=== PATIENT | male | born 1940 | race Caucasian/White ===

== ENCOUNTER 2016-07-02 12:29 | Inpatient (IN) | payer MEDICARE ==
[2016-07-02] MEDS ORDERED: ASPIRIN 81 MG CHEW PO STA (12:49)
[2016-07-02] MEDS ORDERED: SODIUM CHLORIDE 0.9% 1,000 ML IV STA ×2 (12:49)
[2016-07-02] MEDS ORDERED: ACETAMINOPHEN TAB 500 MG TAB PO STA (12:50)
[2016-07-02] MEDS ORDERED: ADENOSINE 3 MG/ML 2 ML VIAL IVP STA (12:54)
[2016-07-02 13:09] LABS: Basophils # (A) 0.1 k/uL (0-0.2); Basophils % (A) 0 %; CH 32.5; CHCM 35.6; Eosinophils # (A) 0.1 k/uL (0-0.7); Eosinophils % (A) 1 %; HCT 42.7 % (39.0-53.0); HDW 2.94; HGB 14.7 gm/dL (13.0-17.5); Luc % (Auto) 1; Lymphocytes # (A) 2.1 k/uL (1.0-4.8); Lymphocytes % (A) 18 %; MCH 31.7 pg (25.0-35.0); MCHC 34.5 g/dL (31.0-37.0); MCV 91.8 fL (80.0-100.0); Mean Platelet Volume 7.6; Monocytes # (A) 0.5 k/uL (0-1.0); Monocytes % (A) 4 %; Neutrophils # (A) 8.8 k/uL (1.3-7.7); Neutrophils % (A) 76 %; RBC 4.66 m/uL (4.30-5.90); RDW 12.9 % (11.5-15.5); WBC 11.6 k/uL (3.8-10.6); WBC (Perox) 12.37
[2016-07-02 13:20] LABS: Partial Thromboplastin Time 24.7 sec (22.0-30.0); Prothrombin Time 10.2 sec (9.0-12.0)
--- NOTE | 2016-07-02 13:20 | XR ---
EXAMINATION TYPE: XR chest 2V DATE OF EXAM: 07/02/2016 1:11 PM COMPARISON: Prior chest x-ray September 16, 2015. HISTORY: Chest pain per order. Cough and fever with sinus drainage per patient TECHNIQUE: Frontal and lateral views of the chest are obtained. FINDINGS: There is no focal air space opacity, pleural effusion, or pneumothorax seen. The cardiac silhouette size is within normal limits with atherosclerotic and ectatic thoracic aorta redemonstrate d. Degenerative change in both shoulders at the glenohumeral and acromioclavicular joints is redemons trated. Multilevel spurring in the spine is again seen. IMPRESSION: No suspicious acute pulmonary process. No significant change from prior.
[2016-07-02 13:26] LABS: ALT 25 U/L (21-72); AST 24 U/L (17-59); Alkaline Phosphatase 63 U/L (38-126); Anion Gap 15 mmol/L; Blood Urea Nitrogen 14 mg/dL (9-20); Calcium 9.8 mg/dL (8.4-10.2); Carbon Dioxide 27 mmol/L (22-30); Chloride 97 mmol/L (98-107); Glucose 165 mg/dL (74-99); Magnesium 1.6 mg/dL (1.6-2.3); Non-African American GFR(MDRD) >60 (>60 ml/min/1.73 sqM); Sodium 139 mmol/L (137-145); Total Bilirubin 1.2 mg/dL (0.2-1.3); Total Protein 9.1 g/dL (6.3-8.2)
[2016-07-02] MEDS ORDERED: BENZOCAINE/MENTHOL LOZENG 1 EACH LOZENGE MUCOUS MEM STA (15:02)
[2016-07-02] MEDS ORDERED: MORPHINE SULFATE 4 MG/ML SYRINGE IV PRN (15:37)
[2016-07-02] MEDS ORDERED: ONDANSETRON 4 MG/2 ML VIAL IVP PRN (15:37)
[2016-07-02] MEDS ORDERED: NALOXONE 0.4 MG/ML 1 ML VIAL IV PRN (15:37)
--- NOTE | 2016-07-02 15:37 | ED ---
General Adult HPI - General Chief complaint: Recheck/Abnormal Lab/Rx Stated complaint: Abnormal EKG Time Seen by Provider: 07/02/16 12:45 Source: patient Mode of arrival: ambulatory Limitations: no limitations - History of Present Illness Initial comments: Patient complains of not feeling very well. He has had a cough, fevers and chills for 2 days. He went to an urgent care today. They found him to have a very elevated heart rate is sent him to the [facility] department. Patient denies any belly or back pain. He has no nausea or vomiting. He has no lightheadedness or dizziness. He has tightness in his chest with no specific exacerbating or relieving factors. He has no pain or swelling the legs. He has had palpitations all day today. He took no medication for any the symptoms. He has no neck pain or stiffness. - Related Data Home Medications Medication Instructions Recorded Confirmed Lisinopril-Hctz 20-12.5 mg 1 tab PO DAILY 07/02/16 07/02/16 [Zestoretic 20-12.5] Allergies Allergy/AdvReac Type Severity Reaction Status Date / Time No Known Allergies Allergy Verified 07/02/16 13:57 Review of Systems ROS Statement: Those systems with pertinent positive or pertinent negative responses have been documented in the HPI. ROS Other: All systems not noted in ROS Statement are negative. Past Medical History Past Medical History: Hypertension, Thyroid Disorder History of Any Multi-Drug Resistant Organisms: None Reported Past Surgical History: Prostate Surgery Past Psychological History: No Psychological Hx Reported Smoking Status: Never smoker Past Alcohol Use History: None Reported Past Drug Use History: None Reported General Exam Limitations: no limitations General appearance: alert, in no apparent distress Head exam: Present: atraumatic, normocephalic, normal inspection Eye exam: Present: normal appearance, PERRL, EOMI. Absent: scleral icterus, conjunctival injection, periorbital swelling ENT exam: Present: normal exam, mucous membranes moist Neck exam: Present: normal inspection. Absent: tenderness, meningismus, lymphadenopathy Respiratory exam: Present: normal lung sounds bilaterally. Absent: respiratory distress, wheezes, rales, rhonchi, stridor Cardiovascular Exam: Present: normal rhythm, tachycardia, normal heart sounds. Absent: systolic murmur, diastolic murmur, rubs, gallop, clicks GI/Abdominal exam: Present: soft, normal bowel sounds. Absent: distended, tenderness, guarding, rebound, rigid Extremities exam: Present: normal inspection, full ROM, normal capillary refill. Absent: tenderness, pedal edema, joint swelling, calf tenderness Back exam: Present: normal inspection Neurological exam: Present: alert, oriented X3, CN II-XII intact Psychiatric exam: Present: normal affect, normal mood Skin exam: Present: warm, dry, intact, normal color. Absent: rash Course Vital Signs 07/02/16 07/02/16 07/02/16 12:36 12:47 13:47 Temperature 99.0 F 101.5 F H Pulse Rate 200 H 124 H 103 H Respiratory 22 18 18 Rate Blood Pressure 148/83 158/105 133/82 O2 Sat by Pulse 98 96 94 L Oximetry 07/02/16 07/02/16 14:59 15:07 Temperature 100.3 F H Pulse Rate 105 H Respiratory 18 Rate Blood Pressure 122/62 O2 Sat by Pulse 95 Oximetry EKG Findings - EKG Comments: EKG Findings:: Initial twelve-lead EKG is obtained, interpreted by me as showing ventricular rate 195 bpm, no P waves are present, normal narrow QRS complexes, interpreted by me as supraventricular tachycardia. Postprocedural twelve-lead EKG is obtained, interpreted by me showing ventricular rate 137 bpm , normal TX interval and Michael complexes, no ST elevation or depression, interpreted by me as sinus tachycardia. Medical Decision Making - Medical Decision Making Patient presents with SVT. He is given 12 mg IV adenosine, which converted him to sinus tachycardia. He is given a gram of Tylenol and 325 mg aspirin by mouth. He is given intravenous fluids. He was febrile initially, however repeat evaluation his heart rate is normal and he is afebrile now. Chest x- rays clear. Laboratory studies are otherwise within normal limits. He will be admitted to the hospital for further evaluation. - Lab Data Result diagrams: 07/02/16 12:56 07/02/16 12:56 Lab Results 07/02/16 07/02/16 07/02/16 Range/Units 12:56 12:56 12:56 WBC 11.6 H (3.8-10.6) k/uL RBC 4.66 (4.30-5.90) m/uL Hgb 14.7 (13.0-17.5) gm/dL Hct 42.7 (39.0-53.0) % MCV 91.8 (80.0-100.0) fL MCH 31.7 (25.0-35.0) pg MCHC 34.5 (31.0-37.0) g/dL RDW 12.9 (11.5-15.5) % Plt Count 208 (150-450) k/uL Neutrophils % 76 % Lymphocytes % 18 % Monocytes % 4 % Eosinophils % 1 % Basophils % 0 % Neutrophils # 8.8 H (1.3-7.7) k/uL Lymphocytes # 2.1 (1.0-4.8) k/uL Monocytes # 0.5 (0-1.0) k/uL Eosinophils # 0.1 (0-0.7) k/uL Basophils # 0.1 (0-0.2) k/uL PT (9.0-12.0) sec INR (<1.1) APTT (22.0-30.0) sec Sodium 139 (137-145) mmol/L Potassium 4.0 (3.5-5.1) mmol/L Chloride 97 L (98-107) mmol/L Carbon Dioxide 27 (22-30) mmol/L Anion Gap 15 mmol/L BUN 14 (9-20) mg/dL Creatinine 0.96 (0.66-1.25) mg/dL Est GFR (MDRD) Af Amer >60 (>60 ml/min/1.73 sqM) Est GFR (MDRD) Non-Af >60 (>60 ml/min/1.73 sqM) Glucose 165 H (74-99) mg/dL Calcium 9.8 (8.4-10.2) mg/dL Magnesium 1.6 (1.6-2.3) mg/dL Total Bilirubin 1.2 (0.2-1.3) mg/dL AST 24 (17-59) U/L ALT 25 (21-72) U/L Alkaline Phosphatase 63 (38-126) U/L Troponin I (0.000-0.034) ng/mL NT-Pro-B Natriuret Pep 177 pg/mL Total Protein 9.1 H (6.3-8.2) g/dL Albumin 4.7 (3.5-5.0) g/dL Lipase 70 (23-300) U/L 07/02/16 07/02/16 Range/Units 12:56 12:56 WBC (3.8-10.6) k/uL RBC (4.30-5.90) m/uL Hgb (13.0-17.5) gm/dL Hct (39.0-53.0) % MCV (80.0-100.0) fL MCH (25.0-35.0) pg MCHC (31.0-37.0) g/dL RDW (11.5-15.5) % Plt Count (150-450) k/uL Neutrophils % % Lymphocytes % % Monocytes % % Eosinophils % % Basophils % % Neutrophils # (1.3-7.7) k/uL Lymphocytes # (1.0-4.8) k/uL Monocytes # (0-1.0) k/uL Eosinophils # (0-0.7) k/uL Basophils # (0-0.2) k/uL PT 10.2 (9.0-12.0) sec INR 1.0 (<1.1) APTT 24.7 (22.0-30.0) sec Sodium (137-145) mmol/L Potassium (3.5-5.1) mmol/L Chloride (98-107) mmol/L Carbon Dioxide (22-30) mmol/L Anion Gap mmol/L BUN (9-20) mg/dL Creatinine (0.66-1.25) mg/dL Est GFR (MDRD) Af Amer (>60 ml/min/1.73 sqM) Est GFR (MDRD) Non-Af (>60 ml/min/1.73 sqM) Glucose (74-99) mg/dL Calcium (8.4-10.2) mg/dL Magnesium (1.6-2.3) mg/dL Total Bilirubin (0.2-1.3) mg/dL AST (17-59) U/L ALT (21-72) U/L Alkaline Phosphatase (38-126) U/L Troponin I <0.012 (0.000-0.034) ng/mL NT-Pro-B Natriuret Pep pg/mL Total Protein (6.3-8.2) g/dL Albumin (3.5-5.0) g/dL Lipase (23-300) U/L Disposition Clinical Impression: SVT (supraventricular tachycardia) Disposition: ADMITTED IP TO THIS HOSP Condition: Fair Time of Disposition: 15:37
[2016-07-02 20:12] LABS: Appearance,Urine Clear (Clear); Bilirubin,Urine Negative (Negative); Glucose,Urine (UA) Negative (Negative); Ketones,Urine Negative (Negative); Leukocyte Esterase,Urine Negative (Negative); Nitrite,Urine Negative (Negative); PH, Urine 7.5 (5.0-8.0); Protein,Urine Negative (Negative); UA Billing (MACRO vs. MICRO) CHEM; Urobilinogen,Urine <2.0 mg/dL (<2.0)
[2016-07-02] MEDS: FAMOTIDINE 20 MG TAB PO SCH (20:25)
[2016-07-02] MEDS: BENZOCAINE/MENTHOL LOZENG 1 EACH LOZENGE MUCOUS MEM PRN (20:25)
[2016-07-03] MEDS: BENZOCAINE/MENTHOL LOZENG 1 EACH LOZENGE MUCOUS MEM PRN ×5 (02:45→18:51)
--- NOTE | 2016-07-03 10:40 | P.CRDCN ---
History of Present Illness Consult date: 07/03/16 Reason for Consult (text): SVT Chief complaint: cough, fever, chills, rapid heart beat History of present illness: This is a pleasant 76-year-old male patient with a history of hypertension and hypothyroidism. Was sent from urgent care to the emergency department after presenting with complaints of cough, fever, chills and rapid heartbeat for 2 days. Upon presentation EKG showed patient to be in SVT was given 12 mg of adenosine and converted to sinus tachycardia. Patient was febrile upon presentation, has been afebrile since admission to the floor. Chest x-ray showed no acute pulmonary process, laboratory values showed a white count 11.6, BUN 14 and creatinine 0.96. Troponins were elevated first set less than 0.012, second and third were elevated at 0.149, 0.171. Per the patient he has no cardiac history, did undergo cardiac catheterization about 30 years ago but has not followed with a dance master since. Upon examination this morning he is resting comfortably in bed, does not appear to be in any acute distress. He continues to complain of a cough. Denies further complaints of fever, chills. Denies any complaints of chest discomfort or shortness of breath, has had no dizziness or lightheadedness. He denies any complaints of syncope or near syncope and has had no edema. Past Medical History Past Medical History: Cancer, Hypertension, Osteoarthritis (OA) Additional Past Medical History / Comment(s): skin cancer,prostate cancer, cataracts History of Any Multi-Drug Resistant Organisms: None Reported Past Surgical History: Heart Catheterization, Hernia Repair, Prostate Surgery Additional Past Surgical History / Comment(s): rt wrist ganglion cysts removed Past Anesthesia/Blood Transfusion Reactions: No Reported Reaction Past Psychological History: No Psychological Hx Reported Smoking Status: Never smoker Past Alcohol Use History: Occasional Past Drug Use History: None Reported - Past Family History Father History Unknown: Yes Mother History Unknown: Yes Medications and Allergies Home Medications Medication Instructions Recorded Confirmed Type Lisinopril-Hctz 20-12.5 mg 1 tab PO DAILY 07/02/16 07/02/16 History [Zestoretic 20-12.5] Allergies Allergy/AdvReac Type Severity Reaction Status Date / Time No Known Allergies Allergy Verified 07/02/16 13:57 Physical Exam Vitals: Vital Signs Temp Pulse Pulse Resp BP BP Pulse Ox 12/30/16 08:00 97.5 F L 84 16 131/72 94 L 07/03/16 04:00 98.8 F 79 16 132/72 93 L 07/03/16 00:00 99.1 F 89 16 137/75 93 L 07/02/16 20:00 97.8 F 94 16 134/75 93 L 07/02/16 17:56 99 F 78 16 121/77 93 L 07/02/16 16:48 99.5 F 98 18 183/75 95 Intake and Output 07/02/16 07/03/16 07/03/16 22:59 06:59 14:59 Output Total 3 Balance -3 Output: Urine 3 Other: Voiding Method Toilet # Voids 0 Weight 97.5 kg PHYSICAL EXAMINATION: HEENT: Head is atraumatic, normocephalic. Pupils equal, round. Neck is supple. There is no elevated jugular venous pressure. HEART EXAMINATION: Heart sounds regular, S1 and S2 normal. No murmur or gallop heard. CHEST EXAMINATION: Lungs are clear to auscultation and precussion. No chest wall tenderness is noted on palpation or with deep breathing. ABDOMEN: Soft, nontender. Bowel sounds are heard. No organomegaly noted. EXTREMITIES: 2+ peripheral pulses with no evidence of peripheral edema and no calf tenderness noted. NEUROLOGIC patient is awake, alert and oriented x3. . Results 07/02/16 12:56 07/02/16 12:56 Cardiac Enzymes 07/02/16 07/03/16 Range/Units 18:29 01:23 Troponin I 0.149 H* 0.171 H* (0.000-0.034) ng/mL Current Medications Generic Name Dose Route Start Last Admin Trade Name Freq PRN Reason Stop Dose Admin Benzocaine/Menthol 1 each 07/02/16 19:46 07/03/16 10:16 Cepacol Lozenge MUCOUS MEM 1 each Q4HR PRN Administration Sore Throat Famotidine 20 mg 07/02/16 21:00 07/02/16 20:25 Pepcid PO 20 mg BID JIMENA Administration Lisinopril/HCTZ 1 each 07/03/16 09:00 Zestoretic 20-12.5 PO DAILY JIMENA Morphine Sulfate 4 mg 07/02/16 15:37 Morphine Sulfate (Inj) IV Q4HR PRN Severe Pain Naloxone HCl 0.2 mg 07/02/16 15:37 Narcan IV Q2M PRN Opioid Reversal Ondansetron HCl 4 mg 07/02/16 15:37 Zofran IVP Q8HR PRN Nausea And Vomiting Intake and Output 07/02/16 07/03/16 07/03/16 22:59 06:59 14:59 Output Total 3 Balance -3 Output: Urine 3 Other: Voiding Method Toilet # Voids 0 Weight 97.5 kg EKG Interpretations (text) SVT, converted to sinus rhythm Assessment and Plan Plan: Assessment and plan #1 SVT #2 fever and chills with cough #3 hypertension #4 questionable thyroid disease From cardiac standpoint, we will obtain a 2-D echo to assess for any wall motion abnormalities. We'll obtain another troponin level to assess trend. We will check the patient's TSH. Further recommendations to follow. LICENSED DISPENSING OPTICIAN note has been reviewed, I agree with a documented findings and plan of care. Patient was seen and examined.
[2016-07-03] MEDS: FAMOTIDINE 20 MG TAB PO SCH ×2 (10:45→20:32)
[2016-07-03] MEDS: LISINOPRIL-HCTZ 20-12.5 MG 1 EACH TAB PO SCH (10:45)
[2016-07-04] MEDS: BENZOCAINE/MENTHOL LOZENG 1 EACH LOZENGE MUCOUS MEM PRN ×3 (00:35→16:11)
[2016-07-04] MEDS: FAMOTIDINE 20 MG TAB PO SCH ×2 (07:54→20:24)
[2016-07-04] MEDS: LISINOPRIL-HCTZ 20-12.5 MG 1 EACH TAB PO SCH (07:54)
[2016-07-04 08:14] VITALS: RESP 18
--- NOTE | 2016-07-04 12:31 | P.PN ---
Subjective Principal diagnosis: SVT Pleasant 76-year-old male patient with a history of hypertension and hypothyroidism. Was sent from urgent care to the emergency department after presenting with complaints of cough, fever, chills and rapid heartbeat for 2 days. Upon presentation EKG showed patient to be in SVT, was given 12 mg of adenosine and converted to sinus tachycardia. Patient was febrile upon presentation, has been afebrile since admission to the floor. Patient underwent echocardiogram yesterday, results pending. Upon examination today, the patient says he's feeling quite a bit better. Denies any fever or chills. Denies any complaints of racing heartbeat, chest discomfort, dizziness, lightheadedness or syncope. He did have one episode around 6:00 last night where he went into SVT that lasted less than a minute and also had one run of nonsustained VT, run of 6. He denies signs or symptoms with arrhythmias. Objective - Vital Signs Vital signs: Vital Signs Temp 97.9 F 07/04/16 08:13 Pulse 87 07/04/16 11:08 Resp 18 07/04/16 11:08 BP 122/80 07/04/16 11:08 Pulse Ox 96 07/04/16 11:08 Intake & Output 07/03/16 07/04/16 07/04/16 18:59 06:59 18:59 Intake Total 180 Balance 180 Intake: Oral 180 Other: # Voids 0 # Bowel Movements 0 - Exam PHYSICAL EXAMINATION: HEENT: Head is atraumatic, normocephalic. Pupils equal, round. Neck is supple. There is no elevated jugular venous pressure. HEART EXAMINATION: Heart sounds regular, S1 and S2 normal. No murmur or gallop heard. CHEST EXAMINATION: Lungs are clear to auscultation and precussion. No chest wall tenderness is noted on palpation or with deep breathing. ABDOMEN: Soft, nontender. Bowel sounds are heard. No organomegaly noted. EXTREMITIES: 2+ peripheral pulses with no evidence of peripheral edema and no calf tenderness noted. NEUROLOGIC patient is awake, alert and oriented x3. . - Labs CBC & Chem 7: 07/02/16 12:56 07/02/16 12:56 Assessment and Plan Plan: Assessment and plan #1 SVT #2 fever and chills with cough #3 hypertension #4 questionable thyroid disease From cardiac standpoint, 2-D echo with Doppler has been done to assess for any wall motion abnormalities. We'll start the patient on a beta chanda. Patient will increase activity. We will monitor the patient for another 24 hours and likely discharge home tomorrow. STRATEGIES ANALYST note has been reviewed, I agree with a documented findings and plan of care. Patient was seen and examined.
--- NOTE | 2016-07-04 12:35 | HP ---
DATE OF ADMISSION: 07/03/2016 CHIEF COMPLAINT: Not feeling well. HISTORY OF PRESENT ILLNESS: This 76-year-old gentleman with a past history of multiple medical problems, including history of hypertension, history of degenerative joint disease, history of cardiac catheterization, not being followed by any primary care physician in the outpatient setting was not feeling well over the past several days. The patient presented to [facility]. The patient also complains of occasional cough also. The patient found to have SVT with heart rate in the 180s. The patient was given and then was converted to sinus tachycardia. The patient admitted to the hospital for further evaluation and treatment. Cardiology evaluation 2-D echo was noted. There is no history of headache, loss of consciousness or seizures. PAST MEDICAL HISTORY: History of hypertension. History of degenerative joint disease. History of prostate cancer. History of cataracts. Cardiac catheterization. Medications prior to admission include home medications are: Zestoretic 20/12.5 mg p.o. daily. ALLERGIES: None. FAMILY HISTORY: No history of heart disease or strokes in the family. SOCIAL HISTORY: Occasional alcohol intake. No history of smoking. REVIEW OF SYSTEMS: ENT: No diminished hearing or vision. CARDIOVASCULAR: As mentioned earlier. RESPIRATORY: As mentioned earlier. GI: Nausea or vomiting. GENITOURINARY: No dysuria. CENTRAL NERVOUS SYSTEM: No numbness, weakness. Allergy/immunology: No asthma. No hayfever. MUSCULOSKELETAL: As mentioned earlier. HEMATOLOGY/ONCOLOGY: No history of anemia. ENDOCRINE: No history of diabetes, hypothyroidism. CONSTITUTIONAL: As mentioned earlier. DERMATOLOGY: Negative. RHEUMATOLOGY: Negative. PSYCHIATRY: As mentioned earlier. PHYSICAL EXAMINATION: Patient is alert and oriented times three. Pulse is 96, blood pressure 154/91. Respiration 16, temperature 98 degrees, pulse ox 94% on room air. HEENT: Conjunctivae normal. NECK: No jugular venous distention. CARDIOVASCULAR: S1, S2 muffled. RESPIRATORY: Breath sounds diminished in the bases. A few scattered rhonchi, no crackles. ABDOMEN: Soft, nontender. LEGS: No edema. No swelling. CENTRAL NERVOUS SYSTEM: Higher functions as mentioned earlier. Moves all four limbs.. No focal deficits. LYMPHATICS: No lymph nodes palpable in the neck, axillae or groin. SKIN: No ulcer, rash or bleeding. LABS: Troponin was 0.171, WBC 11.6. ASSESSMENT: 1. Supraventricular tachycardia for evaluation. 2. Troponin 0.149, rule out acute non-ST segment elevation myocardial infarction. 3. Increased random blood sugar. 4. Increased WBC. 5. Hypertension. 6. History degenerative joint disease. 7. History of skin cancer. 8. History of prostate cancer. 9. History of cataracts. 10. History of hernia repair. 11. History of cardiac catheterization. RECOMMENDATIONS AND DISCUSSION: In this 76-year-old gentleman presented with multiple complex medical issues, we will monitor the patient closely, continue current medications. Continue symptomatic treatment. Otherwise, closely follow with cardiology. Guarded prognosis. Otherwise, will check thyroid function as well. 2-D echo has been ordered. Prognosis guarded. Further recommendations to follow. Also recommend the patient up closely with the primary physician in the outpatient setting. LESLIE
[2016-07-04] MEDS: METOPROLOL TARTRATE 25 MG TAB PO SCH ×2 (12:46→20:24)
[2016-07-04] MEDS: diphenhydrAMINE 25 MG CAP PO PRN ×2 (14:29→22:39)
--- NOTE | 2016-07-04 22:42 | PN ---
DATE OF SERVICE: 07/04/2016 This 76-year-old gentleman who was admitted with supraventricular tachycardia possibly also had upper respiratory infection also. The patient had elevated troponin of indeterminate range. Cardiology is following the patient closely. No chest pain. No palpitation. Beta blockers are recommended by cardiology today. No chest pain. No palpitations. No fever. On exam, alert and oriented times three. Pulse 84 and regular. Blood pressure 190/73, respiratory rate 18, temperature 97.90, pulse ox 92% on room air. HEENT: Conjunctivae normal. NECK: No jugular venous distention. RESPIRATORY: Breath sounds diminished at the base. A few scattered rhonchi, no crackles. ABDOMEN: Soft, nontender. Legs: No edema. No focal deficits. LABS: At this time shows the troponin was 0.171, 0.079. WBC 11.6. Other labs are noted. ASSESSMENT: 1. Supraventricular tachycardia, present on admission. 2. Upper respiratory infection, possibly viral in nature. 3. Troponin 0.149, indeterminate, rule out acute non-ST myocardial infarction. 4. Increased random blood sugar. 5. Increased WBC. 6. Hypertension. 7. History of degenerative joint disease. 8. History of skin cancer. 9. History of prostate cancer. 10. History of cataracts. 11. History of hernia repair. 12. History of cardiac catheterization. 13. FULL CODE. Recommendations and discussion: As recommended continued to continue medications, continue with the beta blockers. Closely follow with cardiology. Symptomatic treatment. Guarded prognosis. Further recommendations to follow.
[2016-07-05] MEDS: LISINOPRIL-HCTZ 20-12.5 MG 1 EACH TAB PO SCH (07:44)
[2016-07-05] MEDS: METOPROLOL TARTRATE 25 MG TAB PO SCH (07:44)
[2016-07-05] MEDS: FAMOTIDINE 20 MG TAB PO SCH (07:44)
[2016-07-05] MEDS: diphenhydrAMINE 25 MG CAP PO PRN (07:45)
[2016-07-05 08:23] LABS: Basophils # (A) 0.1 k/uL (0-0.2); Basophils % (A) 1 %; CH 32.8; CHCM 34.3; Eosinophils # (A) 0.2 k/uL (0-0.7); Eosinophils % (A) 3 %; HCT 42.9 % (39.0-53.0); HDW 2.88; Luc # (Auto) 0.16; Luc % (Auto) 2; Lymphocytes # (A) 2.7 k/uL (1.0-4.8); Lymphocytes % (A) 32 %; MCH 31.4 pg (25.0-35.0); MCHC 32.6 g/dL (31.0-37.0); MCV 96.4 fL (80.0-100.0); Mean Platelet Volume 7.7; Monocytes # (A) 0.4 k/uL (0-1.0); Monocytes % (A) 5 %; Neutrophils # (A) 4.9 k/uL (1.3-7.7); Neutrophils % (A) 58 %; RBC 4.45 m/uL (4.30-5.90); RDW 13.1 % (11.5-15.5); WBC 8.4 k/uL (3.8-10.6); WBC (Perox) 7.85
[2016-07-05 08:44] LABS: Anion Gap 16 mmol/L; Blood Urea Nitrogen 17 mg/dL (9-20); Calcium 9.4 mg/dL (8.4-10.2); Carbon Dioxide 25 mmol/L (22-30); Chloride 100 mmol/L (98-107); Glucose 228 mg/dL (74-99); Non-African American GFR(MDRD) >60 (>60 ml/min/1.73 sqM); Potassium 3.9 mmol/L (3.5-5.1); Sodium 141 mmol/L (137-145)
[2016-07-05 12:02] VITALS: BP 141/72; PULSE 80; TEMP 97.3
[2016-07-05] MEDS: BENZOCAINE/MENTHOL LOZENG 1 EACH LOZENGE MUCOUS MEM PRN (13:16)
[2016-07-05] MEDS ORDERED: METOPROLOL TARTRATE 25 MG TAB PO SCH (16:00)
--- NOTE | 2016-07-05 16:16 | PN ---
Mr. Rick is a 76-year-old male who presented with symptoms of fever, cough and episode of supraventricular tachycardia. He is in sinus mechanism with short burst of SVT. Otherwise, he is doing well. He is denying any chest pain. His breathing has been stable. He denies any dizziness or palpitation. He is ambulating and is quite anxious to go home. He continues to be at this time on metoprolol tartrate 25 mg twice a day in addition to lisinopril HCT 20/12.5 mg daily. PHYSICAL EXAMINATION: Blood pressure 130/70 with a heart rate in the 60s, afebrile. LUNGS: Clear. HEART: Rhythm. S1, S2, no S3, no rub. ABDOMEN: Soft, nontender. EXTREMITIES: No edema. Lab data revealed a BUN and creatinine 17 and 1.06. Glucose 228. Potassium 3.9. Hemoglobin of 14. IMPRESSION: 1. Episode of paroxysmal supraventricular tachycardia, stable. 2. Episode of fever, improving. 3. Hypertension. RECOMMENDATION: I will increase the dose of his beta chanda. His activity level can be increased. He should be able to be discharged home today and follow as an outpatient with Dr. Rodriguez.
--- NOTE | 2016-07-07 16:20 | ECHOF ---
Referral Reason:SVT, elevated troponins MEASUREMENTS -------- HEIGHT: 180.3 cm WEIGHT: 97.1 kg BP: 131/72 RVIDd: 3.4 cm (< 3.3) IVSd: 1.4 cm (0.6 - 1.1) LVIDd: 3.9 cm (3.9 - 5.3) LVPWd: 1.3 cm (0.6 - 1.1) IVSs: 1.5 cm LVIDs: 2.8 cm LVPWs: 1.4 cm LA Diam: 2.9 cm (2.7 - 3.8) LAESV Index (A-L): 33.71 ml/m Ao Diam: 4.0 cm (2.0 - 3.7) AV Cusp: 2.1 cm (1.5 - 2.6) MV EXCURSION: 13.883 mm (> 18.000) MV EF SLOPE: 71 mm/s (70 - 150) EPSS: 1.0 cm MV E Smith: 0.68 m/s MV DecT: 273 ms MV A Smith: 1.00 m/s MV E/A Ratio: 0.68 FINDINGS -------- Sinus rhythm. This was a technically adequate study. The left ventricular size is normal. There is moderate concentric left ventricular hypertrophy. Overall left ventricular systolic function is normal with, an EF between 60 - 65 %. The right ventricle is mildly enlarged. LA is midly dilated 29-33ml/m2. The right atrium is normal in size. Aortic valve is trileaflet and is mildly thickened. The mitral valve leaflets are mildly thickened. Mild mitral annular calcification present. The tricuspid valve appears structurally normal. No regurgitation noted Trace/mild (physiologic) pulmonic regurgitation. The aortic root is dilated measuring 4.0cm. There is no pericardial effusion. CONCLUSIONS -------- 1. Sinus rhythm. 2. The mitral valve leaflets are mildly thickened. 3. Mild mitral annular calcification present. 4. Trace/mild (physiologic) pulmonic regurgitation. 5. The aortic root is dilated measuring 4.0cm. 6. There is no pericardial effusion. 7. This was a technically adequate study. 8. The left ventricular size is normal. 9. There is moderate concentric left ventricular hypertrophy. 10. Overall left ventricular systolic function is normal with, an EF between 60 - 65 %. 11. The right ventricle is mildly enlarged. 12. LA is midly dilated 29-33ml/m2. 13. The right atrium is normal in size. 14. Aortic valve is trileaflet and is mildly thickened. CHEESE COOKER: Gail Bhatt RDCS
--- NOTE | 2016-07-08 16:42 | DS ---
DATE OF ADMISSION: 07/04/2016 DATE OF DISCHARGE: 07/05/2016 FINAL DIAGNOSES: 1. Supraventricular tachycardia present on admission, improved. 2. Upper respiratory infection possibly viral in nature. 3. Troponin 0.149, indeterminate per Cardiology. 4. Increased random blood sugar. 5. Increased WBC. 6. Hypertension. 7. History of degenerative joint disease. 8. History of skin cancer. 9. History of prostate cancer. 10. History of cataracts. 11. History of hernia repair. 12. History of cardiac catheterization. 13. FULL CODE. DISCHARGE DISPOSITION: The patient will be discharged in stable condition with guarded prognosis. Cardiology cleared the patient for discharge. Stable but overall prognosis is guarded. HISTORY OF PRESENT ILLNESS: This 76-year-old gentleman with a past medical history of multiple medical problems was admitted with supraventricular and as well as upper respiratory infection. Troponin was indeterminate. Cardiology saw the patient, treated symptomatically and improved. Beta blockers used. On exam, vitals are stable. CARDIOVASCULAR SYSTEM: S1, S2 muffled. ABDOMEN: Soft. NERVOUS SYSTEM: No focal deficits. The patient will be discharged in stable condition with guarded prognosis. DISCHARGE ADVICE: 1. Diet is cardiac. 2. Activity limited until follow-up. 3. Follow up with Dr. Vicente in 2 to 3 days. 4. Follow with Cardiology in one week. MEDICATIONS: 1. Lisinopril hydrochlorothiazide 20/12.5 mg p.o. daily. 2. Lopressor 25 mg p.o. t.i.d. Follow-up labs with the primary. Once again the patient will be discharged in stable condition with guarded prognosis.
== END 2016-07-05 14:17 | disposition home or self-care (01) | DRG 310 ==
LOC: EC 12:29 → 6SEL 15:37 → OBSVTOIN 07-04 08:40
PROVIDERS: ADMIT Internal Medicine; ATTEND Internal Medicine
DX: I47.1 Supraventricular tachycardia (principal); I47.2 Ventricular tachycardia; I10 Essential (primary) hypertension; E03.9 Hypothyroidism, unspecified; J06.9 Acute upper respiratory infection, unspecified; M19.90 Unspecified osteoarthritis, unspecified site; H26.9 Unspecified cataract; R74.8 Abnormal levels of other serum enzymes; R73.9 Hyperglycemia, unspecified; D72.829 Elevated white blood cell count, unspecified; Z85.46 Personal history of malignant neoplasm of prostate; Z85.828 Personal history of other malignant neoplasm of skin; Z79.899 Other long term (current) drug therapy
CPT/HCPCS: 36415; 71020; 80048; 80053; 81003; 83690; 83735; 83880; 84443; 84484; 85025; 85379; 85610; 85730; 87502; 93005; 93306; 96361; 96374; 99285

== ENCOUNTER 2016-12-21 14:37 | Inpatient (IN) | payer OTHER, MEDICARE ==
[2016-12-21] MEDS ORDERED: SODIUM CHLORIDE 0.9% 1,000 ML IV STA ×2 (15:04)
[2016-12-21] MEDS ORDERED: DILTIAZEM 5 MG/ML 5 ML VIAL IVP STA (15:04)
--- NOTE | 2016-12-21 15:05 | ED ---
General Adult HPI - General Chief complaint: Recheck/Abnormal Lab/Rx Stated complaint: Dr Sent/Abd Lab/Heart Time Seen by Provider: 12/21/16 15:04 Source: patient, RN notes reviewed, old records reviewed Mode of arrival: ambulatory Limitations: no limitations - History of Present Illness Initial comments: This is a 76-year-old male the ER for evaluation. Patient has a for evaluation of arrhythmia. Patient found to be severely tachycardic. Has history of high blood pressure, history of thyroid disorder. Patient has no fever, no chest pain no cough or congestion. No change in medications denies drugs or alcohol. No prior history of A. fib. No recent hospital admissions no travel history no sick contacts. No recent episodes of nausea vomiting or diarrhea - Related Data Home Medications Medication Instructions Recorded Confirmed Lisinopril-Hctz 20-12.5 mg 1 tab PO DAILY 07/02/16 12/21/16 [Zestoretic 20-12.5] Aspirin EC [Ecotrin Low Dose] 81 mg PO DAILY 12/21/16 12/21/16 Levothyroxine Sodium [Synthroid] 125 mcg PO DAILY 12/21/16 12/21/16 Allergies Allergy/AdvReac Type Severity Reaction Status Date / Time No Known Allergies Allergy Verified 12/21/16 15:37 Review of Systems ROS Statement: Those systems with pertinent positive or pertinent negative responses have been documented in the HPI. ROS Other: All systems not noted in ROS Statement are negative. Past Medical History Past Medical History: Cancer, Hypertension, Osteoarthritis (OA) Additional Past Medical History / Comment(s): skin cancer,prostate cancer, cataracts History of Any Multi-Drug Resistant Organisms: None Reported Past Surgical History: Heart Catheterization, Hernia Repair, Prostate Surgery Additional Past Surgical History / Comment(s): rt wrist ganglion cysts removed Past Anesthesia/Blood Transfusion Reactions: No Reported Reaction Past Psychological History: No Psychological Hx Reported Smoking Status: Never smoker Past Alcohol Use History: Occasional Past Drug Use History: None Reported - Past Family History Father History Unknown: Yes Mother History Unknown: Yes General Exam Limitations: no limitations General appearance: alert, in no apparent distress, anxious Head exam: Present: atraumatic, normocephalic, normal inspection Eye exam: Present: normal appearance, PERRL, EOMI. Absent: scleral icterus, conjunctival injection, periorbital swelling ENT exam: Present: normal exam, mucous membranes moist Neck exam: Present: normal inspection. Absent: tenderness, meningismus, lymphadenopathy Respiratory exam: Present: normal lung sounds bilaterally. Absent: respiratory distress, wheezes, rales, rhonchi, stridor Cardiovascular Exam: Present: tachycardia, irregular rhythm, normal heart sounds. Absent: systolic murmur, diastolic murmur, rubs, gallop, clicks GI/Abdominal exam: Present: soft, normal bowel sounds. Absent: distended, tenderness, guarding, rebound, rigid Extremities exam: Present: normal inspection, full ROM, normal capillary refill. Absent: tenderness, pedal edema, joint swelling, calf tenderness Back exam: Present: normal inspection Neurological exam: Present: alert, oriented X3, CN II-XII intact Psychiatric exam: Present: normal affect, normal mood Skin exam: Present: warm, dry, intact, normal color. 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 fib with RVR to A. fib, blood pressure stable, and Cardizem Reevaluation #2: 12/21/16 16:24 On recheck patient has no chest pain, no shortness of breath. Patient states was relatively symptomatically exam and was found to be an abnormal rhythm per physician at [place] EKG Findings - EKG Comments: EKG Findings:: EKG shows SVT rate of 137, QRS 160, QTC 446,. repeat. EKG shows A. fib rate of 92, QRS 124, QTC 470 Medical Decision Making - Medical Decision Making [facility] for evaluation regarding weakness, elevated heart rate. Severely elevated heart rate sent from [place] for evaluation. Patient found him to be a new onset A. fib with RVR. Patient does have history of high blood pressure, will be started on anticoagulation admitted for cardiac observation. We'll check serial troponins. Again at this time patient is without chest pain , without source of breath. Patient's heart is uncontrollable still in A. fib on Cardizem drip - Lab Data Result diagrams: 12/21/16 15:15 12/21/16 15:15 Lab Results 12/21/16 12/21/16 12/21/16 Range/Units 15:15 15:15 15:15 WBC 9.7 (3.8-10.6) k/uL RBC 4.39 (4.30-5.90) m/uL Hgb 13.7 (13.0-17.5) gm/dL Hct 41.4 (39.0-53.0) % MCV 94.3 (80.0-100.0) fL MCH 31.2 (25.0-35.0) pg MCHC 33.1 (31.0-37.0) g/dL RDW 13.9 (11.5-15.5) % Plt Count 279 (150-450) k/uL Neutrophils % 51 % Lymphocytes % 42 % Monocytes % 3 % Eosinophils % 1 % Basophils % 1 % Neutrophils # 4.9 (1.3-7.7) k/uL Lymphocytes # 4.1 (1.0-4.8) k/uL Monocytes # 0.3 (0-1.0) k/uL Eosinophils # 0.1 (0-0.7) k/uL Basophils # 0.0 (0-0.2) k/uL PT (9.0-12.0) sec INR (<1.1) APTT (22.0-30.0) sec Sodium 139 (137-145) mmol/L Potassium 4.2 (3.5-5.1) mmol/L Chloride 104 (98-107) mmol/L Carbon Dioxide 21 L (22-30) mmol/L Anion Gap 14 mmol/L BUN 13 (9-20) mg/dL Creatinine 0.88 (0.66-1.25) mg/dL Est GFR (MDRD) Af Amer >60 (>60 ml/min/1.73 sqM) Est GFR (MDRD) Non-Af >60 (>60 ml/min/1.73 sqM) Glucose 171 H (74-99) mg/dL Calcium 9.6 (8.4-10.2) mg/dL Magnesium 1.7 (1.6-2.3) mg/dL Total Bilirubin 0.9 (0.2-1.3) mg/dL AST 25 (17-59) U/L ALT 22 (21-72) U/L Alkaline Phosphatase 69 (38-126) U/L Total Creatine Kinase 128 (55-170) U/L CK-MB (CK-2) 1.3 (0.0-2.4) ng/mL CK-MB (CK-2) Rel Index 1.0 Troponin I 0.033 (0.000-0.034) ng/mL Total Protein 9.9 H (6.3-8.2) g/dL Albumin 4.3 (3.5-5.0) g/dL 12/21/16 Range/Units 15:15 WBC (3.8-10.6) k/uL RBC (4.30-5.90) m/uL Hgb (13.0-17.5) gm/dL Hct (39.0-53.0) % MCV (80.0-100.0) fL MCH (25.0-35.0) pg MCHC (31.0-37.0) g/dL RDW (11.5-15.5) % Plt Count (150-450) k/uL Neutrophils % % Lymphocytes % % Monocytes % % Eosinophils % % Basophils % % Neutrophils # (1.3-7.7) k/uL Lymphocytes # (1.0-4.8) k/uL Monocytes # (0-1.0) k/uL Eosinophils # (0-0.7) k/uL Basophils # (0-0.2) k/uL PT 10.3 (9.0-12.0) sec INR 1.0 (<1.1) APTT 22.3 (22.0-30.0) sec Sodium (137-145) mmol/L Potassium (3.5-5.1) mmol/L Chloride (98-107) mmol/L Carbon Dioxide (22-30) mmol/L Anion Gap mmol/L BUN (9-20) mg/dL Creatinine (0.66-1.25) mg/dL Est GFR (MDRD) Af Amer (>60 ml/min/1.73 sqM) Est GFR (MDRD) Non-Af (>60 ml/min/1.73 sqM) Glucose (74-99) mg/dL Calcium (8.4-10.2) mg/dL Magnesium (1.6-2.3) mg/dL Total Bilirubin (0.2-1.3) mg/dL AST (17-59) U/L ALT (21-72) U/L Alkaline Phosphatase (38-126) U/L Total Creatine Kinase (55-170) U/L CK-MB (CK-2) (0.0-2.4) ng/mL CK-MB (CK-2) Rel Index Troponin I (0.000-0.034) ng/mL Total Protein (6.3-8.2) g/dL Albumin (3.5-5.0) g/dL - Radiology Data Radiology results: report reviewed (Chest x-ray is negative for acute disease), image reviewed Critical Care Time Critical Care Time: Yes Total Critical Care Time: 31 Disposition Clinical Impression: SVT (supraventricular tachycardia), Atrial fibrillation, Atrial fibrillation with RVR Disposition: ADMITTED IP TO THIS HOSP Condition: Good Referrals: Homar Nolasco DO [Primary Care Provider] - 1-2 days
[2016-12-21] MEDS ORDERED: DILTIAZEM 125 MG in SODIUM CHLORIDE 0.9% 100 ML IV SCH (15:15)
[2016-12-21 15:33] LABS: Basophils % (A) 1 %; CH 31.7; CHCM 33.9; Eosinophils # (A) 0.1 k/uL (0-0.7); Eosinophils % (A) 1 %; HCT 41.4 % (39.0-53.0); HGB 13.7 gm/dL (13.0-17.5); Luc # (Auto) 0.17; Luc % (Auto) 2; Lymphocytes # (A) 4.1 k/uL (1.0-4.8); Lymphocytes % (A) 42 %; MCH 31.2 pg (25.0-35.0); MCHC 33.1 g/dL (31.0-37.0); MCV 94.3 fL (80.0-100.0); Mean Platelet Volume 6.9; Monocytes # (A) 0.3 k/uL (0-1.0); Monocytes % (A) 3 %; Neutrophils # (A) 4.9 k/uL (1.3-7.7); Neutrophils % (A) 51 %; RBC 4.39 m/uL (4.30-5.90); RDW 13.9 % (11.5-15.5); WBC 9.7 k/uL (3.8-10.6); WBC (Perox) 9.28
[2016-12-21 15:43] LABS: Partial Thromboplastin Time 22.3 sec (22.0-30.0); Prothrombin Time 10.3 sec (9.0-12.0)
[2016-12-21 15:44] LABS: ALT 22 U/L (21-72); AST 25 U/L (17-59); Alkaline Phosphatase 69 U/L (38-126); Anion Gap 14 mmol/L; Blood Urea Nitrogen 13 mg/dL (9-20); Calcium 9.6 mg/dL (8.4-10.2); Carbon Dioxide 21 mmol/L (22-30); Chloride 104 mmol/L (98-107); Glucose 171 mg/dL (74-99); Magnesium 1.7 mg/dL (1.6-2.3); Non-African American GFR(MDRD) >60 (>60 ml/min/1.73 sqM); Potassium 4.2 mmol/L (3.5-5.1); Sodium 139 mmol/L (137-145); Total Bilirubin 0.9 mg/dL (0.2-1.3); Total Protein 9.9 g/dL (6.3-8.2)
[2016-12-21 16:01] LABS: Creatine Kinase MB 1.3 ng/mL (0.0-2.4); Troponin I 0.033 ng/mL (0.000-0.034)
[2016-12-21] MEDS ORDERED: HEPARIN SODIUM,PORCINE 5,000 UNIT/ML 1 ML VIAL IV ONE (16:20)
[2016-12-21] MEDS ORDERED: HEPARIN SODIUM,PORCINE 5,000 UNIT/ML 1 ML VIAL IV PRN (16:20)
[2016-12-21] MEDS ORDERED: ASPIRIN 81 MG CHEW PO STA (16:20)
[2016-12-21] MEDS ORDERED: NITROGLYCERIN SL TABS 0.4 MG TAB SUBLINGUAL PRN (16:20)
[2016-12-21] MEDS ORDERED: HEPARIN SODIUM,PORCINE/D5W PMX 25,000 UNIT in DEXTROSE/WATER 1 500ML.BAG IV SCH (16:30)
[2016-12-21] MEDS: LISINOPRIL-HCTZ 10-12.5 MG 1 EACH TAB PO SCH (20:34)
[2016-12-21 22:12] LABS: Creatine Kinase MB 1.2 ng/mL (0.0-2.4)
[2016-12-21 22:15] LABS: Troponin I 0.04 ng/mL (0.000-0.034)
[2016-12-22 04:27] LABS: Creatine Kinase MB 1.3 ng/mL (0.0-2.4)
[2016-12-22 04:31] LABS: Troponin I 0.042 ng/mL (0.000-0.034)
[2016-12-22] MEDS ORDERED: LEVOTHYROXINE 125 MCG TAB PO SCH (06:30)
[2016-12-22 06:42] LABS: Cholesterol 196 mg/dL (<200); HDL Cholesterol 22 mg/dL (40-60); Triglycerides 173 mg/dL (<150)
[2016-12-22] MEDS: ATORVASTATIN 80 MG TAB PO SCH (07:51)
[2016-12-22] MEDS: LISINOPRIL-HCTZ 10-12.5 MG 1 EACH TAB PO SCH (07:51)
[2016-12-22] MEDS ORDERED: ASPIRIN 325 MG TAB PO SCH (09:00)
--- NOTE | 2016-12-22 12:31 | P.PN ---
Subjective Principal diagnosis: SVT This is a pleasant 76-year-old gentleman with history of hypothyroidism, hypertension, prior episode of SVT, who states that he had ran out of his medications. He went to see his physician at the [place] to get his prescriptions refilled, while he was there was noted that his heart rate was very fast and for this reason he was advised to come to the emergency room here for admission. On admission here patient was found to be in SVT, he was given adenosine, converted to a sinus tachycardia. Patient states that he did not feel his heart racing fast, he had denied any dizziness or lightheadedness. Patient was seen by Dr. Rodriguez in the hospital in June 2016 at which time he also had an episode of supraventricular tachycardia. 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 Blood pressure on arrival here 182/116, heart rate 180, 97% on room air. Temperature was 99. Let pressure this morning 120/70, heart rate in the 70s, temperature 97.0. CBC normal. Potassium 4.2, BUN 13, creatinine 0.8. Troponin 0.03, 0.04, 0.04. Cholesterol 196, triglycerides 173, LDL 139, HDL 22. At the time my examination this morning, patient is currently in a normal sinus rhythm. Objective - Vital Signs Vital signs: Vital Signs Temp 97.0 F L 12/22/16 11:37 Pulse 74 12/22/16 11:37 Resp 18 12/22/16 11:37 BP 121/71 12/22/16 11:37 Pulse Ox 98 12/22/16 11:37 Intake & Output 12/21/16 12/22/16 12/22/16 18:59 06:59 18:59 Intake Total 180 380.333 582.393 Output Total 350 Balance 180 380.333 232.393 Weight 113.398 kg 98.6 kg Intake: IV 205 300 .9 @20 240 Diltiazem 125 mg In 45 60 Sodium Chloride 0.9% 100 ml @ 5 MG/HR 5 mls/hr IV .Q24H [facility] Rx#:[id number] Heparin Sodium,Porcine/ 160 D5w Pmx 25,000 unit In Dextrose/Water 1 500ml. bag @ 8.82 UNITS/KG/HR 20 mls/hr IV .Q24H [facility] Rx#: [id number] Intake, IV Titration 175.333 282.393 Amount Heparin Sodium,Porcine/ 175.333 282.393 D5w Pmx 25,000 unit In Dextrose/Water 1 500ml. bag @ 8.82 UNITS/KG/HR 20 mls/hr IV .Q24H [facility] Rx#: [id number] Oral 180 0 Output: Urine 350 Other: Voiding Method Toilet Toilet Toilet # Voids 1 1 - Labs CBC & Chem 7: 12/22/16 05:52 12/21/16 15:15 Labs: Abnormal Lab Results - Last 24 Hours (Table) 12/21/16 12/21/16 12/22/16 Range/Units 15:15 20:56 03:05 APTT (22.0-30.0) sec Carbon Dioxide 21 L (22-30) mmol/L Glucose 171 H (74-99) mg/dL Troponin I 0.040 H* 0.042 H* (0.000-0.034) ng/mL Total Protein 9.9 H (6.3-8.2) g/dL Triglycerides (<150) mg/dL LDL Cholesterol, Calc (0-99) mg/dL HDL Cholesterol (40-60) mg/dL 12/22/16 12/22/16 Range/Units 05:52 10:53 APTT 33.6 H (22.0-30.0) sec Carbon Dioxide (22-30) mmol/L Glucose (74-99) mg/dL Troponin I (0.000-0.034) ng/mL Total Protein (6.3-8.2) g/dL Triglycerides 173 H (<150) mg/dL LDL Cholesterol, Calc 139 H (0-99) mg/dL HDL Cholesterol 22 L (40-60) mg/dL
--- NOTE | 2016-12-22 12:46 | P.CRDCN ---
History of Present Illness Consult date: 12/22/16 Requesting physician: Jose M Urena Reason for Consult (text): SVT Chief complaint: SVT History of present illness: SVT This is a pleasant 76-year-old gentleman with history of hypothyroidism, hypertension, prior episode of SVT, who states that he had ran out of his medications. He went to see his physician at the [place] to get his prescriptions refilled, while he was there was noted that his heart rate was very fast and for this reason he was advised to come to the emergency room here for admission. On admission here patient was found to be in SVT, he was given adenosine, converted to a sinus tachycardia. Patient states that he did not feel his heart racing fast, he had denied any dizziness or lightheadedness. Patient was seen by Dr. Rodriguez in the hospital in June 2016 at which time he also had an episode of supraventricular tachycardia. 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 Blood pressure on arrival here 182/116, heart rate 180, 97% on room air. Temperature was 99. Let pressure this morning 120/70, heart rate in the 70s, temperature 97.0. CBC normal. Potassium 4.2, BUN 13, creatinine 0.8. Troponin 0.03, 0.04, 0.04. Cholesterol 196, triglycerides 173, LDL 139, HDL 22. At the time my examination this morning, patient is currently in a normal sinus rhythm. Past Medical History Past Medical History: Cancer, Hypertension, Osteoarthritis (OA) Additional Past Medical History / Comment(s): skin cancer,prostate cancer, cataracts History of Any Multi-Drug Resistant Organisms: None Reported Past Surgical History: Heart Catheterization, Hernia Repair, Prostate Surgery Additional Past Surgical History / Comment(s): rt wrist ganglion cysts removed Past Anesthesia/Blood Transfusion Reactions: No Reported Reaction Past Psychological History: No Psychological Hx Reported Smoking Status: Never smoker Past Alcohol Use History: Occasional Past Drug Use History: None Reported - Past Family History Father History Unknown: Yes Mother History Unknown: Yes Medications and Allergies Home Medications Medication Instructions Recorded Confirmed Type Lisinopril-Hctz 20-12.5 mg 1 tab PO DAILY 07/02/16 12/21/16 History [Zestoretic 20-12.5] Aspirin EC [Ecotrin Low Dose] 81 mg PO DAILY 12/21/16 12/21/16 History Levothyroxine Sodium [Synthroid] 125 mcg PO DAILY 12/21/16 12/21/16 History Allergies Allergy/AdvReac Type Severity Reaction Status Date / Time No Known Allergies Allergy Verified 12/21/16 15:37 Physical Exam Vitals: Vital Signs Temp Pulse Pulse Resp BP BP Pulse Ox 12/22/16 11:37 97.0 F L 74 18 121/71 98 12/22/16 07:53 97.0 F L 77 18 152/71 97 12/22/16 07:34 72 20 12/22/16 04:00 97.8 F 72 18 129/67 94 L 12/22/16 00:00 97.7 F 86 20 130/80 94 L 12/21/16 20:00 98.4 F 84 20 159/90 94 L 12/21/16 18:10 97.6 F 93 20 171/104 96 12/21/16 18:08 128 H 17 12/21/16 17:58 97.7 F 87 17 157/89 99 12/21/16 16:59 97.6 F 85 16 163/93 98 12/21/16 16:43 97.6 F 128 H 22 171/104 96 12/21/16 15:18 99 18 153/86 99 12/21/16 15:10 180 H 12/21/16 14:59 99.0 F 180 H 18 182/116 97 Intake and Output 12/21/16 12/22/16 12/22/16 22:59 06:59 14:59 Intake Total 180 380.333 582.393 Output Total 350 Balance 180 380.333 232.393 Intake: IV 205 300 .9 @20 240 Diltiazem 125 mg In 45 60 Sodium Chloride 0.9% 100 ml @ 5 MG/HR 5 mls/hr IV .Q24H [facility] Rx#:[id number] Heparin Sodium,Porcine/ 160 D5w Pmx 25,000 unit In Dextrose/Water 1 500ml. bag @ 8.82 UNITS/KG/HR 20 mls/hr IV .Q24H [facility] Rx#: [id number] Intake, IV Titration 175.333 282.393 Amount Heparin Sodium,Porcine/ 175.333 282.393 D5w Pmx 25,000 unit In Dextrose/Water 1 500ml. bag @ 8.82 UNITS/KG/HR 20 mls/hr IV .Q24H [facility] Rx#: [id number] Oral 180 0 Output: Urine 350 Other: Voiding Method Toilet Toilet Toilet # Voids 1 1 1 Weight 113.398 kg 98.6 kg PHYSICAL EXAMINATION: HEENT: Head is atraumatic, normocephalic. Pupils equal, round. Neck is supple. There is no elevated jugular venous pressure. HEART EXAMINATION: Heart S1, S2 normal. No murmur or gallop heard. CHEST EXAMINATION: Lungs are clear to auscultation and precussion. No chest wall tenderness is noted on palpation or with deep breathing. ABDOMEN: Soft, nontender. Bowel sounds are heard. No organomegaly noted. EXTREMITIES: 2+ peripheral pulses with no evidence of peripheral edema and no calf tenderness noted. NEUROLOGIC patient is awake, alert and oriented -3. . Results 12/22/16 05:52 12/21/16 15:15 Cardiac Enzymes 12/21/16 12/21/16 12/21/16 Range/Units 15:15 15:15 20:56 AST 25 (17-59) U/L CK-MB (CK-2) 1.3 1.2 (0.0-2.4) ng/mL Troponin I 0.033 0.040 H* (0.000-0.034) ng/mL 12/22/16 Range/Units 03:05 AST (17-59) U/L CK-MB (CK-2) 1.3 (0.0-2.4) ng/mL Troponin I 0.042 H* (0.000-0.034) ng/mL Coagulation 12/21/16 12/21/16 12/22/16 Range/Units 15:15 23:32 05:52 PT 10.3 (9.0-12.0) sec APTT 22.3 25.6 27.1 (22.0-30.0) sec 12/22/16 Range/Units 10:53 PT (9.0-12.0) sec APTT 33.6 H (22.0-30.0) sec Lipids 12/22/16 Range/Units 05:52 Triglycerides 173 H (<150) mg/dL Cholesterol 196 (<200) mg/dL HDL Cholesterol 22 L (40-60) mg/dL CBC 12/21/16 12/22/16 Range/Units 15:15 05:52 WBC 9.7 (3.8-10.6) k/uL RBC 4.39 (4.30-5.90) m/uL Hgb 13.7 (13.0-17.5) gm/dL Hct 41.4 (39.0-53.0) % Plt Count 279 243 (150-450) k/uL Comprehensive Metabolic Panel 12/21/16 Range/Units 15:15 Sodium 139 (137-145) mmol/L Potassium 4.2 (3.5-5.1) mmol/L Chloride 104 (98-107) mmol/L Carbon Dioxide 21 L (22-30) mmol/L BUN 13 (9-20) mg/dL Creatinine 0.88 (0.66-1.25) mg/dL Glucose 171 H (74-99) mg/dL Calcium 9.6 (8.4-10.2) mg/dL AST 25 (17-59) U/L ALT 22 (21-72) U/L Alkaline Phosphatase 69 (38-126) U/L Total Protein 9.9 H (6.3-8.2) g/dL Albumin 4.3 (3.5-5.0) g/dL Current Medications Generic Name Dose Route Start Last Admin Trade Name Freq PRN Reason Stop Dose Admin Aspirin 325 mg 12/22/16 09:00 12/22/16 07:51 Aspirin PO 325 mg DAILY [facility] Administration Atorvastatin Calcium 80 mg 12/22/16 09:00 12/22/16 07:51 Lipitor PO 80 mg DAILY [facility] Administration Lisinopril/HCTZ 1 each 12/21/16 19:00 12/22/16 07:51 Zestoretic 10-12.5 PO 1 each DAILY [facility] Administration Heparin Sodium (Porcine) 0 unit 12/21/16 16:20 Heparin IV Q6HR PRN Low PTT Protocol Diltiazem HCl 125 mg/ Sodium 125 mls @ 5 mls/hr 12/21/16 15:15 12/21/16 15:23 Chloride IV 5 mg/hr .Q24H [facility] 5 mls/hr 5 MG/HR Administration Heparin Sodium/Dextrose 25,000 500 mls @ 20 mls/hr 12/21/16 16:30 12/22/16 11 :36 unit/ IV Solution IV 17.82 units/kg/hr .Q24H [facility] 40.41 mls/hr Protocol Titration 8.82 UNITS/KG/HR Levothyroxine Sodium 125 mcg 12/22/16 06:30 12/22/16 06:20 Synthroid PO 125 mcg DAILY@0630 [facility] Administration Nitroglycerin 0.4 mg 12/21/16 16:20 Nitrostat SUBLINGUAL Q5M PRN Chest Pain Intake and Output 12/21/16 12/22/16 12/22/16 22:59 06:59 14:59 Intake Total 180 380.333 582.393 Output Total 350 Balance 180 380.333 232.393 Intake: IV 205 300 .9 @20 240 Diltiazem 125 mg In 45 60 Sodium Chloride 0.9% 100 ml @ 5 MG/HR 5 mls/hr IV .Q24H [facility] Rx#:[id number] Heparin Sodium,Porcine/ 160 D5w Pmx 25,000 unit In Dextrose/Water 1 500ml. bag @ 8.82 UNITS/KG/HR 20 mls/hr IV .Q24H [facility] Rx#: [id number] Intake, IV Titration 175.333 282.393 Amount Heparin Sodium,Porcine/ 175.333 282.393 D5w Pmx 25,000 unit In Dextrose/Water 1 500ml. bag @ 8.82 UNITS/KG/HR 20 mls/hr IV .Q24H [facility] Rx#: [id number] Oral 180 0 Output: Urine 350 Other: Voiding Method Toilet Toilet Toilet # Voids 1 1 1 Weight 113.398 kg 98.6 kg 12/22/16 05:52 12/21/16 15:15 EKG Interpretations (text) EKG on admission showed a supraventricular tachycardia with a heart rate in the 180s. Assessment and Plan Plan: Assessment and plan #1 SVT, patient was given adenosine, currently in normal sinus rhythm. #2 hypertension #3 hypothyroid #4 abnormal troponin, likely secondary to oxygen supply and demand mismatch. Plan We we will repeat an echocardiogram with Doppler study, most recent was performed in June 2016 which at that time revealed a normal left ventricular systolic function. We will also check a free T4 and TSH. Obtain third troponin. We will discontinue the IV Cardizem drip as the patient is currently in normal sinus rhythm. We'll also discontinue the IV heparin. Discontinue aspirin. Further recommendations to follow. DNP note has been reviewed, I agree with a documented findings and plan of care. Patient was seen and examined.
[2016-12-22 12:57] VITALS: BMI 32.1
--- NOTE | 2016-12-22 14:16 | P.PN ---
Progress Note - Text This is an addendum to the dictated cardiology consultation. The patient was in the hospital in June with an episode of supra ventricle tachycardia. Yesterday he was being seen at the [place] to receive refills on his medication when he was noted to have a rapid heartbeat. He was unaware of the arrhythmia. On presentation he was in SVT that converted to sinus mechanism with adenosine. The patient is getting more active physically and according to him has done well in that regard without any symptoms of chest pain, or dyspnea. His baseline rhythm shows sinus mechanism with right bundle branch block He has minimal elevation of the troponin that could be related to the arrhythmia but because of his presentation I would proceed with a stress echocardiogram and if there is no evidence of inducible ischemia then we'll continue his present regimen and he will need to be evaluated for possible ablation. Thank you for this consult we will follow with you.
--- NOTE | 2016-12-22 19:11 | HP ---
DATE OF ADMISSION: 12/21/2016 Patient is a 76-year-old gentleman without any symptoms, was seen in PCPs office ( ) EKG was obtained, found to be in SVT. The patient was sent in here. The patient was Adenosine, converted to sinus rhythm. The patient was initially thought to have atrial fibrillation. The patient baseline rhythm is right bundle branch block. Patient denied any symptoms at this point of time . The patient denied any fever, chills. The patient denied any nausea and vomiting, chest pain. Patient has minimal ( ) component ( ) SVT, although cardiology is recommending a stress test for which patient is awaiting a stress test tomorrow after which he may be discharged. Patient is asymptomatic at this point of time. REVIEW OF SYSTEMS: CONSTITUTIONAL: No fever, no malaise, no fatigue. HEENT: No recent visual problems or hearing problems. Denied any sore throat. CARDIOVASCULAR: No chest pain, orthopnea, PND, no palpitations, no syncope. PULMONARY: No shortness of breath, no cough, no hemoptysis. GASTROINTESTINAL: No diarrhea, no nausea, no vomiting, no abdominal pain. Normoactive bowel sounds. NEUROLOGICAL: No headaches, no weakness, no numbness. HEMATOLOGICAL: Denies any bleeding or petechiae. GENITOURINARY: Denies any burning micturition, frequency, or urgency. MUSCULOSKELETAL/RHEUMATOLOGICAL: Denies any joint pain, swelling, or any muscle pain. ENDOCRINE: Denies any polyuria or polydipsia. The rest of the 14 point review of systems is negative. PAST MEDICAL HISTORY: Significant for hypertension, osteoarthritis, prostate cancer in remission. Cardiac catheterization in the past ( ). Prostate surgery. SOCIAL HISTORY: Denied any smoking, alcohol abuse or drug abuse. FAMILY HISTORY: No significant family history in mother and father. Home medications include: 1. Lisinopril. 2. Hydrochlorothiazide. 3. Aspirin. 4. Levothyroxine. PHYSICAL EXAMINATION: Temperature 97.0, pulse 74, respiratory rate of 18, blood pressure is 120/71, saturating at 98% on room air. GENERAL: The patient is alert and oriented x3, not in any acute distress. Well developed, well nourished. HEENT: Pupils are round and equally reacting to light. EOMI. No scleral icterus. No conjunctival pallor. Normocephalic, atraumatic. No pharyngeal erythema. No thyromegaly. CARDIOVASCULAR: S1 and S2 present. No murmurs, rubs, or gallops. PULMONARY: Chest is clear to auscultation, no wheezing or crackles. ABDOMEN: Soft, nontender, nondistended, normoactive bowel sounds. No palpable organomegaly. MUSCULOSKELETAL: No joint swelling or deformity. EXTREMITIES: No cyanosis, clubbing, or pedal edema. NEUROLOGICAL: Gross neurological examination did not reveal any focal deficits. SKIN: No rashes. LABORATORY DATA: CBC, CMP, essentially within normal limits. Troponin is minimally elevated 0.040. EKG as mentioned above. ASSESSMENT AND PLAN: 1. Episode of supraventricular tachycardia, resolved with adenosine, the patient was started on beta chanda. 2. Mildly elevated troponin appeared to be related to tachycardia and the patient going for stress test tomorrow. 3. Hypertension. The patient is being started on metoprolol. I will hold off his hydrochlorothiazide and Lisinopril combination and we will watch him overnight here. 4. Hypothyroidism, continue with levothyroxine. TSH will be obtained. Patient apparently has not been taking his thyroid medications, although TSH was obtained which is essentially on the high-normal side because of which I will go ahead and hold off on levothyroxine. We will also obtain T4 level.
[2016-12-22] MEDS: METOPROLOL TARTRATE 25 MG TAB PO SCH (20:55)
[2016-12-23 06:43] LABS: Mean Platelet Volume 7.2
[2016-12-23] MEDS: METOPROLOL TARTRATE 25 MG TAB PO SCH (10:58)
[2016-12-23] MEDS: ATORVASTATIN 80 MG TAB PO SCH (10:59)
--- NOTE | 2016-12-23 11:17 | ECHOF ---
Referral Reason: MEASUREMENTS -------- HEIGHT: 175.3 cm WEIGHT: 98.4 kg BP: 121/71 LAESV Index (A-L): 14.67 ml/m Ao Diam: 4.4 cm (2.0 - 3.7) AV Cusp: 1.5 cm (1.5 - 2.6) LA Diam: 3.1 cm (2.7 - 3.8) MV EXCURSION: 13.275 mm (> 18.000) MV EF SLOPE: 82 mm/s (70 - 150) EPSS: 1.2 cm MV E Smith: 0.68 m/s MV A Smith: 1.18 m/s MV E/A Ratio: 0.58 RAP: 5.00 mmHg RVSP: 15.84 mmHg FINDINGS -------- Sinus rhythm with extra systolic beats. This was a technically adequate study. There is mild concentric left ventricular hypertrophy. Overall left ventricular systolic function is normal with, an EF between 55 - 60 %. The right ventricle is normal in size and function. Normal LA size by volume 22+/-6 ml/m2. The right atrium is normal in size. Aortic valve is trileaflet and is mildly thickened. There is no evidence of aortic regurgitation. There is no evidence of aortic stenosis. The mitral valve leaflets are mildly thickened. There is trace to mild mitral regurgitation. Trace tricuspid regurgitation present. There is no evidence of pulmonary hypertension. The right ventricular systolic pressure, as measured by Doppler, is 15.84mmHg. The pulmonic valve was not well visualized. The aortic root size is normal. Normal inferior vena cava with normal inspiratory collapse consistent with estimated right atrial pressure of 5 mmHg. CONCLUSIONS -------- 1. Sinus rhythm with extra systolic beats. 2. The right ventricular systolic pressure, as measured by Doppler, is 15.84mmHg. 3. The pulmonic valve was not well visualized. 4. The aortic root size is normal. 5. There is mild concentric left ventricular hypertrophy. 6. Overall left ventricular systolic function is normal with, an EF between 55 - 60 %. 7. Normal LA size by volume 22+/-6 ml/m2. 8. Aortic valve is trileaflet and is mildly thickened. 9. The mitral valve leaflets are mildly thickened. 10. There is trace to mild mitral regurgitation. 11. Trace tricuspid regurgitation present. 12. There is no evidence of pulmonary hypertension. [employer] WORKER GENERAL: Bill Cobos RDCS
[2016-12-23 12:18] VITALS: BP 127/80; PULSE 96; RESP 16; TEMP 97.2
--- NOTE | 2016-12-23 12:38 | ECHOS ---
DATE OF SERVICE: 12/23/2016 AGE: 76Y SEX: M HT: 69 WT: 217 lbs. Protocol Chris: X Others: Stress Echo Stage: I Dur. of Exercise: 4 minutes *Heart Rate Blood Pressure *Rest: 99 Rest: 145/74 * *Max. Achieved: 132 Maximum BP: 208/82 85% PMHR: 123 100% PMHR: 145 *METS: 5.8 INDICATIONS: MEDICATIONS: Patient was exercised for a total period of 4 minutes. A peak heart rate of 132 was achieved. Maximum blood pressure of 208/82 mmHg was noted. Resting EKG shows normal sinus rhythm with a QRS morphology suggestive of a right bundle branch block pattern was noted. No ST segment depression suggestive of ischemia is noted. The baseline echocardiographic images reveals a normal left ventricular chamber size with normal left ventricular systolic function. In the immediate postexercise period, normal increase in the wall thickness and contractility is noted. FINAL IMPRESSION: This stress echocardiographic study is negative for stress-induced ischemia. EKG portion of the stress test is not suggestive of ischemia. Patient's exercise tolerance is average.
--- NOTE | 2016-12-23 12:43 | P.PN ---
Subjective Principal diagnosis: SVT This is a pleasant 76-year-old gentleman with history of hypothyroidism, hypertension, prior episode of SVT, who states that he had ran out of his medications. He went to see his physician at the [place] to get his prescriptions refilled, while he was there was noted that his heart rate was very fast and for this reason he was advised to come to the emergency room here for admission. On admission here patient was found to be in SVT, he was given adenosine, converted to a sinus tachycardia. Patient states that he did not feel his heart racing fast, he had denied any dizziness or lightheadedness. Patient was seen by Dr. Rodriguez in the hospital in June 2016 at which time he also had an episode of supraventricular tachycardia. He did not establish himself with a medical charge entry specialist in this area after that. Patient was seen in consultation yesterday by Dr. Mehta, recommended undergo stress echocardiographic study today, and was also initiated on beta chanda. Stress echocardiographic study performed today was negative for any reversible ischemia. Upon arriving back to the floor patient did have a brief episode of SVT, converted to normal sinus rhythm spontaneously. At the time of my examination, patient feels well, denies any palpitations, no shortness of breath , no dizziness or lightheadedness. Blood pressure 127/80. Objective - Vital Signs Vital signs: Vital Signs Temp 97.2 F L 12/23/16 12:00 Pulse 96 12/23/16 12:00 Resp 16 12/23/16 12:00 BP 127/80 12/23/16 12:00 Pulse Ox 94 L 12/23/16 12:00 Intake & Output 12/22/16 12/23/16 12/23/16 18:59 06:59 18:59 Intake Total 1242.393 720 Output Total 350 Balance 892.393 720 Weight 98.6 kg 98.4 kg Intake: IV 300 .9 @20 240 Diltiazem 125 mg In 60 Sodium Chloride 0.9% 100 ml @ 5 MG/HR 5 mls/hr IV .Q24H JIMENA Rx#:[id number] Intake, IV Titration 282.393 Amount Heparin Sodium,Porcine/ 282.393 D5w Pmx 25,000 unit In Dextrose/Water 1 500ml. bag @ 8.82 UNITS/KG/HR 20 mls/hr IV .Q24H JIMENA Rx#: [id number] Oral 660 720 Output: Urine 350 Other: Voiding Method Toilet Toilet # Voids 1 - Exam PHYSICAL EXAMINATION: HEENT: Head is atraumatic, normocephalic. Pupils equal, round. Neck is supple. There is no elevated jugular venous pressure. HEART EXAMINATION: Heart S1, S2 normal. No murmur or gallop heard. CHEST EXAMINATION: Lungs are clear to auscultation and precussion. No chest wall tenderness is noted on palpation or with deep breathing. ABDOMEN: Soft, nontender. Bowel sounds are heard. No organomegaly noted. EXTREMITIES: 2+ peripheral pulses with no evidence of peripheral edema and no calf tenderness noted. NEUROLOGIC patient is awake, alert and oriented -3. - Labs CBC & Chem 7: 12/23/16 06:10 12/21/16 15:15 Assessment and Plan Plan: Assessment and plan #1 SVT, currently in normal sinus rhythm. #2 hypertension #3 hypothyroid #4 abnormal troponin, likely secondary to oxygen supply and demand mismatch. Stress echocardiographic study performed today was negative for any reversible ischemia. Echocardiogram with Doppler study revealed normal left ventricular systolic function. Plan Cardiology's perspective, patient may be able to be discharged home today. We will make him a follow-up appointment in the office to see Dr. Mehta post discharge. Patient will also have a consultation with Dr. Leon regarding SVT ablation. We will continue metoprolol tartrate 25 mg one tablet by mouth twice a day. DNP note has been reviewed, I agree with a documented findings and plan of care. Patient was seen and examined.
--- NOTE | 2016-12-24 16:53 | DS ---
DATE OF ADMISSION: 12/21/2016 DATE OF DISCHARGE: 12/23/2016 Patient is admitted with supraventricular tachycardia and patient was started on beta chanda and patient is being discharged today. Patient underwent stress test because of mild elevated troponin, which was negative. We obtained a TSH level on him. Patient has not been taking his thyroid medications. His TSH is high normal. His TSH ( ) patient will need a lower dose of levothyroxine. At this point of time because of SVT ( ) as needed, TSH is within normal limits. I am not starting him back on levothyroxine. Although TSH will need to be repeated in a month as mentioned above. Antihypertensive medications will be discontinued as patient was ( ), hydrochlorothiazide and lisinopril will be discontinued. Patient is restarted on metoprolol. Patient was seen and examined on the day of discharge. Vitals are stable. PHYSICAL EXAMINATION: GENERAL: The patient is alert and oriented x3, not in any acute distress. Well developed, well nourished. HEENT: Pupils are round and equally reacting to light. EOMI. No scleral icterus. No conjunctival pallor. Normocephalic, atraumatic. No pharyngeal erythema. No thyromegaly. CARDIOVASCULAR: S1 and S2 present. No murmurs, rubs, or gallops. PULMONARY: Chest is clear to auscultation, no wheezing or crackles. ABDOMEN: Soft, nontender, nondistended, normoactive bowel sounds. No palpable organomegaly. MUSCULOSKELETAL: No joint swelling or deformity. EXTREMITIES: No cyanosis, clubbing, or pedal edema. NEUROLOGICAL: Gross neurological examination did not reveal any focal deficits. SKIN: No rashes. ASSESSMENT AND PLAN: 1. Supraventricular tachycardia, resolved with adenosine. Patient does not have any ( ). 2. Mildly elevated troponin ( ). Negative stress test. 3. Hypertension. 4. Hypothyroidism. PLAN: The patient will be discharged today. Discharge diet is cardiac. Activity as tolerated. Follow up with his residence leasing agent, Dr. William Leon in one week and Dr. Homar Nolasco in 2 to 7 days. I spent greater than 35 minutes in total discharge process. Patient has hyperlipidemia for which patient was started on Lipitor as well.
== END 2016-12-23 15:06 | disposition home or self-care (01) | DRG 310 ==
LOC: EC 14:37 → 6SEL 16:20
PROVIDERS: ADMIT Hospitalist; ATTEND Hospitalist
DX: I47.1 Supraventricular tachycardia (principal); I48.91 Unspecified atrial fibrillation; I45.10 Unspecified right bundle-branch block; I10 Essential (primary) hypertension; E03.9 Hypothyroidism, unspecified; H26.9 Unspecified cataract; M19.91 Primary osteoarthritis, unspecified site; Z85.46 Personal history of malignant neoplasm of prostate; Z85.828 Personal history of other malignant neoplasm of skin; Z79.82 Long term (current) use of aspirin; Z79.899 Other long term (current) drug therapy
CPT/HCPCS: 36415; 80053; 80061; 82550; 82553; 83735; 84443; 84484; 85025; 85049; 85610; 85730; 93005; 93017; 93306; 93350; 96365; 96366; 96367; 96376; 99291

== ENCOUNTER → 2017-01-25 | Outpatient (CLI) | payer MEDICARE ==
--- NOTE | 2017-01-25 11:44 | XR ---
EXAMINATION TYPE: XR shoulder complete LT , 4 VIEWS DATE OF EXAM ORDERED: 01/25/2017 HISTORY: M25.512 shoulder pain. COMPARISON: None. FINDINGS: There are marked hypertrophic changes in the left AC joint. There are loose bodies in the axillary recess of the shoulder. No fracture or dislocation is seen. IMPRESSION: 1. NO ACUTE OSSEOUS LESION. 2. DEGENERATIVE CHANGE. 3. OSSEOUS LOOSE BODIES WITHIN THE AXILLARY RECESS OF THE SHOULDER.
== END ==
LOC: RADXRMAIN 11:14
PROVIDERS: ATTEND Physician Assistant
DX: M19.012 Primary osteoarthritis, left shoulder (principal)

== ENCOUNTER → 2017-04-23 | Outpatient (CLI) | payer MEDICARE ==
--- NOTE | 2017-04-23 15:32 | NM ---
EXAMINATION TYPE: NM bone scan whole body DATE OF EXAM: 04/23/2017 COMPARISON: NONE HISTORY: Pain Delayed whole-body scanning was performed following the injection of 27.1 mCi Tc 99m MDP. Images acq uired 3.5 hours post injection. FINDINGS: Abnormal uptake in the left shoulder is likely degenerative and corresponds severe arthropathy by x-r ay. Abnormal signal of the right shoulder also likely arthritic. Abnormal uptake involving the anterior rib cage is nonspecific but likely the basis of previous traum a. Abnormal uptake involving the knees likely post arthritic. Faint abnormal uptake throughout the thoracic and mid and lower spine likely degenerative. Nonspecific uptake involving the upper and mid lumbar spine which is been correlated with a x-ray fro 2011 and also appears likely hypertrophic or degenerative. IMPRESSION: 1. Findings involving the vertebral column likely degenerative. Findings involving the right anterior rib cage are nonspecific but likely the basis of previous trauma. Correlate with x-ray as clinically warranted.
== END ==
LOC: RADNMMAIN 10:58
PROVIDERS: ATTEND Surgery
DX: C79.51 Secondary malignant neoplasm of bone (principal)
CPT/HCPCS: 78306; A9503

== ENCOUNTER → 2017-07-03 | Outpatient (CLI) | payer MEDICARE, OTHER ==
--- NOTE | 2017-07-07 06:52 | PE ---
EXAMINATION TYPE: PET CT fusion skull to thigh DATE OF EXAM: 07/03/2017 COMPARISON: Nuclear medicine whole body bone scan April 23, 2017. CT abdomen and pelvis September 15 016. Left shoulder x-ray January 25, 2017 HISTORY: Multiple myeloma left shoulder. History of remote prostate cancer . TECHNIQUE: Following the intravenous administration of 14.576 mCi of F-18 FDG, whole body images are performed from the top of skull to the bottom of feet. Images are reviewed on the computer in the c oronal, axial, and sagittal planes. Reconstructed rotating images are created on independent worksta tion and reviewed on the computer. A localization noncontrast CT is performed in conjunction with t he PET scan. SCAN: Initial Scan FINDINGS: HEAD AND NECK: No suspicious hypermetabolic uptake is seen. CHEST, MEDIASTINUM, AND HILAR REGION: No definitive areas of abnormal hypermetabolic uptake are seen. ABDOMEN AND PELVIS: There is suspicious area of hypermetabolic uptake corresponding to focal severe c oncentric colonic wall thickening at level of cecum on axial image 209, primary colonic carcinoma is suspected. Lesion measures roughly 3.5 x 2.9 cm. Max SUV is 13.61. No bowel obstruction or suspicious dilatation is seen. No additional areas of suspicious hypermetabolic uptake are seen. OSSEOUS STRUCTURES: There is new large destructive left shoulder mass centered involving the posterio r superior lateral scapular measuring 11.2 x 7.4 cm on axial image 82, max SUV is 6.33. There is additional destructive lytic lesion left spinous process L1 level image 181 with increased h ypermetabolic uptake seen image 185, max SUV is 12.51. There is destructive lytic lesion left L1 vert ebra axial posteriorly axial image 181 without abnormal hypermetabolic uptake. There are additional s ubcentimeter lytic lesions left iliac bone on axial image 241, more anterior lesion shows hypermetabo lic uptake. There are few scattered subcentimeter foci of hypermetabolic uptake in the ribs bilateral ly, for reference right anterolateral lesion on axial image 142 appears to correspond to subtle fract ure. LOWER EXTREMITIES: There is suspicious hypermetabolic lesions left distal femoral level axial image 8 1 appears to correlate with lytic lesion axial image 79. No additional areas of abnormal hypermetabolic uptake are clearly seen. OTHER CT: Respiratory motion artifact degradation is present. There is large bleb medial right lung b ase on axial image 132. There is cardiomegaly with small to borderline moderate-sized pericardial effusion. There is moderate to severe 3 vessel coronary artery calcification which is noted marker for coronary artery disease. Liver is somewhat small in size. There is 10 mm calculus left kidney axial image 181. This is adjacent to 2.3 cm simple appearing cyst anterior to this. There are diverticula scattered throughout the colon most prominent in sigmoid colon. There is no CT evidence for acute diverticulitis. Prostate is not visualized and presumed surgically absent. Surgical clips in the bilateral pelvis are noted. There is prominent multilevel spurring in the spine. There is prominent facet arthropathy throughout the lumbar spine. Degenerative spurring sacroiliac joints is seen. There is severe joint space loss a nd spurring both hip joints. Slight underlying scoliosis is present. IMPRESSION: Seen better on PET/CT versus bone scan there are multiple osseous metastatic lesions felt present, some are lytic without abnormal hypermetabolic uptake, some show hypermetabolic uptake with poor visualization of lytic lesion, some have CT and PET positivity. Largest lesion is left shoulder level at area of biopsy-proven carcinoma. Suspicious lesion at level of cecum is noted. Correlate cl inically and with colonoscopy advised. Second primary tumor suspected.
== END | disposition home or self-care (01) ==
LOC: RADPETMAIN 13:56
PROVIDERS: ATTEND Internal Medicine Hematology & Oncology
DX: C79.51 Secondary malignant neoplasm of bone (principal); C90.00 Multiple myeloma not having achieved remission
CPT/HCPCS: 78815; A9552

== ENCOUNTER 2017-07-07 12:51 | Inpatient (IN) | payer MEDICARE ==
--- NOTE | 2017-07-07 13:00 | ED ---
General Adult HPI - General Stated complaint: SOB Time Seen by Provider: 07/07/17 12:51 Source: RN notes reviewed - History of Present Illness Initial comments: This is a 77-year-old male who presents emergency Department complaining that while getting his first treatment of radiation for multiple myeloma he started getting very short of breath and feeling faint. EMS in route he was very fidgety because he felt terrible he then became nauseated and started having dry heaves. Patient states he felt extremely weak when all of a sudden is occurring but had no chest pain. Patient denies any abdominal pain. Patient denies headache patient denies numbness weakness. Patient states he has not experienced this before. Patient denies any recent fever chills or cough. - Related Data Home Medications Medication Instructions Recorded Confirmed Aspirin EC [Ecotrin Low Dose] 81 mg PO DAILY 12/21/16 07/07/17 Metoprolol Tartrate [Lopressor] 25 mg PO QAM 07/06/17 07/07/17 Allergies Allergy/AdvReac Type Severity Reaction Status Date / Time No Known Allergies Allergy Verified 07/07/17 14:18 Review of Systems ROS Statement: Those systems with pertinent positive or pertinent negative responses have been documented in the HPI. ROS Other: All systems not noted in ROS Statement are negative. Past Medical History Past Medical History: Cancer, Hypertension, Osteoarthritis (OA) Additional Past Medical History / Comment(s): skin cancer,prostate cancer, cataracts History of Any Multi-Drug Resistant Organisms: None Reported Past Surgical History: Heart Catheterization, Hernia Repair, Prostate Surgery Additional Past Surgical History / Comment(s): rt wrist ganglion cysts removed Past Anesthesia/Blood Transfusion Reactions: No Reported Reaction Past Psychological History: No Psychological Hx Reported Smoking Status: Never smoker Past Alcohol Use History: Occasional Past Drug Use History: None Reported - Past Family History Father History Unknown: Yes Mother History Unknown: Yes General Exam - General Exam Comments Initial Comments: GENERAL: Patient is well-developed and well-nourished. Patient is nontoxic and well- hydrated and is in moderate distress. ENT: Neck is soft and supple. No significant lymphadenopathy is noted. Oropharynx is clear. Moist mucous membranes. Neck has full range of motion without eliciting any pain. EYES: The sclera were anicteric and conjunctiva were pink and moist. Extraocular movements were intact and pupils were equal round and reactive to light. Eyelids were unremarkable. PULMONARY: Unlabored respirations. Good breath sounds bilaterally. No audible rales rhonchi or wheezing was noted. CARDIOVASCULAR: Patient is tachycardic at about 160 beats a minute ABDOMEN: Soft and nontender with normal bowel sounds. SKIN: Skin is clear with no lesions or rashes and otherwise unremarkable. NEUROLOGIC: Patient is alert and oriented x3. Cranial nerves II through XII are grossly intact. Motor and sensory are also intact. Normal speech, volume and content. Symmetrical smile. MUSCULOSKELETAL: Normal extremities with adequate strength and full range of motion. No lower extremity swelling or edema. No calf tenderness. LYMPHATICS: No significant lymphadenopathy is noted PSYCHIATRIC: Normal psychiatric evaluation. Normal interpersonal interactions appears functionally intact in deals appropriately with others. No signs of depression. No signs of anxiety. Course Vital Signs 07/07/17 07/07/17 07/07/17 13:00 13:15 13:16 Temperature 99.0 F Pulse Rate 170 H 124 H 172 H Respiratory 30 H 30 H Rate Blood Pressure 159/88 123/70 O2 Sat by Pulse 95 93 L Oximetry 07/07/17 07/07/17 07/07/17 13:22 13:24 13:30 Temperature Pulse Rate 172 H 139 H 126 H Respiratory 26 H 26 H Rate Blood Pressure 137/67 115/58 O2 Sat by Pulse 93 L 94 L Oximetry 07/07/17 07/07/17 07/07/17 13:35 13:41 14:00 Temperature Pulse Rate 128 H 117 H 121 H Respiratory 24 24 20 Rate Blood Pressure 111/57 135/67 O2 Sat by Pulse 90 L 90 L 93 L Oximetry 07/07/17 14:42 Temperature Pulse Rate 161 H Respiratory 20 Rate Blood Pressure 127/68 O2 Sat by Pulse 92 L Oximetry Medical Decision Making - Medical Decision Making EKG shows supraventricular tachycardia 169 bpm QRS is under 12 QT interval is 272 QTC is 456. Patient's EKG shows no ST segment elevation. Patient was given adenosine and the patient's heart rate slowed down to a sinus tachycardia 132 beats a minute an EKG showed a AR interval 144 QRS is 124 Q-T intervals 314 QTC of 465 year patient's EKG shows a right bundle branch block. Patient soon after the adenosine was given went into an SVT again showed a heart rate of 171 bpm an EKG QRS is 116 QT interval is 272 QTC is 458. At this point time we gave the patient a Cardizem bolus and put patient on a Cardizem drip. It looks as though patient is having atrial fibrillation Heparin was not started on the patient secondary to the fact the patient had a hemoglobin 8.1 and we are waiting to see how it is trending - Lab Data Result diagrams: 07/07/17 13:05 07/07/17 13:05 Lab Results 07/07/17 07/07/17 07/07/17 Range/Units 13:05 13:05 13:05 WBC 11.1 H (3.8-10.6) k/uL RBC 3.05 L (4.30-5.90) m/uL Hgb 8.1 L (13.0-17.5) gm/dL Hct 26.2 L (39.0-53.0) % MCV 86.1 (80.0-100.0) fL MCH 26.6 (25.0-35.0) pg MCHC 30.9 L (31.0-37.0) g/dL RDW 17.4 H (11.5-15.5) % Plt Count 417 (150-450) k/uL Neutrophils % 68 % Lymphocytes % 27 % Monocytes % 3 % Eosinophils % 0 % Basophils % 0 % Neutrophils # 7.6 (1.3-7.7) k/uL Lymphocytes # 3.0 (1.0-4.8) k/uL Monocytes # 0.4 (0-1.0) k/uL Eosinophils # 0.0 (0-0.7) k/uL Basophils # 0.1 (0-0.2) k/uL Hypochromasia Marked Anisocytosis Slight PT (9.0-12.0) sec INR (<1.2) APTT (22.0-30.0) sec Sodium 134 L (137-145) mmol/L Potassium 5.0 (3.5-5.1) mmol/L Chloride 102 (98-107) mmol/L Carbon Dioxide 14 L (22-30) mmol/L Anion Gap 18 mmol/L BUN 14 (9-20) mg/dL Creatinine 1.10 (0.66-1.25) mg/dL Est GFR (MDRD) Af Amer >60 (>60 ml/min/1.73 sqM) Est GFR (MDRD) Non-Af >60 (>60 ml/min/1.73 sqM) Glucose 173 H (74-99) mg/dL Calcium 9.5 (8.4-10.2) mg/dL Magnesium 1.6 (1.6-2.3) mg/dL Total Bilirubin 0.6 (0.2-1.3) mg/dL AST 27 (17-59) U/L ALT 26 (21-72) U/L Alkaline Phosphatase 71 (38-126) U/L Total Creatine Kinase 86 (55-170) U/L CK-MB (CK-2) 0.9 (0.0-2.4) ng/mL CK-MB (CK-2) Rel Index 1.0 Troponin I 0.047 H* (0.000-0.034) ng/mL Total Protein 11.4 H (6.3-8.2) g/dL Albumin 3.6 (3.5-5.0) g/dL 07/07/17 Range/Units 13:05 WBC (3.8-10.6) k/uL RBC (4.30-5.90) m/uL Hgb (13.0-17.5) gm/dL Hct (39.0-53.0) % MCV (80.0-100.0) fL MCH (25.0-35.0) pg MCHC (31.0-37.0) g/dL RDW (11.5-15.5) % Plt Count (150-450) k/uL Neutrophils % % Lymphocytes % % Monocytes % % Eosinophils % % Basophils % % Neutrophils # (1.3-7.7) k/uL Lymphocytes # (1.0-4.8) k/uL Monocytes # (0-1.0) k/uL Eosinophils # (0-0.7) k/uL Basophils # (0-0.2) k/uL Hypochromasia Anisocytosis PT 11.3 (9.0-12.0) sec INR 1.2 H (<1.2) APTT 19.2 L (22.0-30.0) sec Sodium (137-145) mmol/L Potassium (3.5-5.1) mmol/L Chloride (98-107) mmol/L Carbon Dioxide (22-30) mmol/L Anion Gap mmol/L BUN (9-20) mg/dL Creatinine (0.66-1.25) mg/dL Est GFR (MDRD) Af Amer (>60 ml/min/1.73 sqM) Est GFR (MDRD) Non-Af (>60 ml/min/1.73 sqM) Glucose (74-99) mg/dL Calcium (8.4-10.2) mg/dL Magnesium (1.6-2.3) mg/dL Total Bilirubin (0.2-1.3) mg/dL AST (17-59) U/L ALT (21-72) U/L Alkaline Phosphatase (38-126) U/L Total Creatine Kinase (55-170) U/L CK-MB (CK-2) (0.0-2.4) ng/mL CK-MB (CK-2) Rel Index Troponin I (0.000-0.034) ng/mL Total Protein (6.3-8.2) g/dL Albumin (3.5-5.0) g/dL Critical Care Time Critical Care Time: Yes Total Critical Care Time: 35 Disposition Clinical Impression: Anemia, Atrial fibrillation with rapid ventricular response Disposition: ADMITTED IP TO THIS HOSP Referrals: Solo Loaiza MD [Primary Care Provider] - 1-2 days Time of Disposition: 15:00
[2017-07-07] MEDS ORDERED: ADENOSINE 3 MG/ML 2 ML VIAL IVP STA ×2 (13:12→13:22)
[2017-07-07] MEDS: SODIUM CHLORIDE 0.9% 500 ML IV STA ×2 (13:14→14:50)
[2017-07-07] MEDS ORDERED: ONDANSETRON 4 MG/2 ML VIAL IVP STA (13:31)
[2017-07-07 13:33] LABS: Anisocytosis Slight; Basophils # (A) 0.1 k/uL (0-0.2); Basophils % (A) 0 %; Eosinophils % (A) 0 %; HCT 26.2 % (39.0-53.0); HGB 8.1 gm/dL (13.0-17.5); Hypochromasia Marked; Lymphocytes % (A) 27 %; MCH 26.6 pg (25.0-35.0); MCHC 30.9 g/dL (31.0-37.0); MCV 86.1 fL (80.0-100.0); Mean Platelet Volume 7.9; Monocytes # (A) 0.4 k/uL (0-1.0); Monocytes % (A) 3 %; Neutrophils # (A) 7.6 k/uL (1.3-7.7); Neutrophils % (A) 68 %; Platelet Count 417 k/uL (150-450); RBC 3.05 m/uL (4.30-5.90); RDW 17.4 % (11.5-15.5); WBC 11.1 k/uL (3.8-10.6)
[2017-07-07] MEDS ORDERED: DILTIAZEM 5 MG/ML 5 ML VIAL IVP STA (13:35)
[2017-07-07 13:45] LABS: ALT 26 U/L (21-72); AST 27 U/L (17-59); Albumin 3.6 g/dL (3.5-5.0); Alkaline Phosphatase 71 U/L (38-126); Anion Gap 18 mmol/L; Blood Urea Nitrogen 14 mg/dL (9-20); Calcium 9.5 mg/dL (8.4-10.2); Carbon Dioxide 14 mmol/L (22-30); Chloride 102 mmol/L (98-107); Glucose 173 mg/dL (74-99); Magnesium 1.6 mg/dL (1.6-2.3); Sodium 134 mmol/L (137-145); Total Bilirubin 0.6 mg/dL (0.2-1.3)
[2017-07-07 13:48] LABS: INR 1.2 (<1.2); Prothrombin Time 11.3 sec (9.0-12.0)
[2017-07-07 13:50] LABS: Partial Thromboplastin Time 19.2 sec (22.0-30.0)
[2017-07-07 13:53] LABS: Total Protein 11.4 g/dL (6.3-8.2)
[2017-07-07 13:56] LABS: Creatine Kinase MB 0.9 ng/mL (0.0-2.4)
[2017-07-07] MEDS: DILTIAZEM 125 MG in SODIUM CHLORIDE 0.9% 100 ML IV ONE (13:59)
--- NOTE | 2017-07-07 14:04 | XR ---
EXAMINATION TYPE: XR chest 2V DATE OF EXAM: 07/07/2017 COMPARISON: Chest pain per order. Cough and fever. Newly diagnosed multiple myeloma. HISTORY: Chest x-ray July 02, 2016. PET/CT July 03, 2017. TECHNIQUE: Frontal and lateral views of the chest are obtained. FINDINGS: Diminished inspiration is seen on current study with new patchy bibasilar atelectasis and/ or infiltrate. No large pleural effusion or pneumothorax is present. The cardiac silhouette size is enlarged with ectatic and atherosclerotic aorta. Degenerative change bilateral glenohumeral joints is present. IMPRESSION: Diminished inspiration with new left greater than right bibasilar atelectasis and/or inf iltrate.
[2017-07-07 14:06] LABS: Troponin I 0.047 ng/mL (0.000-0.034)
[2017-07-07] MEDS ORDERED: SODIUM CHLORIDE 0.9% 1,000 ML IV ONE (15:02)
[2017-07-07] MEDS ORDERED: METOPROLOL TARTRATE 25 MG TAB PO ONE (18:15)
[2017-07-07] MEDS ORDERED: DIGOXIN 250 MCG/ML 2 ML AMP IVP ONE (18:31)
[2017-07-08 01:50] LABS: Anisocytosis Slight; Basophils % (A) 1 %; Eosinophils % (A) 0 %; Hypochromasia Marked; Lymphocytes # (A) 2.1 k/uL (1.0-4.8); Lymphocytes % (A) 34 %; MCH 25.7 pg (25.0-35.0); MCHC 30.3 g/dL (31.0-37.0); MCV 84.8 fL (80.0-100.0); Mean Platelet Volume 7.5; Monocytes # (A) 0.4 k/uL (0-1.0); Monocytes % (A) 6 %; Neutrophils # (A) 3.6 k/uL (1.3-7.7); Neutrophils % (A) 57 %; Platelet Count 301 k/uL (150-450); RBC 2.59 m/uL (4.30-5.90); RDW 17.3 % (11.5-15.5); WBC 6.2 k/uL (3.8-10.6)
[2017-07-08 01:56] LABS: HGB 6.8 gm/dL (13.0-17.5)
[2017-07-08 03:47] LABS: Glucose,Whole Blood 119 mg/dL (75-99)
[2017-07-08] MEDS: DILTIAZEM 125 MG in SODIUM CHLORIDE 0.9% 100 ML IV ONE (04:15)
[2017-07-08 06:02] LABS: Anisocytosis Slight; Basophils % (A) 1 %; Eosinophils % (A) 0 %; HCT 21.9 % (39.0-53.0); Hypochromasia Marked; Lymphocytes # (A) 2.2 k/uL (1.0-4.8); Lymphocytes % (A) 41 %; MCH 26.1 pg (25.0-35.0); MCHC 30.7 g/dL (31.0-37.0); MCV 84.8 fL (80.0-100.0); Mean Platelet Volume 8.3; Monocytes # (A) 0.3 k/uL (0-1.0); Monocytes % (A) 6 %; Neutrophils # (A) 2.7 k/uL (1.3-7.7); Neutrophils % (A) 51 %; Platelet Count 295 k/uL (150-450); RBC 2.59 m/uL (4.30-5.90); RDW 17.1 % (11.5-15.5); WBC 5.4 k/uL (3.8-10.6)
[2017-07-08 06:12] LABS: HGB 6.7 gm/dL (13.0-17.5)
[2017-07-08 06:24] LABS: Anion Gap 8 mmol/L; Blood Urea Nitrogen 17 mg/dL (9-20); Calcium 9.2 mg/dL (8.4-10.2); Carbon Dioxide 22 mmol/L (22-30); Chloride 106 mmol/L (98-107); Glucose 112 mg/dL (74-99); Magnesium 1.9 mg/dL (1.6-2.3); Phosphorus 4.4 mg/dL (2.5-4.5); Potassium 4.1 mmol/L (3.5-5.1); Sodium 136 mmol/L (137-145)
--- NOTE | 2017-07-08 07:25 | XR ---
EXAMINATION TYPE: XR chest 1V DATE OF EXAM: 07/08/2017 COMPARISON: 07/07/2017 INDICATION: Short of breath TECHNIQUE: Single frontal view of the chest is obtained in the semiupright view. FINDINGS: The heart size is normal. The pulmonary vasculature is normal. The lungs are clear. IMPRESSION: 1. No acute pulmonary process.
[2017-07-08] MEDS: MAGNESIUM SULFATE-D5W PMX 1 GM in DEXTROSE/WATER 1 100ML.BAG IVPB SCH ×2 (07:53→10:03)
[2017-07-08] MEDS: ASPIRIN 81 MG PO SCH (07:54)
[2017-07-08] MEDS ORDERED: METOPROLOL TARTRATE 25 MG TAB PO SCH (09:00)
--- NOTE | 2017-07-08 10:29 | P.CRDCN ---
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 The right after the chemo on the dictation the patient did not feed well. Suddenly he felt short of breath and weak. No chest pain or chest discomfort. He felt dizzy but he did not lose his consciousness. He was brought to the emergency room where in the ER he was found to be in SVT and he was given adenosine and he was converted to normal sinus mechanism and he has been maintaining normal sinus mechanism since then. The patient is not aware of any prior history of SVT. No coronary artery disease or congestive heart failure or any kind of cardiac arrhythmia in the past. Please note that the patient hemoglobin was around 6 when he presented to the hospital and that what could trigger the SVT. The patient was restarted back on metoprolol 25 mg by mouth daily and I just did increase that to 25 mg by mouth twice a day. Beside that I will obtain an echocardiogram was Doppler and also I will check the TSH to rule out any hypo-or hyperthyroidism. Past Medical History Past Medical History: Cancer, Hypertension, Osteoarthritis (OA), Supraventricular Tachycardia (SVT) Additional Past Medical History / Comment(s): skin cancer,prostate cancer, cataracts. Radiation treatment to (L) shoulder History of Any Multi-Drug Resistant Organisms: None Reported Past Surgical History: Heart Catheterization, Hernia Repair, Prostate Surgery Additional Past Surgical History / Comment(s): rt wrist ganglion cysts removed Past Anesthesia/Blood Transfusion Reactions: No Reported Reaction Past Psychological History: No Psychological Hx Reported Smoking Status: Never smoker Past Drug Use History: None Reported - Past Family History Father History Unknown: Yes Mother History Unknown: Yes Medications and Allergies Home Medications Medication Instructions Recorded Confirmed Type Aspirin EC [Ecotrin Low Dose] 81 mg PO DAILY 12/21/16 07/07/17 History Metoprolol Tartrate [Lopressor] 25 mg PO QAM 07/06/17 07/07/17 History Allergies Allergy/AdvReac Type Severity Reaction Status Date / Time No Known Allergies Allergy Verified 07/07/17 14:18 Physical Exam Vitals: Vital Signs Temp Pulse Pulse Pulse Resp BP BP 07/08/17 09:00 78 20 104/61 07/08/17 08:54 98.2 F 84 18 108/56 07/08/17 08:44 97.8 F 74 18 104/61 07/08/17 08:36 98.4 F 81 18 107/60 07/08/17 08:30 82 32 H 121/71 07/08/17 08:00 98.4 F 85 19 129/68 07/08/17 07:32 07/08/17 07:30 81 19 114/68 07/08/17 07:00 88 17 106/61 07/08/17 06:45 98.3 F 80 16 106/61 07/08/17 06:30 83 18 121/71 07/08/17 06:15 98.3 F 88 20 121/71 07/08/17 06:05 99.3 F 90 16 119/67 07/08/17 06:00 80 17 111/62 07/08/17 05:30 91 31 H 116/66 07/08/17 05:00 97 23 113/68 07/08/17 04:30 81 16 107/63 07/08/17 04:00 98.1 F 84 16 114/64 07/08/17 03:49 84 22 114/64 07/08/17 00:00 97.9 F 85 18 117/61 07/07/17 20:00 98 F 90 18 102/56 07/07/17 16:49 152 H 18 106/64 07/07/17 16:00 100.5 F H 158 H 20 115/68 07/07/17 15:28 100.5 F H 158 H 20 115/68 18 15:25 158 H 20 127/78 07/07/17 15:22 100.3 F H 161 H 24 123/67 18 14:42 161 H 20 127/68 07/07/17 14:00 121 H 20 135/67 07/07/17 13:41 117 H 24 07/07/17 13:35 128 H 24 111/57 07/07/17 13:30 126 H 26 H 115/58 07/07/17 13:24 139 H 26 H 137/67 07/07/17 13:22 172 H 07/07/17 13:16 172 H 30 H 123/70 0118 13:15 124 H 07/07/17 13:00 99.0 F 170 H 30 H 159/88 Pulse Ox 07/08/17 09:00 93 L 07/08/17 08:54 07/08/17 08:44 07/08/17 08:36 07/08/17 08:30 07/08/17 08:00 94 L 07/08/17 07:32 93 L 07/08/17 07:30 95 07/08/17 07:00 93 L 07/08/17 06:45 94 L 07/08/17 06:30 94 L 07/08/17 06:15 07/08/17 06:05 93 L 07/08/17 06:00 93 L 07/08/17 05:30 93 L 07/08/17 05:00 94 L 07/08/17 04:30 94 L 07/08/17 04:00 91 L 07/08/17 03:49 90 L 07/08/17 00:00 95 07/07/17 20:00 98 07/07/17 16:49 94 L 07/07/17 16:00 95 07/07/17 15:28 96 07/07/17 15:25 100 07/07/17 15:22 96 07/07/17 14:42 92 L 07/07/17 14:00 93 L 07/07/17 13:41 90 L 07/07/17 13:35 90 L 07/07/17 13:30 94 L 07/07/17 13:24 93 L 07/07/17 13:22 07/07/17 13:16 93 L 07/07/17 13:15 07/07/17 13:00 95 Intake and Output 07/07/17 07/08/17 07/08/17 22:59 06:59 14:59 Intake Total 46.829 998.75 500 Output Total 325 Balance 46.829 673.75 500 Intake: IV 300 150 Sodium Chloride 0.9% 1, 300 150 000 ml @ 75 mls/hr IV . [id number] ONE Rx#:[id number] Intake, IV Titration 46.829 348.75 100 Amount Diltiazem 125 mg In 46.829 48.75 Sodium Chloride 0.9% 100 ml @ 5 MG/HR 5 mls/hr IV .Q24H ONE Rx#:[id number] Magnesium Sulfate-D5w Pmx 100 1 gm In Dextrose/Water 1 100ml.bag @ 100 mls/hr IVPB Q1H [facility] Rx#: [id number] Sodium Chloride 0.9% 1, 300 000 ml @ 75 mls/hr IV . [id number] ONE Rx#:[id number] Oral 350 Blood Product 0 250 Rc Cpda-1 Unit 0 250 [id number] Rc Pheresis 2 As3 Unit 0 [id number] Output: Urine 325 Other: Voiding Method Toilet Urinal # Voids 1 0 # Bowel Movements 0 0 Weight 94.801 kg 91.2 kg - Constitutional General appearance: no acute distress - Respiratory Respiratory: bilateral: rales - Cardiovascular Rhythm: regular Heart sounds: normal: S1, S2 Results 07/08/17 05:40 07/08/17 05:40 Cardiac Enzymes 07/07/17 07/07/17 Range/Units 13:05 13:05 AST 27 (17-59) U/L CK-MB (CK-2) 0.9 (0.0-2.4) ng/mL Troponin I 0.047 H* (0.000-0.034) ng/mL Coagulation 07/07/17 Range/Units 13:05 PT 11.3 (9.0-12.0) sec APTT 19.2 L (22.0-30.0) sec CBC 07/07/17 07/08/17 07/08/17 Range/Units 13:05 01:32 05:40 WBC 11.1 H 6.2 5.4 (3.8-10.6) k/uL RBC 3.05 L 2.59 L 2.59 L (4.30-5.90) m/uL Hgb 8.1 L 6.8 L* 6.7 L* (13.0-17.5) gm/dL Hct 26.2 L 22.0 L 21.9 L (39.0-53.0) % Plt Count 417 301 295 (150-450) k/uL Comprehensive Metabolic Panel 07/07/17 07/08/17 Range/Units 13:05 05:40 Sodium 134 L 136 L (137-145) mmol/L Potassium 5.0 4.1 (3.5-5.1) mmol/L Chloride 102 106 (98-107) mmol/L Carbon Dioxide 14 L 22 (22-30) mmol/L BUN 14 17 (9-20) mg/dL Creatinine 1.10 1.14 (0.66-1.25) mg/dL Glucose 173 H 112 H (74-99) mg/dL Calcium 9.5 9.2 (8.4-10.2) mg/dL AST 27 (17-59) U/L ALT 26 (21-72) U/L Alkaline Phosphatase 71 (38-126) U/L Total Protein 11.4 H (6.3-8.2) g/dL Albumin 3.6 (3.5-5.0) g/dL Current Medications Generic Name Dose Route Start Last Admin Trade Name Freq PRN Reason Stop Dose Admin Aspirin 81 mg 07/08/17 09:00 07/08/17 07:54 Aspirin PO 81 mg DAILY JIMENA Administration Diltiazem HCl 125 mg/ Sodium 125 mls @ 5 mls/hr 07/07/17 13:40 07/08/17 04:15 Chloride IV 07/08/17 13:39 10 mg/hr .Q24H ONE 10 mls/hr 5 MG/HR Administration Metoprolol Tartrate 25 mg 07/08/17 21:00 Lopressor PO BID [facility] Intake and Output 07/07/17 07/08/17 07/08/17 22:59 06:59 14:59 Intake Total 46.829 998.75 500 Output Total 325 Balance 46.829 673.75 500 Intake: IV 300 150 Sodium Chloride 0.9% 1, 300 150 000 ml @ 75 mls/hr IV . [id number] ONE Rx#:[id number] Intake, IV Titration 46.829 348.75 100 Amount Diltiazem 125 mg In 46.829 48.75 Sodium Chloride 0.9% 100 ml @ 5 MG/HR 5 mls/hr IV .Q24H [facility] Rx#:[id number] Magnesium Sulfate-D5w Pmx 100 1 gm In Dextrose/Water 1 100ml.bag @ 100 mls/hr IVPB Q1H [facility] Rx#: [id number] Sodium Chloride 0.9% 1, 300 000 ml @ 75 mls/hr IV . [id number] ONE Rx#:[id number] Oral 350 Blood Product 0 250 Rc Cpda-1 Unit 0 250 [id number] Rc Pheresis 2 As3 Unit 0 [id number] Output: Urine 325 Other: Voiding Method Toilet Urinal # Voids 1 0 # Bowel Movements 0 0 Weight 94.801 kg 91.2 kg 07/08/17 05:40 07/08/17 05:40 Assessment and Plan Assessment: Assessment #1 multiple myeloma and status post chemo and radiation therapy #2 SVT and the patient was converted to normal sinus mechanism Plan #1 increase the dose of metoprolol to 25 mg by mouth twice a day #2 check the TSH to rule out any hypo-or hyperthyroidism #3 obtain an echocardiogram was Doppler #4 monitor the hemoglobin Follow-up with the patient. Thank you for allowing us participate in his care
--- NOTE | 2017-07-08 11:31 | P.HPIM ---
History of Present Illness 77-year-old male on presented to the emergency room with complaints of of not feeling well with shortness of breath and feeling anxious patient stated he was nauseous and was vomiting. Patient was recently diagnosed with left shoulder tumor had recently started on chemoradiation therapy. has a history of multiple myeloma with prostate cancer. Patient was found to be anemic secondary to chemotherapy hemoglobin was sepsis 6.9 patient has been transfused with 2 units. The patient also developed an atrial fibrillation with a rapid RVR with stream of the adenosine patient is not in a controlled rate Review of Systems Constitutional: Reports fatigue, Reports weakness Gastrointestinal: Reports nausea Musculoskeletal: left: shoulder pain Past Medical History Past Medical History: Cancer, Hypertension, Osteoarthritis (OA), Supraventricular Tachycardia (SVT) Additional Past Medical History / Comment(s): skin cancer,prostate cancer, cataracts. Radiation treatment to (L) shoulder History of Any Multi-Drug Resistant Organisms: None Reported Past Surgical History: Heart Catheterization, Hernia Repair, Prostate Surgery Additional Past Surgical History / Comment(s): rt wrist ganglion cysts removed Past Anesthesia/Blood Transfusion Reactions: No Reported Reaction Past Psychological History: No Psychological Hx Reported Smoking Status: Never smoker Past Drug Use History: None Reported - Past Family History Father History Unknown: Yes Mother History Unknown: Yes Medications and Allergies Home Medications Medication Instructions Recorded Confirmed Type Aspirin EC [Ecotrin Low Dose] 81 mg PO DAILY 12/21/16 07/07/17 History Metoprolol Tartrate [Lopressor] 25 mg PO QAM 07/06/17 07/07/17 History Allergies Allergy/AdvReac Type Severity Reaction Status Date / Time No Known Allergies Allergy Verified 07/07/17 14:18 Physical Exam Vitals: Vital Signs Temp Pulse Pulse Pulse Resp BP BP 07/08/17 11:00 85 17 113/61 07/08/17 10:56 98.0 F 80 16 113/61 07/08/17 10:30 78 18 116/63 07/08/17 10:00 78 23 104/65 07/08/17 09:30 79 23 107/59 07/08/17 09:24 98.2 F 85 18 115/82 07/08/17 09:00 78 20 104/61 07/08/17 08:54 98.2 F 84 18 108/56 07/08/17 08:44 97.8 F 74 18 104/61 07/08/17 08:36 98.4 F 81 18 107/60 07/08/17 08:30 82 32 H 121/71 07/08/17 08:00 98.4 F 85 19 129/68 07/08/17 07:32 07/08/17 07:30 81 19 114/68 07/08/17 07:00 88 17 106/61 07/08/17 06:45 98.3 F 80 16 106/61 07/08/17 06:30 83 18 121/71 07/08/17 06:15 98.3 F 88 20 121/71 07/08/17 06:05 99.3 F 90 16 119/67 07/08/17 06:00 80 17 111/62 07/08/17 05:30 91 31 H 116/66 07/08/17 05:00 97 23 113/68 07/08/17 04:30 81 16 107/63 07/08/17 04:00 98.1 F 84 16 114/64 07/08/17 03:49 84 22 114/64 07/08/17 00:00 97.9 F 85 18 117/61 07/07/17 20:00 98 F 90 18 102/56 07/07/17 16:49 152 H 18 106/64 07/07/17 16:00 100.5 F H 158 H 20 115/68 07/07/17 15:28 100.5 F H 158 H 20 115/68 07/07/17 15:25 158 H 20 127/78 07/07/17 15:22 100.3 F H 161 H 24 123/67 07/07/17 14:42 161 H 20 127/68 07/07/17 14:00 121 H 20 135/67 07/07/17 13:41 117 H 24 07/07/17 13:35 128 H 24 111/57 07/07/17 13:30 126 H 26 H 115/58 07/07/17 13:24 139 H 26 H 137/67 07/07/17 13:22 172 H 07/07/17 13:16 172 H 30 H 123/70 07/07/17 13:15 124 H 07/07/17 13:00 99.0 F 170 H 30 H 159/88 Pulse Ox 07/08/17 11:00 93 L 07/08/17 10:56 07/08/17 10:30 94 L 07/08/17 10:00 94 L 07/08/17 09:30 92 L 07/08/17 09:24 07/08/17 09:00 93 L 07/08/17 08:54 07/08/17 08:44 07/08/17 08:36 07/08/17 08:30 07/08/17 08:00 94 L 07/08/17 07:32 93 L 07/08/17 07:30 95 07/08/17 07:00 93 L 07/08/17 06:45 94 L 07/08/17 06:30 94 L 07/08/17 06:15 07/08/17 06:05 93 L 07/08/17 06:00 93 L 07/08/17 05:30 93 L 07/08/17 05:00 94 L 07/08/17 04:30 94 L 07/08/17 04:00 91 L 07/08/17 03:49 90 L 07/08/17 00:00 95 07/07/17 20:00 98 07/07/17 16:49 94 L 07/07/17 16:00 95 07/07/17 15:28 96 07/07/17 15:25 100 07/07/17 15:22 96 07/07/17 14:42 92 L 07/07/17 14:00 93 L 07/07/17 13:41 90 L 07/07/17 13:35 90 L 07/07/17 13:30 94 L 07/07/17 13:24 93 L 07/07/17 13:22 07/07/17 13:16 93 L 07/07/17 13:15 07/07/17 13:00 95 Intake and Output 07/07/17 07/08/17 07/08/17 22:59 06:59 14:59 Intake Total 46.829 998.75 1060 Output Total 325 Balance 46.829 673.75 1060 Intake: IV 300 300 Sodium Chloride 0.9% 1, 300 300 000 ml @ 75 mls/hr IV . [id number] ONE Rx#:[id number] Intake, IV Titration 46.829 348.75 200 Amount Diltiazem 125 mg In 46.829 48.75 Sodium Chloride 0.9% 100 ml @ 5 MG/HR 5 mls/hr IV .Q24H ONE Rx#:[id number] Magnesium Sulfate-D5w Pmx 200 1 gm In Dextrose/Water 1 100ml.bag @ 100 mls/hr IVPB Q1H JIMENA Rx#: [id number] Sodium Chloride 0.9% 1, 300 000 ml @ 75 mls/hr IV . [id number] ONE Rx#:[id number] Oral 350 Blood Product 0 560 Rc Cpda-1 Unit 0 250 [id number] Rc Pheresis 2 As3 Unit 310 [id number] Output: Urine 325 Other: Voiding Method Toilet Urinal # Voids 1 0 0 # Bowel Movements 0 0 Weight 94.801 kg 91.2 kg - Constitutional General appearance: mild distress - EENT Ears: bilateral: normal - Respiratory Respiratory: bilateral: CTA - Cardiovascular Rhythm: regularly irregular - Gastrointestinal General gastrointestinal: soft - Integumentary Integumentary: normal - Neurologic Neurologic: CNII-XII intact - Musculoskeletal Left shoulder pain range of motion Musculoskeletal: generalized weakness - Psychiatric Psychiatric: A&O x's 3, appropriate affect, intact judgment & insight Results CBC & Chem 7: 07/08/17 05:40 07/08/17 05:40 Labs: Abnormal Lab Results - Last 24 Hours (Table) 07/07/17 07/07/17 07/07/17 Range/Units 13:05 13:05 13:05 WBC 11.1 H (3.8-10.6) k/uL RBC 3.05 L (4.30-5.90) m/uL Hgb 8.1 L (13.0-17.5) gm/dL Hct 26.2 L (39.0-53.0) % MCHC 30.9 L (31.0-37.0) g/dL RDW 17.4 H (11.5-15.5) % INR (<1.2) APTT (22.0-30.0) sec Sodium 134 L (137-145) mmol/L Carbon Dioxide 14 L (22-30) mmol/L Glucose 173 H (74-99) mg/dL POC Glucose (mg/dL) (75-99) mg/dL Troponin I 0.047 H* (0.000-0.034) ng/mL Total Protein 11.4 H (6.3-8.2) g/dL Crossmatch 07/07/17 07/08/17 07/08/17 Range/Units 13:05 01:32 03:01 WBC (3.8-10.6) k/uL RBC 2.59 L (4.30-5.90) m/uL Hgb 6.8 L* (13.0-17.5) gm/dL Hct 22.0 L (39.0-53.0) % MCHC 30.3 L (31.0-37.0) g/dL RDW 17.3 H (11.5-15.5) % INR 1.2 H (<1.2) APTT 19.2 L (22.0-30.0) sec Sodium (137-145) mmol/L Carbon Dioxide (22-30) mmol/L Glucose (74-99) mg/dL POC Glucose (mg/dL) (75-99) mg/dL Troponin I (0.000-0.034) ng/mL Total Protein (6.3-8.2) g/dL Crossmatch See Detail 07/08/17 07/08/17 07/08/17 Range/Units 03:45 05:40 05:40 WBC (3.8-10.6) k/uL RBC 2.59 L (4.30-5.90) m/uL Hgb 6.7 L* (13.0-17.5) gm/dL Hct 21.9 L (39.0-53.0) % MCHC 30.7 L (31.0-37.0) g/dL RDW 17.1 H (11.5-15.5) % INR (<1.2) APTT (22.0-30.0) sec Sodium 136 L (137-145) mmol/L Carbon Dioxide (22-30) mmol/L Glucose 112 H (74-99) mg/dL POC Glucose (mg/dL) 119 H (75-99) mg/dL Troponin I (0.000-0.034) ng/mL Total Protein (6.3-8.2) g/dL Crossmatch Chest x-ray: report reviewed Thrombosis Risk Factor Assmnt - Choose All That Apply Any of the Below Risk Factors Present?: Yes Each Factor Represents 1 point: Obesity (BMI >25) Other Risk Factors: Yes Each Risk Factor Represents 3 Points: Age 75 years or older Thrombosis Risk Factor Assessment Total Risk Factor Score: 4 Thrombosis Risk Factor Assessment Level: Moderate Risk Assessment and Plan Plan: Assessment Anemia secondary to chemoradiation therapy for tumor to left shoulder history of multiple myeloma posttransfusion Atrial fibrillation with rapid ventricular response History of hypertension Osteoarthritis Plan Consultation with cardiology regarding the atrial fibrillation Surgery regarding anemia Oncology B will consult regarding the multiple myeloma
[2017-07-08 13:21] LABS: Basophils % (A) 0 %; Eosinophils % (A) 0 %; HCT 25.9 % (39.0-53.0); Hypochromasia Marked; Lymphocytes # (A) 2.2 k/uL (1.0-4.8); Lymphocytes % (A) 36 %; MCH 26.8 pg (25.0-35.0); MCHC 30.8 g/dL (31.0-37.0); Monocytes # (A) 0.3 k/uL (0-1.0); Monocytes % (A) 5 %; Neutrophils # (A) 3.4 k/uL (1.3-7.7); Neutrophils % (A) 56 %; Platelet Count 311 k/uL (150-450); Poikilocytosis Slight; RBC 2.97 m/uL (4.30-5.90); RDW 15.7 % (11.5-15.5); WBC 6.1 k/uL (3.8-10.6)
[2017-07-08] MEDS ORDERED: DEXTROSE 5% IN WATER 100 ML with AMIODARONE 150 MG IV ONE (19:33)
[2017-07-08] MEDS: METOPROLOL TARTRATE 25 MG TAB PO SCH (19:39)
[2017-07-08] MEDS: AMIODARONE 450 MG in DEXTROSE 5% IN WATER 250 ML IV SCH ×2 (21:04)
[2017-07-09 05:26] LABS: Anisocytosis Slight; Basophils % (A) 1 %; Eosinophils % (A) 1 %; HGB 8.5 gm/dL (13.0-17.5); Hypochromasia Marked; Lymphocytes # (A) 2.3 k/uL (1.0-4.8); Lymphocytes % (A) 36 %; MCH 26.9 pg (25.0-35.0); MCHC 31.6 g/dL (31.0-37.0); MCV 85.3 fL (80.0-100.0); Mean Platelet Volume 8.3; Monocytes # (A) 0.3 k/uL (0-1.0); Monocytes % (A) 5 %; Neutrophils # (A) 3.5 k/uL (1.3-7.7); Neutrophils % (A) 56 %; Platelet Count 298 k/uL (150-450); Poikilocytosis Slight; RBC 3.16 m/uL (4.30-5.90); RDW 17.2 % (11.5-15.5); WBC 6.2 k/uL (3.8-10.6)
[2017-07-09] MEDS: AMIODARONE 450 MG in DEXTROSE 5% IN WATER 250 ML IV SCH ×4 (05:35→17:06)
[2017-07-09 05:36] LABS: Anion Gap 6 mmol/L; Blood Urea Nitrogen 16 mg/dL (9-20); Calcium 8.6 mg/dL (8.4-10.2); Carbon Dioxide 23 mmol/L (22-30); Chloride 105 mmol/L (98-107); Glucose 121 mg/dL (74-99); Phosphorus 3.7 mg/dL (2.5-4.5); Potassium 4.1 mmol/L (3.5-5.1); Sodium 134 mmol/L (137-145)
--- NOTE | 2017-07-09 07:13 | XR ---
EXAMINATION TYPE: XR chest 1V DATE OF EXAM: 07/09/2017 HISTORY: Shortness of breath. COMPARISON: 07/08/2017 TECHNIQUE: Single view of the chest is submitted. FINDINGS: Demonstrated are scattered senescent parenchymal change. There is no evidence for focal infiltrate. The heart is stable. Pulmonary venous congestion without overt failure. Hilar and mediastinal structures are within normal limits. Degenerative changes are seen of the dorsal spine. IMPRESSION: 1. Pulmonary venous congestion without overt failure.
[2017-07-09] MEDS: ASPIRIN 81 MG PO SCH (08:10)
[2017-07-09] MEDS: METOPROLOL TARTRATE 25 MG TAB PO SCH ×2 (08:10→20:35)
--- NOTE | 2017-07-09 12:17 | P.GSCN ---
<Emily Hill - Last Filed: 07/09/17 12:19> History of Present Illness Consult date: 07/09/17 Reason for Consult: Anemia History of present illness: 77-year-old male being seen for a surgical eval at the request of the attending for anemia workup. Initially presented to the emergency room with a chief complaint of feeling short of breath dizziness lightheadedness. Patient stated that he had just returned from having his first treatment of radiation for multiple myeloma. Stated he got home and the visiting nurse came to the house found the patient to be nauseated dry heaves extremely weak. Patient stated I felt like most had a panic attack. In the emergency room patient's heart rate was noted to be elevated up to 170 in the emergency room patient was given a dose of adenosine IV for SVT slow the heart rate down did convert to normal sinus rhythm also started on a Cardizem bolus cardiology consultation has been requested. Is also noted that the initial hemoglobin on admission was 6. Patient has received 2 units of packed red blood cells hemoglobin this morning is up to 8.5. Patient states he has not had prior episodes denied chest pain denied abdominal pain Denies any unintentional weight loss denies any blood in stool denies any constipation or change in bowel habits Patient has a past medical history of prostate cancer diagnosed in the late s , multiple myeloma with left shoulder tumor which he has been initiated on chemoradiation therapy. Patient states his last colonoscopy was in [place] years ago at the cancer treatment Center of [facility]. He was told at that time he had a polyp that there were no acute findings and has not had a recent colonoscopy. Also denied any EGD. Past surgical history prostatectomy, hernia repair, and heart catheterization. Review of Systems Essentially unremarkable except as mentioned in the present illness Past Medical History Past Medical History: Cancer, Hypertension, Osteoarthritis (OA), Supraventricular Tachycardia (SVT) Additional Past Medical History / Comment(s): skin cancer,prostate cancer, cataracts. Radiation treatment to (L) shoulder History of Any Multi-Drug Resistant Organisms: None Reported Past Surgical History: Heart Catheterization, Hernia Repair, Prostate Surgery Additional Past Surgical History / Comment(s): rt wrist ganglion cysts removed Past Anesthesia/Blood Transfusion Reactions: No Reported Reaction Past Psychological History: No Psychological Hx Reported Smoking Status: Never smoker Past Drug Use History: None Reported - Past Family History Father History Unknown: Yes Mother History Unknown: Yes Medications and Allergies Home Medications Medication Instructions Recorded Confirmed Type Aspirin EC [Ecotrin Low Dose] 81 mg PO DAILY 12/21/16 07/07/17 History Metoprolol Tartrate [Lopressor] 25 mg PO QAM 07/06/17 07/07/17 History Allergies Allergy/AdvReac Type Severity Reaction Status Date / Time No Known Allergies Allergy Verified 07/07/17 14:18 Surgical - Exam Vital Signs Temp Pulse Resp BP Pulse Ox 99.0 F 170 H 30 H 159/88 95 07/07/17 13:00 07/07/17 13:00 07/07/17 13:00 07/07/17 13:00 07/07/17 13:00 GENERAL APPEARANCE: The patient is alert, orientedx 3 in no acute distress. States experiencing less left shoulder pain VITAL SIGNS: Reviewed HEENT: Head is normocephalic and atraumatic. Pupils are equal and reactive. The nares are patent. Oropharynx is clear without lesions. NECK: Supple without lymphadenopathy. Traches midline. HEART: S1, S2. Regular rate and rhythm. Current telemetry showing sinus rhythm continues to have episodes of paroxysmal A. fib no murmur noted denying chest pain LUNGS: No crackles or wheezes are heard. No cough noted on room air no shortness of breath ABDOMEN: Soft, nontender, nondistended with good bowel sounds. No peritoneal signs. No palpable organomegaly or masses. Reports no nausea no vomiting EXTREMITIES: Normal skin color and turgor. No cyanosis, rash, ulceration, clubbing or edema. Radial pedal pulses are 2/4 bilaterally. Left shoulder firm palpable nodule noted states less pain in the left shoulder Results - Labs 07/09/17 05:14 07/09/17 05:14 Abnormal Lab Results - Last 24 Hours (Table) 07/08/17 07/09/17 07/09/17 Range/Units 13:06 05:14 05:14 RBC 2.97 L 3.16 L (4.30-5.90) m/uL Hgb 8.0 L 8.5 L (13.0-17.5) gm/dL Hct 25.9 L 27.0 L (39.0-53.0) % MCHC 30.8 L (31.0-37.0) g/dL RDW 15.7 H 17.2 H (11.5-15.5) % Sodium 134 L (137-145) mmol/L Glucose 121 H (74-99) mg/dL Diabetes panel 07/09/17 Range/Units 05:14 Sodium 134 L (137-145) mmol/L Potassium 4.1 (3.5-5.1) mmol/L Chloride 105 (98-107) mmol/L Carbon Dioxide 23 (22-30) mmol/L BUN 16 (9-20) mg/dL Creatinine 1.10 (0.66-1.25) mg/dL Glucose 121 H (74-99) mg/dL Calcium 8.6 (8.4-10.2) mg/dL Calcium panel 07/09/17 Range/Units 05:14 Calcium 8.6 (8.4-10.2) mg/dL Phosphorus 3.7 (2.5-4.5) mg/dL Pituitary panel 07/09/17 Range/Units 05:14 Sodium 134 L (137-145) mmol/L Potassium 4.1 (3.5-5.1) mmol/L Chloride 105 (98-107) mmol/L Carbon Dioxide 23 (22-30) mmol/L BUN 16 (9-20) mg/dL Creatinine 1.10 (0.66-1.25) mg/dL Glucose 121 H (74-99) mg/dL Calcium 8.6 (8.4-10.2) mg/dL Adrenal panel 07/09/17 Range/Units 05:14 Sodium 134 L (137-145) mmol/L Potassium 4.1 (3.5-5.1) mmol/L Chloride 105 (98-107) mmol/L Carbon Dioxide 23 (22-30) mmol/L BUN 16 (9-20) mg/dL Creatinine 1.10 (0.66-1.25) mg/dL Glucose 121 H (74-99) mg/dL Calcium 8.6 (8.4-10.2) mg/dL Assessment and Plan Assessment: Impression Present on admission symptomatic acute blood loss anemia unclear etiology necessitating transfusion 2 units of packed red blood cells Newly diagnosed multiple myeloma receiving first dose radiation and chemotherapy prior to omission History of Prostate cancer Present on admission dizziness lightheadedness suspect due to episodes of SVT with atrial fibrillation rapid ventricular response Plan check iron studies follow up on results Check stool for occult blood Eventually will need a colonoscopy No evidence of an acute surgical abdomen Monitor hemoglobin attempt keep greater than 8 Further surgical recommendations pending Will follow with you The above impression and plan of care have been discussed and directed by signing physician. Emily Hill nurse practitioner acting as scribe for signing physician. Emily Hill dictating out the consultation note for Dr. Gordon <HeidiJeannie N - Last Filed: 07/09/17 18:08> Review of Systems REVIEW OF ORGAN SYSTEMS: CONSTITUTIONAL: Denies any fever or chills. HEENT: Denies any trouble with vision, hearing or nosebleeds. No difficulty swallowing. LYMPHATIC: The patient denies any lumps and bumps around the neck. ENDOCRINE: Denies any thyroid disorders. Denies any blood sugar glucose intolerance. RESPIRATORY: Denies pneumonia. Denies any troubles with breathing or dyspnea on exertion. CARDIOVASCULAR: His atrial fibrillation with rapid ventricular response. GASTROINTESTINAL: Denies heart burn. No constipation or bright red blood per rectum. GENITOURINARY: Denies any blood in urine or increased urinary frequency. MUSCULOSKELETAL: Has back pain, stiffness, joint arthritis. NEUROLOGIC: Denies any numbness or tingling along the distal extremities. No seizure disorders or headaches. PSYCHIATRIC: Denies depression or suidical ideation. HEMATOLOGIC: Denies any abnormal bleeding or bruising. Has multiple myeloma. Has anemia. BREASTS: Denies any breast lumps, pain or nipple discharge. Surgical - Exam Vital Signs Temp Pulse Resp BP Pulse Ox 99.0 F 170 H 30 H 159/88 95 07/07/17 13:00 07/07/17 13:00 07/07/17 13:00 07/07/17 13:00 07/07/17 13:00 GENERAL: Well developed and in no acute distress. Pleasant. HEENT: No sclera icterus. Extraocular movements grossly intact. Moist buccal mucosa. Head is atraumatic, normocephalic. Hears conversational speech. No nasal drainage. NECK: Supple without lymphadenopathy. CHEST: Non-labored respirations and equal bilateral excursions. CARDIOVASCULAR: Regular rate and rhythm. Palpable 2+ radial pulses. ABDOMEN: Soft, nontender. Nondistended. MUSCULOSKELETAL: No clubbing, cyanosis or edema. NEUROLOGIC: No focal or lateralizing signs. PSYCH: Appropriate affect. Alert and oriented to person, place and time. SKIN: Good skin turgor. Well perfused. Results - Labs 07/09/17 05:14 07/09/17 05:14 Abnormal Lab Results - Last 24 Hours (Table) 07/09/17 07/09/17 07/09/17 Range/Units 05:14 05:14 05:14 RBC 3.16 L (4.30-5.90) m/uL Hgb 8.5 L (13.0-17.5) gm/dL Hct 27.0 L (39.0-53.0) % RDW 17.2 H (11.5-15.5) % Sodium 134 L (137-145) mmol/L Glucose 121 H (74-99) mg/dL Iron 17 L (65-175) ug/dL Iron Saturation 5.17 L (15.00-50.00) Diabetes panel 07/09/17 Range/Units 05:14 Sodium 134 L (137-145) mmol/L Potassium 4.1 (3.5-5.1) mmol/L Chloride 105 (98-107) mmol/L Carbon Dioxide 23 (22-30) mmol/L BUN 16 (9-20) mg/dL Creatinine 1.10 (0.66-1.25) mg/dL Glucose 121 H (74-99) mg/dL Calcium 8.6 (8.4-10.2) mg/dL Calcium panel 07/09/17 Range/Units 05:14 Calcium 8.6 (8.4-10.2) mg/dL Phosphorus 3.7 (2.5-4.5) mg/dL Pituitary panel 07/09/17 Range/Units 05:14 Sodium 134 L (137-145) mmol/L Potassium 4.1 (3.5-5.1) mmol/L Chloride 105 (98-107) mmol/L Carbon Dioxide 23 (22-30) mmol/L BUN 16 (9-20) mg/dL Creatinine 1.10 (0.66-1.25) mg/dL Glucose 121 H (74-99) mg/dL Calcium 8.6 (8.4-10.2) mg/dL Adrenal panel 07/09/17 Range/Units 05:14 Sodium 134 L (137-145) mmol/L Potassium 4.1 (3.5-5.1) mmol/L Chloride 105 (98-107) mmol/L Carbon Dioxide 23 (22-30) mmol/L BUN 16 (9-20) mg/dL Creatinine 1.10 (0.66-1.25) mg/dL Glucose 121 H (74-99) mg/dL Calcium 8.6 (8.4-10.2) mg/dL Assessment and Plan (1) Multiple myeloma Current Visit: Yes Status: Acute Code(s): C90.00 - MULTIPLE MYELOMA NOT HAVING ACHIEVED REMISSION SNOMED Code(s): 354939221 (2) Anemia Current Visit: Yes Status: Acute Code(s): D64.9 - ANEMIA, UNSPECIFIED SNOMED Code(s): 181051013 (3) Atrial fibrillation with RVR Current Visit: Yes Status: Acute Code(s): I48.91 - UNSPECIFIED ATRIAL FIBRILLATION SNOMED Code(s): 389506368390242 (4) IgG lambda monoclonal gammopathy Current Visit: Yes Status: Acute Priority: High Code(s): D47.2 - MONOCLONAL GAMMOPATHY SNOMED Code(s): 34608062 Plan: 1. Patient seen and evaluated. He denies any blood in his stools. No reports of abdominal pain. He has not had a colonoscopy in the schedule timeframe. 2. Separately, patient has multiple myeloma which may also account for anemia. 3. Per request of attending service, endoscopic evaluation for anemia is being sought. May potentially do inpatient colonoscopy once patient is cleared from a cardiology standpoint. 4. Patient will need a large volume bowel prep between 2-4 L. Again once he is clear from a cardiac standpoint, then he may have inpatient colonoscopy otherwise additional workup may be done as an outpatient. 5. Patient is also being followed by hematology. We'll follow.
--- NOTE | 2017-07-09 15:55 | P.CONS ---
History of Present Illness - Reason for Consult Consult date: 07/09/17 multiple myeloma, anemia Requesting physician: Kim Godoy - Chief Complaint panic attack - History of Present Illness Patient is a very pleasant 77 year-old male who was seen in initial consultation by Dr. Ansari last . Patient presented to PCP Dr. Loaiza late 2016 with c/o progressive left shoulder pain following a fall 6 months prior. Shoulder X-Ray revealed 7.6 X 8.3 X 3.5 cm destructive lesion in left acromion and scapula, bone scan on 04/23/17 was unremarkable. Pt sent to Ortho- Onc at [facility], lab work up revealed monoclonal gammapathy, Ig levels revealed IgG of 6.6g, bone survey revealed known left shoulder process, as well as, numerous intermediate lytic lesions throughout the skeleton, surgery not recommended. Pt met with Dr. Ansari last , they discussed diagnosis of IgG lambda multiple myeloma, diagnosis, prognosis, plan for bone marrow biopsy and palliative radiation to the shoulder. Pt has been seen by Dr. Loo and had 1 treatment of radiation, chemo with revlimid, velcade and dexamathasone was discussed and there are plans to start that, and bisphosphonate therapy, after radiation. Pt states he came home Wed after radiation and sat down to eat some food when he had a panic attack, his home care nurse call EMS. On arrival he was found to be severely anemia and has had 2 PRBC transfusions, baseline Hgb for pt over the last 2 months, when office medical records reviewed, is 8-9. Pt denied any fevers, vomiting, he is SOB when he gets anxious, he will feel palpitations, denies chest pain, diaphoresis, indigestion, diarrhea, constipation, bleeding or pain other then in his left shoulder, denies numbness or tingling in the shoulder, he maintains some strength in the LUE. Review of Systems 10 point ROS as stated in HPI Past Medical History Past Medical History: Cancer, Hypertension, Osteoarthritis (OA), Supraventricular Tachycardia (SVT) Additional Past Medical History / Comment(s): skin cancer,prostate cancer, cataracts. Radiation treatment to (L) shoulder History of Any Multi-Drug Resistant Organisms: None Reported Past Surgical History: Heart Catheterization, Hernia Repair, Prostate Surgery Additional Past Surgical History / Comment(s): rt wrist ganglion cysts removed Past Anesthesia/Blood Transfusion Reactions: No Reported Reaction Past Psychological History: No Psychological Hx Reported Smoking Status: Never smoker Past Drug Use History: None Reported - Past Family History Father History Unknown: Yes Mother History Unknown: Yes Medications and Allergies Home Medications Medication Instructions Recorded Confirmed Type Aspirin EC [Ecotrin Low Dose] 81 mg PO DAILY 12/21/16 07/07/17 History Metoprolol Tartrate [Lopressor] 25 mg PO QAM 07/06/17 07/07/17 History Allergies Allergy/AdvReac Type Severity Reaction Status Date / Time No Known Allergies Allergy Verified 07/07/17 14:18 Physical Exam Vitals: Vital Signs Temp Pulse Pulse Resp BP BP Pulse Ox 07/09/17 11:50 97.4 F L 131 H 18 136/92 93 L 07/09/17 07:50 87 19 07/09/17 05:00 88 19 154/79 92 L 07/09/17 04:00 97.9 F 86 20 162/88 96 07/09/17 03:00 91 18 146/84 93 L 07/09/17 02:00 85 21 91 L 07/09/17 01:00 83 22 93 L 07/09/17 00:00 99.6 F 86 24 146/84 93 L 07/08/17 23:00 85 25 H 93 L 07/08/17 22:00 82 28 H 93 L 07/08/17 21:00 85 23 143/73 93 L 07/08/17 20:10 95 21 154/86 07/08/17 20:00 97.7 F 92 18 143/73 97 07/08/17 19:57 91 21 07/08/17 19:30 97 23 07/08/17 19:00 139 H 24 154/86 07/08/17 18:30 141 H 21 07/08/17 18:15 142 H 24 156/81 07/08/17 18:00 143 H 32 H 156/81 94 L 07/08/17 17:45 147 H 26 H 158/99 91 L 07/08/17 17:30 161/97 07/08/17 17:15 142 H 20 161/99 93 L 07/08/17 17:00 20 150/79 93 L 07/08/17 16:45 149/89 94 L 07/08/17 16:30 20 140/75 95 07/08/17 16:00 92 22 137/72 93 L 07/08/17 15:44 27 H Intake and Output 07/09/17 07/09/17 07/09/17 06:59 14:59 22:59 Intake Total 397.758 180 Output Total 225 140 Balance 172.758 40 Intake: IV 200 Sodium Chloride 0.9% 1, 200 000 ml @ 75 mls/hr IV . [id number] Rx#:[id number] Intake, IV Titration 197.758 Amount Amiodarone 450 mg In 197.758 Dextrose 5% in Water 250 ml @ 1 MG/MIN 33.33 mls/ hr IV .[id number] JIMENA Rx#: [id number] Oral 180 Output: Urine 225 140 Other: Voiding Method Urinal Urinal Weight 92.6 kg - Constitutional General appearance: average body habitus, cooperative, no acute distress - EENT pale, moist mucus membranes Eyes: anicteric sclerae, normal appearance ENT: normal oropharynx - Neck Neck: no lymphadenopathy - Respiratory Respiratory: bilateral: CTA - Cardiovascular Heart sounds: normal: S1, S2 leg Peripheral Edema: bilateral: None - Gastrointestinal General gastrointestinal: no absent bowel sounds, no decreased bowel sounds, no distended, no hepatomegaly, no hyperactive bowel sounds, normal bowel sounds, no organomegaly, no rigid, no scaphoid, soft, no splenomegaly, no tenderness, no umbilical hernia, no ventral hernia - Integumentary Integumentary: pale - Neurologic Neurologic: CNII-XII intact - Musculoskeletal LUE weakness secondary to myeloma lesion on AC joint, deformity of the left shoulder is visible - Psychiatric Psychiatric: A&O x's 3, appropriate affect, intact judgment & insight Results CBC & Chem 7: 07/09/17 05:14 07/09/17 05:14 Labs: Abnormal Lab Results - Last 24 Hours (Table) 07/09/17 07/09/17 Range/Units 05:14 05:14 RBC 3.16 L (4.30-5.90) m/uL Hgb 8.5 L (13.0-17.5) gm/dL Hct 27.0 L (39.0-53.0) % RDW 17.2 H (11.5-15.5) % Sodium 134 L (137-145) mmol/L Glucose 121 H (74-99) mg/dL Chest x-ray: report reviewed Assessment and Plan (1) IgG lambda monoclonal gammopathy Narrative/Plan: Pt diagnosed with multiple myeloma in the last few weeks. He is doing palliative radiation to a left shoulder lesion, bone marrow will be done and then he will start on treatment if he is inclined to do so. Pt will likely require supportive transfusions until he has had some treatment for myeloma. Recommend CBC weekly in outpatient setting with conservative transfusions PRN. Current Visit: Yes Status: Acute Priority: High Code(s): D47.2 - MONOCLONAL GAMMOPATHY SNOMED Code(s): 07537827 (2) Normocytic anemia Narrative/Plan: In part due to myeloma, iron studies have been ordered already, will add B12 and folate. Pt will be supplemented as needed. Current Visit: Yes Status: Acute Priority: High Code(s): D64.9 - ANEMIA, UNSPECIFIED SNOMED Code(s): 468911969
[2017-07-09 15:59] LABS: Iron Saturation 5.17 (15.00-50.00)
[2017-07-09 16:29] LABS: Reticulocyte % 1.7 % (0.5-2.0)
[2017-07-09] MEDS ORDERED: DILTIAZEM 125 MG in SODIUM CHLORIDE 0.9% 100 ML IV SCH (17:00)
[2017-07-09] MEDS: PANTOPRAZOLE 40 MG/10 ML VIAL IVP SCH (17:14)
[2017-07-09] MEDS ORDERED: HYDROmorphone 2 MG/ML 1 ML SYRINGE IVP PRN (18:16)
[2017-07-09] MEDS ORDERED: ACETAMINOPHEN TAB 500 MG TAB PO PRN (18:16)
--- NOTE | 2017-07-09 20:10 | PN ---
PROGRESS NOTE DATE OF SERVICE: 07/09/2017 I am covering for Dr. Solo Loaiza. This 77-year-old gentleman with a past medical history of multiple medical problems, include recently diagnosed multiple myeloma with shoulder radiation and was admitted with SVT, anxiety, and anemia, multiple consultants are following the patient including Hematology Oncology and as well as Dr. Gordon and Cardiology. Patient had two units transfusion increased hemoglobin from 6.7 to 8.5. PAST MEDICAL HISTORY: Reviewed. REVIEW OF SYSTEMS: Cardiovascular: As mentioned earlier. Respiration: As mentioned earlier. GI As mentioned earlier. : No dysuria. MEDICATIONS: Current medications are: 1. Aspirin 81 mg mg daily. 2. Diltiazem 110 mg drip. 3. Lopressor 25 mg b.i.d. 4. Protonix 40 mg IV daily. ALLERGIES: Are noted. PHYSICAL EXAM: Patient is alert, oriented x2. Pulse is 131, irregular, blood pressure is 130/92, respiration 18, temperature 97.4, pulse ox 98% on room air. HEENT: Conjunctivae pale. Oral mucosa moist. Neck is no jugular venous distention. No carotid bruit. No lymph node enlargement. Cardiovascular system: S1, S2, tachycardia. Respiratory: Breath sounds diminished in the bases. No rhonchi and no crackles. ABDOMEN: Soft, nontender. No mass palpable. Legs no edema and no swelling. NERVOUS SYSTEM: Higher functions as mentioned earlier. Moves all four limbs. No focal deficits. Lymphatics: No lymph nodes palpable in the neck, axillae or groin. Skin: No ulcers, rashes or bleeding. LABS: WBC 6.8, hemoglobin 8.5, sodium 135. ASSESSMENT: 1. Supraventricular tachycardia, present on admission. 2. Anemia, multifactorial, status post transfusion. 3. Symptomatic. 4. Multiple myeloma. 5. Atrial fibrillation with rapid ventricular rate. 6. IgG lambda monoclonal gammopathy. 7. History of hypertension. 8. History of degenerative joint disease. 9. History of left shoulder radiation for destructive lesions secondary from myeloma. 10.History of prostate surgery and cancer. 11.History of hernia surgery. RECOMMENDATIONS AND DISCUSSION: In this 77-year-old gentleman who presented with multiple complex medical issues, we will monitor the patient closely continue the current medications, management and symptomatic treatment. Otherwise, continue with beta blockers and as well as Cardizem drip and I would recommend repeat hemoglobin on an recurrent basis. Otherwise I would also recommend monitor fluid and electrolytes closely. Prognosis guarded because of multiple complex medical issues. Further recommendations to follow. Most recent chest x-ray was reviewed by me showed pulmonary venous congestion without any overt failure. See orders for details. DVT prophylaxis. Further recommendations to follow. MMODL / IJN: [id number] /
[2017-07-09] MEDS: HEPARIN SODIUM,PORCINE 5,000 UNIT/ML 1 ML VIAL SQ SCH (20:35)
[2017-07-09] MEDS: TEMAZEPAM 15 MG CAP PO PRN (22:50)
[2017-07-10] MEDS: ALPRAZolam 0.25 MG TAB PO PRN (04:03)
[2017-07-10 06:32] LABS: Basophils % (A) 0 %; Eosinophils % (A) 0 %; HCT 28.7 % (39.0-53.0); HGB 8.8 gm/dL (13.0-17.5); Hypochromasia Marked; Lymphocytes # (A) 1.9 k/uL (1.0-4.8); Lymphocytes % (A) 31 %; MCH 26.5 pg (25.0-35.0); MCHC 30.5 g/dL (31.0-37.0); MCV 86.9 fL (80.0-100.0); Mean Platelet Volume 7.3; Monocytes # (A) 0.2 k/uL (0-1.0); Monocytes % (A) 3 %; Neutrophils % (A) 64 %; Platelet Count 295 k/uL (150-450); Poikilocytosis Slight; RBC 3.31 m/uL (4.30-5.90); RDW 15.8 % (11.5-15.5); WBC 6.2 k/uL (3.8-10.6)
[2017-07-10 06:46] LABS: Anion Gap 9 mmol/L; Blood Urea Nitrogen 14 mg/dL (9-20); Calcium 8.8 mg/dL (8.4-10.2); Carbon Dioxide 22 mmol/L (22-30); Chloride 103 mmol/L (98-107); Glucose 133 mg/dL (74-99); Magnesium 1.7 mg/dL (1.6-2.3); Phosphorus 3.7 mg/dL (2.5-4.5); Sodium 134 mmol/L (137-145)
--- NOTE | 2017-07-10 08:07 | PN ---
PROGRESS NOTE DATE OF SERVICE: July 09, 2017 BRIEF HISTORY: This is a pleasant 77-year-old gentleman with a past medical history significant for newly diagnosed with multiple myeloma, where the patient just was receiving chemotherapy and radiation therapy few days ago and after the chemotherapy, he did not feel well where he feels short of breath as well as weak. No chest pain or discomfort. No dizziness or lightheadedness. No loss of consciousness. He presented to the emergency room where in the ER, he was found to be in the SVT and he was given adenosine. After that, the patient converted to normal sinus mechanism. When he was seen yesterday, he was maintaining normal sinus mechanism and I did increase the dose of metoprolol to 25 mg p.o. b.i.d. It seems that the patient came back to SVT earlier today. His heart rate has been around 120-130 beats per minute. PHYSICAL EXAM: GENERAL APPEARANCE: The patient does not look in any pain or distress. Vitals showed the following: Temperature is 98.5, heart rate is 132 beats per minute, respiratory rate is 18 per minute, pressure is 131/91 mmHg. CARDIOVASCULAR: Examination reveals regular rate and rhythm with normal S1 and S2. RESPIRATORY: Examination showed diminished breathing sounds bilaterally. DIAGNOSTIC WORKUP: WBC 6.2, hemoglobin 8.5, platelet count is 298. Sodium is 134, potassium 4. and GFR is more than 60. ASSESSMENT: 1. Newly diagnosed with multiple myeloma and the patient is status post chemo and radiation therapy. 2. Supraventricular tachycardia. The patient continues to have a heart rate between 120-130. PLAN: 1. I am going to start the patient on Cardizem drip. 2. Continue the metoprolol 25 mg p.o. b.i.d. and probably increase the dose down the line if the patient tolerates that. 3. Follow up on the echocardiogram. 4. If the patient continues to be a refractory on medical treatment, he might benefit from SVT ablation. MMODL / IJN: [id number] /
[2017-07-10] MEDS: ASPIRIN 81 MG PO SCH (08:46)
[2017-07-10] MEDS: PANTOPRAZOLE 40 MG/10 ML VIAL IVP SCH (08:47)
[2017-07-10] MEDS: HEPARIN SODIUM,PORCINE 5,000 UNIT/ML 1 ML VIAL SQ SCH ×2 (08:47→20:33)
[2017-07-10] MEDS: METOPROLOL TARTRATE 25 MG TAB PO SCH (08:47)
[2017-07-10] MEDS: HYDROcodone/APAP 5-325MG 1 EACH TAB PO PRN ×2 (09:15→15:47)
--- NOTE | 2017-07-10 10:40 | P.PN ---
Subjective Progress Note Date: 07/10/17 Principal diagnosis: Anemia The patient is awaiting cardiology clearance for upcoming EGD colonoscopy. Patient states that he does not wish to have endoscopy performed. He is complaining of a upper respiratory tract symptoms. Objective - Vital Signs Vital signs: Vital Signs Temp 98.5 F 07/10/17 08:10 Pulse 90 07/10/17 08:10 Resp 16 07/10/17 08:10 BP 151/70 07/10/17 08:10 Pulse Ox 94 L 07/10/17 08:10 Intake & Output 07/09/17 07/10/17 07/10/17 18:59 06:59 18:59 Intake Total 560 200 Output Total 140 Balance 420 200 Weight 95.4 kg Intake: Oral 560 200 Output: Urine 140 Other: Voiding Method Urinal Urinal # Voids 1 1 1 # Bowel Movements 1 - Constitutional General appearance: Present: cooperative - Gastrointestinal Gastrointestinal Comment(s): Abdomen soft and nontender. - Labs CBC & Chem 7: 07/10/17 06:07 07/10/17 06:07 Labs: Abnormal Lab Results - Last 24 Hours (Table) 07/09/17 07/10/17 07/10/17 Range/Units 05:14 06:07 06:07 RBC 3.31 L (4.30-5.90) m/uL Hgb 8.8 L (13.0-17.5) gm/dL Hct 28.7 L (39.0-53.0) % MCHC 30.5 L (31.0-37.0) g/dL RDW 15.8 H (11.5-15.5) % Sodium 134 L (137-145) mmol/L Glucose 133 H (74-99) mg/dL Iron 17 L (65-175) ug/dL Iron Saturation 5.17 L (15.00-50.00) Assessment and Plan Assessment: Anemia, he will is 8.8. Patient will undergo upper and lower endoscopy by Dr. López once he obtains cardiology clearance.
[2017-07-10] MEDS ORDERED: FUROSEMIDE 10 MG/ML 2 ML VIAL IV STA (11:45)
[2017-07-10] MEDS ORDERED: METOPROLOL TARTRATE 25 MG TAB PO ONE (12:00)
[2017-07-10] MEDS ORDERED: Magnesium Replacement Protocol 1 EACH MISC MISCELLANE PRN (12:03)
--- NOTE | 2017-07-10 12:04 | PN ---
PROGRESS NOTE Mr. Rick is a 77-year-old male who has a history of multiple myeloma who presented with symptoms of progressive fatigue and was found to have supraventricular tachycardia. He has continued to feel fatigued at the time. He has continued to be in sinus mechanism with no further SVTs. He remains on the low-dose beta chanda. He denies any dizziness or palpitation. He has no nausea. He is having cough. He continued to be on aspirin 81 mg daily in addition to the IV Cardizem and metoprolol tartrate 25 mg twice a day. PHYSICAL EXAMINATION: Blood pressure 132/70 with a heart in 70. Lungs with mild decrease in breath sounds. No wheezes. Heart are regular rate and rhythm. S1, S2. No S3. No rub. ABDOMEN: Soft, nontender. EXTREMITIES: No edema. LAB DATA: Lab data revealed a hemoglobin of 8.8, BUN and creatinine of 14 and 1.0. IMPRESSION: 1. Multiple myeloma. 2. Anemia. 3. Paroxysmal supraventricular tachycardia, remains in sinus mechanism. RECOMMENDATION: I will stop the IV Cardizem. I will increase the beta chanda. I would give him 1 dose of diuretics and obtain echocardiogram with Doppler and depending on his progress, further recommendations will be made. MMODL / IJN: [id number] /
[2017-07-10] MEDS: MAGNESIUM SULFATE-D5W PMX 1 GM in DEXTROSE/WATER 1 100ML.BAG IVPB SCH ×2 (12:46→13:49)
[2017-07-10] MEDS: BENZOCAINE/MENTHOL LOZENG 1 EACH LOZENGE MUCOUS MEM PRN ×2 (12:47→15:47)
--- NOTE | 2017-07-10 15:40 | ECHOF ---
Referral Reason:svt MEASUREMENTS -------- HEIGHT: 175.3 cm WEIGHT: 95.3 kg BP: 132/73 IVSd: 1.3 cm (0.6 - 1.1) LVIDd: 3.3 cm (3.9 - 5.3) LVPWd: 1.2 cm (0.6 - 1.1) IVSs: 1.4 cm LVIDs: 2.0 cm LVPWs: 1.3 cm LAESV Index (A-L): 29.62 ml/m MV E Smith: 1.17 m/s MV DecT: 285 ms MV A Smith: 0.86 m/s MV E/A Ratio: 1.36 RAP: 15.00 mmHg RVSP: 27.13 mmHg FINDINGS -------- Atrial fibrillation. This was a technically adequate study. The left ventricular size is normal. There is mild concentric left ventricular hypertrophy. Overa ll left ventricular systolic function is normal with, an EF between 55 - 60 %. The right ventricle is normal in size and function. LA is midly dilated 29-33ml/m2. The right atrium is normal in size. Aortic valve is trileaflet and is mildly thickened. Trace amount of aortic regurgitation. Mild mitral annular calcification present. Mild mitral regurgitation is present. Mild tricuspid regurgitation present. Right ventricular systolic pressure is normal at < 35 mmHg. There is no evidence of pulmonary hypertension. The pulmonic valve was not well visualized. There is no pulmonic regurgitation present. The aortic root size is normal. The inferior vena cava is dilated with no significant inspiratory collapse which is consistent estima kirsty right atrial pressure of >20 mmHg. There is no pericardial effusion. CONCLUSIONS -------- 1. Atrial fibrillation. 2. This was a technically adequate study. 3. The left ventricular size is normal. 4. There is mild concentric left ventricular hypertrophy. 5. Overall left ventricular systolic function is normal with, an EF between 55 - 60 %. 6. LA is midly dilated 29-33ml/m2. 7. Aortic valve is trileaflet and is mildly thickened. 8. Trace amount of aortic regurgitation. 9. Mild mitral annular calcification present. 10. Mild mitral regurgitation is present. 11. Mild tricuspid regurgitation present. 12. Right ventricular systolic pressure is normal at < 35 mmHg. 13. The pulmonic valve was not well visualized. 14. There is no pulmonic regurgitation present. 15. The aortic root size is normal. 16. The inferior vena cava is dilated with no significant inspiratory collapse which is consistent es timated right atrial pressure of >20 mmHg. 17. There is no pericardial effusion. SOFTWARE INTERN: Bill Geronimo RDCS
[2017-07-10] MEDS: METOPROLOL TARTRATE 50 MG TAB PO SCH (18:41)
[2017-07-10] MEDS: IPRATROPIUM-ALBUTEROL 3 ML NEB INHALATION SCH (19:53)
[2017-07-10] MEDS: TEMAZEPAM 15 MG CAP PO PRN (21:15)
[2017-07-10] MEDS ORDERED: DILTIAZEM 125 MG in SODIUM CHLORIDE 0.9% 100 ML IV SCH (22:15)
[2017-07-11 07:11] LABS: Anisocytosis Slight; Basophils % (A) 1 %; Eosinophils % (A) 0 %; HCT 29.2 % (39.0-53.0); HGB 8.9 gm/dL (13.0-17.5); Hypochromasia Marked; Lymphocytes # (A) 2.3 k/uL (1.0-4.8); Lymphocytes % (A) 30 %; MCH 26.1 pg (25.0-35.0); MCHC 30.4 g/dL (31.0-37.0); MCV 85.9 fL (80.0-100.0); Mean Platelet Volume 7.6; Monocytes # (A) 0.2 k/uL (0-1.0); Monocytes % (A) 3 %; Neutrophils % (A) 65 %; Platelet Count 335 k/uL (150-450); RDW 17.3 % (11.5-15.5); WBC 7.7 k/uL (3.8-10.6)
[2017-07-11 07:40] LABS: Anion Gap 9 mmol/L; Blood Urea Nitrogen 15 mg/dL (9-20); Calcium 8.7 mg/dL (8.4-10.2); Carbon Dioxide 21 mmol/L (22-30); Chloride 100 mmol/L (98-107); Glucose 141 mg/dL (74-99); Magnesium 1.7 mg/dL (1.6-2.3); Phosphorus 3.9 mg/dL (2.5-4.5); Potassium 4.1 mmol/L (3.5-5.1); Sodium 130 mmol/L (137-145)
[2017-07-11] MEDS: HEPARIN SODIUM,PORCINE 5,000 UNIT/ML 1 ML VIAL SQ SCH ×2 (08:07→20:17)
[2017-07-11] MEDS: METOPROLOL TARTRATE 50 MG TAB PO SCH ×2 (08:07→20:17)
[2017-07-11] MEDS: PANTOPRAZOLE 40 MG/10 ML VIAL IVP SCH (08:07)
[2017-07-11] MEDS: ASPIRIN 81 MG PO SCH (08:07)
[2017-07-11] MEDS: IPRATROPIUM-ALBUTEROL 3 ML NEB INHALATION SCH ×3 (08:10→21:00)
--- NOTE | 2017-07-11 08:24 | PN ---
PROGRESS NOTE DATE OF SERVICE: 07/10/2017 I am covering for Dr. Solo Loaiza This 77-year-old gentleman admitted with supraventricular also had anemia. The patient had a 2D echo with Doppler which showed ejection fraction about 50-60% and multiple minimal valvular abnormalities. Surgery is following the patient closely and cardiology. Patient has underlying multiple myeloma. Dr. Saini is recommending EGD and colonoscopy per Dr. Gordon. No chest pain. No palpitations. No fever. PHYSICAL EXAM: Alert and oriented x2. Pulse 90, blood pressure 150/72, respiration 18, temp 97 degrees, pulse ox 93% on 2 L. HEENT is conjunctivae normal. Oral mucosa moist. Neck is no jugular venous distention. No carotid bruit. No lymph node enlargement. Cardiovascular system: S1, S2 muffled. Respiratory: Breath sounds diminished in the bases. A few scattered rhonchi and crackles. ABDOMEN: Soft, nontender. No mass palpable. Legs no edema and no swelling. NERVOUS SYSTEM: Higher functions as mentioned earlier, moves all 4 limbs, no focal motor or sensory deficits. Lymphatics: No lymph nodes palpable in the neck, axillae or groin. SKIN: No ulcer, rash or bleeding. LABS: WBC 6.2, hemoglobin is 8.8, sodium 134. ASSESSMENT: 1. Supraventricular tachycardia paroxysmal present on admission. 2. Anemia, multifactorial, status post transfusion rule out gastrointestinal bleed which is symptomatic. 3. Multiple myeloma. 4. Atrial fibrillation with rapid ventricular rate history. 5. IgG lambda monoclonal gammopathy. 6. History of hypertension. 7. History of degenerative joint disease. 8. History of left shoulder radiation for destructive lesions secondary from myeloma. 9. History of prostate surgery and cancer. 10.History of hernia surgery. RECOMMENDATIONS AND DISCUSSION: Continue current management and symptomatic treatment. Otherwise, at this time, I recommend closely monitor with surgery as well as Cardiology. The chest x-ray was reviewed. Some pulmonary venous congestion was noted. I would recommend a course of breathing treatments also. Further recommendations to follow. Continue the rest of the medications. One time Lasix has been given. Also check NT proBNP as well. Further recommendations to follow. . MMODL / IJN: [id number] /
[2017-07-11] MEDS: MAGNESIUM SULFATE-D5W PMX 1 GM in DEXTROSE/WATER 1 100ML.BAG IVPB SCH ×2 (09:49→11:11)
[2017-07-11] MEDS: HYDROcodone/APAP 5-325MG 1 EACH TAB PO PRN ×3 (09:50→21:48)
[2017-07-11] MEDS: BENZOCAINE/MENTHOL LOZENG 1 EACH LOZENGE MUCOUS MEM PRN (09:50)
--- NOTE | 2017-07-11 10:57 | P.PN ---
Progress Note - Text Progress Note Date: 07/11/17 The patient is resting comfortably in his bed. He shows no evidence of GI bleed. Patient states he is reluctant to undergo endoscopy. On exam his vital signs are stable. His abdomen is soft. He will was stable at 8.9. Awaiting clearance from Dr. Mehta. He had an echocardiogram performed yesterday. Once he has been cleared by cardiology he will be scheduled for upper and lower endoscopy. We will hold off on his bowel prep until he obtains cardiac clearance.
--- NOTE | 2017-07-11 11:00 | PN ---
PROGRESS NOTE DATE OF SERVICE: 07/11/2017. HISTORY: Mr. Rick is a 77-year-old male with a history multiple myeloma, who presented with progressive dyspnea and fatigue and had episodes of supraventricular tachycardia. He continues to have episodes of tachycardia on and off, but he has been complaining of cough and dyspnea. He denies any symptoms of chest pain. He is feeling fatigued with lack of energy. His echocardiogram reveals a preserved ventricular size and systolic function with mild mitral and tricuspid regurgitation. His chest x-ray on the revealed no acute infiltrate. He continues to be, at this time, on aspirin once a day, IV Cardizem, metoprolol tartrate 50 mg twice a day. PHYSICAL EXAMINATION: Blood pressure 125/60 with a heart rate in the 90s. LUNGS: With decreased air exchange bilaterally. No rhonchi. HEART: S1, S2. No rub. ABDOMEN: Soft, nontender. EXTREMITIES: No edema. LAB DATA: Revealed a hemoglobin of 8.9. BUN and creatinine of 15 and 1.12. His NT proBNP is 2180. IMPRESSION: 1. Symptoms of progressive dyspnea and cough. Etiology unclear. His initial chest x- ray showed no infiltrate. With his persistent cough, the issue of congestive heart failure is definitely an issue with preserved systolic function. I will repeat the chest x-ray, this time on IV Lasix. 2. Episode of AV en reentry tachycardia. 3. Multiple myeloma. 4. Anemia. RECOMMENDATIONS: I will repeat chest x-ray, put him on daily diuretics. I will stop his IV Cardizem, switch him to oral Cardizem. I will obtain a consultation from the Pulmonary Service because of his persistent cough. Depending on his progress, further recommendation will be made. MMODL / IJN: [id number] /
[2017-07-11] MEDS: DILTIAZEM ORAL 30 MG TAB PO SCH ×3 (11:11→22:17)
[2017-07-11] MEDS: FUROSEMIDE 10 MG/ML 2 ML VIAL IV SCH ×2 (11:12→20:17)
[2017-07-11] MEDS ORDERED: guaiFENesin SYRUP 100MG/5ML 200 MG/10 ML CUP PO PRN (11:30)
[2017-07-11] MEDS: PIPERACILLIN-TAZOBACTAM 3.375 GM in DEXTROSE/WATER 1 50ML.BAG IVPB SCH ×2 (12:48→20:17)
--- NOTE | 2017-07-11 12:53 | CT ---
EXAMINATION TYPE: CT chest wo con DATE OF EXAM: 07/11/2017 COMPARISON: NONE HISTORY: SOB, cough CT DLP: 783 mGycm. Automated Exposure Control for Dose Reduction was Utilized. TECHNIQUE: CT scan of the thorax is performed without IV contrast. FINDINGS: There is bibasilar consolidation. This is worse on the left than the right. There is also p atchy airspace disease in the left lingula. Major bronchi appear patent. The heart is enlarged. There is a 1.8 cm posterior pericardial effusion. No definite pleural fluid is seen. There is no significant axillary, mediastinal or hilar adenopathy. There is a 7.7 mm calculus in the anterior mid polar. Calyx on the left. Visualized portions of the u pper abdomen are otherwise unremarkable. There is hypertrophic spondylosis within the spine. IMPRESSION: 1. BIBASILAR PNEUMONIA, WORSE ON THE LEFT THAN THE RIGHT. 2. MODERATE PERICARDIAL EFFUSION AND CARDIOMEGALY. 3. LEFT-SIDED NEPHROLITHIASIS. 4. DEGENERATIVE CHANGES WITHIN THE SPINE.
--- NOTE | 2017-07-11 13:29 | P.CNPUL ---
History of Present Illness Consult date: 07/11/17 Reason for consult: dyspnea, cough History of present illness: 77 year-old male who is being seen today for increased cough, chest congestion, and a abnormal opacity in the left lung base with a possibility of an underlying pneumonia. Note that this patient got recently diagnosed having multiple myeloma. He initially presented to PCP Dr. Loaiza late 2016 with c/o progressive left shoulder pain following a fall 6 months prior. Shoulder X-Ray revealed 7.6 X 8.3 X 3.5 cm destructive lesion in left acromion and scapula, bone scan on 04/23/17 was unremarkable. Pt sent to Ortho-Onc at [place], lab work up revealed monoclonal gammapathy, Ig levels revealed IgG of 6.6g, bone survey revealed known left shoulder process, as well as, numerous intermediate lytic lesions throughout the skeleton, surgery not recommended. Pt met with Dr. Ansari last , they discussed diagnosis of IgG lambda multiple myeloma , diagnosis, prognosis, plan for bone marrow biopsy and palliative radiation to the shoulder. Pt has been seen by Dr. Loo and had 1 treatment of radiation, chemo with revlimid, velcade and dexamathasone was discussed and there are plans to start that, and bisphosphonate therapy, after radiation. The patient stated that after radiation therapy last Wednesday he started having increased shortness of breath and he became quite tachypneic and panicky. He had his home care nurse call EMS. On arrival he was found to be severely anemia and has had 2 PRBC transfusions, baseline Hgb for pt over the last 2 months, when office medical records reviewed, is 8-9. Pt denied any fevers, vomiting, he is SOB when he gets anxious, he will feel palpitations, denies chest pain, diaphoresis, indigestion, diarrhea, constipation, bleeding or pain other then in his left shoulder, denies numbness or tingling in the shoulder, he maintains some strength in the LUE. During this current hospital stay, the patient was seen by cardiology. He was found to be having runs of SVT. His echocardiogram showed preserved LV function. The patient was treated with Cardizem drip. His current rhythm is sinus. Nevertheless he is having ongoing respiratory difficulties with cough congestion and wheezing and shortness of breath and for that reason a pulmonary consultation was requested. No home oxygen. No smoking history. Most of COPD. No history of asthma. No history of any DVT or pulmonary embolism. No aspiration. Furthermore there is no fever at this point. Review of Systems Constitutional: Reports chronic pain, Reports fatigue, Reports lethargy, Reports poor appetite, Reports weight loss Eyes: denies blurred vision, denies bulging eye, denies decreased vision Ears: deny: decreased hearing, ear discharge, earache Ears, nose, mouth and throat: Denies headache, Denies sore throat Cardiovascular: Reports decreased exercise tolerance, Reports dyspnea on exertion, Reports palpitations, Reports rapid heart beat, Reports shortness of breath Respiratory: Reports cough, Reports cough with sputum, Reports dyspnea Gastrointestinal: Reports loss of appetite Genitourinary: Reports as per HPI Musculoskeletal: Reports hot joints, Reports limitation of motion, Reports low back pain, Reports muscle weakness, Reports myalgias Musculoskeletal: absent: ankle pain, ankle stiffness, ankle swelling Integumentary: Denies pruritus, Denies rash Neurological: Reports weakness Psychiatric: Denies anxiety, Denies depression Endocrine: Denies fatigue, Denies weight change Hematologic/Lymphatic: Reports as per HPI Allergic/Immunologic: Reports as per HPI Past Medical History Past Medical History: Cancer, Hypertension, Osteoarthritis (OA), Supraventricular Tachycardia (SVT) Additional Past Medical History / Comment(s): Multiple myeloma, prostate cancer , skin cancer, hypertension, degenerative arthritis, episodes of SVT a discussed above, nephrolithiasis History of Any Multi-Drug Resistant Organisms: None Reported Past Surgical History: Heart Catheterization, Hernia Repair, Prostate Surgery Additional Past Surgical History / Comment(s): rt wrist ganglion cysts removed Past Anesthesia/Blood Transfusion Reactions: No Reported Reaction Past Psychological History: No Psychological Hx Reported Smoking Status: Never smoker Past Drug Use History: None Reported - Past Family History Father History Unknown: Yes Mother History Unknown: Yes Medications and Allergies Home Medications Medication Instructions Recorded Confirmed Type Aspirin EC [Ecotrin Low Dose] 81 mg PO DAILY 12/21/16 07/07/17 History Metoprolol Tartrate [Lopressor] 25 mg PO QAM 07/06/17 07/07/17 History Allergies Allergy/AdvReac Type Severity Reaction Status Date / Time No Known Allergies Allergy Verified 07/07/17 14:18 Physical Exam Vitals: Vital Signs Temp Pulse Pulse Resp BP Pulse Ox 07/11/17 11:17 18 07/11/17 11:16 76 18 103/53 93 L 07/11/17 08:19 108 H 07/11/17 08:12 104 H 07/11/17 08:00 96 F L 85 16 125/64 92 L 07/11/17 04:00 98.8 F 154 H 20 147/81 93 L 07/11/17 00:00 98.4 F 144 H 18 149/80 91 L 07/10/17 20:11 109 H 07/10/17 20:00 98.6 F 100 18 151/99 96 07/10/17 19:57 115 H 07/10/17 16:00 97 F L 90 18 155/72 93 L Intake and Output 07/10/17 07/11/17 07/11/17 22:59 06:59 14:59 Intake Total 180 10 Balance 180 10 Intake: IV 10 0.9 10 Oral 180 Other: Voiding Method Urinal Toilet Toilet Urinal Urinal # Voids 1 1 2 Weight 94.9 kg - Constitutional General appearance: average body habitus, cooperative, no acute distress - EENT pale, moist mucus membranes Eyes: anicteric sclerae, normal appearance ENT: normal oropharynx - Neck Neck: no lymphadenopathy - Respiratory Respiratory: bilateral: Wheezes and crackles heard throughout the lung viramontes bilaterally along with some prolongation of expiratory phase of breathing and crackles in lung bases. - Cardiovascular Heart sounds: normal: S1, S2 leg Peripheral Edema: bilateral: None - Gastrointestinal General gastrointestinal: no absent bowel sounds, no decreased bowel sounds, no distended, no hepatomegaly, no hyperactive bowel sounds, normal bowel sounds, no organomegaly, no rigid, no scaphoid, soft, no splenomegaly, no tenderness, no umbilical hernia, no ventral hernia - Integumentary Integumentary: pale - Neurologic Neurologic: CNII-XII intact - Musculoskeletal LUE weakness secondary to myeloma lesion on AC joint, deformity of the left shoulder is visible - Psychiatric Psychiatric: A&O x's 3, appropriate affect, intact judgment & insight Results - Laboratory Findings CBC and BMP: 07/11/17 06:35 07/11/17 06:35 PT/INR, D-dimer PT 11.3 sec (9.0-12.0) 07/07/17 13:05 INR 1.2 (<1.2) H 07/07/17 13:05 Abnormal lab findings: Abnormal Labs 07/07/17 07/07/17 07/07/17 13:05 13:05 13:05 WBC 11.1 H RBC 3.05 L Hgb 8.1 L Hct 26.2 L MCHC 30.9 L RDW 17.4 H INR APTT Sodium 134 L Carbon Dioxide 14 L Glucose 173 H POC Glucose (mg/dL) Iron Iron Saturation Troponin I 0.047 H* Total Protein 11.4 H Crossmatch 07/07/17 07/08/17 07/08/17 13:05 01:32 03:01 WBC RBC 2.59 L Hgb 6.8 L* Hct 22.0 L MCHC 30.3 L RDW 17.3 H INR 1.2 H APTT 19.2 L Sodium Carbon Dioxide Glucose POC Glucose (mg/dL) Iron Iron Saturation Troponin I Total Protein Crossmatch See Detail 07/08/17 07/08/17 07/08/17 03:45 05:40 05:40 WBC RBC 2.59 L Hgb 6.7 L* Hct 21.9 L MCHC 30.7 L RDW 17.1 H INR APTT Sodium 136 L Carbon Dioxide Glucose 112 H POC Glucose (mg/dL) 119 H Iron Iron Saturation Troponin I Total Protein Crossmatch 07/08/17 07/09/17 07/09/17 13:06 05:14 05:14 WBC RBC 2.97 L 3.16 L Hgb 8.0 L 8.5 L Hct 25.9 L 27.0 L MCHC 30.8 L RDW 15.7 H 17.2 H INR APTT Sodium 134 L Carbon Dioxide Glucose 121 H POC Glucose (mg/dL) Iron Iron Saturation Troponin I Total Protein Crossmatch 07/09/17 07/10/17 07/10/17 05:14 06:07 06:07 WBC RBC 3.31 L Hgb 8.8 L Hct 28.7 L MCHC 30.5 L RDW 15.8 H INR APTT Sodium 134 L Carbon Dioxide Glucose 133 H POC Glucose (mg/dL) Iron 17 L Iron Saturation 5.17 L Troponin I Total Protein Crossmatch 07/11/17 07/11/17 06:35 06:35 WBC RBC 3.40 L Hgb 8.9 L Hct 29.2 L MCHC 30.4 L RDW 17.3 H INR APTT Sodium 130 L Carbon Dioxide 21 L Glucose 141 H POC Glucose (mg/dL) Iron Iron Saturation Troponin I Total Protein Crossmatch - Diagnostic Findings Chest x-ray: image reviewed CT scan - chest: image reviewed Assessment and Plan Plan: Assessment 1 bilateral lower lobe pneumonia left more than right. The patient is immunocompromised due to his underlying multiple myeloma. Since his current hospitalization is been having increased cough congestion and wheezing and shortness of breath. Subsequently the chest x-ray showed a left lower lobe patchy opacity suggestive of pneumonia. Furthermore, a CAT scan of the chest was done without contrast that showed bilateral lower lobe airspace disease left more than right in addition to moderate-sized pericardial effusion. The patient will be started on broad-spectrum antibiotics 2 multiple myeloma 3 episodic SVT. 4 moderate pericardial effusion 5 normocytic anemia 6 nephrolithiasis secondary to above 7 chronic body aches involving the skeletal system related to myeloma addition to lytic distractive lesion involving the left scapula Plan Obtain sputum Gram stain and culture. The patient on empiric antibiotic coverage with IV Zosyn. Put the patient on DuoNeb nebulized treatments around the clock. Ephraimsin-DM for cough and congestion. We'll continue to follow. Would also suggest obtaining a blood culture. Patient is obviously immunocompromised. She will need close attention and close follow-up of his underlying bilateral pneumonia. Consider bronchoscopy for upper chest infection if no improvement of this breath or lower lobe consolidation and infiltration.
[2017-07-12] MEDS: PIPERACILLIN-TAZOBACTAM 3.375 GM in DEXTROSE/WATER 1 50ML.BAG IVPB SCH ×3 (04:08→21:16)
[2017-07-12 06:46] LABS: Anisocytosis Slight; Basophils % (A) 1 %; Eosinophils # (A) 0.1 k/uL (0-0.7); Eosinophils % (A) 1 %; HGB 8.1 gm/dL (13.0-17.5); Hypochromasia Marked; Lymphocytes # (A) 1.9 k/uL (1.0-4.8); Lymphocytes % (A) 25 %; MCH 25.8 pg (25.0-35.0); MCHC 29.8 g/dL (31.0-37.0); MCV 86.6 fL (80.0-100.0); Mean Platelet Volume 7.6; Monocytes # (A) 0.2 k/uL (0-1.0); Monocytes % (A) 2 %; Neutrophils # (A) 5.3 k/uL (1.3-7.7); Neutrophils % (A) 70 %; Platelet Count 287 k/uL (150-450); RBC 3.12 m/uL (4.30-5.90); RDW 17.2 % (11.5-15.5); WBC 7.6 k/uL (3.8-10.6)
[2017-07-12 07:01] LABS: Anion Gap 9 mmol/L; Blood Urea Nitrogen 19 mg/dL (9-20); Calcium 8.5 mg/dL (8.4-10.2); Carbon Dioxide 22 mmol/L (22-30); Chloride 102 mmol/L (98-107); Glucose 140 mg/dL (74-99); Magnesium 1.9 mg/dL (1.6-2.3); Phosphorus 4.4 mg/dL (2.5-4.5); Potassium 3.7 mmol/L (3.5-5.1); Sodium 133 mmol/L (137-145)
[2017-07-12] MEDS: IPRATROPIUM-ALBUTEROL 3 ML NEB INHALATION SCH ×3 (07:40→19:38)
[2017-07-12] MEDS: DILTIAZEM ORAL 30 MG TAB PO SCH (08:22)
[2017-07-12] MEDS: ASPIRIN 81 MG PO SCH (08:22)
[2017-07-12] MEDS: HEPARIN SODIUM,PORCINE 5,000 UNIT/ML 1 ML VIAL SQ SCH ×2 (08:22→21:14)
[2017-07-12] MEDS: FUROSEMIDE 10 MG/ML 2 ML VIAL IV SCH ×2 (08:22→21:14)
[2017-07-12] MEDS: METOPROLOL TARTRATE 50 MG TAB PO SCH ×2 (08:22→22:00)
[2017-07-12] MEDS: PANTOPRAZOLE 40 MG/10 ML VIAL IVP SCH (08:23)
--- NOTE | 2017-07-12 10:10 | PN ---
PROGRESS NOTE DATE OF SERVICE: 07/11/2017 This 77-year-old gentleman who was admitted with supraventricular tachycardia which is proximal in nature, also had anemia. Patient also had shortness of breath also. The patient had a chest CT today. Dr. Elliott is following the patient closely. The chest CT showed bibasilar pneumonia, worse on the left than the right. Patient started on broad-spectrum IV antibiotics. Moderate pericardial effusion, cardiomegaly is also noted, DJD of the spine is also noted. PAST MEDICAL HISTORY: Reviewed. REVIEW OF SYSTEMS: CARDIOVASCULAR: No angina. RESPIRATORY: As mentioned earlier. GI: As mentioned earlier. : No dysuria. CENTRAL NERVOUS SYSTEM: No focal deficits. CURRENT MEDICATIONS: Include: 1. Tylenol 500 mg. 2. [place] 5 mg. 3. Albuterol t.i.d. 4. Xanax 0.25 t.i.d. 5. Aspirin. 6. Cepacol. 7. Cardizem. 8. Lasix 20 mg IV b.i.d. 9. Heparin 5000 subcu b.i.d. 10.Dilaudid. 11.Lopressor 50 mg p.o. daily. 12.Protonix. PHYSICAL EXAM: Patient is alert, oriented times three. Pulse is 104. Blood pressure is 109/56, respirations 16, temperature 97.2, pulse ox 98% on room air. HEENT: Conjunctivae normal. NECK: No jugular venous distention. Cardiovascular: S1, S2 muffled. Respiratory: Breath sounds diminished in the bases. Scattered rhonchi and crackles. Expiratory wheezing also present. ABDOMEN: Soft, nontender. No mass palpable. Legs are no edema. No swelling. Central nervous system: No focal deficits. LABS: WBC 7.2, hemoglobin is 8.9, sodium 130, NT proBNP is 2180. ASSESSMENT: 1. Supraventricular tachycardia paroxysmal present on admission. 2. Bibasilar pneumonia possibly gram-negative. 3. Possible chronic obstructive pulmonary disease acute exacerbation. 4. Anemia, multifactorial, status post transfusion rule out gastrointestinal bleed with asymptomatic. 5. Multiple myeloma. 6. Atrial fibrillation with rapid ventricular rate history. 7. IgG lambda. 8. History of hypertension. 9. History of degenerative joint disease. 10.History of left shoulder radiation for distinct lesions secondary from myeloma. 11.History of prostate surgery and cancer. 12.History of hernia surgery. RECOMMENDATIONS AND DISCUSSION: Recommend to continue current medications, management and symptomatic treatment. Otherwise at this time I recommend continue with current medications. CT scan reviewed. Closely monitor and closely follow with Surgery regarding further evaluation of anemia. Guarded prognosis. Further recommendations to follow. MMGHADAL / JAMIEN: [id number] /
[2017-07-12] MEDS: SODIUM FERRIC GLUCONAT-SUCROSE 125 MG in SODIUM CHLORIDE 0.9% 100 ML IVPB SCH (11:01)
[2017-07-12] MEDS: POTASSIUM CHLORIDE ER 20 MEQ TAB.ER PO SCH (11:01)
--- NOTE | 2017-07-12 13:10 | PN ---
PROGRESS NOTE HISTORY: Mr. Rick is a 77-year-old male with a history of multiple myeloma, who presented with symptoms of progressive dyspnea and episodes of supraventricular tachycardia. He is feeling slightly better today. His breathing is slightly better. His cough is better. He was evaluated by Dr. Elliott yesterday and was noted to have evidence of pneumonia and antibiotics were started. His CT scan showed a pericardial effusion. I reviewed the results of his echocardiogram, which found a small pericardial effusion with no evidence of tamponade. He denies any dizziness palpitation. He denies any syncope. He continues to be on Cardizem 30 mg 3 times a day, Lasix IV every 12 hours in addition to metoprolol tartrate 50 mg twice a day and aspirin once a day. PHYSICAL EXAMINATION: Blood pressure 140/50 with a heart rate in the 70s. Lungs decreased air exchange. No wheezes. Heart rate rhythm S1, S2. No S3. No rub. Abdomen is soft, nontender. Extremities no edema. LAB DATA: BUN and creatinine 19 1.2. Potassium 3.7. His NT proBNP is 2180. IMPRESSION: 1. Symptoms of progressive dyspnea with pneumonia and mild congestive heart failure with diastolic dysfunction related to his infectious process. 2. History of multiple myeloma. 3. Supraventricular tachycardia. RECOMMENDATIONS: From the cardiac standpoint, the patient will be continued on the IV antibiotics. I will increase the dose of his Cardizem 60 mg 3 times a day. Follow his renal function. I will continue IV diuresis for another 24 hours. If he has further episode of supraventricular tachycardia, then I will initiate treatment with amiodarone. In the meantime, we will continue present therapy and follow his renal function closely. MMODL / IJN: [id number] /
--- NOTE | 2017-07-12 13:18 | P.PN ---
Subjective Progress Note Date: 07/12/17 Principal diagnosis: acute bilateral lower lobe pneumonia in an immunocompromised patient with multiple myeloma. 77 year-old male who is being seen today for increased cough, chest congestion, and a abnormal opacity in the left lung base with a possibility of an underlying pneumonia. Note that this patient got recently diagnosed having multiple myeloma. He initially presented to PCP Dr. Loaiza late 2016 with c/o progressive left shoulder pain following a fall 6 months prior. Shoulder X-Ray revealed 7.6 X 8.3 X 3.5 cm destructive lesion in left acromion and scapula, bone scan on 04/23/17 was unremarkable. Pt sent to Ortho-Onc at [place], lab work up revealed monoclonal gammapathy, Ig levels revealed IgG of 6.6g, bone survey revealed known left shoulder process, as well as, numerous intermediate lytic lesions throughout the skeleton, surgery not recommended. Pt met with Dr. Ansari last , they discussed diagnosis of IgG lambda multiple myeloma , diagnosis, prognosis, plan for bone marrow biopsy and palliative radiation to the shoulder. Pt has been seen by Dr. Loo and had 1 treatment of radiation, chemo with revlimid, velcade and dexamathasone was discussed and there are plans to start that, and bisphosphonate therapy, after radiation. The patient stated that after radiation therapy last Wednesday he started having increased shortness of breath and he became quite tachypneic and panicky. He had his home care nurse call EMS. On arrival he was found to be severely anemia and has had 2 PRBC transfusions, baseline Hgb for pt over the last 2 months, when office medical records reviewed, is 8-9. Pt denied any fevers, vomiting, he is SOB when he gets anxious, he will feel palpitations, denies chest pain, diaphoresis, indigestion, diarrhea, constipation, bleeding or pain other then in his left shoulder, denies numbness or tingling in the shoulder, he maintains some strength in the LUE. During this current hospital stay, the patient was seen by cardiology. He was found to be having runs of SVT. His echocardiogram showed preserved LV function. The patient was treated with Cardizem drip. His current rhythm is sinus. Nevertheless he is having ongoing respiratory difficulties with cough congestion and wheezing and shortness of breath and for that reason a pulmonary consultation was requested. No home oxygen. No smoking history. Most of COPD. No history of asthma. No history of any DVT or pulmonary embolism. No aspiration. Furthermore there is no fever at this point. Reevaluated today on 07/12/2017, patient continues to have some shortness of breath and cough. Cough is productive with yellow phlegm.chest x-ray continues to show significant pneumonic process involving mostly the left lower lobe and to some extent the right lower lobe.CT of the chest was also reviewed from 2017.patient remains on broad-spectrum IV antibiotics empirically for pneumonia. Today I even discussed with the patient the option of bronchoscopy, and if he does not improve much in the next 24 hours, that may have to be considered. Objective - Vital Signs Vital signs: Vital Signs Temp 97.2 F L 07/12/17 10:56 Pulse 92 07/12/17 13:04 Resp 16 07/12/17 10:56 BP 121/59 07/12/17 10:56 Pulse Ox 94 L 07/12/17 10:56 Intake & Output 07/11/17 07/12/17 07/12/17 18:59 06:59 18:59 Intake Total 350 640 Output Total 1100 300 Balance -750 340 Weight 96 kg Intake: IV 40 0.9 40 Intake, IV Titration 50 Amount Piperacillin-Tazobactam 3 50 .375 gm In Dextrose/Water 1 50ml.bag @ 12.5 mls/hr IVPB Q8H [facility] Rx#: [id number] Oral 300 600 Output: Urine 1100 300 Other: Voiding Method Toilet Toilet Urinal Urinal # Voids 2 2 1 - Exam - Constitutional General appearance: average body habitus, cooperative, no acute distress - EENT pale, moist mucus membranes Eyes: anicteric sclerae, normal appearance ENT: normal oropharynx - Neck Neck: no lymphadenopathy - Respiratory Respiratory: bilateral: Wheezes and crackles heard throughout the lung viramontes bilaterally along with some prolongation of expiratory phase of breathing and crackles in lung bases. - Cardiovascular Heart sounds: normal: S1, S2 leg Peripheral Edema: bilateral: None - Gastrointestinal General gastrointestinal: no absent bowel sounds, no decreased bowel sounds, no distended, no hepatomegaly, no hyperactive bowel sounds, normal bowel sounds, no organomegaly, no rigid, no scaphoid, soft, no splenomegaly, no tenderness, no umbilical hernia, no ventral hernia - Integumentary Integumentary: pale - Neurologic Neurologic: CNII-XII intact - Musculoskeletal LUE weakness secondary to myeloma lesion on AC joint, deformity of the left shoulder is visible - Psychiatric Psychiatric: A&O x's 3, appropriate affect, intact judgment & insight - Labs CBC & Chem 7: 07/12/17 05:50 07/12/17 05:50 Labs: Abnormal Lab Results - Last 24 Hours (Table) 07/12/17 07/12/17 Range/Units 05:50 05:50 RBC 3.12 L (4.30-5.90) m/uL Hgb 8.1 L (13.0-17.5) gm/dL Hct 27.0 L (39.0-53.0) % MCHC 29.8 L (31.0-37.0) g/dL RDW 17.2 H (11.5-15.5) % Sodium 133 L (137-145) mmol/L Glucose 140 H (74-99) mg/dL Assessment and Plan Assessment: 1 bilateral lower lobe pneumonia left more than right. The patient is immunocompromised due to his underlying multiple myeloma. Since his current hospitalization is been having increased cough congestion and wheezing and shortness of breath. Subsequently the chest x-ray showed a left lower lobe patchy opacity suggestive of pneumonia. Furthermore, a CAT scan of the chest was done without contrast that showed bilateral lower lobe airspace disease left more than right in addition to moderate-sized pericardial effusion. The patient will be started on broad-spectrum antibiotics 2 multiple myeloma 3 episodic SVT. 4 moderate pericardial effusion 5 normocytic anemia 6 nephrolithiasis secondary to above 7 chronic body aches involving the skeletal system related to myeloma addition to lytic distractive lesion involving the left scapula Recommendation: Continue present course of antibiotics, continue bronchodilators , continue cough suppression, and bronchoscopy would be considered if the patient does not improve much over the next 24-48 hours. Time with Patient: Less than 30
--- NOTE | 2017-07-12 15:18 | P.CONS ---
History of Present Illness - Chief Complaint Medical debility - History of Present Illness I had the op to see patient for inpatient rehab consultation with regard to medical debility. He was admitted to [facility] July 07 with shortness of breath. Noted left shoulder pain with recently diagnosed tumor, multiple myeloma. Seen by Dr. Cline. Chest x-ray demonstrates congestion. Chest CT demonstrates bibasilar pneumonia, moderate pericardial effusion, cardiomegaly, left-sided nephrolithiasis, DDD. PT and OT prescribed. Previous functional history as elicited from patient: 77-year-old right-handed white male who is and lives in one floor home alone. Retired. Describes independent with own cooking, laundry, driving, standing shower and gait without device. Dr. Sade Loaiza is regular doctor. Review of Systems Review of systems: ENT: Denies sneezes or discharge. Eyes: Denies discharge or photophobia. Cardiac: Denies chest pain or palpitation. Pulmonary: Denies cough or shortness of breath. Gastrointestinal: Denies nausea, emesis, constipation, diarrhea. Genitourinary: Denies discharge or frequency. Musculoskeletal: Left shoulder pain. Neurologic: Denies motor or sensory change. Endocrine: Denies shakes or sweats. Oncology: Left shoulder tumor, multiple myeloma. Dermatologic: Denies rash, itching, pruritus. ALLERGY/immunology: Denies sneezes, rashes. Past Medical History Past Medical History: Cancer, Hypertension, Osteoarthritis (OA), Supraventricular Tachycardia (SVT) Additional Past Medical History / Comment(s): Multiple myeloma, prostate cancer , skin cancer, hypertension, degenerative arthritis, episodes of SVT a discussed above, nephrolithiasis History of Any Multi-Drug Resistant Organisms: None Reported Past Surgical History: Heart Catheterization, Hernia Repair, Prostate Surgery Additional Past Surgical History / Comment(s): rt wrist ganglion cysts removed Past Anesthesia/Blood Transfusion Reactions: No Reported Reaction Past Psychological History: No Psychological Hx Reported Smoking Status: Never smoker Past Drug Use History: None Reported - Past Family History Father History Unknown: Yes Mother History Unknown: Yes Medications and Allergies Home Medications Medication Instructions Recorded Confirmed Type Aspirin EC [Ecotrin Low Dose] 81 mg PO DAILY 12/21/16 07/07/17 History Metoprolol Tartrate [Lopressor] 25 mg PO QAM 07/06/17 07/07/17 History Allergies Allergy/AdvReac Type Severity Reaction Status Date / Time No Known Allergies Allergy Verified 07/07/17 14:18 Physical Exam Vitals: Vital Signs Temp Pulse Pulse Pulse Resp BP Pulse Ox 07/12/17 13:04 92 07/12/17 12:51 85 07/12/17 12:00 77 07/12/17 10:56 97.2 F L 77 16 121/59 94 L 07/12/17 08:00 97.9 F 141 H 16 140/58 93 L 07/12/17 07:55 145 H 07/12/17 07:40 140 H 92 L 07/12/17 04:00 97.8 F 85 19 110/59 93 L 07/11/17 23:59 88 19 07/11/17 23:54 99.9 F H 88 19 115/64 92 L 07/11/17 21:17 104 H 07/11/17 21:00 108 H 07/11/17 20:00 97.3 F L 80 67 20 129/59 93 L 07/11/17 15:40 109 H 07/11/17 15:32 16 07/11/17 15:30 97.6 F 104 H 80 16 109/57 92 L Intake and Output 07/12/17 07/12/17 07/12/17 06:59 14:59 22:59 Intake Total 350 640 Output Total 800 300 Balance -450 340 Intake: IV 40 0.9 40 Intake, IV Titration 50 Amount Piperacillin-Tazobactam 3 50 .375 gm In Dextrose/Water 1 50ml.bag @ 12.5 mls/hr IVPB Q8H [facility] Rx#: [id number] Oral 300 600 Output: Urine 800 300 Other: Voiding Method Toilet Urinal # Voids 2 1 Weight 96 kg Skin: Good color, texture, turgor. General: Medium build and comfortable appearance. Head: Normocephalic, atraumatic. Eyes: Symmetric. Pupils equal round. Ears: Symmetric. Hearing within normal limits. Mouth: Clear. Neck: Supple. Carotid without bruit. Cardiac: Regular rate and rhythm. Lungs: Clear anteriorly and posteriorly. Abdomen: Soft active nontender. Extremities: Normal tone. Left shoulder obviously prominent. Neurological: Mental status: Alert, cooperative, pleasant. Cranial nerves: Symmetric facial tone and trapezius. Motor: Normal strength and isolation all 4 limbs. But with giveaway weakness left shoulder. Sensation: Intact throughout. DTRs: Symmetric and equal throughout. Mobility: Stands from low Jamee chair without assistance or verbal cueing or loss of balance. Results CBC & Chem 7: 07/12/17 05:50 07/12/17 05:50 Labs: Abnormal Lab Results - Last 24 Hours (Table) 07/12/17 07/12/17 Range/Units 05:50 05:50 RBC 3.12 L (4.30-5.90) m/uL Hgb 8.1 L (13.0-17.5) gm/dL Hct 27.0 L (39.0-53.0) % MCHC 29.8 L (31.0-37.0) g/dL RDW 17.2 H (11.5-15.5) % Sodium 133 L (137-145) mmol/L Glucose 140 H (74-99) mg/dL Microbiology - Last 24 Hours (Table) 07/11/17 21:52 Gram Stain - Preliminary Sputum Chest x-ray: report reviewed (Followed for congestion.) CT scan - chest: report reviewed (Demonstrates bibasilar pneumonia, moderate pericardial effusion, cardiomegaly, left-sided nephrolithiasis, DDD.) Assessment and Plan (1) IgG lambda monoclonal gammopathy Current Visit: Yes Status: Acute Priority: High Code(s): D47.2 - MONOCLONAL GAMMOPATHY SNOMED Code(s): 35257886 Plan: Impression: 1. Medical debility. 2. Multiple myeloma. 3. Anemia. 4. Left shoulder pain. 5. Osteoarthritis. 6. SVT. 7. Hypertension. Comments and plan: This time PT and OT are ordered. We'll follow therapies with yourself. Patient demonstrates at least fair functional mobility around the bed and Jamee chair.
[2017-07-12] MEDS: DILTIAZEM ORAL 60 MG TAB PO SCH ×2 (15:34→21:13)
[2017-07-12] MEDS: HYDROcodone/APAP 5-325MG 1 EACH TAB PO PRN (21:12)
--- NOTE | 2017-07-12 21:12 | P.PN ---
Subjective Progress Note Date: 07/12/17 The patient is a 77-year-old gentleman who presented initially with anemia. He has a personal history of multiple myeloma. He's being treated for severe iron deficiency anemia. He has not had previous colonoscopy. As a result, Gen. surgery was consult for possible endoscopic evaluation. He's had multiple cardiac issues while inpatient. Patient still not clear to undergo a large volume bowel prep. Otherwise he states he feels well. Objective - Vital Signs Vital signs: Vital Signs Temp 97.2 F L 07/12/17 15:29 Pulse 78 07/12/17 19:51 Resp 16 07/12/17 15:29 BP 134/79 07/12/17 15:29 Pulse Ox 99 07/12/17 15:29 Intake & Output 07/12/17 07/12/17 07/13/17 06:59 18:59 06:59 Intake Total 350 880 Output Total 1100 1000 Balance -750 -120 Weight 96 kg Intake: IV 40 0.9 40 Intake, IV Titration 50 Amount Piperacillin-Tazobactam 3 50 .375 gm In Dextrose/Water 1 50ml.bag @ 12.5 mls/hr IVPB Q8H [facility] Rx#: [id number] Oral 300 840 Output: Urine 1100 1000 Other: Voiding Method Toilet Urinal # Voids 2 1 - Exam GENERAL: Well developed and in no acute distress. Pleasant. HEENT: No sclera icterus. Extraocular movements grossly intact. Moist buccal mucosa. Head is atraumatic, normocephalic. Hears conversational speech. No nasal drainage. NECK: Supple without lymphadenopathy. CHEST: Non-labored respirations and equal bilateral excursions. CARDIOVASCULAR: Irregular rate and irregular rhythm. Palpable 2+ radial pulses. ABDOMEN: Soft, nontender. Nondistended. MUSCULOSKELETAL: No clubbing, cyanosis or edema. NEUROLOGIC: No focal or lateralizing signs. PSYCH: Appropriate affect. Alert and oriented to person, place and time. BSKIN: Good skin turgor. Well perfused. - Labs CBC & Chem 7: 07/12/17 05:50 07/12/17 05:50 Labs: Abnormal Lab Results - Last 24 Hours (Table) 07/12/17 07/12/17 Range/Units 05:50 05:50 RBC 3.12 L (4.30-5.90) m/uL Hgb 8.1 L (13.0-17.5) gm/dL Hct 27.0 L (39.0-53.0) % MCHC 29.8 L (31.0-37.0) g/dL RDW 17.2 H (11.5-15.5) % Sodium 133 L (137-145) mmol/L Glucose 140 H (74-99) mg/dL Microbiology - Last 24 Hours (Table) 07/11/17 21:52 Gram Stain - Preliminary Sputum Assessment and Plan (1) Multiple myeloma Current Visit: Yes Status: Acute Code(s): C90.00 - MULTIPLE MYELOMA NOT HAVING ACHIEVED REMISSION SNOMED Code(s): 783603988 (2) Anemia Current Visit: Yes Status: Acute Code(s): D64.9 - ANEMIA, UNSPECIFIED SNOMED Code(s): 714184986 (3) Atrial fibrillation with RVR Current Visit: Yes Status: Acute Code(s): I48.91 - UNSPECIFIED ATRIAL FIBRILLATION SNOMED Code(s): 103746142812299 (4) IgG lambda monoclonal gammopathy Current Visit: Yes Status: Acute Priority: High Code(s): D47.2 - MONOCLONAL GAMMOPATHY SNOMED Code(s): 44696451 Plan: 1. Patient has multiple medical issues including cause of anemia such as multiple myeloma and iron deficiency anemia. 2. Once he is hemodynamics stable, he may have a colonoscopy and upper endoscopy as outpatient. 3. We'll follow as needed.
[2017-07-13] MEDS: HYDROcodone/APAP 5-325MG 1 EACH TAB PO PRN ×2 (03:02→15:46)
[2017-07-13] MEDS: PIPERACILLIN-TAZOBACTAM 3.375 GM in DEXTROSE/WATER 1 50ML.BAG IVPB SCH ×3 (05:50→21:10)
[2017-07-13 06:13] LABS: Anisocytosis Slight; Basophils % (A) 1 %; Eosinophils # (A) 0.1 k/uL (0-0.7); Eosinophils % (A) 2 %; HCT 27.1 % (39.0-53.0); HGB 8.6 gm/dL (13.0-17.5); Hypochromasia Marked; Lymphocytes # (A) 1.8 k/uL (1.0-4.8); Lymphocytes % (A) 26 %; MCHC 31.7 g/dL (31.0-37.0); MCV 85.1 fL (80.0-100.0); Mean Platelet Volume 7.6; Monocytes # (A) 0.2 k/uL (0-1.0); Monocytes % (A) 2 %; Neutrophils # (A) 4.6 k/uL (1.3-7.7); Neutrophils % (A) 68 %; Platelet Count 304 k/uL (150-450); RBC 3.18 m/uL (4.30-5.90); WBC 6.8 k/uL (3.8-10.6)
[2017-07-13 06:34] LABS: Anion Gap 5 mmol/L; Blood Urea Nitrogen 15 mg/dL (9-20); Carbon Dioxide 26 mmol/L (22-30); Chloride 105 mmol/L (98-107); Glucose 141 mg/dL (74-99); Magnesium 1.9 mg/dL (1.6-2.3); Phosphorus 3.9 mg/dL (2.5-4.5); Potassium 4.1 mmol/L (3.5-5.1); Sodium 136 mmol/L (137-145)
[2017-07-13] MEDS: HEPARIN SODIUM,PORCINE 5,000 UNIT/ML 1 ML VIAL SQ SCH ×2 (07:52→21:11)
[2017-07-13] MEDS: POTASSIUM CHLORIDE ER 20 MEQ TAB.ER PO SCH (07:52)
[2017-07-13] MEDS: PANTOPRAZOLE 40 MG/10 ML VIAL IVP SCH (07:52)
[2017-07-13] MEDS: DILTIAZEM ORAL 60 MG TAB PO SCH ×3 (07:52→23:18)
[2017-07-13] MEDS: ASPIRIN 81 MG PO SCH (07:52)
[2017-07-13] MEDS: METOPROLOL TARTRATE 50 MG TAB PO SCH ×2 (07:52→21:11)
[2017-07-13] MEDS: FUROSEMIDE 10 MG/ML 2 ML VIAL IV SCH ×2 (07:52→21:11)
[2017-07-13] MEDS: SODIUM FERRIC GLUCONAT-SUCROSE 125 MG in SODIUM CHLORIDE 0.9% 100 ML IVPB SCH (10:05)
[2017-07-13] MEDS: BENZOCAINE/MENTHOL LOZENG 1 EACH LOZENGE MUCOUS MEM PRN (10:06)
--- NOTE | 2017-07-13 10:20 | PN ---
PROGRESS NOTE DATE OF SERVICE: 07/13/2017 This is a 77-year-old gentleman with a past medical history of multiple medical problems, was admitted with anemia as well as supraventricular tachycardia. The patient is being evaluated for inpatient rehab by Dr. Casanova also. A chest x-ray showed bibasilar pneumonia, patient on antibiotics, also. Moderate pericardial effusion was also noted. No chest pain. No palpitations. No fever. PHYSICAL EXAM: Alert and oriented x3. Pulse 70, blood pressure 135/70, respirations 16, temperature 97.2, pulse ox 98% on room air. HEENT: Normal. NECK: No jugular venous distension. CARDIOVASCULAR SYSTEM: S1, S2, muffled. RESPIRATORY: Breath sounds diminished at the bases, a few scattered rhonchi. Abdomen is soft, nontender. LEGS: No edema, no swelling NERVOUS SYSTEM: No focal deficits. LABS: WBC 7.2, hemoglobin is 8.1. ASSESSMENT: 1. Supraventricular tachycardia, paroxysmal, present on admission. 2. Bibasilar pneumonia, possibly gram-negative. 3. Possible chronic obstructive pulmonary disease acute exacerbation. 4. Moderate pericardial effusion. 5. Anemia, multifactorial, status post transfusion, rule out gastrointestinal bleed, which is symptomatic. 6. Multiple myeloma. 7. Atrial fibrillation with a rapid ventricular rate history. 8. IgG lambda. 9. History of hypertension. 10.History of degenerative joint disease. 11.History of left shoulder radiation for distinct lesion secondary to multiple myeloma. 12.History of prostate surgery and cancer. 13.History of hernia surgery. RECOMMENDATION: Recommend to continue current management and symptomatic treatment. Continue PT/OT evaluation, iron supplementation. Otherwise, Dr. Gordon is planning outpatient evaluation. Dr. Loaiza will follow. MMODL / IJN: [id number] /
[2017-07-13] MEDS: IPRATROPIUM-ALBUTEROL 3 ML NEB INHALATION SCH ×3 (10:41→20:50)
--- NOTE | 2017-07-13 12:26 | P.PN ---
Subjective Patient resting in bed. Continues to complain of left shoulder pain. Patient is being on treated for bilateral pneumonia. Patient was evaluated by Dr. Casanova for possible rehab Objective - Vital Signs Vital signs: Vital Signs Temp 97.1 F L 07/13/17 07:44 Pulse 75 07/13/17 11:32 Resp 16 07/13/17 11:05 BP 120/61 07/13/17 11:05 Pulse Ox 93 L 07/13/17 11:05 Intake & Output 07/12/17 07/13/17 07/13/17 18:59 06:59 18:59 Intake Total 880 90 Output Total 1000 1000 1820 Balance -120 -1000 -1730 Weight 96.1 kg Intake: IV 40 40 0.9 40 40 Intake, IV Titration 50 Amount Piperacillin-Tazobactam 3 50 .375 gm In Dextrose/Water 1 50ml.bag @ 12.5 mls/hr IVPB Q8H [facility] Rx#: [id number] Oral 840 Output: Urine 1000 1000 1820 Other: Voiding Method Toilet Urinal # Voids 1 1 1 # Bowel Movements 1 0 - Constitutional General appearance: Present: mild distress - EENT Eyes: Present: PERRLA Ears: bilateral: normal - Neck Neck: Present: normal ROM - Respiratory Respiratory: bilateral: rhonchi, wheezing - Gastrointestinal General gastrointestinal: Present: soft - Integumentary Integumentary: Present: normal - Neurologic Neurologic: Present: CNII-XII intact - Musculoskeletal Musculoskeletal: Present: generalized weakness - Psychiatric Psychiatric: Present: A&O x's 3, appropriate affect, intact judgment & insight - Labs CBC & Chem 7: 07/13/17 05:54 07/13/17 05:54 Labs: Abnormal Lab Results - Last 24 Hours (Table) 07/13/17 07/13/17 Range/Units 05:54 05:54 RBC 3.18 L (4.30-5.90) m/uL Hgb 8.6 L (13.0-17.5) gm/dL Hct 27.1 L (39.0-53.0) % RDW 17.0 H (11.5-15.5) % Sodium 136 L (137-145) mmol/L Glucose 141 H (74-99) mg/dL Microbiology - Last 24 Hours (Table) 07/11/17 21:52 Gram Stain - Preliminary Sputum - Imaging and Cardiology Chest x-ray: report reviewed CT scan - chest: report reviewed Assessment and Plan Plan: Assessment Anemia normocytic secondary to chemotherapy IgG lambda monoclonal gammopathy Left shoulder lesion History of prostate cancer Multiple myeloma Pneumonia bilateral Osteoarthritis Medical debility Plan Evaluation being done for rehab and extended care Continue consultation with oncology cardiology and pulmonology Surgery is cleared patient will do scopes when stable outpatient
--- NOTE | 2017-07-13 12:39 | P.PN ---
Subjective Progress Note Date: 07/13/17 Principal diagnosis: Acute bilateral lower lobe pneumonia in immunocompromised patient with multiple myeloma. 77 year-old male who is being seen today for increased cough, chest congestion, and a abnormal opacity in the left lung base with a possibility of an underlying pneumonia. Note that this patient got recently diagnosed having multiple myeloma. He initially presented to PCP Dr. Loaiza late 2016 with c/o progressive left shoulder pain following a fall 6 months prior. Shoulder X-Ray revealed 7.6 X 8.3 X 3.5 cm destructive lesion in left acromion and scapula, bone scan on 04/23/17 was unremarkable. Pt sent to Ortho-Onc at [place], lab work up revealed monoclonal gammapathy, Ig levels revealed IgG of 6.6g, bone survey revealed known left shoulder process, as well as, numerous intermediate lytic lesions throughout the skeleton, surgery not recommended. Pt met with Dr. Ansari last , they discussed diagnosis of IgG lambda multiple myeloma , diagnosis, prognosis, plan for bone marrow biopsy and palliative radiation to the shoulder. Pt has been seen by Dr. Loo and had 1 treatment of radiation, chemo with revlimid, velcade and dexamathasone was discussed and there are plans to start that, and bisphosphonate therapy, after radiation. The patient stated that after radiation therapy last Wednesday he started having increased shortness of breath and he became quite tachypneic and panicky. He had his home care nurse call EMS. On arrival he was found to be severely anemia and has had 2 PRBC transfusions, baseline Hgb for pt over the last 2 months, when office medical records reviewed, is 8-9. Pt denied any fevers, vomiting, he is SOB when he gets anxious, he will feel palpitations, denies chest pain, diaphoresis, indigestion, diarrhea, constipation, bleeding or pain other then in his left shoulder, denies numbness or tingling in the shoulder, he maintains some strength in the LUE. During this current hospital stay, the patient was seen by cardiology. He was found to be having runs of SVT. His echocardiogram showed preserved LV function. The patient was treated with Cardizem drip. His current rhythm is sinus. Nevertheless he is having ongoing respiratory difficulties with cough congestion and wheezing and shortness of breath and for that reason a pulmonary consultation was requested. No home oxygen. No smoking history. Most of COPD. No history of asthma. No history of any DVT or pulmonary embolism. No aspiration. Furthermore there is no fever at this point. Reevaluated today on 07/12/2017, patient continues to have some shortness of breath and cough. Cough is productive with yellow phlegm.chest x-ray continues to show significant pneumonic process involving mostly the left lower lobe and to some extent the right lower lobe.CT of the chest was also reviewed from 2017.patient remains on broad-spectrum IV antibiotics empirically for pneumonia. Today I even discussed with the patient the option of bronchoscopy, and if he does not improve much in the next 24 hours, that may have to be considered. The patient was seen again today 07/13/2017 in follow-up on the selective care unit. He remains awake and alert in no acute distress. He does have ongoing issues with a loose productive cough. Yellow sputum. Culture pending. Not much improved today as compared to yesterday. White count 6.8. Hemoglobin 8.6. Platelet count 304,000. Creatinine 1.05. He is currently on Zosyn. Objective - Vital Signs Vital signs: Vital Signs Temp 97.1 F L 07/13/17 07:44 Pulse 75 07/13/17 11:32 Resp 16 07/13/17 11:05 BP 120/61 07/13/17 11:05 Pulse Ox 93 L 07/13/17 11:05 Intake & Output 07/12/17 07/13/17 07/13/17 18:59 06:59 18:59 Intake Total 880 90 Output Total 1000 1000 1820 Balance -120 -1000 -1730 Weight 96.1 kg Intake: IV 40 40 0.9 40 40 Intake, IV Titration 50 Amount Piperacillin-Tazobactam 3 50 .375 gm In Dextrose/Water 1 50ml.bag @ 12.5 mls/hr IVPB Q8H [facility] Rx#: [id number] Oral 840 Output: Urine 1000 1000 1820 Other: Voiding Method Toilet Urinal # Voids 1 1 1 # Bowel Movements 1 0 - Exam GENERAL EXAM: Alert, active, faily comfortable in no apparent distress. HEAD: Normocephalic. EYES: Normal reaction of pupils, equal size. NOSE: Clear with pink turbinates. THROAT: No erythema or exudates. NECK: No masses, no JVD. CHEST: No chest wall deformity. LUNGS: Equal air entry with lateral scattered rhonchi. Crackles in the posterior bases. CVS: S1 and S2 normal with no audible murmur, regular rhythm. ABDOMEN: No hepatosplenomegaly, normal bowel sounds, no guarding or rigidity. SPINE: No scoliosis or deformity SKIN: No rashes CENTRAL NERVOUS SYSTEM: No focal deficits, tone is normal in all 4 extremities. EXTREMITIES: There is no peripheral edema. No clubbing, no cyanosis. Peripheral pulses are intact. - Labs CBC & Chem 7: 07/13/17 05:54 07/13/17 05:54 Labs: Abnormal Lab Results - Last 24 Hours (Table) 07/13/17 07/13/17 Range/Units 05:54 05:54 RBC 3.18 L (4.30-5.90) m/uL Hgb 8.6 L (13.0-17.5) gm/dL Hct 27.1 L (39.0-53.0) % RDW 17.0 H (11.5-15.5) % Sodium 136 L (137-145) mmol/L Glucose 141 H (74-99) mg/dL Microbiology - Last 24 Hours (Table) 07/11/17 21:52 Gram Stain - Preliminary Sputum Assessment and Plan Assessment: Impression: #1 Bilateral lower lobe pneumonia left greater than right. The patient is immunocompromised due to his underlying multiple myeloma. He continues to have ongoing shortness of breath, cough and congestion. He is currently on Zosyn. #2 Moderate-sized pericardial effusion. #3 Multiple myeloma. #4 Episodic SVT. #5 Normocytic anemia, status post 2 units of packed red blood cells. #6 Nephrolithiasis secondary to above. #7 Chronic body aches and skeletal pain secondary to multiple myeloma with lytic lesions involving the left scapula Plan: The patient was seen and evaluated by Dr. Marinelli. We will go ahead and plan for bronchoscopy with BAL tomorrow. We'll continue with his current medications including bronchodilators, IV Zosyn. Continue with diuretics. He is on heparin subcutaneous for DVT prophylaxis. Protonix for GI prophylaxis. We'll continue to follow and make further recommendations based on his clinical status. I, the cosigning physician, have performed a history and physical examination on the patient. Lung sounds are few scattered rhonchi, crackles in the posterior bases.. Maintaining good O2 saturations in the 90s on room air. I have discussed the assessment and plan of care with my nurse practitioner, Caity Galeano. I attest to the above note as dictated by her.
--- NOTE | 2017-07-13 15:51 | P.PN ---
Subjective Progress Note Date: 07/13/17 Principal diagnosis: LUDWIG Is a 77-year-old male patient with history of multiple myeloma who presented to the hospital with symptoms of progressive dyspnea as well as episodes of supraventricular tachycardia. Patient was seen and examined today, overall he states he is feeling better. Continues to have productive cough, currently receiving treatment for pneumonia. His CAT scan did show a pericardial effusion , echo was reviewed which found a small pericardial effusion with no evidence of any tamponade . She is being prepped for colonoscopy. Patient is currently being evaluated for rehab. Objective - Vital Signs Vital signs: Vital Signs Temp 97.1 F L 07/13/17 07:44 Pulse 75 07/13/17 11:32 Resp 16 07/13/17 11:05 BP 120/61 07/13/17 11:05 Pulse Ox 93 L 07/13/17 11:05 Intake & Output 07/12/17 07/13/17 07/13/17 18:59 06:59 18:59 Intake Total 880 330 Output Total 1000 1000 2220 Balance -120 -1000 -1890 Weight 96.1 kg Intake: IV 40 40 0.9 40 40 Intake, IV Titration 50 Amount Piperacillin-Tazobactam 3 50 .375 gm In Dextrose/Water 1 50ml.bag @ 12.5 mls/hr IVPB Q8H [facility] BEDS AT [facility] Rx#: [id number] Oral 840 240 Output: Urine 1000 1000 2220 Other: Voiding Method Toilet Urinal # Voids 1 1 2 # Bowel Movements 1 1 - Exam PHYSICAL EXAMINATION: HEENT: Head is atraumatic, normocephalic. Pupils equal, round. Neck is supple. There is no elevated jugular venous pressure. HEART EXAMINATION: Heart S1, S2 normal. No murmur or gallop heard. CHEST EXAMINATION: Lungs reveal scattered coarse rhonchi and wheezing throughout with decreased air exchange noted ABDOMEN: Soft, nontender. Bowel sounds are heard. No organomegaly noted. EXTREMITIES: 2+ peripheral pulses with no evidence of peripheral edema and no calf tenderness noted. NEUROLOGIC patient is awake, alert and oriented -3.] . - Labs CBC & Chem 7: 07/13/17 05:54 07/13/17 05:54 Labs: Abnormal Lab Results - Last 24 Hours (Table) 07/13/17 07/13/17 Range/Units 05:54 05:54 RBC 3.18 L (4.30-5.90) m/uL Hgb 8.6 L (13.0-17.5) gm/dL Hct 27.1 L (39.0-53.0) % RDW 17.0 H (11.5-15.5) % Sodium 136 L (137-145) mmol/L Glucose 141 H (74-99) mg/dL Microbiology - Last 24 Hours (Table) 07/11/17 21:52 Gram Stain - Preliminary Sputum Assessment and Plan Plan: Assessment and plan #1 multiple myeloma #2 anemia, being prepped for a colonoscopy #3 supraventricular tachycardia #4 mild diastolic congestive heart failure acute on chronic Plan From Cardiology's perspective, we'll recommend to continue the patient on his current medications. DNP note has been reviewed, I agree with a documented findings and plan of care. Patient was seen and examined.
[2017-07-13] MEDS: TEMAZEPAM 15 MG CAP PO PRN (23:18)
[2017-07-14] MEDS: HYDROcodone/APAP 5-325MG 1 EACH TAB PO PRN ×2 (04:14→21:20)
[2017-07-14] MEDS: PANTOPRAZOLE 40 MG/10 ML VIAL IVP SCH (09:08)
[2017-07-14] MEDS: FUROSEMIDE 10 MG/ML 2 ML VIAL IV SCH ×2 (09:09→21:20)
[2017-07-14] MEDS: PIPERACILLIN-TAZOBACTAM 3.375 GM in DEXTROSE/WATER 1 50ML.BAG IVPB SCH ×3 (09:14→21:19)
[2017-07-14] MEDS: IPRATROPIUM-ALBUTEROL 3 ML NEB INHALATION SCH ×3 (09:57→20:31)
[2017-07-14] MEDS: METOPROLOL TARTRATE 50 MG TAB PO SCH ×2 (10:33→21:19)
[2017-07-14] MEDS: POTASSIUM CHLORIDE ER 20 MEQ TAB.ER PO SCH (10:33)
[2017-07-14] MEDS: DILTIAZEM ORAL 60 MG TAB PO SCH ×3 (10:33→21:20)
--- NOTE | 2017-07-14 10:47 | P.PN ---
Subjective Progress Note Date: 07/14/17 Principal diagnosis: Acute bilateral lower lobe pneumonia in immunocompromised patient with multiple myeloma. 77 year-old male who is being seen today for increased cough, chest congestion, and a abnormal opacity in the left lung base with a possibility of an underlying pneumonia. Note that this patient got recently diagnosed having multiple myeloma. He initially presented to PCP Dr. Loaiza late 2016 with c/o progressive left shoulder pain following a fall 6 months prior. Shoulder X-Ray revealed 7.6 X 8.3 X 3.5 cm destructive lesion in left acromion and scapula, bone scan on 04/23/17 was unremarkable. Pt sent to Ortho-Onc at [facility], lab work up revealed monoclonal gammapathy, Ig levels revealed IgG of 6.6g, bone survey revealed known left shoulder process, as well as, numerous intermediate lytic lesions throughout the skeleton, surgery not recommended. Pt met with Dr. Ansari last , they discussed diagnosis of IgG lambda multiple myeloma , diagnosis, prognosis, plan for bone marrow biopsy and palliative radiation to the shoulder. Pt has been seen by Dr. Loo and had 1 treatment of radiation, chemo with revlimid, velcade and dexamathasone was discussed and there are plans to start that, and bisphosphonate therapy, after radiation. The patient stated that after radiation therapy last Wednesday he started having increased shortness of breath and he became quite tachypneic and panicky. He had his home care nurse call EMS. On arrival he was found to be severely anemia and has had 2 PRBC transfusions, baseline Hgb for pt over the last 2 months, when office medical records reviewed, is 8-9. Pt denied any fevers, vomiting, he is SOB when he gets anxious, he will feel palpitations, denies chest pain, diaphoresis, indigestion, diarrhea, constipation, bleeding or pain other then in his left shoulder, denies numbness or tingling in the shoulder, he maintains some strength in the LUE. During this current hospital stay, the patient was seen by cardiology. He was found to be having runs of SVT. His echocardiogram showed preserved LV function. The patient was treated with Cardizem drip. His current rhythm is sinus. Nevertheless he is having ongoing respiratory difficulties with cough congestion and wheezing and shortness of breath and for that reason a pulmonary consultation was requested. No home oxygen. No smoking history. Most of COPD. No history of asthma. No history of any DVT or pulmonary embolism. No aspiration. Furthermore there is no fever at this point. Reevaluated today on 07/12/2017, patient continues to have some shortness of breath and cough. Cough is productive with yellow phlegm.chest x-ray continues to show significant pneumonic process involving mostly the left lower lobe and to some extent the right lower lobe.CT of the chest was also reviewed from 2017.patient remains on broad-spectrum IV antibiotics empirically for pneumonia. Today I even discussed with the patient the option of bronchoscopy, and if he does not improve much in the next 24 hours, that may have to be considered. The patient was seen again today 07/13/2017 in follow-up on the selective care unit. He remains awake and alert in no acute distress. He does have ongoing issues with a loose productive cough. Yellow sputum. Culture pending. Not much improved today as compared to yesterday. White count 6.8. Hemoglobin 8.6. Platelet count 304,000. Creatinine 1.05. He is currently on Zosyn. The patient is seen again today 07/14/2017 in follow-up on the selective care unit. He is awake and alert in no acute distress. He is currently sitting up in a chair at the bedside. He is breathing somewhat easier today as compared to yesterday. He continues with a loose nonproductive cough. The plan is for bronchoscopy with BAL at noontime. Sputum culture reveals no growth. He remains on Zosyn. No leukocytosis. Hemoglobin 8.6. Objective - Vital Signs Vital signs: Vital Signs Temp 98.1 F 07/14/17 09:33 Pulse 80 07/14/17 10:10 Resp 16 07/14/17 09:33 BP 147/73 07/14/17 09:33 Pulse Ox 92 L 07/14/17 09:33 Intake & Output 07/13/17 07/14/17 07/14/17 18:59 06:59 18:59 Intake Total 570 270 Output Total 2420 1350 900 Balance -1335 -0033 -900 Weight 99 kg Intake: IV 40 120 0.9 40 120 Intake, IV Titration 50 150 Amount Piperacillin-Tazobactam 3 50 150 .375 gm In Dextrose/Water 1 50ml.bag @ 12.5 mls/hr IVPB Q8H [facility] Rx#: [id number] Oral 480 Output: Urine 2420 1350 900 Other: Voiding Method Toilet Urinal # Voids 1 1 # Bowel Movements 0 0 - Exam GENERAL EXAM: Alert, active, fairly comfortable in no apparent distress. HEAD: Normocephalic. EYES: Normal reaction of pupils, equal size. NOSE: Clear with pink turbinates. THROAT: No erythema or exudates. NECK: No masses, no JVD. CHEST: No chest wall deformity. LUNGS: Equal air entry with bilateral scattered rhonchi. Crackles in the posterior bases. CVS: S1 and S2 normal with no audible murmur, regular rhythm. ABDOMEN: No hepatosplenomegaly, normal bowel sounds, no guarding or rigidity. SPINE: No scoliosis or deformity SKIN: No rashes CENTRAL NERVOUS SYSTEM: No focal deficits, tone is normal in all 4 extremities. EXTREMITIES: There is no peripheral edema. No clubbing, no cyanosis. Peripheral pulses are intact. - Labs CBC & Chem 7: 07/13/17 05:54 07/13/17 05:54 Labs: Microbiology - Last 24 Hours (Table) 07/11/17 21:52 Gram Stain - Final Sputum Sputum Culture - Final Assessment and Plan Assessment: Impression: #1 Bilateral lower lobe pneumonia left greater than right. The patient is immunocompromised due to his underlying multiple myeloma. He continues to have ongoing shortness of breath, cough and congestion. He is currently on Zosyn. The plan is for bronchoscopy with BAL today. #2 Moderate-sized pericardial effusion. #3 Multiple myeloma. #4 Episodic SVT. #5 Normocytic anemia, status post 2 units of packed red blood cells. Current hemoglobin 8.6. #6 Nephrolithiasis secondary to above. #7 Chronic body aches and skeletal pain secondary to multiple myeloma with lytic lesions involving the left scapula Plan: The patient was seen and evaluated by Dr. Marinelli. We will plan for bronchoscopy with BAL today. We'll continue with his current medications including bronchodilators, IV Zosyn. Continue with diuretics. He is on heparin subcutaneous for DVT prophylaxis. Protonix for GI prophylaxis. We'll continue to follow and make further recommendations based on his clinical status. I, the cosigning physician, have performed a history and physical examination on the patient. Lung sounds are few scattered rhonchi, crackles in the posterior bases.. Maintaining good O2 saturations in the 90s on room air. I have discussed the assessment and plan of care with my nurse practitioner, Caity Galeano. I attest to the above note as dictated by her.
[2017-07-14 11:11] VITALS: BMI 32.2
--- NOTE | 2017-07-14 12:18 | P.PN ---
Subjective Principal diagnosis: Patient resting comfortably without complaint at this time. Patient is awaiting scheduled bronchoscopy today Objective - Vital Signs Vital signs: Vital Signs Temp 98.1 F 07/14/17 09:33 Pulse 80 07/14/17 10:10 Resp 16 07/14/17 09:33 BP 147/73 07/14/17 09:33 Pulse Ox 92 L 07/14/17 09:33 Intake & Output 07/13/17 07/14/17 07/14/17 18:59 06:59 18:59 Intake Total 570 270 Output Total 2420 1350 900 Balance -1850 -1080 -900 Weight 99 kg 99 kg Intake: IV 40 120 0.9 40 120 Intake, IV Titration 50 150 Amount Piperacillin-Tazobactam 3 50 150 .375 gm In Dextrose/Water 1 50ml.bag @ 12.5 mls/hr IVPB Q8H [facility] Rx#: [id number] Oral 480 Output: Urine 2420 1350 900 Other: Voiding Method Toilet Toilet Urinal Urinal # Voids 1 1 # Bowel Movements 0 0 1 - Constitutional General appearance: Present: mild distress - EENT Eyes: Present: PERRLA Ears: bilateral: normal - Neck Neck: Present: normal ROM - Respiratory Respiratory: bilateral: diminished - Cardiovascular Rhythm: regular - Gastrointestinal General gastrointestinal: Present: soft - Integumentary Integumentary: Present: normal - Neurologic Neurologic: Present: CNII-XII intact - Musculoskeletal Musculoskeletal: Present: generalized weakness - Psychiatric Psychiatric: Present: A&O x's 3, appropriate affect, intact judgment & insight - Labs CBC & Chem 7: 07/13/17 05:54 07/13/17 05:54 Labs: Microbiology - Last 24 Hours (Table) 07/11/17 21:52 Gram Stain - Final Sputum Sputum Culture - Final Assessment and Plan Plan: Assessment Anemia secondary to leg chemotherapy normocytic Multiple myeloma 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 Casanova for possible rehab placement Follow-up outpatient for colonoscopy possible cecum tumor Continue consultation with cardiology Bronchoscopy today Continue consultation with pulmonology
[2017-07-14] MEDS ORDERED: IV FLUID CONTINUATION 1,000 ML IV ONE (12:24)
[2017-07-14] MEDS ORDERED: PROPOFOL 10 MG/ML 20 ML VIAL IV ONE (12:27)
[2017-07-14] MEDS ORDERED: LIDOCAINE 1% INJ 10MG/ML (20 ML MDV) ONE (12:27)
[2017-07-14] MEDS ORDERED: LIDOCAINE 2% INJ 20 MG/ML INTRATRACH ONE (12:44)
--- NOTE | 2017-07-14 12:45 | CDI ---
Last Revision, June 2017 Documentation Clarification Form Date: 07/14/2017 12:33:00 PM From: Carlota Herrmann [facility], CCDS Admit Date: 07/07/2017 3:02:00 PM Patient Name: Eugene Rick Visit Number: [id number] Discharge Date: ATTENTION: The Clinical Documentation Specialists (CDI) and [facility] Coding Staff appreciate your assistance in clarifying documentation. Please respond to the clarification below the line at the bottom and electronically sign. The CDI & [facility] Coding staff will review the response and follow-up if needed. Please note: Queries are made part of the Legal Health Record. If you have any questions, please contact the author of this message via ITS. Dr. Solo Loaiza: Sepsis is documented in the History & Physical 07/08/17. History/Risk Factors: Newly diagnosed with Multiple Myeloma, recently started chemoradiation, prostate cancer, SVT, skin cancer. Clinical Indicators: Became SOB, felt anxious, nauseous & vomited. Found to be anemic after chemo with hemoglobin 6.9. Also in A Fib w/RVR & episodes of SVT. WBC: 11.1, Na 134, Gluc 173, Trop 0.047. Vitals signs on admission: T 99.0-100.5, P 170, R 30, BP 159/88, PO 95 ra/2Lnc. Treatment: IV fluid bolus, IV Adenosine x2, IV Zofran, IV Cardizem, IV fl rate 75, IV Digoxin, IV MagSulf, O2. Consults: Cardiology, Hem/ONC, Surgery, Pulm In your professional opinion, please clarify if these findings signify one of the following conditions, whether the condition is POA, and cause, if known: Sepsis ruled out or ruled in SIRS, without underlying infectious process Sepsis Severe Sepsis Septic Shock Other, please specify Unable to determine Indentify the specific organism Link or clarify if there is associated (due to/with): Organ failure and/or Shock Please continue to document in your progress notes and discharge summary in order to capture severity of illness and risk of mortality. Include clinical findings that support your diagnosis. MTDD
--- NOTE | 2017-07-14 12:57 | CDI ---
Last Revision, June 2017 Documentation Clarification Form Date: 07/14/2017 12:48:00 PM From: [facility], CCDS Admit Date: 07/07/2017 3:02:00 PM Patient Name: Eugene Rick Visit Number: [id number] Discharge Date: ATTENTION: The Clinical Documentation Specialists (CDI) and [facility] Coding Staff appreciate your assistance in clarifying documentation. Please respond to the clarification below the line at the bottom and electronically sign. The CDI & [facility] Coding staff will review the response and follow-up if needed. Please note: Queries are made part of the Legal Health Record. If you have any questions, please contact the author of this message via ITS. Dr. Mikala Mehta: Atrial fibrillation is documented in the ED note, the History & Physical, the Surgical consult and subsequent progress notes. History/Risk Factors: Newly diagnosed with Multiple Myeloma, SVT, Hypertension. Home meds: Lopressor, Asa low dose. Clinical Indicators: Presented with sob, anemic status post 1st chemo/rad treatment. EKG/telemetry: SVT ECHO: Atrial fibrillation Treatment: IV Adenosine x2, IV Cardizem, IV fl rate 75, IV fluid bolus, IV Lanoxin In your professional opinion, do you agree Atrial Fibrillation was present on admission, if so, please document the type of Atrial Fibrillation if known. Chronic/Permanent Paroxysmal Persistent Other, please specify Unable to determine Present on Admission? Please continue to document in your progress notes and discharge summary in order to capture severity of illness and risk of mortality. Include clinical findings that support your diagnosis. ___the patient has SVT but no afib. MTDD
--- NOTE | 2017-07-14 13:18 | PCN ---
PROCEDURE NOTE OPERATIVE REPORT: Bronchoscopy and bronchoalveolar lavage of the right lower and left lower lobe. PREOPERATIVE DIAGNOSIS: Bibasilar pneumonia and history of multiple myeloma. POSTOPERATIVE DIAGNOSIS: Bibasilar pneumonia and history of multiple myeloma. ANESTHESIA USED: IV conscious sedation, please refer to GROUP COUNSELOR documentation. PROCEDURE: The patient was prepared according to the usual bronchoscopy protocol. The patient was placed in a supine position, O2 was applied via nasal cannula, and we were able to monitor his O2 saturation continuously, blood pressure was intermittently monitored, and cardiac rhythm was continuously monitored. After adequate IV conscious sedation, the bronchoscope was inserted through a bite block which was placed earlier and I was able to get into the area of the vocal cords easily. The epiglottis was noted to be large, the vocal cords were noted to be patent. No vocal cord lesions noted. Mobility of the vocal cords was adequate. Lidocaine was applied over the vocal cords, and the bronchoscope was advanced further down to the trachea, marino, right upper lobe, right middle lobe, right lower lobe, left upper lobe, lingula and left lower lobe. Thorough examination was done of these areas, there was evidence of some bronchitic mucosa throughout, and there was significant purulent secretions noted mostly in the right lower lobe and left lower lobe. A bronchoalveolar lavage was done of the right lower lobe, followed by bronchoalveolar lavage of the left lower lobe, and all the secretions were sent for the different diagnostic studies. Minimal secretions were suctioned from the rest of the airways. The procedure was well tolerated. No evidence of any immediate complications. The patient will be sent back to his room in the next 10 minutes. MMODL / IJN: [id number] /
[2017-07-14] MEDS: HEPARIN SODIUM,PORCINE 5,000 UNIT/ML 1 ML VIAL SQ SCH ×2 (13:33→21:19)
[2017-07-14] MEDS: ASPIRIN 81 MG PO SCH (13:33)
--- NOTE | 2017-07-14 15:22 | P.PN ---
Subjective Progress Note Date: 07/14/17 Principal diagnosis: LUDWIG Is a 77-year-old male patient with history of multiple myeloma who presented to the hospital with symptoms of progressive dyspnea as well as episodes of supraventricular tachycardia. Patient was seen and examined today, overall he states he is feeling better. Continues to have productive cough, currently receiving treatment for pneumonia. His CAT scan did show a pericardial effusion , echo was reviewed which found a small pericardial effusion with no evidence of any tamponade . She is being prepped for colonoscopy. Patient is currently being evaluated for rehab. 07/14/2017 Patient seen and examined, underwent bronchoscopy with bronchoalveolar lavage of the right lower and left lower lobe. Sitting up in the chair at bedside at the time of our examination. Blood pressure 146/70 with a heart rate in the 80s , temperature 98.1, 92% on room air. Continues to have a significant cough with scattered coarse rhonchi. Hemoglobin 8.6, potassium 4.1, BUN 15, creatinine 1.0. We will continue current dose of IV Lasix for 24 hours. Objective - Vital Signs Vital signs: Vital Signs Temp 98.1 F 07/14/17 09:33 Pulse 80 07/14/17 10:10 Resp 16 07/14/17 09:33 BP 147/73 07/14/17 09:33 Pulse Ox 92 L 07/14/17 09:33 Intake & Output 07/13/17 07/14/17 07/14/17 18:59 06:59 18:59 Intake Total 570 270 250 Output Total 2420 1350 900 Balance -1850 -1080 -650 Weight 99 kg 99 kg Intake: IV 40 120 250 0.9 40 120 Intake, IV Titration 50 150 Amount Piperacillin-Tazobactam 3 50 150 .375 gm In Dextrose/Water 1 50ml.bag @ 12.5 mls/hr IVPB Q8H [facility] Rx#: [id number] Oral 480 Output: Urine 2420 1350 900 Other: Voiding Method Toilet Toilet Urinal Urinal # Voids 1 1 # Bowel Movements 0 0 1 - Exam PHYSICAL EXAMINATION: HEENT: Head is atraumatic, normocephalic. Pupils equal, round. Neck is supple. There is no elevated jugular venous pressure. HEART EXAMINATION: Heart S1, S2 normal. No murmur or gallop heard. CHEST EXAMINATION: Lungs reveal scattered coarse rhonchi and wheezing throughout with decreased air exchange noted ABDOMEN: Soft, nontender. Bowel sounds are heard. No organomegaly noted. EXTREMITIES: 2+ peripheral pulses with no evidence of peripheral edema and no calf tenderness noted. NEUROLOGIC patient is awake, alert and oriented -3.] . - Labs CBC & Chem 7: 07/13/17 05:54 07/13/17 05:54 Labs: Microbiology - Last 24 Hours (Table) 07/11/17 21:52 Gram Stain - Final Sputum Sputum Culture - Final Assessment and Plan Plan: Assessment and plan #1 multiple myeloma #2 anemia, being prepped for a colonoscopy #3 supraventricular tachycardia #4 mild diastolic congestive heart failure acute on chronic Plan From Cardiology's perspective, we'll recommend to continue the patient on his current medications. Plan on discontinuing the IV Lasix in 24 hours if stable. DNP note has been reviewed, I agree with a documented findings and plan of care. Patient was seen and examined.
[2017-07-14 20:38] LABS: Appearance,BF Hazy; Color,BF Red; Mononuclear WBC,Body Fluid 5 %; Nucleated Cells, Body Fluid 3500 /uL; Polynuclear WBC,Body Fluid 95 %; RBC, Body Fluid 6050 /uL
[2017-07-14] MEDS: TEMAZEPAM 15 MG CAP PO PRN (21:21)
[2017-07-15] MEDS: PIPERACILLIN-TAZOBACTAM 3.375 GM in DEXTROSE/WATER 1 50ML.BAG IVPB SCH ×3 (06:50→19:50)
[2017-07-15] MEDS: FUROSEMIDE 10 MG/ML 2 ML VIAL IV SCH (07:44)
[2017-07-15] MEDS: METOPROLOL TARTRATE 50 MG TAB PO SCH ×2 (07:44→19:47)
[2017-07-15] MEDS: PANTOPRAZOLE 40 MG/10 ML VIAL IVP SCH (07:45)
[2017-07-15] MEDS: DILTIAZEM ORAL 60 MG TAB PO SCH ×3 (07:45→19:48)
[2017-07-15] MEDS: ASPIRIN 81 MG PO SCH (07:45)
[2017-07-15] MEDS: HEPARIN SODIUM,PORCINE 5,000 UNIT/ML 1 ML VIAL SQ SCH ×2 (07:45→19:47)
[2017-07-15] MEDS: POTASSIUM CHLORIDE ER 20 MEQ TAB.ER PO SCH (07:45)
[2017-07-15] MEDS: IPRATROPIUM-ALBUTEROL 3 ML NEB INHALATION SCH ×3 (08:21→19:30)
--- NOTE | 2017-07-15 11:28 | P.PN ---
Subjective Principal diagnosis: Patient sitting in chair on continues to complain of left shoulder pain. Patient states breathing improved post bronchoscopy from yesterday Objective - Vital Signs Vital signs: Vital Signs Temp 97.4 F L 07/15/17 08:00 Pulse 80 07/15/17 08:31 Resp 18 07/15/17 08:00 BP 132/50 07/15/17 08:00 Pulse Ox 95 07/15/17 08:21 Intake & Output 07/14/17 07/15/17 07/15/17 18:59 06:59 18:59 Intake Total 250 240 Output Total 1100 225 300 Balance -850 -225 -60 Weight 99 kg 96.5 kg Intake: IV 250 Oral 240 Output: Urine 1100 225 300 Other: Voiding Method Urinal Toilet Toilet Urinal Urinal # Voids 1 # Bowel Movements 0 - Constitutional General appearance: Present: mild distress - EENT Eyes: Present: PERRLA Ears: bilateral: normal - Neck Neck: Present: normal ROM - Respiratory Respiratory: bilateral: diminished - Cardiovascular Rhythm: regular - Gastrointestinal General gastrointestinal: Present: soft - Integumentary Integumentary: Present: normal - Neurologic Neurologic: Present: CNII-XII intact - Musculoskeletal Musculoskeletal: Present: generalized weakness - Psychiatric Psychiatric: Present: A&O x's 3, appropriate affect, intact judgment & insight - Labs CBC & Chem 7: 07/13/17 05:54 07/13/17 05:54 Labs: Microbiology - Last 24 Hours (Table) 07/14/17 12:39 Acid Fast Bacilli Smear - Final Bronchial Washings - Right Acid Fast Bacilli Culture - Preliminary 07/14/17 12:39 Gram Stain - Preliminary Bronchial Washings - Right Bronchial Washings Culture - Preliminary 07/14/17 12:39 Fungal Culture - Preliminary Bronchial Washings - Right 07/11/17 21:52 Gram Stain - Final Sputum Sputum Culture - Final Assessment and Plan Plan: Assessment Anemia secondary to chemotherapy normocytic Multiple myeloma 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 Martínez for possible rehab placement Follow-up with surgery for colonoscopy for possible cecum tumor Continue consultation with cardiology Continue consultation with pulmonology
--- NOTE | 2017-07-15 11:40 | P.PN ---
Subjective Progress Note Date: 07/15/17 Principal diagnosis: Acute bilateral lower lobe pneumonia in immunocompromised patient with multiple myeloma. 77 year-old male who is being seen today for increased cough, chest congestion, and a abnormal opacity in the left lung base with a possibility of an underlying pneumonia. Note that this patient got recently diagnosed having multiple myeloma. He initially presented to PCP Dr. Loaiza late 2016 with c/o progressive left shoulder pain following a fall 6 months prior. Shoulder X-Ray revealed 7.6 X 8.3 X 3.5 cm destructive lesion in left acromion and scapula, bone scan on 04/23/17 was unremarkable. Pt sent to Ortho-Onc at [place], lab work up revealed monoclonal gammapathy, Ig levels revealed IgG of 6.6g, bone survey revealed known left shoulder process, as well as, numerous intermediate lytic lesions throughout the skeleton, surgery not recommended. Pt met with Dr. Ansari last , they discussed diagnosis of IgG lambda multiple myeloma , diagnosis, prognosis, plan for bone marrow biopsy and palliative radiation to the shoulder. Pt has been seen by Dr. Loo and had 1 treatment of radiation, chemo with revlimid, velcade and dexamathasone was discussed and there are plans to start that, and bisphosphonate therapy, after radiation. The patient stated that after radiation therapy last Wednesday he started having increased shortness of breath and he became quite tachypneic and panicky. He had his home care nurse call EMS. On arrival he was found to be severely anemia and has had 2 PRBC transfusions, baseline Hgb for pt over the last 2 months, when office medical records reviewed, is 8-9. Pt denied any fevers, vomiting, he is SOB when he gets anxious, he will feel palpitations, denies chest pain, diaphoresis, indigestion, diarrhea, constipation, bleeding or pain other then in his left shoulder, denies numbness or tingling in the shoulder, he maintains some strength in the LUE. During this current hospital stay, the patient was seen by cardiology. He was found to be having runs of SVT. His echocardiogram showed preserved LV function. The patient was treated with Cardizem drip. His current rhythm is sinus. Nevertheless he is having ongoing respiratory difficulties with cough congestion and wheezing and shortness of breath and for that reason a pulmonary consultation was requested. No home oxygen. No smoking history. Most of COPD. No history of asthma. No history of any DVT or pulmonary embolism. No aspiration. Furthermore there is no fever at this point. Reevaluated today on 07/12/2017, patient continues to have some shortness of breath and cough. Cough is productive with yellow phlegm.chest x-ray continues to show significant pneumonic process involving mostly the left lower lobe and to some extent the right lower lobe.CT of the chest was also reviewed from 2017.patient remains on broad-spectrum IV antibiotics empirically for pneumonia. Today I even discussed with the patient the option of bronchoscopy, and if he does not improve much in the next 24 hours, that may have to be considered. The patient was seen again today 07/13/2017 in follow-up on the selective care unit. He remains awake and alert in no acute distress. He does have ongoing issues with a loose productive cough. Yellow sputum. Culture pending. Not much improved today as compared to yesterday. White count 6.8. Hemoglobin 8.6. Platelet count 304,000. Creatinine 1.05. He is currently on Zosyn. The patient is seen again today 07/14/2017 in follow-up on the selective care unit. He is awake and alert in no acute distress. He is currently sitting up in a chair at the bedside. He is breathing somewhat easier today as compared to yesterday. He continues with a loose nonproductive cough. The plan is for bronchoscopy with BAL at noontime. Sputum culture reveals no growth. He remains on Zosyn. No leukocytosis. Hemoglobin 8.6. The patient is seen again today 07/15/2017 in follow-up on the selective care unit. He is currently sitting up in chair at the bedside. He is awake and alert in no acute distress. He states he is breathing easier today as compared to yesterday. Continues good O2 saturations in the mid 90s on room air. He's been afebrile. Hemodynamically stable. Cultures from the bronchial wash are pending. Cytology pending. He does remain quite weak. Objective - Vital Signs Vital signs: Vital Signs Temp 97.4 F L 07/15/17 08:00 Pulse 80 07/15/17 08:31 Resp 18 07/15/17 08:00 BP 132/50 07/15/17 08:00 Pulse Ox 95 07/15/17 08:21 Intake & Output 07/14/17 07/15/17 07/15/17 18:59 06:59 18:59 Intake Total 250 240 Output Total 1100 225 300 Balance -850 -225 -60 Weight 99 kg 96.5 kg Intake: IV 250 Oral 240 Output: Urine 1100 225 300 Other: Voiding Method Urinal Toilet Toilet Urinal Urinal # Voids 1 # Bowel Movements 0 - Exam GENERAL EXAM: Alert, active, fairly comfortable in no apparent distress. HEAD: Normocephalic. EYES: Normal reaction of pupils, equal size. NOSE: Clear with pink turbinates. THROAT: No erythema or exudates. NECK: No masses, no JVD. CHEST: No chest wall deformity. LUNGS: Equal air entry with bilateral scattered rhonchi. Crackles in the posterior bases. CVS: S1 and S2 normal with no audible murmur, regular rhythm. ABDOMEN: No hepatosplenomegaly, normal bowel sounds, no guarding or rigidity. SPINE: No scoliosis or deformity SKIN: No rashes CENTRAL NERVOUS SYSTEM: No focal deficits, tone is normal in all 4 extremities. EXTREMITIES: There is no peripheral edema. No clubbing, no cyanosis. Peripheral pulses are intact. - Labs CBC & Chem 7: 07/13/17 05:54 07/13/17 05:54 Labs: Microbiology - Last 24 Hours (Table) 07/14/17 12:39 Acid Fast Bacilli Smear - Final Bronchial Washings - Right Acid Fast Bacilli Culture - Preliminary 07/14/17 12:39 Gram Stain - Preliminary Bronchial Washings - Right Bronchial Washings Culture - Preliminary 07/14/17 12:39 Fungal Culture - Preliminary Bronchial Washings - Right 07/11/17 21:52 Gram Stain - Final Sputum Sputum Culture - Final Assessment and Plan Assessment: Impression: #1 Bilateral lower lobe pneumonia left greater than right. The patient is immunocompromised due to his underlying multiple myeloma. He continues to have ongoing shortness of breath, cough and congestion. He is currently on Zosyn. Bronchoscopy with BAL performed just today. Cultures and cytology is pending. #2 Moderate-sized pericardial effusion. #3 Multiple myeloma. #4 Episodic SVT. #5 Normocytic anemia, status post 2 units of packed red blood cells. Current hemoglobin 8.6. #6 Nephrolithiasis secondary to above. #7 Chronic body aches and skeletal pain secondary to multiple myeloma with lytic lesions involving the left scapula Plan: The patient was seen and evaluated by Dr. Marinelli. Follow-up chest x-ray is pending. Bronchial wash results are pending. We'll continue with his current medications including bronchodilators, IV Zosyn. Continue with diuretics. He is on heparin subcutaneous for DVT prophylaxis. Protonix for GI prophylaxis. The plan may be for inpatient rehabilitation post discharge. We'll continue to follow and make further recommendations based on his clinical status. I, the cosigning physician, have performed a history and physical examination on the patient. Lung sounds are few scattered rhonchi, crackles in the posterior bases.. Maintaining good O2 saturations in the 90s on room air. I have discussed the assessment and plan of care with my nurse practitioner, Caity Galeano. I attest to the above note as dictated by her.
--- NOTE | 2017-07-15 11:50 | XR ---
EXAMINATION TYPE: XR chest 1V portable DATE OF EXAM: 07/15/2017 CLINICAL HISTORY: Difficulty breathing and pneumonia progress study. TECHNIQUE: Single AP portable upright view of the chest is obtained. COMPARISON: Chest x-ray from 6 days earlier. FINDINGS: Diminished inspiration on current study is present. There is persistent cardiomegaly. The re is patchy bibasilar scarring and/or atelectasis. There is no new suspicious focal airspace opacity , pleural effusion, or pneumothorax seen bilaterally. IMPRESSION: Diminished inspiration current study. There is cardiomegaly with patchy bibasilar scarrin g and/or atelectasis redemonstrated. There is no new suspicious focal infiltrate.
--- NOTE | 2017-07-15 14:18 | P.PN ---
Subjective Progress Note Date: 07/15/17 Principal diagnosis: LUDWIG Is a 77-year-old male patient with history of multiple myeloma who presented to the hospital with symptoms of progressive dyspnea as well as episodes of supraventricular tachycardia. Patient was seen and examined today, overall he states he is feeling better. Continues to have productive cough, currently receiving treatment for pneumonia. His CAT scan did show a pericardial effusion , echo was reviewed which found a small pericardial effusion with no evidence of any tamponade . She is being prepped for colonoscopy. Patient is currently being evaluated for rehab. 07/14/2017 Patient seen and examined, underwent bronchoscopy with bronchoalveolar lavage of the right lower and left lower lobe. Sitting up in the chair at bedside at the time of our examination. Blood pressure 146/70 with a heart rate in the 80s , temperature 98.1, 92% on room air. Continues to have a significant cough with scattered coarse rhonchi. Hemoglobin 8.6, potassium 4.1, BUN 15, creatinine 1.0. We will continue current dose of IV Lasix for 24 hours. 07/15/2017 Patient seen and examined this morning, sitting up in the chair at bedside, overall feeling significantly better today. Cough is improved, edema has improved. Objective - Vital Signs Vital signs: Vital Signs Temp 97 F L 07/15/17 11:51 Pulse 82 07/15/17 13:22 Resp 18 07/15/17 11:51 BP 121/68 07/15/17 11:51 Pulse Ox 96 07/15/17 11:51 Intake & Output 07/14/17 07/15/17 07/15/17 18:59 06:59 18:59 Intake Total 250 240 Output Total 1100 225 500 Balance -850 -225 -260 Weight 99 kg 96.5 kg Intake: IV 250 Oral 240 Output: Urine 1100 225 500 Other: Voiding Method Urinal Toilet Urinal Urinal # Voids 1 # Bowel Movements 0 - Exam PHYSICAL EXAMINATION: HEENT: Head is atraumatic, normocephalic. Pupils equal, round. Neck is supple. There is no elevated jugular venous pressure. HEART EXAMINATION: Heart S1, S2 normal. No murmur or gallop heard. CHEST EXAMINATION: Lungs reveal scattered coarse rhonchi and wheezing throughout with decreased air exchange noted ABDOMEN: Soft, nontender. Bowel sounds are heard. No organomegaly noted. EXTREMITIES: 2+ peripheral pulses with no evidence of peripheral edema and no calf tenderness noted. NEUROLOGIC patient is awake, alert and oriented -3.] . - Labs CBC & Chem 7: 07/13/17 05:54 07/13/17 05:54 Labs: Microbiology - Last 24 Hours (Table) 07/14/17 12:39 Gram Stain - Preliminary Bronchial Washings - Right Bronchial Washings Culture - Preliminary 07/14/17 12:39 Acid Fast Bacilli Smear - Final Bronchial Washings - Right Acid Fast Bacilli Culture - Preliminary 07/14/17 12:39 Fungal Culture - Preliminary Bronchial Washings - Right 07/11/17 21:52 Gram Stain - Final Sputum Sputum Culture - Final Assessment and Plan Plan: Assessment and plan #1 multiple myeloma #2 anemia, being prepped for a colonoscopy #3 supraventricular tachycardia #4 mild diastolic congestive heart failure acute on chronic Plan From Cardiology's perspective, we'll recommend to continue the patient on his current medications. IV Lasix has been discontinued and patient was started on oral Lasix today. We will check lytes BUN and creatinine today, and again tomorrow. When the patient is discharged home a follow-up appointment will be made with Dr. Aly in the office. DNP note has been reviewed, I agree with a documented findings and plan of care. Patient was seen and examined.
[2017-07-15 15:22] LABS: Anion Gap 9 mmol/L; Blood Urea Nitrogen 16 mg/dL (9-20); Calcium 9.2 mg/dL (8.4-10.2); Carbon Dioxide 25 mmol/L (22-30); Chloride 103 mmol/L (98-107); Glucose 178 mg/dL (74-99); Potassium 4.2 mmol/L (3.5-5.1); Sodium 137 mmol/L (137-145)
[2017-07-15] MEDS: HYDROcodone/APAP 5-325MG 1 EACH TAB PO PRN ×2 (15:39→23:30)
[2017-07-15] MEDS: FUROSEMIDE 20 MG TAB PO SCH (19:47)
[2017-07-16] MEDS: ALPRAZolam 0.25 MG TAB PO PRN (03:28)
[2017-07-16] MEDS: PIPERACILLIN-TAZOBACTAM 3.375 GM in DEXTROSE/WATER 1 50ML.BAG IVPB SCH ×2 (03:29→11:25)
[2017-07-16 06:47] LABS: Anisocytosis Slight; Basophils % (A) 1 %; Eosinophils # (A) 0.1 k/uL (0-0.7); Eosinophils % (A) 2 %; HCT 25.5 % (39.0-53.0); HGB 7.9 gm/dL (13.0-17.5); Hypochromasia Marked; Lymphocytes # (A) 2.3 k/uL (1.0-4.8); Lymphocytes % (A) 39 %; MCH 26.9 pg (25.0-35.0); MCHC 31.1 g/dL (31.0-37.0); MCV 86.5 fL (80.0-100.0); Mean Platelet Volume 7.4; Monocytes # (A) 0.3 k/uL (0-1.0); Monocytes % (A) 4 %; Neutrophils # (A) 3.1 k/uL (1.3-7.7); Neutrophils % (A) 52 %; Platelet Count 375 k/uL (150-450); RBC 2.95 m/uL (4.30-5.90); RDW 16.2 % (11.5-15.5); WBC 5.9 k/uL (3.8-10.6)
[2017-07-16 07:05] LABS: ALT 40 U/L (21-72); AST 35 U/L (17-59); Alkaline Phosphatase 56 U/L (38-126); Anion Gap 6 mmol/L; Blood Urea Nitrogen 14 mg/dL (9-20); Calcium 8.9 mg/dL (8.4-10.2); Carbon Dioxide 26 mmol/L (22-30); Chloride 106 mmol/L (98-107); Glucose 127 mg/dL (74-99); Potassium 4.1 mmol/L (3.5-5.1); Sodium 138 mmol/L (137-145); Total Bilirubin 0.3 mg/dL (0.2-1.3); Total Protein 9.1 g/dL (6.3-8.2)
[2017-07-16] MEDS: IPRATROPIUM-ALBUTEROL 3 ML NEB INHALATION SCH ×2 (07:43→13:20)
[2017-07-16 08:38] VITALS: TEMP 97
[2017-07-16] MEDS: ASPIRIN 81 MG PO SCH (08:38)
[2017-07-16] MEDS: FUROSEMIDE 20 MG TAB PO SCH (08:39)
[2017-07-16] MEDS: HEPARIN SODIUM,PORCINE 5,000 UNIT/ML 1 ML VIAL SQ SCH (08:39)
[2017-07-16] MEDS: METOPROLOL TARTRATE 50 MG TAB PO SCH (08:39)
[2017-07-16] MEDS: DILTIAZEM ORAL 60 MG TAB PO SCH (08:39)
[2017-07-16] MEDS: PANTOPRAZOLE 40 MG/10 ML VIAL IVP SCH (08:40)
[2017-07-16] MEDS: POTASSIUM CHLORIDE ER 20 MEQ TAB.ER PO SCH (09:12)
--- NOTE | 2017-07-16 11:31 | P.PN ---
Subjective Progress Note Date: 07/16/17 Principal diagnosis: acute bilateral lower lobe pneumonia in an immunocompromised patient with multiple myeloma. 77 year-old male who is being seen today for increased cough, chest congestion, and a abnormal opacity in the left lung base with a possibility of an underlying pneumonia. Note that this patient got recently diagnosed having multiple myeloma. He initially presented to PCP Dr. Loaiza late 2016 with c/o progressive left shoulder pain following a fall 6 months prior. Shoulder X-Ray revealed 7.6 X 8.3 X 3.5 cm destructive lesion in left acromion and scapula, bone scan on 04/23/17 was unremarkable. Pt sent to Ortho-Onc at [place], lab work up revealed monoclonal gammapathy, Ig levels revealed IgG of 6.6g, bone survey revealed known left shoulder process, as well as, numerous intermediate lytic lesions throughout the skeleton, surgery not recommended. Pt met with Dr. Ansari last , they discussed diagnosis of IgG lambda multiple myeloma , diagnosis, prognosis, plan for bone marrow biopsy and palliative radiation to the shoulder. Pt has been seen by Dr. Loo and had 1 treatment of radiation, chemo with revlimid, velcade and dexamathasone was discussed and there are plans to start that, and bisphosphonate therapy, after radiation. The patient stated that after radiation therapy last Wednesday he started having increased shortness of breath and he became quite tachypneic and panicky. He had his home care nurse call EMS. On arrival he was found to be severely anemia and has had 2 PRBC transfusions, baseline Hgb for pt over the last 2 months, when office medical records reviewed, is 8-9. Pt denied any fevers, vomiting, he is SOB when he gets anxious, he will feel palpitations, denies chest pain, diaphoresis, indigestion, diarrhea, constipation, bleeding or pain other then in his left shoulder, denies numbness or tingling in the shoulder, he maintains some strength in the LUE. During this current hospital stay, the patient was seen by cardiology. He was found to be having runs of SVT. His echocardiogram showed preserved LV function. The patient was treated with Cardizem drip. His current rhythm is sinus. Nevertheless he is having ongoing respiratory difficulties with cough congestion and wheezing and shortness of breath and for that reason a pulmonary consultation was requested. No home oxygen. No smoking history. Most of COPD. No history of asthma. No history of any DVT or pulmonary embolism. No aspiration. Furthermore there is no fever at this point. Reevaluated today on 07/12/2017, patient continues to have some shortness of breath and cough. Cough is productive with yellow phlegm.chest x-ray continues to show significant pneumonic process involving mostly the left lower lobe and to some extent the right lower lobe.CT of the chest was also reviewed from 2017.patient remains on broad-spectrum IV antibiotics empirically for pneumonia. Today I even discussed with the patient the option of bronchoscopy, and if he does not improve much in the next 24 hours, that may have to be considered. The patient was seen again today 07/13/2017 in follow-up on the selective care unit. He remains awake and alert in no acute distress. He does have ongoing issues with a loose productive cough. Yellow sputum. Culture pending. Not much improved today as compared to yesterday. White count 6.8. Hemoglobin 8.6. Platelet count 304,000. Creatinine 1.05. He is currently on Zosyn. The patient is seen again today 07/14/2017 in follow-up on the selective care unit. He is awake and alert in no acute distress. He is currently sitting up in a chair at the bedside. He is breathing somewhat easier today as compared to yesterday. He continues with a loose nonproductive cough. The plan is for bronchoscopy with BAL at noontime. Sputum culture reveals no growth. He remains on Zosyn. No leukocytosis. Hemoglobin 8.6. The patient is seen again today 07/15/2017 in follow-up on the selective care unit. He is currently sitting up in chair at the bedside. He is awake and alert in no acute distress. He states he is breathing easier today as compared to yesterday. Continues good O2 saturations in the mid 90s on room air. He's been afebrile. Hemodynamically stable. Cultures from the bronchial wash are pending. Cytology pending. He does remain quite weak. Patient was reevaluated today on 07/16/2017, feeling much better from the pulmonary perspective, less cough and less wheezing less shortness of breath. No fever no chills no hemoptysis.bronchial washing came back negative, it showed mostly normal respiratory javier. Objective - Vital Signs Vital signs: Vital Signs Temp 97 F L 07/16/17 08:00 Pulse 75 07/16/17 08:00 Resp 17 07/16/17 08:00 BP 136/70 07/16/17 08:00 Pulse Ox 98 07/16/17 08:00 Intake & Output 07/15/17 07/16/17 07/16/17 18:59 06:59 18:59 Intake Total 480 180 298 Output Total 700 1200 Balance -220 -1020 298 Weight 98 kg Intake: IV 180 0.9 80 Piperacillin-Tazobactam 3 100 .375 gm In Dextrose/Water 1 50ml.bag @ 12.5 mls/hr IVPB Q8H [facility] Rx#: [id number] Oral 480 298 Output: Urine 700 1200 Other: Voiding Method Urinal Urinal Urinal - Exam GENERAL EXAM: Alert, active, fairly comfortable in no apparent distress. HEAD: Normocephalic. EYES: Normal reaction of pupils, equal size. NOSE: Clear with pink turbinates. THROAT: No erythema or exudates. NECK: No masses, no JVD. CHEST: No chest wall deformity. LUNGS: Equal air entry with bilateral scattered rhonchi. Crackles in the posterior bases. CVS: S1 and S2 normal with no audible murmur, regular rhythm. ABDOMEN: No hepatosplenomegaly, normal bowel sounds, no guarding or rigidity. SPINE: No scoliosis or deformity SKIN: No rashes CENTRAL NERVOUS SYSTEM: No focal deficits, tone is normal in all 4 extremities. EXTREMITIES: There is no peripheral edema. No clubbing, no cyanosis. Peripheral pulses are intact. - Labs CBC & Chem 7: 07/16/17 06:00 07/16/17 06:00 Labs: Abnormal Lab Results - Last 24 Hours (Table) 07/15/17 07/16/17 07/16/17 Range/Units 14:43 06:00 06:00 RBC 2.95 L (4.30-5.90) m/uL Hgb 7.9 L (13.0-17.5) gm/dL Hct 25.5 L (39.0-53.0) % RDW 16.2 H (11.5-15.5) % Creatinine 1.34 H (0.66-1.25) mg/dL Glucose 178 H 127 H (74-99) mg/dL Total Protein 9.1 H (6.3-8.2) g/dL Albumin 3.0 L (3.5-5.0) g/dL Microbiology - Last 24 Hours (Table) 07/14/17 12:39 Gram Stain - Final Bronchial Washings - Right Bronchial Washings Culture - Final Assessment and Plan Assessment: #1 Bilateral lower lobe pneumonia left greater than right. The patient is immunocompromised due to his underlying multiple myeloma. He continues to have ongoing shortness of breath, cough and congestion. He is currently on Zosyn. Bronchoscopy with BAL performed just today. Cultures and cytology is pending. #2 Moderate-sized pericardial effusion. #3 Multiple myeloma. #4 Episodic SVT. #5 Normocytic anemia, status post 2 units of packed red blood cells. Current hemoglobin 7.9 #6 Nephrolithiasis secondary to above. #7 Chronic body aches and skeletal pain secondary to multiple myeloma with lytic lesions involving the left scapula Recommendation: Patient could be switched to oral Levaquin, agree with discharge planning today, follow up on outpatient basis with me in the next couple of weeks. Time with Patient: Less than 30
[2017-07-16 11:32] VITALS: BP 121/66; RESP 16
--- NOTE | 2017-07-16 11:46 | P.PN ---
Subjective Progress Note Date: 07/16/17 Principal diagnosis: SVT This is a pleasant 77-year-old gentleman with history of multiple myeloma who presented to the hospital with symptoms of progressive dyspnea as well as episodes of supraventricular tachycardia. He underwent a computed tomography scan that did show pericardial effusion and echo are revealed a small pericardial effusion with no evidence of tamponade. She did undergo bronchoscopy with bronchoalveolar lavage of the right lower and left lower lobe. Upon examination today, patient is sitting up on the side of the bed. He is feeling fairly well. He is breathing better. His cough and edema have improved. Return to his reviewed and show a BUN of 14 and creatinine 1.16, hemoglobin 7.9. Heart rate has been stable running mostly in the 70s. Objective - Vital Signs Vital signs: Vital Signs Temp 97 F L 07/16/17 08:00 Pulse 71 07/16/17 11:31 Resp 16 07/16/17 11:31 BP 121/66 07/16/17 11:31 Pulse Ox 99 07/16/17 11:31 Intake & Output 07/15/17 07/16/17 07/16/17 18:59 06:59 18:59 Intake Total 480 180 298 Output Total 700 1200 Balance -220 -1020 298 Weight 98 kg Intake: IV 180 0.9 80 Piperacillin-Tazobactam 3 100 .375 gm In Dextrose/Water 1 50ml.bag @ 12.5 mls/hr IVPB Q8H [facility] Rx#: [id number] Oral 480 298 Output: Urine 700 1200 Other: Voiding Method Urinal Urinal Urinal - Exam PHYSICAL EXAMINATION: HEENT: Head is atraumatic, normocephalic. Pupils equal, round. Neck is supple. There is no elevated jugular venous pressure. HEART EXAMINATION: Heart sounds regular, S1 and S2 normal. No murmur or gallop heard. CHEST EXAMINATION: Lungs reveal diminished air entry throughout. No chest wall tenderness is noted on palpation or with deep breathing. ABDOMEN: Soft, nontender. Bowel sounds are heard. No organomegaly noted. EXTREMITIES: 2+ peripheral pulses with no evidence of peripheral edema and no calf tenderness noted. NEUROLOGIC patient is awake, alert and oriented x3. . - Labs CBC & Chem 7: 07/16/17 06:00 07/16/17 06:00 Labs: Abnormal Lab Results - Last 24 Hours (Table) 07/15/17 07/16/17 07/16/17 Range/Units 14:43 06:00 06:00 RBC 2.95 L (4.30-5.90) m/uL Hgb 7.9 L (13.0-17.5) gm/dL Hct 25.5 L (39.0-53.0) % RDW 16.2 H (11.5-15.5) % Creatinine 1.34 H (0.66-1.25) mg/dL Glucose 178 H 127 H (74-99) mg/dL Total Protein 9.1 H (6.3-8.2) g/dL Albumin 3.0 L (3.5-5.0) g/dL Microbiology - Last 24 Hours (Table) 07/14/17 12:39 Gram Stain - Final Bronchial Washings - Right Bronchial Washings Culture - Final Assessment and Plan Assessment: #1 multiple myeloma #2 anemia, will be scheduled for colonoscopy and upper endoscopy as an outpatient #3 supraventricular tachycardia #4 mild diastolic congestive heart failure, acute on chronic Plan: From cardiology's perspective, medications were reviewed and we will continue the same. At this time will follow the patient on an as-needed basis. Please do not hesitate to contact us with questions. MESSENGER OFFICE note has been reviewed, I agree with a documented findings and plan of care. Patient was seen and examined.
[2017-07-16 13:30] VITALS: PULSE 88
--- NOTE | 2017-07-16 14:58 | P.DS ---
Providers Date of admission: 07/07/17 15:02 Expected date of discharge: 07/16/17 Attending physician: Solo Rice Consults: 07/07/17 15:02 Consult Physician Urgent Consulting Provider: [facility] Consult Reason/Comments: A. fib with rapid ventricular response Do you want consulting provider notified?: Yes 07/08/17 02:37 Consult Physician Routine Consulting Provider: Meli Roberts Consult Reason/Comments: evaluation of critical hgb Do you want consulting provider notified?: Yes, Notify in am 07/08/17 11:31 Consult Physician Urgent Consulting Provider: Gregg Eastman Consult Reason/Comments: multiple myeloma anemia Do you want consulting provider notified?: Yes 07/11/17 10:44 Consult Physician Routine Consulting Provider: Og Elliott Consult Reason/Comments: dyspnea Do you want consulting provider notified?: Yes, Notify in am 07/12/17 10:27 Consult Physician Routine Consulting Provider: Arthur Casanova Consult Reason/Comments: eval for inpatient rehab Do you want consulting provider notified?: Yes Primary care physician: Solo Loaiza Hospital Course: Final Diagnoses: #1 Bilateral lower lobe pneumonia left greater than right. Immunocompromised r/ t underlying multiple myeloma. He continues to have ongoing shortness of breath , cough and congestion. He is currently on Zosyn. S/P Bronchoscopy,Cultures and cytology is pending. #2 Moderate-sized pericardial effusion. #3 Multiple myeloma. #4 Episodic SVT. #5 Normocytic anemia, status post 2 units of packed red blood cells. #6 Nephrolithiasis secondary to above. #7 Chronic body aches and skeletal pain secondary to multiple myeloma with lytic lesions involving the left scapula, received OP Palliative radiation Hospital course: This is a 77-year-old gentleman admitted with increased shortness of breath cough congestion, bilateral lower lobe pneumonia, anemia and runs of SVT had what anemia,and multiple other medical issues in a patient with recently diagnosed multiple myeloma.He initially presented to PCP Dr. Loaiza late 2016 with c/o progressive left shoulder pain following a fall 6 months prior. Shoulder X-Ray revealed 7.6 X 8.3 X 3.5 cm destructive lesion in left acromion and scapula, bone scan on 04/23/17 was unremarkable. Pt sent to Ortho[facility]Onc at [place], lab work up revealed monoclonal gammapathy, Ig levels revealed IgG of 6.6g, bone survey revealed known left shoulder process, as well as, numerous intermediate lytic lesions throughout the skeleton, surgery not recommended. Pt met with Dr. Ansari last , they discussed diagnosis of IgG lambda multiple myeloma, diagnosis, prognosis, plan for bone marrow biopsy and palliative radiation to the shoulder. Pt has been seen by Dr. Loo and had 1 treatment of radiation, chemo with revlimid, velcade and dexamathasone was discussed and there are plans to start that, and bisphosphonate therapy, after radiation. Evaluated by oncology, pulmonary, surgery,cardiology. Status post Cardizem drip. Echo reported preserved LV function, EF 55-60%. Underwent bronchoscopy, final culture/ cytology pending. Sputum culture reported no growth. Maintained on IV antibiotics of Zosyn, received transfusions of packed RBCs(per chart review, baseline 8-9). Significant clinical improvement. Patient has been cleared for discharge by all consults. Patient is being discharged to [facility] in a stable condition with guarded prognosis. Physical exam:VSS, cardiovascular: Regular S1-S2, no murmurs, no rubs, no edema. Pulmonary better air entry with bilateral scattered rhonchi and bibasilar crackles, abdomen soft nontender positive bowel sounds, psychiatry alert and oriented 3. Affect normal. No focal deficits. Microbiology 07/14/17 12:39 Bronchial Washings - Right Gram Stain - Final 07/14/17 12:39 Bronchial Washings - Right Bronchial Washings Culture - Final 07/14/17 12:39 Bronchial Washings - Right Acid Fast Bacilli Smear - Final 07/14/17 12:39 Bronchial Washings - Right Acid Fast Bacilli Culture - Preliminary 07/14/17 12:39 Bronchial Washings - Right Fungal Culture - Preliminary 07/11/17 21:52 Sputum Gram Stain - Final 07/11/17 21:52 Sputum Sputum Culture - Final The impression and plan of care has been dictated as directed. : I performed a history and examination of this patient, discussed the same with the dictator. I agree with the dictator's note ,documented as a scribe. Any additional findings or plans will be noted. Time taken: 35 minutes. Patient Condition at Discharge: Stable Plan - Discharge Summary Discharge Rx Participant: Yes New Discharge Prescriptions: New Acetaminophen Tab [Tylenol] 500 mg PO Q6HR PRN tab PRN Reason: Fever And/ Or Pain ALPRAZolam [Xanax] 0.25 mg PO TID PRN #20 tab PRN Reason: Anxiety Benzocaine/Menthol Lozeng [Cepacol lozenge] 1 each MUCOUS MEM Q4HR PRN lozenge PRN Reason: Cough Diltiazem Oral [Cardizem*] 60 mg PO TID tab Furosemide [Lasix] 20 mg PO BID tab guaiFENesin SYRUP 100MG/5ML [Robitussin] 200 mg PO Q6H PRN cup PRN Reason: Cough Ipratropium-Albuterol Nebulize [Duoneb 0.5 mg-3 mg/3 ml Soln] 3 ml INHALATION RT-TID ampul.neb Metoprolol Tartrate [Lopressor] 50 mg PO BID tab Pantoprazole Sodium [Protonix] 40 mg PO DAILY #30 tablet.dr Potassium Chloride ER [K-Dur 20] 20 meq PO DAILY tab.er.prt traMADol HCL [Ultram] 50 mg PO Q6HR PRN #20 tab PRN Reason: Pain Melatonin 5 mg PO HS #1 tablet Levofloxacin [Levaquin] 500 mg PO DAILY #5 tab No Action Aspirin EC [Ecotrin Low Dose] 81 mg PO DAILY Metoprolol Tartrate [Lopressor] 25 mg PO QAM Discharge Medication List Aspirin EC [Ecotrin Low Dose] 81 mg PO DAILY 12/21/16 [History] Metoprolol Tartrate [Lopressor] 25 mg PO QAM 07/06/17 [History] ALPRAZolam [Xanax] 0.25 mg PO TID PRN #20 tab 07/16/17 [Rx] Acetaminophen Tab [Tylenol] 500 mg PO Q6HR PRN tab 07/16/17 [Rx] Benzocaine/Menthol Lozeng [Cepacol lozenge] 1 each MUCOUS MEM Q4HR PRN lozenge 07/16/17 [Rx] Diltiazem Oral [Cardizem*] 60 mg PO TID tab 07/16/17 [Rx] Furosemide [Lasix] 20 mg PO BID tab 07/16/17 [Rx] Ipratropium-Albuterol Nebulize [Duoneb 0.5 mg-3 mg/3 ml Soln] 3 ml INHALATION RT -TID ampul.neb 07/16/17 [Rx] Levofloxacin [Levaquin] 500 mg PO DAILY #5 tab 07/16/17 [Rx] Melatonin 5 mg PO HS #1 tablet 07/16/17 [Rx] Metoprolol Tartrate [Lopressor] 50 mg PO BID tab 07/16/17 [Rx] Pantoprazole Sodium [Protonix] 40 mg PO DAILY #30 tablet.dr 07/16/17 [Rx] Potassium Chloride ER [K-Dur 20] 20 meq PO DAILY tab.er.prt 07/16/17 [Rx] guaiFENesin SYRUP 100MG/5ML [Robitussin] 200 mg PO Q6H PRN cup 07/16/17 [Rx] traMADol HCL [Ultram] 50 mg PO Q6HR PRN #20 tab 07/16/17 [Rx] Follow up Appointment(s)/Referral(s): Solo Loaiza MD [Primary Care Provider] - 1 Week (after dc from ECF) Molly Marinelli MD [STAFF PHYSICIAN] - 1 Week Gregg Eastman MD [STAFF PHYSICIAN] - As Needed (patient sees [facility] ) Marcelino Gandhi MD [STAFF PHYSICIAN] - 1 Week Maxwell Mcneill MD [STAFF PHYSICIAN] - 3 Days Denis Ansari MD [STAFF PHYSICIAN] - 07/28/17 7:45 am Activity/Diet/Wound Care/Special Instructions: [facility] X [address] Marinelli DIet: cardiac Activity: tolerated cbc,bmp in 3 days with results to PCP & Dr. Eastman weekly cbc with results to dr. Eastman, conservative transfusions prn Palliative radiation to left shoulder lesion,after ecf Discharge Disposition: TRANSFER TO SNF/ECF
[2017-07-16] MEDS: HYDROcodone/APAP 5-325MG 1 EACH TAB PO PRN (15:14)
[2017-07-16] MEDS ORDERED: HYDROmorphone 0.5 MG/0.5 ML SYRINGE IVP PRN (16:22)
--- NOTE | 2017-07-22 11:00 | P.PN ---
Progress Note - Text Progress Note Date: 07/22/17 This is an addendum to the cardiology notes dictated, patient has no documented evidence of atrial fibrillation. DNP note has been reviewed, I agree with a documented findings and plan of care. Patient was seen and examined.
== END 2017-07-16 17:24 | DRG 853 ==
LOC: EC 12:51 → SUPCPDRO 12:51 → 6SEL 15:02 → 6ICU 07-08 03:48 → 6SEL 07-09 07:47
PROVIDERS: ADMIT Family Medicine; ATTEND Family Medicine
PROC: 0B9J8ZX Drainage of Left Lower Lung Lobe, Via Natural or Artificial Opening Endoscopic, Diagnostic (ICD-10-PCS; principal; 2017-07-14 11:50)
PROC: 0B9F8ZX Drainage of Right Lower Lung Lobe, Via Natural or Artificial Opening Endoscopic, Diagnostic (ICD-10-PCS; principal; 2017-07-14 11:50)
DX: A41.9 Sepsis, unspecified organism (principal); I50.43 Acute on chronic combined systolic (congestive) and diastolic (congestive) heart failure; J15.6 Pneumonia due to other Gram-negative bacteria; C90.00 Multiple myeloma not having achieved remission; D64.81 Anemia due to antineoplastic chemotherapy; D47.2 Monoclonal gammopathy; I47.1 Supraventricular tachycardia; I31.3 Pericardial effusion (noninflammatory); I11.0 Hypertensive heart disease with heart failure; J44.0 Chronic obstructive pulmonary disease with (acute) lower respiratory infection; I08.1 Rheumatic disorders of both mitral and tricuspid valves; D63.0 Anemia in neoplastic disease; D50.9 Iron deficiency anemia, unspecified; F41.0 Panic disorder [episodic paroxysmal anxiety]; G89.3 Neoplasm related pain (acute) (chronic); M19.90 Unspecified osteoarthritis, unspecified site; N20.0 Calculus of kidney; T45.1X5A Adverse effect of antineoplastic and immunosuppressive drugs, initial encounter; Z79.82 Long term (current) use of aspirin; Z79.899 Other long term (current) drug therapy; Z85.46 Personal history of malignant neoplasm of prostate; Z85.828 Personal history of other malignant neoplasm of skin; Z91.81 History of falling; Z92.3 Personal history of irradiation
CPT/HCPCS: 31624; 31645; 36415; 71045; 71046; 71250; 77280; 77412; 80048; 80053; 82550; 82553; 82607; 82728; 82747; 83540; 83550; 83735; 83880; 84100; 84484; 85025; 85045; 85610; 85730; 86850; 86900; 86901; 86920; 87070; 87102; 87116; 87205; 87206; 87252; 87496; 87498; 87502; 87529; 87634; 87798; 88108; 88305; 89050; 93005; 93306; 94640; 94760; 96365; 96366; 96375; 96376; 99291

== ENCOUNTER 2017-08-05 07:24 | Day surgery (SDC) | payer MEDICARE ==
[2017-08-03 14:55] VITALS: BMI 30.8
[~2017-08-05 07:24] MED LIST: LACTATED RINGERS 1,000 ML IV SCH; LIDOCAINE 1% 20 ML VIAL (10MG/ML) FOR IV START INTRADERMA PRN; Pre Op ABX Message 1 EACH MISC MISCELLANE ONE
[2017-08-05 07:40] VITALS: RESP 20; TEMP 97.6
[2017-08-05] MEDS ORDERED: PROPOFOL 10 MG/ML 20 ML VIAL IV ONE (08:07)
[2017-08-05 09:02] VITALS: PULSE 71
[2017-08-05 09:24] VITALS: BP 128/63
--- NOTE | 2017-08-05 09:31 | PCN ---
PROCEDURE NOTE DATE OF PROCEDURE: 08/05/2017 PREOPERATIVE DIAGNOSIS: Multiple myeloma. POSTOPERATIVE DIAGNOSIS: Multiple myeloma. ANESTHESIA: Local with IV systemic sedation. DETAILS: Utilizing sterile technique, the skin overlying the right iliac crest was prepared with Betadine and alcohol. After adequate sterile draping, systemic sedation and local anesthesia with 1% lidocaine, a size 11, 4-inch Apiaryshidi needle was utilized to access the periosteum with ease. A total of 15 mL of aspirate as well as crushed 1 cm bone core biopsies were obtained. The patient tolerated the procedure very well. There was no immediate procedure related complications. TOTAL BLOOD LOSS: Less than 1 mL. RESULTS: Pending. MMODL / IJN: [id number] /
[2017-08-05 11:06] LABS: Anisocytosis Slight; Basophils % (A) 1 %; Eosinophils # (A) 0.3 k/uL (0-0.7); Eosinophils % (A) 4 %; Hypochromasia Slight; Lymphocytes # (A) 2.1 k/uL (1.0-4.8); Lymphocytes % (A) 32 %; MCH 27.1 pg (25.0-35.0); MCHC 31.3 g/dL (31.0-37.0); MCV 86.6 fL (80.0-100.0); Mean Platelet Volume 7.9; Monocytes # (A) 0.4 k/uL (0-1.0); Monocytes % (A) 6 %; Neutrophils # (A) 3.7 k/uL (1.3-7.7); Neutrophils % (A) 57 %; Platelet Count 264 k/uL (150-450); RBC 3.58 m/uL (4.30-5.90); RDW 18.8 % (11.5-15.5); WBC 6.6 k/uL (3.8-10.6)
[2017-08-05 11:13] LABS: HGB 9.7 gm/dL (13.0-17.5)
== END 2017-08-05 09:51 | disposition home or self-care (01) ==
LOC: OR 07:24
PROVIDERS: ATTEND Internal Medicine Hematology & Oncology
DX: C90.00 Multiple myeloma not having achieved remission (principal); D50.8 Other iron deficiency anemias; E78.5 Hyperlipidemia, unspecified; I10 Essential (primary) hypertension; Z79.82 Long term (current) use of aspirin; Z79.899 Other long term (current) drug therapy
CPT/HCPCS: 38221; 85025; J2704

== ENCOUNTER → 2017-09-21 | Outpatient (CLI) | payer MEDICARE, OTHER ==
--- NOTE | 2017-09-21 13:45 | US ---
EXAMINATION TYPE: US venous doppler duplex LE DATE OF EXAM: 09/21/2017 1:27 PM COMPARISON: NONE CLINICAL HISTORY: R06.02 shortness of breath, R00.00 tachycardia. SIDE PERFORMED: Bilateral TECHNIQUE: The lower extremity deep venous system is examined utilizing real time linear array sonog nahid with graded compression, doppler sonography and color-flow sonography. VESSELS IMAGED: External Iliac Vein (EIV) Common Femoral Vein Deep Femoral Vein Greater Saphenous Vein * Femoral Vein Popliteal Vein Small Saphenous Vein * Proximal Calf Veins (* superficial vessels) Poor venous return, pitting edema. Diffuse subcutaneous emphysema is seen throughout the lower extrem ities. Right Leg: Negative for DVT Left Leg: Negative for DVT Grayscale, color doppler, spectral doppler imaging performed of the deep veins of the lower extremiti es. There is normal flow, compressibility, vascular waveforms. IMPRESSION: 1. No sonographic evidence of deep venous thrombosis within the bilateral lower extremities. 2. Diffuse lower extremity edema.
--- NOTE | 2017-09-21 13:57 | CT ---
EXAMINATION TYPE: CT chest wo con DATE OF EXAM: 09/21/2017 COMPARISON: PET/CT July 03, 2017. CT chest July 11, 2017. HISTORY: SOB, Multiple myeloma of Lt shoulder CT DLP: 470.1 mGycm. Automated Exposure Control for Dose Reduction was Utilized. TECHNIQUE: CT scan of the thorax is performed without IV contrast. FINDINGS: LUNGS: There is worsening small to borderline moderate size right pleural effusion. There is associat ed compressive atelectasis in the right lung base. Patchy left basilar atelectasis otherwise left andressa g is clear. There is interval resolution of left lower lobe consolidation with air bronchograms. Ther e is near complete interval resolution of right basilar consolidation with scattered linear atelectas is remaining present. No pneumothorax is seen bilaterally. Mild to moderate central peribronchial wal l thickening remains present bilaterally. MEDIASTINUM: Lack of IV contrast is noted to limit evaluation for mediastinal and especially hilar ad enopathy. There are no definitive greater than 1 cm hilar or mediastinal lymph nodes. There is persis tent cardiomegaly. There is increasing size small to moderate pericardial effusion measuring up to 1. 9 cm in thickness posteriorly axial image 38. There is moderate to severe 3 vessel coronary artery ca lcification. There is moderate left atrial dilatation redemonstrated. OTHER: There is partial visualization of destructive left shoulder or scapular mass near axial image 1 less prominent in appearance versus prior CT and PET/CT. Osseous structures are demineralized. Ther e is severe multilevel anterior and lateral spurring in the spine. There is simple appearing 3.3 cm c yst upper to mid pole level left kidney laterally axial image 63. There is 8 mm calculus just posteri or to this axial image 63 redemonstrated. IMPRESSION: Fairly moderate pericardial effusion increased in size from prior. Small to borderline mo derate-sized pleural effusion increased in size from prior. Persistent cardiomegaly with improving bi lateral lower lung consolidation. Slightly worsening central peribronchial wall thickening raises con cern for acute bronchiolitis correlate clinically.
== END | disposition home or self-care (01) ==
LOC: RADUSMAIN 12:49
PROVIDERS: ATTEND Internal Medicine Hematology & Oncology
DX: C90.00 Multiple myeloma not having achieved remission (principal); I31.3 Pericardial effusion (noninflammatory); J90 Pleural effusion, not elsewhere classified; I51.7 Cardiomegaly; J98.09 Other diseases of bronchus, not elsewhere classified; R60.0 Localized edema; R00.0 Tachycardia, unspecified
CPT/HCPCS: 71250; 93970

== ENCOUNTER 2017-09-24 11:14 | Inpatient (IN) | payer OTHER, MEDICARE ==
--- NOTE | 2017-09-24 12:24 | ED ---
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 Patient states he is getting chemotherapy for that patient states his last dose of chemotherapy was on Wednesday. Patient comes in today complaining that he has been more short of breath over the last 2-3 days he's had increased swelling to his legs. Patient states it is worsened with exertion. Patient denies any palpitations or chest pain. Patient denies any recent fever chills or cough. Patient denies any calf pain. Patient denies any abdominal pain patient denies nausea vomiting diarrhea. Patient denies headache patient denies numbness weakness. Patient denies lightheadedness dizziness or near syncopal episode. - Related Data Home Medications Medication Instructions Recorded Confirmed Aspirin EC [Ecotrin Low Dose] 81 mg PO DAILY 12/21/16 09/24/17 Metoprolol Tartrate [Lopressor] 50 mg PO DAILY 08/03/17 09/24/17 Omeprazole 20 mg PO DAILY 08/03/17 09/24/17 Acyclovir [Zovirax] 400 mg PO BID 09/24/17 09/24/17 Dexamethasone 40 mg PO TU 09/24/17 09/24/17 Furosemide [Lasix] 40 mg PO BID 09/24/17 09/24/17 HYDROcodone/APAP 7.5-325MG [[place] 1 tab PO Q6HR PRN 09/24/17 09/24/17 7.5-325] Lenalidomide [Revlimid] 25 mg PO DIRECTED 09/24/17 09/24/17 Potassium Chloride ER [K-Dur 20] 20 meq PO BID 09/24/17 09/24/17 Sulfamethox-Tmp 800-160Mg [Bactrim 1 tab PO MOWEFR@0800,2000 09/24/17 09/24/17 DS 800-160 mg] amLODIPine [Norvasc] 5 mg PO DAILY 09/24/17 09/24/17 Previous Rx's Medication Instructions Recorded ALPRAZolam [Xanax] 0.25 mg PO TID PRN #20 tab 07/16/17 Diltiazem Oral [Cardizem*] 60 mg PO TID tab 07/16/17 traMADol HCL [Ultram] 50 mg PO Q6HR PRN #20 tab 07/16/17 Allergies Allergy/AdvReac Type Severity Reaction Status Date / Time No Known Allergies Allergy Verified 09/24/17 14:13 Review of Systems ROS Statement: Those systems with pertinent positive or pertinent negative responses have been documented in the HPI. ROS Other: All systems not noted in ROS Statement are negative. Past Medical History Past Medical History: Cancer, Hypertension, Osteoarthritis (OA), Supraventricular Tachycardia (SVT) Additional Past Medical History / Comment(s): Multiple myeloma, prostate cancer , skin cancer, hypertension, degenerative arthritis, episodes of SVT a discussed above, nephrolithiasis History of Any Multi-Drug Resistant Organisms: None Reported Past Surgical History: Heart Catheterization, Hernia Repair, Prostate Surgery Additional Past Surgical History / Comment(s): rt wrist ganglion cysts removed Past Anesthesia/Blood Transfusion Reactions: No Reported Reaction Past Psychological History: No Psychological Hx Reported Smoking Status: Never smoker Past Alcohol Use History: None Reported Past Drug Use History: None Reported - Past Family History Father History Unknown: Yes Mother History Unknown: Yes General Exam - General Exam Comments Initial Comments: GENERAL: Patient is well-developed and well-nourished. Patient is nontoxic and well- hydrated and is in mild distress. ENT: Neck is soft and supple. No significant lymphadenopathy is noted. Oropharynx is clear. Moist mucous membranes. Neck has full range of motion without eliciting any pain. EYES: The sclera were anicteric and conjunctiva were pink and moist. Extraocular movements were intact and pupils were equal round and reactive to light. Eyelids were unremarkable. PULMONARY: Unlabored respirations. Good breath sounds bilaterally. Patient has diminished in the bases particularly the left. CARDIOVASCULAR: There is a regular rate and rhythm without any murmurs gallops or rubs. ABDOMEN: Soft and nontender with normal bowel sounds. No palpable organomegaly was noted. There is no palpable pulsatile mass. SKIN: Skin is clear with no lesions or rashes and otherwise unremarkable. NEUROLOGIC: Patient is alert and oriented x3. Cranial nerves II through XII are grossly intact. Motor and sensory are also intact. Normal speech, volume and content. Symmetrical smile. MUSCULOSKELETAL: Normal extremities with adequate strength and full range of motion. 2+ edema bilaterally without calf tenderness LYMPHATICS: No significant lymphadenopathy is noted PSYCHIATRIC: Normal psychiatric evaluation. Normal interpersonal interactions appears functionally intact in deals appropriately with others. No signs of depression. No signs of anxiety. Limitations: no limitations Course Vital Signs 09/24/17 09/24/17 09/24/17 11:41 12:26 14:00 Temperature 97.1 F L Pulse Rate 71 78 70 Respiratory 24 16 16 Rate Blood Pressure 106/51 103/55 113/67 O2 Sat by Pulse 96 96 95 Oximetry Medical Decision Making - Medical Decision Making Patient's EKG shows atrial flutter at a rate of 80 bpm [place] interval 232 QRS is 132 QT interval 442 QTC is 509. Patient's EKG shows no ST segment elevation or depression Chest x-ray shows venous congestion. I gave the patient some Lasix and Nitropaste. Patient will be admitted for pulmonary edema - Lab Data Result diagrams: 09/24/17 12:15 09/24/17 12:15 Lab Results 09/24/17 09/24/17 09/24/17 Range/Units 12:15 12:15 12:15 WBC 7.7 (3.8-10.6) k/uL RBC 3.28 L (4.30-5.90) m/uL Hgb 9.1 L (13.0-17.5) gm/dL Hct 27.6 L (39.0-53.0) % MCV 84.2 (80.0-100.0) fL MCH 27.7 (25.0-35.0) pg MCHC 32.8 (31.0-37.0) g/dL RDW 22.2 H (11.5-15.5) % Plt Count 126 L D (150-450) k/uL Neutrophils % 72 % Lymphocytes % 13 % Monocytes % 11 % Eosinophils % 2 % Basophils % 0 % Neutrophils # 5.5 (1.3-7.7) k/uL Lymphocytes # 1.0 (1.0-4.8) k/uL Monocytes # 0.9 (0-1.0) k/uL Eosinophils # 0.1 (0-0.7) k/uL Basophils # 0.0 (0-0.2) k/uL Hypochromasia Slight Anisocytosis Moderate Microcytosis Slight PT (9.0-12.0) sec INR (<1.2) APTT (22.0-30.0) sec Sodium 135 L (137-145) mmol/L Potassium 4.8 (3.5-5.1) mmol/L Chloride 102 (98-107) mmol/L Carbon Dioxide 22 (22-30) mmol/L Anion Gap 11 mmol/L BUN 44 H (9-20) mg/dL Creatinine 1.05 (0.66-1.25) mg/dL Est GFR (CKD-EPI)AfAm 80 (>60 ml/min/1.73 sqM) Est GFR (CKD-EPI)NonAf 69 (>60 ml/min/1.73 sqM) Glucose 157 H (74-99) mg/dL Calcium 8.8 (8.4-10.2) mg/dL Magnesium 2.4 H (1.6-2.3) mg/dL Total Bilirubin 0.5 (0.2-1.3) mg/dL AST 78 H (17-59) U/L ALT 98 H (21-72) U/L Alkaline Phosphatase 82 (38-126) U/L Total Creatine Kinase 44 L (55-170) U/L CK-MB (CK-2) 2.1 (0.0-2.4) ng/mL CK-MB (CK-2) Rel Index 4.8 Troponin I 0.062 H* (0.000-0.034) ng/mL NT-Pro-B Natriuret Pep pg/mL Total Protein 5.8 L (6.3-8.2) g/dL Albumin 3.4 L (3.5-5.0) g/dL 09/24/17 09/24/17 Range/Units 12:15 12:15 WBC (3.8-10.6) k/uL RBC (4.30-5.90) m/uL Hgb (13.0-17.5) gm/dL Hct (39.0-53.0) % MCV (80.0-100.0) fL MCH (25.0-35.0) pg MCHC (31.0-37.0) g/dL RDW (11.5-15.5) % Plt Count (150-450) k/uL Neutrophils % % Lymphocytes % % Monocytes % % Eosinophils % % Basophils % % Neutrophils # (1.3-7.7) k/uL Lymphocytes # (1.0-4.8) k/uL Monocytes # (0-1.0) k/uL Eosinophils # (0-0.7) k/uL Basophils # (0-0.2) k/uL Hypochromasia Anisocytosis Microcytosis PT 9.9 (9.0-12.0) sec INR 1.0 (<1.2) APTT 23.1 (22.0-30.0) sec Sodium (137-145) mmol/L Potassium (3.5-5.1) mmol/L Chloride (98-107) mmol/L Carbon Dioxide (22-30) mmol/L Anion Gap mmol/L BUN (9-20) mg/dL Creatinine (0.66-1.25) mg/dL Est GFR (CKD-EPI)AfAm (>60 ml/min/1.73 sqM) Est GFR (CKD-EPI)NonAf (>60 ml/min/1.73 sqM) Glucose (74-99) mg/dL Calcium (8.4-10.2) mg/dL Magnesium (1.6-2.3) mg/dL Total Bilirubin (0.2-1.3) mg/dL AST (17-59) U/L ALT (21-72) U/L Alkaline Phosphatase (38-126) U/L Total Creatine Kinase (55-170) U/L CK-MB (CK-2) (0.0-2.4) ng/mL CK-MB (CK-2) Rel Index Troponin I (0.000-0.034) ng/mL NT-Pro-B Natriuret Pep 3730 pg/mL Total Protein (6.3-8.2) g/dL Albumin (3.5-5.0) g/dL Disposition Clinical Impression: Acute pulmonary edema Disposition: ADMITTED IP TO THIS HOSP Referrals: Solo Loaiza MD [Primary Care Provider] - 1-2 days Time of Disposition: 15:04
[2017-09-24 12:33] LABS: Anisocytosis Moderate; Basophils % (A) 0 %; Eosinophils # (A) 0.1 k/uL (0-0.7); Eosinophils % (A) 2 %; HCT 27.6 % (39.0-53.0); HGB 9.1 gm/dL (13.0-17.5); Hypochromasia Slight; Lymphocytes % (A) 13 %; MCH 27.7 pg (25.0-35.0); MCHC 32.8 g/dL (31.0-37.0); MCV 84.2 fL (80.0-100.0); Mean Platelet Volume 10.7; Microcytosis Slight; Monocytes # (A) 0.9 k/uL (0-1.0); Monocytes % (A) 11 %; Neutrophils # (A) 5.5 k/uL (1.3-7.7); Neutrophils % (A) 72 %; RBC 3.28 m/uL (4.30-5.90); RDW 22.2 % (11.5-15.5); WBC 7.7 k/uL (3.8-10.6)
[2017-09-24 12:34] LABS: Platelet Count 126 k/uL (150-450)
[2017-09-24 12:39] LABS: Partial Thromboplastin Time 23.1 sec (22.0-30.0); Prothrombin Time 9.9 sec (9.0-12.0)
[2017-09-24 12:43] LABS: Albumin 3.4 g/dL (3.5-5.0); Calcium 8.8 mg/dL (8.4-10.2); Magnesium 2.4 mg/dL (1.6-2.3); Potassium 4.8 mmol/L (3.5-5.1); Total Bilirubin 0.5 mg/dL (0.2-1.3); Total Protein 5.8 g/dL (6.3-8.2)
[2017-09-24 13:07] LABS: Creatine Kinase MB 2.1 ng/mL (0.0-2.4); Troponin I 0.062 ng/mL (0.000-0.034)
--- NOTE | 2017-09-24 14:34 | XR ---
EXAMINATION TYPE: XR chest 2V DATE OF EXAM: 09/24/2017 COMPARISON: Prior chest x-ray 08/06/2017, chest CT 09/21/2017 HISTORY: Difficulty breathing TECHNIQUE: Frontal and lateral views of the chest are obtained. FINDINGS: Patient is rotated. Suspect the heart is enlarged. There are overlying cardiac leads. Zainab hilar increased attenuation is present. No pneumothorax or pleural effusion. Marked arthropathy noted within the shoulders. Partially calcified left scapular mass is noted. Patient's lytic bone lesion i s not well seen on plain film. IMPRESSION: Cardiomegaly. Basilar atelectasis versus pneumonia and associated effusion, follow-up [place] ggested. Difficult to exclude volume overload, pulmonary venous hypertension and interstitial edema a lthough the exam is expiratory and rotated.
[2017-09-24] MEDS ORDERED: FUROSEMIDE 10 MG/ML 4 ML VIAL IV STA (14:47)
[2017-09-24] MEDS ORDERED: NITROGLYCERIN OINT 1 INCH/GM PACKET TOPICAL STA (14:48)
--- NOTE | 2017-09-24 17:23 | HP ---
HISTORY AND PHYSICAL DATE OF SERVICE: 09/24/2017 CHIEF COMPLAINT: Shortness of breath. BRIEF HISTORY: This patient is a 77-year-old male with a past medical history of hypertension, history of multiple myeloma and episodes of SVT. He presents to the ED with with a complaint of shortness of breath. Patient has a history of anemia and left humeral fracture, and he has been getting chemotherapy for that. His last dose of chemotherapy was on Wednesday. Patient claims that he has been short of breath for the past 2-3 days and it has been getting progressively worse with increased swelling of his legs. Patient claims that shortness of breath gets worse with exertion and there have been no palpitations or chest pain. He has no history of fever, chills or productive cough. PAST MEDICAL HISTORY: 1. Hypertension. 2. History of osteoarthritis. 3. SVT. 4. History of multiple myeloma. 5. Prostatic cancer. 6. Skin cancer. 7. Nephrolithiasis. PAST SURGICAL HISTORY: 1. Cardiac catheterization. 2. Hernia repair. 3. Prostatic surgery. SOCIAL HISTORY: Patient has no history of smoking or alcohol abuse. FAMILY HISTORY: Unremarkable for history of cancer, heart disease or diabetes. ALLERGIES: NO KNOWN DRUG ALLERGIES. MEDICATIONS: 1. Tramadol 50 mg q.6 hours p.r.n. 2. Cardizem 60 mg p.o. t.i.d. 3. Xanax 0.25 mg p.o. t.i.d. 4. Norvasc 5 mg p.o. daily. 5. Bactrim DS 1 tablet Wednesday, Wednesday and Wednesday. 6. Potassium chloride 20 mEq b.i.d. 7. Revlimid 25 mg p.o. p.r.n. 8. Ecotrin 81 mg daily. 9. Metoprolol 50 mg daily. 10.Omeprazole 20 mg daily. 11.Acyclovir 400 mg b.i.d. 12.Dexamethasone 40 mg p.o. on Tuesdays. 13.Lasix 40 mg p.o. b.i.d. 14.[place] 7.5/325 one q.6 hours p.r.n. REVIEW OF SYSTEMS: HEENT: Patient denies any hearing or vision loss. RESPIRATORY: Denies any cough, chest congestion. Does give history of shortness of breath. CARDIOVASCULAR: Denies any chest pain. No palpitations. ABDOMEN/GI: No nausea, vomiting or diarrhea. GENITOURINARY: No hematuria. No dysuria. NERVOUS SYSTEM: Denies dizziness, lightheadedness or any speech or vision disturbances. MUSCULOSKELETAL: Patient denies joint pain or deformities. ENDOCRINE: Denies polyuria, polydipsia. HEMATOLOGY/ONCOLOGY: Patient does have history of multiple myeloma, prostatic cancer and skin cancer. Rest of 14-point review of systems is unremarkable. PHYSICAL EXAMINATION: GENERAL: Patient is awake, alert, oriented x3. He is in mild respiratory distress. VITAL SIGNS: Temperature of 97.1, pulse 71, respiration 24, blood pressure 106/51, oxygen saturation 95%. HEENT: Atraumatic, normocephalic. Pupils equal and reactive to light. Extraocular movements intact. Buccal mucosa fair. NECK: Supple. No goiter, lymphadenopathy. JVD is negative. No carotid bruit heard. PULMONARY: Patient has decreased breath sounds bilaterally with scattered rhonchi. Possible minimal basilar crackles. No wheezing. CVS: Heart is regular rate and rhythm without any murmurs, gallop rhythm. ABDOMEN/GI: Abdomen soft and non-tender, non-distended. Bowel sounds positive. EXTREMITIES: No edema, clubbing or cyanosis. Pulses are palpable 2+. MUSCULOSKELETAL: Patient has no joint or muscle deformities. No calf tenderness. Patient moves all 4 extremities. Skin is warm, dry, intact. No rashes or pigmentation. NEUROLOGICAL EXAMINATION: Patient is awake, alert, oriented x3. No gross motor or sensory deficit. Cranial nerves 2-12 grossly intact. LABS AND X-RAY DATA: CBC: White blood count of 7.7, hemoglobin 9.1, hematocrit 27.6, platelet count of 126. Chemical profile: Sodium 135, potassium 4.8, chloride 102, bicarb 22, BUN 44, creatinine 1.05, glucose 157. PT 9.9, INR 1.0. Troponin of 0.062. CK of 44. BNP of 3730. EKG shows atrial flutter at a rate of 80 beats per minute. Chest x-ray shows venous congestion. ASSESSMENT: 1. Acute pulmonary edema. 2. Mild acute renal injury. 3. Thrombocytopenia, possibly related to chemotherapy. 4. Anemia, possibly chronic versus chemotherapy-related. 5. Hyperglycemia without acidosis. PLAN: 1. Admit the patient to telemetry. Monitor cardiac enzymes q.8 x3. Monitor strict I&O and daily weights, renal function and electrolytes. Monitor platelet count and hemoglobin. Will monitor Accu-Cheks with insulin sliding scale if needed. Patient was started on IV Lasix in the ED. Will continue that. Will consult Cardiology and recommend 2D echocardiogram, which is ordered. 2. DVT prophylaxis with subcutaneous heparin. 3. CODE STATUS: PATIENT IS FULL CODE. MMODL / IJN: [id number] /
[2017-09-24] MEDS: NITROGLYCERIN OINT 1 INCH/GM PACKET TOPICAL SCH ×2 (18:09→23:37)
[2017-09-24] MEDS: FUROSEMIDE 10 MG/ML 2 ML VIAL IV SCH (23:30)
[2017-09-25 07:00] LABS: Anisocytosis Moderate; Basophils % (A) 0 %; Eosinophils # (A) 0.1 k/uL (0-0.7); Eosinophils % (A) 2 %; HCT 24.3 % (39.0-53.0); HGB 8.1 gm/dL (13.0-17.5); Hypochromasia Slight; Lymphocytes # (A) 0.9 k/uL (1.0-4.8); Lymphocytes % (A) 18 %; MCH 28.6 pg (25.0-35.0); MCHC 33.4 g/dL (31.0-37.0); MCV 85.6 fL (80.0-100.0); Mean Platelet Volume 9.8; Microcytosis Slight; Monocytes # (A) 0.4 k/uL (0-1.0); Monocytes % (A) 9 %; Neutrophils # (A) 3.4 k/uL (1.3-7.7); Neutrophils % (A) 69 %; Platelet Count 132 k/uL (150-450); RBC 2.83 m/uL (4.30-5.90); RDW 22.3 % (11.5-15.5)
[2017-09-25 07:06] LABS: Calcium 8.1 mg/dL (8.4-10.2); Potassium 4.1 mmol/L (3.5-5.1)
[2017-09-25] MEDS: NITROGLYCERIN OINT 1 INCH/GM PACKET TOPICAL SCH ×4 (08:06→22:37)
[2017-09-25] MEDS: FUROSEMIDE 10 MG/ML 2 ML VIAL IV SCH ×3 (08:20→22:40)
[2017-09-25 10:35] VITALS: BMI 33.3
[2017-09-25] MEDS: METOPROLOL SUCCINATE (ER) 25 MG TAB.ER.24H PO SCH (12:14)
[2017-09-25] MEDS: LISINOPRIL 5 MG TAB PO SCH (12:14)
[2017-09-25] MEDS ORDERED: traMADol 50 MG TAB PO PRN (12:21)
[2017-09-25] MEDS ORDERED: HYDROcodone/APAP 7.5-325MG 1 EACH TAB PO PRN (12:21)
[2017-09-25] MEDS ORDERED: ALPRAZolam 0.25 MG TAB PO PRN (12:21)
[2017-09-25] MEDS ORDERED: NON-FORMULARY DRUG (Lenalidomide [Revlimid] 25 MG) PO SCH (12:30)
--- NOTE | 2017-09-25 12:35 | CONS ---
CONSULTATION CHIEF COMPLAINT: Leg edema. This is a 77-year-old gentleman who had been diagnosed with history of malignant melanoma that was diagnosed around December, was at the oncologist's office yesterday, was found to be short of breath and had significant leg edema due to which he was sent into hospital and got admitted. He denies chest pain or palpitations. He has chronic atrial fibrillation and flutter and at the moment, he is in atrial flutter. It is unclear as to why he had not been anticoagulated along the way. Patient is somewhat of a poor historian and is not quite sure, does not even know about the diagnosis of atrial fibrillation in the past. He is anemic. Hemoglobin is 8.1, platelet count is low at 126. On this admission, troponins were drawn, they came back slightly elevated at 0.06, 0.06 without definite pattern to them. BNP is elevated at 3730. Patient had an echo done in July of this year that showed normal LV systolic function. Patient's leg edema and pulmonary congestion could be related to acute diastolic heart failure or this could be related to the recent chemotherapy that he received. I am not going to start him on an anticoagulant at this time as I am not quite sure what the issues were with him as to why he was not anticoagulated in the past. I have reviewed his records. The patient has had episodes of SVT. PAST MEDICAL HISTORY: Significant for multiple myeloma, hypertension. MEDICATIONS: At home include Revlimid, Zovirax, Ultram, Bactrim, Xanax, omeprazole, Lopressor, K- Dur, Lasix, Cardizem, dexamethasone, Norvasc, aspirin and [place]. ALLERGIES: There are no known drug allergies. FAMILY HISTORY: Negative for premature coronary artery disease. SOCIAL HISTORY: Negative for current smoking, EtOH abuse or drug abuse. REVIEW OF SYSTEMS: HEENT is unremarkable. CARDIAC: As described above. RESPIRATORY: As described above. GI: Negative. GENITOURINARY: Negative. ALLERGY/IMMUNOLOGY: Negative. SKIN: Negative. MUSCULOSKELETAL: Significant for arthritis. PSYCHOSOCIAL: Negative. ENDOCRINE: Negative. DERM: Negative. CONSTITUTIONAL: Significant for fatigue, tiredness and not feeling well. The rest of the system review is not relevant. PHYSICAL EXAM: Comfortable at rest. Vital signs are stable. Chest exam reveals diminished air entry at the bases. Heart exam reveals first and second heart sounds. No gallop. No murmur. Abdomen is soft. Exam of extremities reveals bilateral pitting edema. LABS: Show a hemoglobin of 8.1, platelet count is 130, potassium is 4.1, creatinine is 1. BNP is elevated as is the troponin. Chest x-ray shows pulmonary congestion. EKG showed atrial flutter with controlled ventricular rate. ASSESSMENT: 1. Acute onset diastolic heart failure. 2. Atrial flutter with controlled ventricular rate. 3. Malignant melanoma. 4. Anemia. 5. Elevated troponin. PLAN: From cardiac standpoint, will treat the patient with IV Lasix. Continue the metoprolol, add an PHILLY inhibitor. I will obtain a 2D echo. I am not going to start the patient on any anticoagulant at this time. Will need to review his old records to see as to why he was not. AFSHIN / SANTOS: [id number] /
--- NOTE | 2017-09-25 15:24 | PN ---
PROGRESS NOTE DATE OF SERVICE: 09/25/2017 Patient sitting up at the bedside. Claims his breathing is somewhat better than yesterday. Vital signs is temperature 97.1, pulse 97, respiration 20, blood pressure 112/59, O2 saturation 97% on 2 L. On physical examination patient is awake, alert. He is in no acute distress. HEENT: Atraumatic, normocephalic. Pupils equal and reactive to light. Extraocular movements intact. Buccal mucosa is fair. Neck is supple. No goiter or lymphadenopathy. JVD is negative. No carotid bruit heard. LUNGS: Positive minimal basilar crackles with occasional rhonchi. Heart is regular rate and rhythm without any murmurs, gallop, rhythm. Abdomen is soft, nontender, nondistended. Bowel sounds positive. EXTREMITIES: 1 to 2+ edema bilateral lower extremities. Pulses are palpable. MUSCULOSKELETAL: Patient has no joint or muscle deformities. Moves all 4 extremities, no calf tenderness. Skin is warm, dry and intact. NEUROLOGICAL EXAMINATION: Patient is awake, alert, oriented x3. He has no gross motor or sensory deficit. Cranial nerves 2 through 12 are grossly intact. LABS: CBC white blood count of 5.0, hemoglobin 8.1, hematocrit 24.3, and platelet count of 132. Chemical profile sodium 133, potassium 4.1, chloride 101, bicarb 26, BUN 41, creatinine 1.0. Troponin of 0.060. ASSESSMENT: 1. Acute exacerbation diastolic congestive heart failure/pulmonary edema. 2. Atrial flutter with controlled ventricular response. 3. Elevated troponin, possibly demand ischemia. 4. Mild renal injury. 5. Thrombocytopenia, possibly related to chemotherapy. 6. Malignant melanoma. 7. Anemia, possibly chronic versus chemotherapy related. 8. Hyperglycemia without acidosis. Patient remains on IV Lasix. Continue to monitor I and Os, daily weights and monitor renal function and electrolytes. A 2D echocardiogram has been ordered. Patient is continued on metoprolol. Cardiology saw the patient, recommended adding an PHILLY inhibitor. Patient is not on any anticoagulation therapy at this time. Cardiology is reluctant until all the records are available. Will continue with DVT prophylaxis with subcutaneous heparin. Resume home medications. Further recommendations after echo is done. MMODL / IJN: [id number] /
[2017-09-25] MEDS ORDERED: Lenalidomide [Revlimid] 25 MG PO SCH (15:48)
[2017-09-25] MEDS: ACYCLOVIR 200 MG CAP PO SCH (22:37)
[2017-09-25] MEDS: POTASSIUM CHLORIDE ER 20 MEQ TAB.ER PO SCH (22:37)
[2017-09-26 06:37] LABS: Anion Gap 9 mmol/L; Blood Urea Nitrogen 31 mg/dL (9-20); Calcium 8.2 mg/dL (8.4-10.2); Carbon Dioxide 25 mmol/L (22-30); Chloride 99 mmol/L (98-107); Glucose 137 mg/dL (74-99); Potassium 3.9 mmol/L (3.5-5.1); Sodium 133 mmol/L (137-145)
[2017-09-26] MEDS: PANTOPRAZOLE 40 MG TABLET PO SCH (07:07)
[2017-09-26] MEDS: FUROSEMIDE 10 MG/ML 2 ML VIAL IV SCH ×3 (07:54→23:01)
[2017-09-26] MEDS: ACYCLOVIR 200 MG CAP PO SCH ×2 (07:54→20:20)
[2017-09-26] MEDS: ASPIRIN 81 MG PO SCH (07:54)
[2017-09-26] MEDS: METOPROLOL SUCCINATE (ER) 25 MG TAB.ER.24H PO SCH (07:54)
[2017-09-26] MEDS: POTASSIUM CHLORIDE ER 20 MEQ TAB.ER PO SCH ×2 (07:55→20:21)
--- NOTE | 2017-09-26 08:00 | ECHOF ---
Referral Reason:pulmonary edema MEASUREMENTS -------- HEIGHT: 175.3 cm WEIGHT: 102.1 kg BP: 120/50 IVSd: 1.6 cm (0.6 - 1.1) LVIDd: 5.0 cm (3.9 - 5.3) LVPWd: 1.5 cm (0.6 - 1.1) EDV(Teich): 118 ml IVSs: 2.3 cm LVIDs: 4.8 cm LVPWs: 1.1 cm %IVS Thck: 40 % ESV(Teich): 109 ml EF(Teich): 8 % %FS: 3 % SV(Teich): 9 ml LA Diam: 4.2 cm (2.7 - 3.8) RVIDd: 3.4 cm (< 3.3) LALs A4C: 6.0 cm LAAs A4C: 27.0 cm LAESV A-L A4C: 104 ml LAESV MOD A4C: 94 ml LALs A2C: 6.8 cm LAAs A2C: 28.7 cm LAESV A-L A2C: 103 ml LAESV MOD A2C: 96 ml LAESV(A-L): 110 ml LAESV Index (A-L): 50.76 ml/m Ao Diam: 3.9 cm (2.0 - 3.7) LA Diam: 4.4 cm (2.7 - 3.8) AV Cusp: 2.4 cm (1.5 - 2.6) EPSS: 0.9 cm AV Vmax: 1.21 m/s AV maxP.83 mmHg TR Vmax: 2.64 m/s TR maxP.98 mmHg RAP: 5.00 mmHg RVSP: 32.98 mmHg MV EF SLOPE: 95.45 mm/s (70 - 150) MV EXCURSION: 24.32 mm (> 18.000) FINDINGS -------- Undetermined rhythm. This was a technically adequate study. The left ventricular size is normal. There is moderate concentric left ventricular hypertrophy. O verall left ventricular systolic function is normal with, an EF between 55 - 60 %. The right ventricle is mildly enlarged. The left atrial size is normal. LA is severely dilated >40 ml/m2 The right atrial size is normal. There is mild aortic valve sclerosis. There is no evidence of aortic regurgitation. Mild mitral annular calcification present. Mild mitral regurgitation is present. Mild tricuspid regurgitation present. There is no evidence of pulmonary hypertension. The right v entricular systolic pressure, as measured by Doppler, is 32.98mmHg. There is no pulmonic regurgitation present. The aortic root size is normal. There is a small, generalized pericardial effusion present. CONCLUSIONS -------- 1. The left ventricular size is normal. 2. There is moderate concentric left ventricular hypertrophy. 3. Overall left ventricular systolic function is normal with, an EF between 55 - 60 %. 4. The right ventricle is mildly enlarged. 5. LA is severely dilated >40 ml/m2 6. There is mild aortic valve sclerosis. 7. Mild mitral annular calcification present. 8. Mild mitral regurgitation is present. 9. Mild tricuspid regurgitation present. 10. There is no evidence of pulmonary hypertension. 11. The right ventricular systolic pressure, as measured by Doppler, is 32.98mmHg. 12. There is no pulmonic regurgitation present. 13. The aortic root size is normal. 14. There is a small, generalized pericardial effusion present. LIME SPREADER: Sandra Yeh RDCS
[2017-09-26] MEDS: NITROGLYCERIN OINT 1 INCH/GM PACKET TOPICAL SCH (08:18)
--- NOTE | 2017-09-26 10:07 | PN ---
PROGRESS NOTE Eugene is a 77-year-old gentleman who is admitted to the hospital with acute onset diastolic heart failure and atrial flutter. At the time of my evaluation this morning, he appears comfortable at rest. Vital signs is stable. Chest exam reveals good air entry bilaterally. Heart exam reveals first and second heart sounds. No gallop. Exam of extremities revealed trace edema. LAB: Showed a hemoglobin of 8.1, potassium is 3.9, creatinine is 0.9. Echo shows ejection fraction of 55-60%. Mild mitral and tricuspid regurgitation. ASSESSMENT: 1. Acute onset diastolic heart failure. 2. Elevated troponins secondary to supply-demand mismatch. 3. Atrial flutter with controlled ventricular rate. PLAN: I will continue the patient on aspirin, oral Cardizem, IV Lasix, lisinopril, Toprol, Nitro-Bid and K-Dur. We are going to hold off on the anticoagulants at this time given the anemia and thrombocytopenia. MMODL / JAMIEN: [id number] /
[2017-09-26] MEDS: LISINOPRIL 5 MG TAB PO SCH (10:52)
[2017-09-26] MEDS: DILTIAZEM ORAL 60 MG TAB PO SCH ×3 (12:08→21:05)
--- NOTE | 2017-09-26 17:07 | PN ---
PROGRESS NOTE DATE OF SERVICE: 09/26/17 The patient resting comfortably in bed, being seen in the room at bedside. His vital signs: Temperature of 97, pulse 78, respiration 18, blood pressure of 91/52, O2 saturation 97% on room air. The patient is awake, alert and oriented. He is in no acute distress. HEENT: Atraumatic, normocephalic. Pupils equal and reactive to light. Extraocular movements intact. Buccal mucosa is fair is supple. No goiter, lymphadenopathy. JVD is negative. No carotid bruit heard. Lungs are clear to auscultate. No rales, rhonchi, or wheezes. Heart is regular rate and rhythm without any murmurs gallop rhythm. Abdomen is soft, nontender, nondistended. Bowel sounds positive. Extremities had 2 to 3+ pitting edema both lower extremities. Neurological examination: Cranial nerves 2-12 grossly intact. No gross motor or sensory deficit. LABS: CBC white blood count of 5, hemoglobin 8.1, hematocrit 24.3, and platelet count of 132. Chemical profile sodium 133, potassium 3.9, chloride 99, bicarb 25, BUN 31, creatinine 0.9, glucose 137. ASSESSMENT: 1. Acute exacerbation and diastolic congestive heart failure. The patient remains on IV Lasix with fair amount of urine output is clinically improving. Cardiology is following. 2. Atrial flutter with controlled ventricular response. Patient remains on oral Cardizem and Toprol. No anticoagulation therapy is recommended by Cardiology secondary to anemia and thrombocytopenia. 3. Elevated troponin possibly demand ischemia. 4. Mild renal injury, which is slowly improving. 5. Thrombocytopenia/anemia, possibly chemotherapy related versus malignant melanoma. 6. Malignant melanoma. 7. Hyperglycemia without acidosis. Patient blood sugars are remaining stable. PLAN: Continue current management and discharge planning once cleared by Cardiology. MMODL / IJN: [id number] /
[2017-09-27 06:38] LABS: Anisocytosis Moderate; Basophils % (A) 1 %; Eosinophils # (A) 0.1 k/uL (0-0.7); Eosinophils % (A) 2 %; HCT 28.4 % (39.0-53.0); HGB 8.9 gm/dL (13.0-17.5); Hypochromasia Slight; Lymphocytes # (A) 1.2 k/uL (1.0-4.8); Lymphocytes % (A) 25 %; MCH 26.9 pg (25.0-35.0); MCHC 31.2 g/dL (31.0-37.0); MCV 86.3 fL (80.0-100.0); Mean Platelet Volume 8.8; Microcytosis Slight; Monocytes # (A) 0.3 k/uL (0-1.0); Monocytes % (A) 6 %; Neutrophils # (A) 2.9 k/uL (1.3-7.7); Neutrophils % (A) 63 %; Platelet Count 193 k/uL (150-450); RBC 3.29 m/uL (4.30-5.90); RDW 22.4 % (11.5-15.5); WBC 4.6 k/uL (3.8-10.6)
[2017-09-27] MEDS: PANTOPRAZOLE 40 MG TABLET PO SCH (06:49)
[2017-09-27 06:50] LABS: Anion Gap 7 mmol/L; Blood Urea Nitrogen 30 mg/dL (9-20); Calcium 8.2 mg/dL (8.4-10.2); Carbon Dioxide 25 mmol/L (22-30); Chloride 102 mmol/L (98-107); Glucose 155 mg/dL (74-99); Potassium 4.4 mmol/L (3.5-5.1); Sodium 134 mmol/L (137-145)
[2017-09-27 07:51] LABS: Poikilocytosis (M) Present; Polychromasia Present
[2017-09-27] MEDS: ASPIRIN 81 MG PO SCH (08:45)
[2017-09-27] MEDS: METOPROLOL SUCCINATE (ER) 25 MG TAB.ER.24H PO SCH (08:45)
[2017-09-27] MEDS: FUROSEMIDE 10 MG/ML 2 ML VIAL IV SCH ×2 (08:46→17:05)
[2017-09-27] MEDS: ACYCLOVIR 200 MG CAP PO SCH ×2 (08:46→20:24)
[2017-09-27] MEDS: DILTIAZEM ORAL 60 MG TAB PO SCH ×3 (08:46→20:24)
[2017-09-27] MEDS: POTASSIUM CHLORIDE ER 20 MEQ TAB.ER PO SCH ×2 (08:46→20:24)
--- NOTE | 2017-09-27 11:21 | P.PN ---
Subjective Patient sitting in chair at bedside. States breathing and edema improving. Patient states that he lives alone is unable to get his groceries because of the weakness he's experiencing. Patient was to been evaluated by physical therapy ordered high school social science teacher to evaluate for possible short-term rehab Objective - Vital Signs Vital signs: Vital Signs Temp 96.9 F L 09/27/17 08:00 Pulse 74 09/27/17 08:00 Resp 17 09/27/17 08:00 BP 95/54 09/27/17 08:00 Pulse Ox 95 09/27/17 08:00 Intake & Output 09/26/17 09/27/17 09/27/17 18:59 06:59 18:59 Intake Total 900 237 Output Total 850 1550 600 Balance 50 -1550 -363 Intake: Oral 900 237 Output: Urine 850 1550 600 Other: Voiding Method Toilet Toilet Urinal Urinal # Voids 1 # Bowel Movements 1 - Constitutional General appearance: Present: mild distress, obese - EENT Eyes: Present: PERRLA Ears: bilateral: normal - Neck Neck: Present: normal ROM - Respiratory Respiratory: bilateral: diminished - Cardiovascular Rhythm: regular Abnormal Heart Sounds: Present: systolic murmur - Peripheral edema ankle Peripheral Edema: bilateral: 2+ - Gastrointestinal General gastrointestinal: Present: soft - Integumentary Integumentary: Present: normal - Neurologic Neurologic: Present: CNII-XII intact - Musculoskeletal Musculoskeletal: Present: generalized weakness - Psychiatric Psychiatric: Present: A&O x's 3, appropriate affect, intact judgment & insight - Labs CBC & Chem 7: 09/27/17 06:17 09/27/17 06:17 Labs: Abnormal Lab Results - Last 24 Hours (Table) 09/27/17 09/27/17 Range/Units 06:17 06:17 RBC 3.29 L (4.30-5.90) m/uL Hgb 8.9 L (13.0-17.5) gm/dL Hct 28.4 L (39.0-53.0) % RDW 22.4 H (11.5-15.5) % Sodium 134 L (137-145) mmol/L BUN 30 H (9-20) mg/dL Glucose 155 H (74-99) mg/dL Calcium 8.2 L (8.4-10.2) mg/dL - Imaging and Cardiology Chest x-ray: report reviewed Assessment and Plan Plan: Assessment Acute exacerbation of diastolic congestive heart failure ejection fraction 55-60 % patient improving Atrial flutter with controlled ventricular response Elevated troponin secondary congestive failure Mild renal injury improving Anemia/thrombocytopenia secondary to chemotherapy Malignant melanoma Hyperglycemia without acidosis Generalized weakness Plan Continued care by cardiology Evaluation by high school social science teacher for possible short-term extended care facility for rehab for weakness
[2017-09-27] MEDS: LISINOPRIL 5 MG TAB PO SCH (11:54)
--- NOTE | 2017-09-27 13:07 | P.PN ---
Subjective Progress Note Date: 09/27/17 Principal diagnosis: CHF, atrial flutter This is a pleasant 77-year-old gentleman with history of malignant melanoma, hypertension, chronic atrial fibrillation, who was admitted to the hospital by his primary doctor because his aggressively worsening shortness of breath. Patient was found to be in mild congestive heart failure and was diuresed with Lasix. EKG showed atrial flutter, he continues to be in atrial flutter this morning his rate is under adequate control. Echocardiogram with Doppler study was performed at revealed an ejection fraction of 55-60%. LA is severely dilated greater than 40. Moderate concentric LVH. Blood pressure 108/ 60 with a heart rate in the 70s. Blood cell count 4.6, hemoglobin 8.9, sodium 134, potassium 4.4, BUN 30, creatinine 0.8. Patient was in the chair at the time of my examination, overall the [place] feeling better. Still has a trace to 1 + peripheral edema. Objective - Vital Signs Vital signs: Vital Signs Temp 96.9 F L 09/27/17 08:00 Pulse 73 09/27/17 12:00 Resp 17 09/27/17 12:00 BP 107/59 09/27/17 12:00 Pulse Ox 97 09/27/17 12:00 Intake & Output 09/26/17 09/27/17 09/27/17 18:59 06:59 18:59 Intake Total 900 237 Output Total 850 1550 600 Balance 50 -1550 -363 Intake: Oral 900 237 Output: Urine 850 1550 600 Other: Voiding Method Toilet Toilet Urinal Urinal # Voids 1 # Bowel Movements 1 - Exam PHYSICAL EXAMINATION: HEENT: [Head is atraumatic, normocephalic. Pupils equal, round. Neck is supple. There is no elevated jugular venous pressure.] HEART EXAMINATION: Heart S1 and S2 irregular irregular CHEST EXAMINATION:[ Lungs are clear to auscultation and precussion. No chest wall tenderness is noted on palpation or with deep breathing.] ABDOMEN: [ Soft, nontender. Bowel sounds are heard. No organomegaly noted]. EXTREMITIES:[ 2+ peripheral pulses with trace to 1+ no evidence of peripheral edema and no calf tenderness noted]. NEUROLOGIC [patient is awake, alert and oriented -3.] . - Labs CBC & Chem 7: 09/27/17 06:17 09/27/17 06:17 Labs: Abnormal Lab Results - Last 24 Hours (Table) 09/27/17 09/27/17 Range/Units 06:17 06:17 RBC 3.29 L (4.30-5.90) m/uL Hgb 8.9 L (13.0-17.5) gm/dL Hct 28.4 L (39.0-53.0) % RDW 22.4 H (11.5-15.5) % Sodium 134 L (137-145) mmol/L BUN 30 H (9-20) mg/dL Glucose 155 H (74-99) mg/dL Calcium 8.2 L (8.4-10.2) mg/dL Assessment and Plan Plan: Assessment and plan #1 diastolic congestive heart failure acute on chronic #2 abnormal troponins, secondary to supply demand mismatch #3 atrial flutter, typical, chronic, controlled ventricular response Plan From cardiology's perspective we will continue IV Lasix for 24 hours, check lytes BUN and creatinine in the morning. We are holding off on any anticoagulation at this time because of the anemia and thrombocytopenia. DNP note has been reviewed, I agree with a documented findings and plan of care. Patient was seen and examined.
[2017-09-28] MEDS: FUROSEMIDE 10 MG/ML 2 ML VIAL IV SCH ×2 (01:05→08:27)
[2017-09-28] MEDS: LISINOPRIL 5 MG TAB PO SCH (08:30)
[2017-09-28] MEDS: METOPROLOL SUCCINATE (ER) 25 MG TAB.ER.24H PO SCH (08:30)
[2017-09-28] MEDS: PANTOPRAZOLE 40 MG TABLET PO SCH (08:30)
[2017-09-28] MEDS: DILTIAZEM ORAL 60 MG TAB PO SCH ×3 (08:30→22:01)
[2017-09-28] MEDS: ASPIRIN 81 MG PO SCH (08:30)
[2017-09-28] MEDS: ACYCLOVIR 200 MG CAP PO SCH ×2 (08:30→22:01)
[2017-09-28] MEDS: POTASSIUM CHLORIDE ER 20 MEQ TAB.ER PO SCH ×2 (08:31→22:01)
[2017-09-28] MEDS ORDERED: DEXAMETHASONE 4 MG TAB PO SCH (09:00)
--- NOTE | 2017-09-28 11:06 | P.PN ---
Subjective Patient states some he feels some improvement. A processes chemical design engineer making arrangements for transfer to [facility] for rehabilitation regarding generalized weakness cardiology continues to monitor Objective - Vital Signs Vital signs: Vital Signs Temp 97.1 F L 09/28/17 08:00 Pulse 74 09/28/17 08:00 Resp 16 09/28/17 08:00 BP 110/63 09/28/17 08:00 Pulse Ox 97 09/28/17 08:00 Intake & Output 09/27/17 09/28/17 09/28/17 18:59 06:59 18:59 Intake Total 711 240 Output Total 2100 2200 Balance -1389 -2200 240 Weight 100.3 kg Intake: Oral 711 240 Output: Urine 2099 2200 Other: Voiding Method Toilet Urinal # Voids 1 # Bowel Movements 1 - Constitutional General appearance: Present: mild distress - EENT Eyes: Present: PERRLA Ears: bilateral: normal - Neck Neck: Present: normal ROM - Respiratory Respiratory: bilateral: CTA - Cardiovascular Rhythm: regular Abnormal Heart Sounds: Present: systolic murmur - Peripheral edema ankle Peripheral Edema: bilateral: 2+ - Gastrointestinal General gastrointestinal: Present: soft - Integumentary Integumentary: Present: normal - Neurologic Neurologic: Present: CNII-XII intact - Musculoskeletal Musculoskeletal: Present: generalized weakness - Psychiatric Psychiatric: Present: A&O x's 3, appropriate affect, intact judgment & insight - Labs CBC & Chem 7: 09/27/17 06:17 09/27/17 06:17 Assessment and Plan Plan: Assessment Acute exacerbation of diastolic congestive heart failure ejection fraction 55-60 % Atrial flutter with controlled ventricular response Elevated troponin possibly demand ischemia Mild renal injury improving Thrombocytopenia/anemia chemotherapy related Malignant melanoma Plan Continued consultation with cardiology Hopeful discharge to [facility] soon
--- NOTE | 2017-09-28 15:00 | P.PN ---
Subjective Progress Note Date: 09/28/17 Principal diagnosis: CHF, atrial flutter This is a pleasant 77-year-old gentleman with a history of malignant melanoma, retention, chronic atrial fibrillation. He was admitted to the hospital by his primary care physician because of progressively worsening shortness of breath. Patient was found to be in mild congestive heart failure and has been diuresed with IV Lasix. EKG showed atrial flutter for which he continues to be in atrial flutter with a controlled ventricular response. Echocardiogram with Doppler was performed and revealed an ejection fraction of 55-60% with a severely dilated LA and moderate concentric LVH. Upon examination , patient is sitting up in a chair. He feels he is doing quite a bit better. He has been on IV Lasix which is being switched to by mouth Lasix today by primary. Continues to complain of some lower extremity edema. Objective - Vital Signs Vital signs: Vital Signs Temp 97.0 F L 09/28/17 11:09 Pulse 70 09/28/17 11:28 Resp 18 09/28/17 11:28 BP 91/54 09/28/17 11:09 Pulse Ox 98 09/28/17 11:09 Intake & Output 09/27/17 09/28/17 09/28/17 18:59 06:59 18:59 Intake Total 711 480 Output Total 2100 2200 800 Balance -1389 -2200 -320 Weight 100.3 kg Intake: Oral 711 480 Output: Urine 2100 2200 800 Other: Voiding Method Toilet Urinal # Voids 1 # Bowel Movements 1 - Exam PHYSICAL EXAMINATION: HEENT: Head is atraumatic, normocephalic. Pupils equal, round. Neck is supple. There is no elevated jugular venous pressure. HEART EXAMINATION: Heart sounds irregularly irregular, S1 and S2 normal. No murmur or gallop heard. CHEST EXAMINATION: Lungs are clear to auscultation and precussion. No chest wall tenderness is noted on palpation or with deep breathing. ABDOMEN: Soft, nontender. Bowel sounds are heard. No organomegaly noted. EXTREMITIES: 2+ peripheral pulses with evidence of 1+ peripheral edema and no calf tenderness noted. NEUROLOGIC patient is awake, alert and oriented x3. . - Labs CBC & Chem 7: 09/27/17 06:17 09/27/17 06:17 Assessment and Plan Assessment: #1 acute on chronic diastolic congestive heart failure #2 abnormal troponins, secondary to supply demand mismatch #3 atrial flutter, chronic, controlled ventricular response Plan: From cardiology perspective, patient is stable for discharge home. Apparently he is awaiting placement at [facility] for rehab. We anticipate he'll be discharged within the next 24 hours. From our standpoint he may be transferred to [facility] without telemetry. We will follow as an as-needed basis. The above dictated assessment and findings were discussed with signing physician. The impression and plan of care have been directed as dictated. Fatemeh Garcia, Nurse Practitioner, acting as scribe for signing physician.
[2017-09-28 17:32] LABS: Glucose,Whole Blood 388 mg/dL (75-99)
[2017-09-28] MEDS: FUROSEMIDE 40 MG TAB PO SCH (17:50)
[2017-09-28 21:06] LABS: Glucose,Whole Blood 371 mg/dL (75-99)
[2017-09-28] MEDS: INSULIN ASPART 100 UNIT/ML 1 ML 10 ML VIAL SQ SCH (22:01)
[2017-09-29 07:27] LABS: Glucose,Whole Blood 276 mg/dL (75-99)
[2017-09-29] MEDS: DILTIAZEM ORAL 60 MG TAB PO SCH ×3 (08:16→21:51)
[2017-09-29] MEDS: METOPROLOL SUCCINATE (ER) 25 MG TAB.ER.24H PO SCH (08:16)
[2017-09-29] MEDS: LISINOPRIL 5 MG TAB PO SCH (08:16)
[2017-09-29] MEDS: ASPIRIN 81 MG PO SCH (08:16)
[2017-09-29] MEDS: POTASSIUM CHLORIDE ER 20 MEQ TAB.ER PO SCH ×2 (08:16→21:51)
[2017-09-29] MEDS: FUROSEMIDE 40 MG TAB PO SCH ×2 (08:16→17:19)
[2017-09-29] MEDS: ACYCLOVIR 200 MG CAP PO SCH ×2 (08:16→21:51)
[2017-09-29] MEDS: PANTOPRAZOLE 40 MG TABLET PO SCH (08:16)
[2017-09-29] MEDS: INSULIN ASPART 100 UNIT/ML 1 ML 10 ML VIAL SQ SCH ×4 (08:27→21:51)
--- NOTE | 2017-09-29 11:40 | P.PN ---
Subjective Patient awaiting transfer to [facility] for rehabilitation. Need recommendations from oncologist regarding chemotherapy. Patient has been on cleared for discharge by cardiology Objective - Vital Signs Vital signs: Vital Signs Temp 97.2 F L 09/29/17 06:36 Pulse 80 09/29/17 06:36 Resp 16 09/29/17 06:36 BP 113/66 09/29/17 06:36 Pulse Ox 96 09/29/17 06:36 Intake & Output 09/28/17 09/29/17 09/29/17 18:59 06:59 18:59 Intake Total 480 Output Total 800 Balance -320 Weight 102.5 kg Intake: Oral 480 Output: Urine 800 Other: Voiding Method Toilet Urinal # Voids 2 - Constitutional General appearance: Present: obese - EENT Eyes: Present: PERRLA Ears: bilateral: normal - Neck Neck: Present: normal ROM - Respiratory Respiratory: bilateral: CTA - Cardiovascular Rhythm: regular - Gastrointestinal General gastrointestinal: Present: soft - Integumentary Integumentary: Present: normal - Neurologic Neurologic: Present: CNII-XII intact - Musculoskeletal Musculoskeletal: Present: generalized weakness - Psychiatric Psychiatric: Present: A&O x's 3, appropriate affect, intact judgment & insight - Labs CBC & Chem 7: 09/27/17 06:17 09/27/17 06:17 Labs: Abnormal Lab Results - Last 24 Hours (Table) 09/28/17 09/28/17 09/29/17 Range/Units 17:24 21:03 07:22 POC Glucose (mg/dL) 388 H 371 H 276 H (75-99) mg/dL Assessment and Plan Plan: Assessment Acute exacerbation of diastolic congestive heart failure ejection fraction 55-60 % improving Atrial flutter with controlled ventricular response Elevated troponin demand ischemia Generalized weakness Mild renal injury improving Family cytopenia/anemia secondary to chemotherapy related to malignant melanoma Hyperglycemia Plan Transfer to [facility] for rehabilitation Knee consultation with oncology regarding and continue chemotherapy
[2017-09-29 12:39] LABS: Glucose,Whole Blood 318 mg/dL (75-99)
[2017-09-29 17:30] LABS: Hemoglobin A1C 8.4 % (4.0-6.0)
[2017-09-29 17:34] LABS: Glucose,Whole Blood 251 mg/dL (75-99)
[2017-09-29] MEDS ORDERED: INSULIN DETEMIR 100 UNIT/ML 10 ML VIAL SQ SCH (21:00)
[2017-09-29 21:37] LABS: Glucose,Whole Blood 258 mg/dL (75-99)
[2017-09-30 03:09] LABS: Glucose,Whole Blood 239 mg/dL (75-99)
[2017-09-30 07:44] LABS: Glucose,Whole Blood 161 mg/dL (75-99)
[2017-09-30] MEDS: POTASSIUM CHLORIDE ER 20 MEQ TAB.ER PO SCH (08:25)
[2017-09-30] MEDS: ACYCLOVIR 200 MG CAP PO SCH (08:25)
[2017-09-30] MEDS: LISINOPRIL 5 MG TAB PO SCH (08:25)
[2017-09-30] MEDS: DILTIAZEM ORAL 60 MG TAB PO SCH (08:25)
[2017-09-30] MEDS: FUROSEMIDE 40 MG TAB PO SCH (08:25)
[2017-09-30] MEDS: PANTOPRAZOLE 40 MG TABLET PO SCH (08:25)
[2017-09-30] MEDS: INSULIN ASPART 100 UNIT/ML 1 ML 10 ML VIAL SQ SCH ×2 (08:25→12:38)
[2017-09-30] MEDS: ASPIRIN 81 MG PO SCH (08:26)
[2017-09-30] MEDS: METOPROLOL SUCCINATE (ER) 25 MG TAB.ER.24H PO SCH (08:55)
[2017-09-30 10:49] LABS: Anisocytosis Moderate; Basophils % (A) 0 %; Eosinophils # (A) 0.1 k/uL (0-0.7); Eosinophils % (A) 1 %; HCT 30.1 % (39.0-53.0); HGB 9.7 gm/dL (13.0-17.5); Hypochromasia Slight; Lymphocytes # (A) 1.4 k/uL (1.0-4.8); Lymphocytes % (A) 16 %; MCH 27.8 pg (25.0-35.0); MCHC 32.1 g/dL (31.0-37.0); MCV 86.6 fL (80.0-100.0); Mean Platelet Volume 7.7; Monocytes # (A) 0.6 k/uL (0-1.0); Monocytes % (A) 7 %; Neutrophils # (A) 6.5 k/uL (1.3-7.7); Neutrophils % (A) 75 %; Platelet Count 324 k/uL (150-450); RBC 3.48 m/uL (4.30-5.90); RDW 21.8 % (11.5-15.5); WBC 8.7 k/uL (3.8-10.6)
[2017-09-30 11:17] LABS: Anion Gap 10 mmol/L; Blood Urea Nitrogen 34 mg/dL (9-20); Calcium 9.1 mg/dL (8.4-10.2); Carbon Dioxide 25 mmol/L (22-30); Chloride 100 mmol/L (98-107); Glucose 141 mg/dL (74-99); Potassium 5.1 mmol/L (3.5-5.1); Sodium 135 mmol/L (137-145)
[2017-09-30 12:35] LABS: Glucose,Whole Blood 129 mg/dL (75-99)
--- NOTE | 2017-09-30 12:36 | P.CONS ---
History of Present Illness - Reason for Consult Consult date: 09/30/17 treatment of myeloma while in rehab Requesting physician: Kim Godoy - Chief Complaint SOB, CHF, pulmonary edema - History of Present Illness Mr. Rick is a very pleasant male pt of Dr. Ansari who initially presented to his his PCP Dr. Lennox Loaiza, with c/o persistent and progressive left shoulder pain following a fall 6 months prior, shoulder x-ray revealed a 7.6 X 8.3 X 3.5cm destructive lesion in acromion and scapula, bone scan on 04/23/17 was unremarkable. SPEP revealed monoclonal gammapathy of 4.8, immunoglobulin levels revealed IgG of 6.6 grams with depression of IgA and IgM, bone survey showed known left shoulder process as well as, numerous intermediate lytic fossi within skull, right fibula, left distal femur and others. He was referred to Dr. Dempsey [facility] at [facility] and no surgical intervention recommended. Pt has some palliative radiation to the painful left shoulder, had a bone marrow biopsy and aspirate which showed extensive involvement with myeloma, pt also had a stent in rehab so, he finally was started on treatment in Aug and is currently 2 cycles into treatment. Today pt is up on chair anxious to go to rehab. He is having some dizziness when he moves his head or changes positions, denies syncopy, headache, fevers, appetite is good, no DERIAN, chest pain, will feel palpitations once in a while, no indigestion, heartburn, changes in bowel or bladder habits, his legs continue to be swollen but better then on admit, he is not in any pain. Review of Systems 10 point ROS as stated in HPI Past Medical History Past Medical History: Cancer, Hypertension, Osteoarthritis (OA), Supraventricular Tachycardia (SVT) Additional Past Medical History / Comment(s): Multiple myeloma, prostate cancer , skin cancer, hypertension, degenerative arthritis, episodes of SVT a discussed above, nephrolithiasis History of Any Multi-Drug Resistant Organisms: None Reported Past Surgical History: Heart Catheterization, Hernia Repair, Prostate Surgery Additional Past Surgical History / Comment(s): rt wrist ganglion cysts removed Past Anesthesia/Blood Transfusion Reactions: No Reported Reaction Past Psychological History: Anxiety Smoking Status: Never smoker Past Alcohol Use History: None Reported Past Drug Use History: None Reported - Past Family History Father History Unknown: Yes Mother History Unknown: Yes Medications and Allergies Home Medications Medication Instructions Recorded Confirmed Type Aspirin EC [Ecotrin Low Dose] 81 mg PO DAILY 12/21/16 09/24/17 History Diltiazem Oral [Cardizem*] 60 mg PO TID tab 07/16/17 09/24/17 Rx Omeprazole 20 mg PO DAILY 08/03/17 09/24/17 History Acyclovir [Zovirax] 400 mg PO BID 09/24/17 09/24/17 History Dexamethasone 40 mg PO TU 09/24/17 09/24/17 History Furosemide [Lasix] 40 mg PO BID 09/24/17 09/24/17 History Potassium Chloride ER [K-Dur 20] 20 meq PO BID 09/24/17 09/24/17 History ALPRAZolam [Xanax] 0.25 mg PO TID PRN #20 tab 09/30/17 Rx HYDROcodone/APAP 7.5-325MG [[place] 1 tab PO Q6HR PRN #20 tab 09/30/17 Rx 7.5-325] INSULIN LISPRO (HumaLOG) [humaLOG] 0 unit SQ ACHS #1 vial 09/30/17 Rx Insulin Detemir [Levemir] 20 unit SQ HS syr 09/30/17 Rx Lisinopril [Zestril] 5 mg PO DAILY tab 09/30/17 Rx Metoprolol Succinate (ER) [Toprol 25 mg PO DAILY tab.er.24h 09/30/17 Rx XL] Sulfamethox-Tmp 800-160Mg [Bactrim 1 tab PO DIRECTED #1 tab 09/30/17 Rx DS 800-160 mg] traMADol HCL [Ultram] 50 mg PO Q6HR PRN #20 tab 09/30/17 Rx Allergies Allergy/AdvReac Type Severity Reaction Status Date / Time No Known Allergies Allergy Verified 09/24/17 14:13 Physical Exam Vitals: Vital Signs Temp Pulse Pulse Pulse Pulse Resp BP 09/30/17 10:16 94 87 85 09/30/17 08:00 16 09/30/17 06:55 97.8 F 70 16 09/30/17 00:30 97.1 F L 71 20 09/29/17 15:08 18 09/29/17 13:44 97.6 F 62 18 114/55 BP Pulse Ox Pulse Ox Pulse Ox Pulse Ox 03/29/18 10:16 100 100 100 09/30/17 08:00 09/30/17 06:55 105/54 97 09/30/17 00:30 109/55 93 L 09/29/17 15:08 09/29/17 13:44 97 Intake and Output 09/29/17 09/30/17 09/30/17 22:59 06:59 14:59 Intake Total 400 100 Balance 400 100 Intake: Oral 400 100 Other: Voiding Method Toilet Urinal # Voids 2 1 # Bowel Movements 0 0 Weight 100 kg - Constitutional General appearance: cooperative, no acute distress, obese - EENT Eyes: anicteric sclerae, EOMI, normal appearance ENT: hearing grossly normal, normal oropharynx - Neck Neck: no lymphadenopathy - Respiratory Respiratory: bilateral: CTA - Cardiovascular Rhythm: regular Heart sounds: normal: S1, S2 Abnormal Heart Sounds: systolic murmur leg Peripheral Edema: bilateral: 2+, Pitting - Gastrointestinal General gastrointestinal: no absent bowel sounds, no decreased bowel sounds, no distended, no hepatomegaly, no hyperactive bowel sounds, normal bowel sounds, no organomegaly, no rigid, no scaphoid, soft, no splenomegaly, no tenderness, no umbilical hernia, no ventral hernia - Integumentary Integumentary: normal - Neurologic Neurologic: CNII-XII intact - Musculoskeletal Musculoskeletal: generalized weakness - Psychiatric Psychiatric: A&O x's 3, appropriate affect, intact judgment & insight Results CBC & Chem 7: 09/30/17 10:20 09/30/17 10:20 Labs: Abnormal Lab Results - Last 24 Hours (Table) 09/27/17 09/29/17 09/29/17 Range/Units 06:17 12:27 17:30 RBC (4.30-5.90) m/uL Hgb (13.0-17.5) gm/dL Hct (39.0-53.0) % RDW (11.5-15.5) % Sodium (137-145) mmol/L BUN (9-20) mg/dL Glucose (74-99) mg/dL POC Glucose (mg/dL) 318 H 251 H (75-99) mg/dL Hemoglobin A1c 8.4 H (4.0-6.0) % 09/29/17 09/30/17 09/30/17 Range/Units 21:30 02:53 06:54 RBC (4.30-5.90) m/uL Hgb (13.0-17.5) gm/dL Hct (39.0-53.0) % RDW (11.5-15.5) % Sodium (137-145) mmol/L BUN (9-20) mg/dL Glucose (74-99) mg/dL POC Glucose (mg/dL) 258 H 239 H 161 H (75-99) mg/dL Hemoglobin A1c (4.0-6.0) % 09/30/17 09/30/17 Range/Units 10:20 10:20 RBC 3.48 L (4.30-5.90) m/uL Hgb 9.7 L (13.0-17.5) gm/dL Hct 30.1 L (39.0-53.0) % RDW 21.8 H (11.5-15.5) % Sodium 135 L (137-145) mmol/L BUN 34 H (9-20) mg/dL Glucose 141 H (74-99) mg/dL POC Glucose (mg/dL) (75-99) mg/dL Hemoglobin A1c (4.0-6.0) % Assessment and Plan (1) Multiple myeloma Narrative/Plan: IgG lambda subtype, s/p 2 cycles of Revlimid, Dex and velcade. Pt is ok to delay some of his treatment while in rehab. Discussed case with IM GASATERIA ATTENDANT. Pt will continue dexamathasone 40mg once a week, Bactrim DS BID on M,W,F only, and acyclovir 400mg PO BID every day. Pt verbalized understanding the plan. She will call for f/u/treatment apprt as soon as pt is discharged from rehab. Current Visit: No Status: Chronic Priority: Medium Code(s): C90.00 - MULTIPLE MYELOMA NOT HAVING ACHIEVED REMISSION SNOMED Code(s): 920550758
--- NOTE | 2017-09-30 12:49 | P.DS ---
Providers Date of admission: 09/26/17 08:09 Expected date of discharge: 09/30/17 Attending physician: Solo Urena Consults: 09/24/17 15:04 Consult Physician Routine Consulting Provider: [facility] Consult Reason/Comments: Pulmonary Edema Do you want consulting provider notified?: Yes 09/29/17 11:35 Consult Physician Urgent Consulting Provider: Gregg Eastman Consult Reason/Comments: malignant melanoma need guidance with chemotherapy and placement in [place] Do you want consulting provider notified?: Yes Primary care physician: Solo Loaiza Hospital Course: Final Diagnoses: Acute on chronic exacerbation of diastolic congestive heart failure ejection fraction 55-60% Atrial flutter with controlled ventricular response Elevated troponin demand ischemia Generalized weakness Mild renal injury improving Thrombocytopenia/anemia secondary to chemotherapy related to malignant melanoma Hyperglycemia Hospital course: This is a 77-year-old gentleman admitted with acute COPD exacerbation, mild CHF and multiple other medical issues including history of malignant melanoma, atrial fibrillation. Evaluated by cardiology and oncology. Elevated troponins, secondary to supply/demand mismatch as per cardiology. EKG report atrial flutter, controlled ventricular response, echo reported EF 55- 60% with severely dilated LA, moderate concentric LVH. Maintained on nebulized bronchodilators, steroids, antibiotics and diuresed with Lasix.significant clinical improvement. Anticoagulation held at this time as per cardiology secondary to anemia and thrombocytopenia; reevaluate outpatient Follow-up visit with cardiology within 1 week., Revlimid on hold while at subacute rehab as per Oncology.cleared by both oncology and cardiology for discharge. Patient is being discharged to [facility] subacute rehab in a stable condition with guarded prognosis. Physical Exam: VSS, alert and oriented 3, no acute distress. CV irregular, controlled ventricular rate.LUNGS: Clear to auscultation, bilateral bases diminished.ABD: Soft, nontender, positive bowel sounds. NEURO: No focal deficits. The impression and plan of care has been dictated as directed. : I performed a history and examination of this patient, discussed the same with the dictator. I agree with the dictator's note ,documented as a scribe. Any additional findings or plans will be noted. Time taken: 35 minutes Patient Condition at Discharge: Stable Plan - Discharge Summary Discharge Rx Participant: Yes New Discharge Prescriptions: New Insulin Detemir [Levemir] 20 unit SQ HS syr INSULIN LISPRO (HumaLOG) [humaLOG] 0 unit SQ ACHS #1 vial Lisinopril [Zestril] 5 mg PO DAILY tab Metoprolol Succinate (ER) [Toprol XL] 25 mg PO DAILY tab.er.24h Sulfamethox-Tmp 800-160Mg [Bactrim DS 800-160 mg] 1 tab PO DIRECTED #1 tab Continue Aspirin EC [Ecotrin Low Dose] 81 mg PO DAILY Diltiazem Oral [Cardizem*] 60 mg PO TID tab Omeprazole 20 mg PO DAILY Acyclovir [Zovirax] 400 mg PO BID Potassium Chloride ER [K-Dur 20] 20 meq PO BID Furosemide [Lasix] 40 mg PO BID Dexamethasone 40 mg PO TU ALPRAZolam [Xanax] 0.25 mg PO TID PRN #20 tab PRN Reason: Anxiety HYDROcodone/APAP 7.5-325MG [Lipan 7.5-325] 1 tab PO Q6HR PRN #20 tab PRN Reason: Pain traMADol HCL [Ultram] 50 mg PO Q6HR PRN #20 tab PRN Reason: Pain Discontinued Metoprolol Tartrate [Lopressor] 50 mg PO DAILY Lenalidomide [Revlimid] 25 mg PO DIRECTED Sulfamethox-Tmp 800-160Mg [Bactrim DS 800-160 mg] 1 tab PO MOWEFR@0800,2000 amLODIPine [Norvasc] 5 mg PO DAILY Discharge Medication List Aspirin EC [Ecotrin Low Dose] 81 mg PO DAILY 12/21/16 [History] Diltiazem Oral [Cardizem*] 60 mg PO TID tab 07/16/17 [Rx] Omeprazole 20 mg PO DAILY 08/03/17 [History] Acyclovir [Zovirax] 400 mg PO BID 09/24/17 [History] Dexamethasone 40 mg PO TU 09/24/17 [History] Furosemide [Lasix] 40 mg PO BID 09/24/17 [History] Potassium Chloride ER [K-Dur 20] 20 meq PO BID 09/24/17 [History] ALPRAZolam [Xanax] 0.25 mg PO TID PRN #20 tab 09/30/17 [Rx] HYDROcodone/APAP 7.5-325MG [Lipan 7.5-325] 1 tab PO Q6HR PRN #20 tab 09/30/17 [ Rx] INSULIN LISPRO (HumaLOG) [humaLOG] 0 unit SQ ACHS #1 vial 09/30/17 [Rx] Insulin Detemir [Levemir] 20 unit SQ HS syr 09/30/17 [Rx] Lisinopril [Zestril] 5 mg PO DAILY tab 09/30/17 [Rx] Metoprolol Succinate (ER) [Toprol XL] 25 mg PO DAILY tab.er.24h 09/30/17 [Rx] Sulfamethox-Tmp 800-160Mg [Bactrim DS 800-160 mg] 1 tab PO DIRECTED #1 tab [Rx] traMADol HCL [Ultram] 50 mg PO Q6HR PRN #20 tab 09/30/17 [Rx] Follow up Appointment(s)/Referral(s): Solo Loaiza MD [Primary Care Provider] - 1 Week (After discharge from subacute rehab) [facility], [NON-STAFF] - Denis Ansari MD [STAFF PHYSICIAN] - 2 Weeks (pt will call to resume treatment once discharged from rehab) Slade Infante MD [STAFF PHYSICIAN] - 1 Week Patient Instructions/Handouts: Pulmonary Edema (DC) Activity/Diet/Wound Care/Special Instructions: anticoagulation as per cardiology ; anticoagulation had been held related to anemia and thrombocytopenia Date: Consistent carb Accu-Cheks before meals and at bedtime with sliding scale as ordered Activity: As tolerated, elevate legs at rest CBC, BMP in 3 days Revlimid on hold while at subacute rehab. as per oncology
[2017-09-30 14:21] VITALS: BP 91/55; PULSE 57; RESP 18; TEMP 97.1
== END 2017-09-30 15:18 | DRG 292 ==
LOC: EC 11:14 → 6SEL 15:05 → OBSVTOIN 09-26 08:09 → 4MS4W 09-28 16:38
PROVIDERS: ADMIT Family Medicine; ATTEND Family Medicine
DX: I11.0 Hypertensive heart disease with heart failure (principal); N17.9 Acute kidney failure, unspecified; C43.9 Malignant melanoma of skin, unspecified; D69.59 Other secondary thrombocytopenia; D64.81 Anemia due to antineoplastic chemotherapy; I48.2 Chronic atrial fibrillation; C90.00 Multiple myeloma not having achieved remission; I48.3 Typical atrial flutter; J44.1 Chronic obstructive pulmonary disease with (acute) exacerbation; I47.1 Supraventricular tachycardia; I24.8 Other forms of acute ischemic heart disease; I50.33 Acute on chronic diastolic (congestive) heart failure; M19.90 Unspecified osteoarthritis, unspecified site; F41.9 Anxiety disorder, unspecified; R01.1 Cardiac murmur, unspecified; T45.1X5A Adverse effect of antineoplastic and immunosuppressive drugs, initial encounter; R73.9 Hyperglycemia, unspecified; R53.1 Weakness; Z79.899 Other long term (current) drug therapy; Z79.2 Long term (current) use of antibiotics; Z92.21 Personal history of antineoplastic chemotherapy; Z79.891 Long term (current) use of opiate analgesic; Z87.442 Personal history of urinary calculi; Z87.19 Personal history of other diseases of the digestive system; Z85.46 Personal history of malignant neoplasm of prostate; Z90.79 Acquired absence of other genital organ(s)
CPT/HCPCS: 36415; 71046; 80048; 80053; 82550; 82553; 83036; 83735; 83880; 84484; 85025; 85610; 85730; 93005; 93306; 96374; 99285

== ENCOUNTER → 2017-10-12 | Outpatient (CLI) | payer MEDICARE ==
--- NOTE | 2017-10-12 19:22 | ECHOF ---
Referral Reason:I48.91 Afib, Pericardial Effusion I31.3 MEASUREMENTS -------- HEIGHT: 175.3 cm WEIGHT: 104.3 kg BP: 129/74 RVIDd: 3.5 cm (< 3.3) IVSd: 1.3 cm (0.6 - 1.1) LVIDd: 5.5 cm (3.9 - 5.3) LVPWd: 1.5 cm (0.6 - 1.1) IVSs: 2.3 cm LVIDs: 3.7 cm LVPWs: 1.9 cm LA Diam: 3.8 cm (2.7 - 3.8) LAESV Index (A-L): 38.82 ml/m Ao Diam: 4.4 cm (2.0 - 3.7) AV Cusp: 2.2 cm (1.5 - 2.6) MV EXCURSION: 19.544 mm (> 18.000) MV EF SLOPE: 86 mm/s (70 - 150) EPSS: 0.7 cm AR PHT: 513 ms RAP: 5.00 mmHg RVSP: 29.49 mmHg FINDINGS -------- Sinus rhythm. This was a technically adequate study. The left ventricular size is normal. There is moderate concentric left ventricular hypertrophy. O verall left ventricular systolic function is low-normal with, an EF between 50 - 55 %. Basal inferi or LV wall motion is hypokinetic. Basal inferoseptal LV wall motion is hypokinetic. The right ventricle is mildly enlarged. LA is moderately dilated 34-39 ml/m2 The right atrium is normal in size. There is mild aortic valve sclerosis. There is mild aortic regurgitation. The mitral valve leaflets are mildly thickened. Mild mitral annular calcification present. Mild m itral regurgitation is present. Mild tricuspid regurgitation present. Right ventricular systolic pressure is normal at < 35 mmHg. There is no pulmonic regurgitation present. The aortic root is dilated measuring 4.4cm. Normal inferior vena cava with normal inspiratory collapse consistent with estimated right atrial pre ssure of 5 mmHg. The inferior vena cava is mildly dilated. There is a small pericardial effusion located near the left ventricle. CONCLUSIONS -------- 1. Sinus rhythm. 2. This was a technically adequate study. 3. The left ventricular size is normal. 4. There is moderate concentric left ventricular hypertrophy. 5. Overall left ventricular systolic function is low-normal with, an EF between 50 - 55 %. 6. Basal inferior LV wall motion is hypokinetic. 7. Basal inferoseptal LV wall motion is hypokinetic. 8. The right ventricle is mildly enlarged. 9. LA is moderately dilated 34-39 ml/m2 10. The right atrium is normal in size. 11. There is mild aortic valve sclerosis. 12. There is mild aortic regurgitation. 13. The mitral valve leaflets are mildly thickened. 14. Mild mitral annular calcification present. 15. Mild mitral regurgitation is present. 16. Mild tricuspid regurgitation present. 17. Right ventricular systolic pressure is normal at < 35 mmHg. 18. There is no pulmonic regurgitation present. 19. The aortic root is dilated measuring 4.4cm. 20. Normal inferior vena cava with normal inspiratory collapse consistent with estimated right atrial pressure of 5 mmHg. 21. The inferior vena cava is mildly dilated. 22. There is a small pericardial effusion located near the left ventricle. PULP DRIER FIRER: Gail Bhatt RDCS
== END | disposition home or self-care (01) ==
LOC: RADECHMAIN 15:36
PROVIDERS: ATTEND Internal Medicine Hematology & Oncology
DX: I08.3 Combined rheumatic disorders of mitral, aortic and tricuspid valves (principal); I48.91 Unspecified atrial fibrillation; I31.3 Pericardial effusion (noninflammatory)
CPT/HCPCS: 93306

== ENCOUNTER 2017-11-06 20:55 | Inpatient (IN) | payer MEDICARE ==
--- NOTE | 2017-11-06 22:09 | ED ---
SOB HPI - General Chief Complaint: Shortness of Breath Stated Complaint: Finger numbness,weakness Time Seen by Provider: 11/06/17 21:24 Source: patient, family Mode of arrival: wheelchair Limitations: physical limitation - History of Present Illness Initial Comments: This patient is 77-year-old man who presents today to be evaluated for a couple of symptoms that have been bothering him for most of today. The patient states that he has been having paresthesias and indicates a can of a stocking glove distribution, affecting both hands and feet bilaterally. He also has been feeling somewhat short of breath if he does anything other than remaining at rest. The patient does note that he has not been feeling back to his normal self. He had been diagnosed with cancer and then had been in the [facility] he has been home from that for a few days and today again feeling worse. Patient denies chest pain or any pain at all. He is not having diaphoresis, nausea or vomiting, palpitations or syncope. MD Complaint: shortness of breath, anxiety Onset/Timin -: days(s) Consistency: constant Improves With: nothing Worsens With: nothing Associated Symptoms: parasthesias Treatments Prior to Arrival: none - Related Data Home Medications Medication Instructions Recorded Confirmed Aspirin EC [Ecotrin Low Dose] 81 mg PO DAILY 12/21/16 09/24/17 Omeprazole 20 mg PO DAILY 08/03/17 09/24/17 Acyclovir [Zovirax] 400 mg PO BID 09/24/17 09/24/17 Dexamethasone 40 mg PO TU 09/24/17 09/24/17 Furosemide [Lasix] 40 mg PO BID 09/24/17 09/24/17 Potassium Chloride ER [K-Dur 20] 20 meq PO BID 09/24/17 09/24/17 Previous Rx's Medication Instructions Recorded Diltiazem Oral [Cardizem*] 60 mg PO TID tab 07/16/17 ALPRAZolam [Xanax] 0.25 mg PO TID PRN #20 tab 09/30/17 HYDROcodone/APAP 7.5-325MG [[place] 1 tab PO Q6HR PRN #20 tab 09/30/17 7.5-325] INSULIN LISPRO (HumaLOG) [humaLOG] 0 unit SQ ACHS #1 vial 09/30/17 Insulin Detemir [Levemir] 20 unit SQ HS syr 09/30/17 Lisinopril [Zestril] 5 mg PO DAILY tab 09/30/17 Metoprolol Succinate (ER) [Toprol 25 mg PO DAILY tab.er.24h 09/30/17 XL] Sulfamethox-Tmp 800-160Mg [Bactrim 1 tab PO DIRECTED #1 tab 09/30/17 DS 800-160 mg] traMADol HCL [Ultram] 50 mg PO Q6HR PRN #20 tab 09/30/17 Allergies Allergy/AdvReac Type Severity Reaction Status Date / Time No Known Allergies Allergy Verified 11/06/17 21:22 Review of Systems ROS Statement: Those systems with pertinent positive or pertinent negative responses have been documented in the HPI. ROS Other: All systems not noted in ROS Statement are negative. Constitutional: Reports: weakness. Denies: fever, chills Respiratory: Reports: dyspnea. Denies: cough, wheezes, hemoptysis Cardiovascular: Denies: chest pain, palpitations, dyspnea on exertion Gastrointestinal: Denies: abdominal pain, nausea, vomiting Musculoskeletal: Denies: back pain Skin: Denies: rash Neurological: Reports: paresthesias. Denies: headache, weakness, numbness Past Medical History Past Medical History: Cancer, Hypertension, Osteoarthritis (OA), Supraventricular Tachycardia (SVT) Additional Past Medical History / Comment(s): Multiple myeloma, prostate cancer , skin cancer, hypertension, degenerative arthritis, episodes of SVT a discussed above, nephrolithiasis, History of Any Multi-Drug Resistant Organisms: None Reported Past Surgical History: Heart Catheterization, Hernia Repair, Prostate Surgery Additional Past Surgical History / Comment(s): rt wrist ganglion cysts removed Past Anesthesia/Blood Transfusion Reactions: No Reported Reaction Past Psychological History: Anxiety Smoking Status: Never smoker Past Alcohol Use History: None Reported Past Drug Use History: None Reported - Past Family History Father History Unknown: Yes Mother History Unknown: Yes General Exam Limitations: physical limitation General appearance: alert, in no apparent distress Head exam: Present: atraumatic Eye exam: Present: normal appearance. Absent: scleral icterus, conjunctival injection ENT exam: Present: mucous membranes dry Neck exam: Present: normal inspection Respiratory exam: Present: normal lung sounds bilaterally. Absent: respiratory distress, wheezes, rales, rhonchi, stridor Cardiovascular Exam: Present: regular rate, normal rhythm, normal heart sounds. Absent: systolic murmur, diastolic murmur, rubs, gallop GI/Abdominal exam: Present: soft. Absent: distended, tenderness, guarding, rebound, mass Extremities exam: Present: normal inspection, normal capillary refill. Absent: pedal edema, calf tenderness Back exam: Present: normal inspection. Absent: CVA tenderness (R), CVA tenderness (L) Neurological exam: Present: alert Skin exam: Present: warm, dry, intact, normal color. Absent: rash Course Vital Signs 11/06/17 11/06/17 11/06/17 21:17 21:30 23:23 Temperature 96.7 F L Pulse Rate 66 79 Respiratory 24 18 18 Rate Blood Pressure 109/77 107/55 O2 Sat by Pulse 97 98 Oximetry 11/07/17 00:23 Temperature Pulse Rate 89 Respiratory 18 Rate Blood Pressure 129/63 O2 Sat by Pulse 98 Oximetry Medical Decision Making - Lab Data Result diagrams: 11/06/17 21:44 11/06/17 21:44 Lab Results 11/06/17 11/06/17 11/06/17 Range/Units 21:44 21:44 21:44 WBC 12.4 H (3.8-10.6) k/uL RBC 4.33 (4.30-5.90) m/uL Hgb 12.8 L (13.0-17.5) gm/dL Hct 37.9 L (39.0-53.0) % MCV 87.6 (80.0-100.0) fL MCH 29.7 (25.0-35.0) pg MCHC 33.9 (31.0-37.0) g/dL RDW 18.1 H (11.5-15.5) % Plt Count 236 (150-450) k/uL Neutrophils % 63 % Lymphocytes % 28 % Monocytes % 7 % Eosinophils % 1 % Basophils % 0 % Neutrophils # 7.8 H (1.3-7.7) k/uL Lymphocytes # 3.5 (1.0-4.8) k/uL Monocytes # 0.9 (0-1.0) k/uL Eosinophils # 0.1 (0-0.7) k/uL Basophils # 0.0 (0-0.2) k/uL Anisocytosis Slight PT (9.0-12.0) sec INR (<1.2) APTT (22.0-30.0) sec D-Dimer (<0.60) mg/L FEU Sodium 138 (137-145) mmol/L Potassium 4.7 (3.5-5.1) mmol/L Chloride 100 (98-107) mmol/L Carbon Dioxide 22 (22-30) mmol/L Anion Gap 16 mmol/L BUN 37 H (9-20) mg/dL Creatinine 1.10 (0.66-1.25) mg/dL Est GFR (CKD-EPI)AfAm 75 (>60 ml/min/1.73 sqM) Est GFR (CKD-EPI)NonAf 65 (>60 ml/min/1.73 sqM) Glucose 108 H (74-99) mg/dL Calcium 9.6 (8.4-10.2) mg/dL Magnesium 2.0 (1.6-2.3) mg/dL Total Bilirubin 0.7 (0.2-1.3) mg/dL AST 18 (17-59) U/L ALT 23 (21-72) U/L Alkaline Phosphatase 53 (38-126) U/L Total Creatine Kinase 21 L (55-170) U/L CK-MB (CK-2) 0.8 (0.0-2.4) ng/mL CK-MB (CK-2) Rel Index 3.8 Troponin I 0.040 H* (0.000-0.034) ng/mL NT-Pro-B Natriuret Pep pg/mL Total Protein 6.3 (6.3-8.2) g/dL Albumin 4.1 (3.5-5.0) g/dL 11/06/17 11/06/17 Range/Units 21:44 21:44 WBC (3.8-10.6) k/uL RBC (4.30-5.90) m/uL Hgb (13.0-17.5) gm/dL Hct (39.0-53.0) % MCV (80.0-100.0) fL MCH (25.0-35.0) pg MCHC (31.0-37.0) g/dL RDW (11.5-15.5) % Plt Count (150-450) k/uL Neutrophils % % Lymphocytes % % Monocytes % % Eosinophils % % Basophils % % Neutrophils # (1.3-7.7) k/uL Lymphocytes # (1.0-4.8) k/uL Monocytes # (0-1.0) k/uL Eosinophils # (0-0.7) k/uL Basophils # (0-0.2) k/uL Anisocytosis PT 10.2 (9.0-12.0) sec INR 1.0 (<1.2) APTT 22.4 (22.0-30.0) sec D-Dimer 0.63 H (<0.60) mg/L FEU Sodium (137-145) mmol/L Potassium (3.5-5.1) mmol/L Chloride (98-107) mmol/L Carbon Dioxide (22-30) mmol/L Anion Gap mmol/L BUN (9-20) mg/dL Creatinine (0.66-1.25) mg/dL Est GFR (CKD-EPI)AfAm (>60 ml/min/1.73 sqM) Est GFR (CKD-EPI)NonAf (>60 ml/min/1.73 sqM) Glucose (74-99) mg/dL Calcium (8.4-10.2) mg/dL Magnesium (1.6-2.3) mg/dL Total Bilirubin (0.2-1.3) mg/dL AST (17-59) U/L ALT (21-72) U/L Alkaline Phosphatase (38-126) U/L Total Creatine Kinase (55-170) U/L CK-MB (CK-2) (0.0-2.4) ng/mL CK-MB (CK-2) Rel Index Troponin I (0.000-0.034) ng/mL NT-Pro-B Natriuret Pep 1680 pg/mL Total Protein (6.3-8.2) g/dL Albumin (3.5-5.0) g/dL - EKG Data -: EKG Interpreted by Oh EKG shows normal: axis (Normal), intervals (QRS duration is 132 ms, consistent with a right bundle-branch block.), QRS complexes (Right bundle-branch block), ST-T waves (Normal) Rate: tachycardia (Rate approximately 112 bpm) When compared to previous EKG there are: other (The EKG appears similar to that from September 2017 though today's rate is faster.) Interpretation: other (The underlying rhythm is atrial flutter with a variable block, the rate is proximally 112 bpm area there is also on what appears to be 1 PVC.) Disposition Clinical Impression: Atrial fibrillation with RVR, CHF exacerbation, Elevated troponin I level Disposition: ADMITTED IP TO THIS HOSP Condition: Fair Referrals: Solo Loaiza MD [Primary Care Provider] - 1-2 days
[2017-11-06 22:10] LABS: Anisocytosis Slight; Basophils % (A) 0 %; Eosinophils # (A) 0.1 k/uL (0-0.7); Eosinophils % (A) 1 %; HCT 37.9 % (39.0-53.0); HGB 12.8 gm/dL (13.0-17.5); Lymphocytes # (A) 3.5 k/uL (1.0-4.8); Lymphocytes % (A) 28 %; MCH 29.7 pg (25.0-35.0); MCHC 33.9 g/dL (31.0-37.0); MCV 87.6 fL (80.0-100.0); Mean Platelet Volume 7.2; Monocytes # (A) 0.9 k/uL (0-1.0); Monocytes % (A) 7 %; Neutrophils # (A) 7.8 k/uL (1.3-7.7); Neutrophils % (A) 63 %; Platelet Count 236 k/uL (150-450); RBC 4.33 m/uL (4.30-5.90); RDW 18.1 % (11.5-15.5); WBC 12.4 k/uL (3.8-10.6)
[2017-11-06 22:15] LABS: Albumin 4.1 g/dL (3.5-5.0); Calcium 9.6 mg/dL (8.4-10.2); Potassium 4.7 mmol/L (3.5-5.1); Total Bilirubin 0.7 mg/dL (0.2-1.3); Total Protein 6.3 g/dL (6.3-8.2)
[2017-11-06] MEDS ORDERED: DILTIAZEM 5 MG/1 ML (25ML VIAL) IV STA (22:15)
[2017-11-06 22:20] LABS: Partial Thromboplastin Time 22.4 sec (22.0-30.0); Prothrombin Time 10.2 sec (9.0-12.0)
--- NOTE | 2017-11-06 22:35 | XR ---
EXAM: XR Chest, 2 Views CLINICAL HISTORY: ITS.REASON XR Reason: difficulty breathing TECHNIQUE: Frontal and lateral views of the chest. COMPARISON: 09/24/17 FINDINGS: Lungs: Unremarkable. No consolidation. Pleural space: Unremarkable. No pneumothorax. Heart: Mild cardiomegaly. Mediastinum: Unremarkable. Bones/joints: Unremarkable. IMPRESSION: No acute findings.
[2017-11-06 22:50] LABS: Creatine Kinase MB 0.8 ng/mL (0.0-2.4)
[2017-11-06 22:54] LABS: Troponin I 0.04 ng/mL (0.000-0.034)
[2017-11-06 22:58] LABS: D-Dimer 0.63 mg/L FEU (<0.60)
[2017-11-06] MEDS ORDERED: RX INFO: IV CONTRAST WAS GIVEN 1 EACH MISC MISCELLANE PRN (23:18)
--- NOTE | 2017-11-07 00:29 | CT ---
EXAM: CT Angiography Chest With Intravenous Contrast CLINICAL HISTORY: ITS.REASON CT Reason: Pain TECHNIQUE: Axial computed tomographic angiography images of the chest with intravenous contrast using pulmonary embolism protocol. DLP is 408.80 mGy-cm. This CT exam was performed using one or more of the following dose reduction techniques: automated exposure control, adjustment of the mA and/or kV according to patient size, and/or use of iterative reconstruction technique. MIP reconstructed images were created and reviewed. CONTRAST: 95 mL of isovue 370 administered intravenously. COMPARISON: 09/21/17 FINDINGS: Pulmonary arteries: Unremarkable. No pulmonary embolism. Aorta: No acute findings. No thoracic aortic aneurysm. Lungs: Bibasilar subsegmental atelectasis noted. Stable appearance of peribronchial thickening. No mass. Pleural space: Interval resolution of small right pleural effusion. No pneumothorax. Heart: Stable moderate pericardial effusion. No evidence of RV dysfunction. Bones/joints: Lytic lesion in the left scapula is partially visualized. This appears similar to prior exam. No acute fracture. No dislocation. Soft tissues: Unremarkable. Lymph nodes: Unremarkable. No enlarged lymph nodes. IMPRESSION: 1. No evidence of PE. 2. Stable moderate pericardial effusion. 3. Interval resolution of small right pleural effusion. 4. Stable peribronchial thickening. 5. Stable appearance of partially visualized lytic lesion in the left scapula.
[2017-11-07] MEDS ORDERED: HYDROcodone/APAP 7.5-325MG 1 EACH TAB PO PRN (00:34)
[2017-11-07] MEDS ORDERED: traMADol 50 MG TAB PO PRN (00:34)
[2017-11-07] MEDS: FUROSEMIDE 10 MG/ML 4 ML VIAL IV SCH ×3 (01:34→23:40)
[2017-11-07 07:06] LABS: Glucose,Whole Blood 127 mg/dL (75-99)
[2017-11-07] MEDS: INSULIN ASPART 100 UNIT/ML 1 ML 10 ML VIAL SQ SCH ×4 (08:49→21:45)
[2017-11-07] MEDS: ACYCLOVIR 200 MG CAP PO SCH ×2 (08:49→19:36)
[2017-11-07] MEDS: LISINOPRIL 5 MG TAB PO SCH (08:50)
[2017-11-07] MEDS: POTASSIUM CHLORIDE ER 20 MEQ TAB.ER PO SCH ×2 (08:50→19:36)
[2017-11-07] MEDS: ASPIRIN 81 MG PO SCH (08:50)
[2017-11-07] MEDS: PANTOPRAZOLE 40 MG TABLET PO SCH (08:50)
[2017-11-07] MEDS ORDERED: METOPROLOL SUCCINATE (ER) 25 MG TAB.ER.24H PO SCH (09:00)
[2017-11-07] MEDS ORDERED: DILTIAZEM ORAL 60 MG TAB PO SCH (09:00)
[2017-11-07] MEDS: ALPRAZolam 0.25 MG TAB PO PRN ×2 (09:40→23:40)
[2017-11-07] MEDS ORDERED: DEXTROSE 5% IN WATER 100 ML with AMIODARONE 150 MG IV ONE (10:53)
[2017-11-07] MEDS ORDERED: HEPARIN SODIUM,PORCINE 5,000 UNIT/ML 1 ML VIAL IV ONE (10:57)
[2017-11-07] MEDS ORDERED: HEPARIN SODIUM,PORCINE 5,000 UNIT/ML 1 ML VIAL IV PRN (10:57)
--- NOTE | 2017-11-07 11:16 | P.CRDCN ---
History of Present Illness Consult date: 11/07/17 Requesting physician: Jose M Urena Consult reason: atrial flutter Chief complaint: Bilateral hand and feet numbness and tingling History of present illness: This is a 7-year-old gentleman with history of multiple myeloma, hypertension, who was recently in the hospital in September of this year, he was seen in consultation by Dr. Moura at that time. Patient was noted at that time to be in atrial flutter, felt not to be a candidate for anticoagulation because of anemia and thrombocytopenia at that time. He had an echocardiogram with Doppler study performed on that admission which revealed an ejection fraction of 50-55%. He presents to the hospital on this admission with symptoms of bilateral feet and hand numbness and tingling. According to the patient, he's also been having what he describes as anxiety attacks, we feel short of breath and feels like his heart is racing fast. For this he takes Xanax. EKG on admission here shows atrial flutter with a moderately rapid ventricular response , occasional PVC. On review of the rhythm strips, patient is in atrial flutter , he is noted to have runs of nonsustained ventricular tachycardia up to 5 complexes at a time Chest x-ray did not reveal any acute findings. CT of the chest was performed which did not reveal evidence of pulmonary embolism, stable moderate pericardial effusion noted. Blood pressure 110/70 with a heart rate at this time the 1:30 to 140 range, temperature 97.9. White blood cell count 12.4, hemoglobin 12.8, platelet count 236. D-dimer 0.6. Sodium 138, potassium 4.7, BUN 37, creatinine 1.0. Magnesium level 2.0. Troponins 0.040, 0.041. Patient was noted on review of prior records to have or abnormality in troponins in this range. BNP level 1680. At the time of my examination, patient was feeling quite anxious, short of breath, feeling his heart racing fast. Still complaining of tingling in his bilateral hands and feet. Past Medical History Past Medical History: Cancer, Hypertension, Osteoarthritis (OA), Supraventricular Tachycardia (SVT) Additional Past Medical History / Comment(s): Multiple myeloma, prostate cancer , skin cancer, hypertension, degenerative arthritis, episodes of SVT a discussed above, nephrolithiasis, History of Any Multi-Drug Resistant Organisms: None Reported Past Surgical History: Heart Catheterization, Hernia Repair, Prostate Surgery Additional Past Surgical History / Comment(s): rt wrist ganglion cysts removed Past Anesthesia/Blood Transfusion Reactions: No Reported Reaction Past Psychological History: Anxiety Smoking Status: Never smoker Past Alcohol Use History: None Reported Past Drug Use History: None Reported - Past Family History Father History Unknown: Yes Mother History Unknown: Yes Medications and Allergies Home Medications Medication Instructions Recorded Confirmed Type Aspirin EC [Ecotrin Low Dose] 81 mg PO DAILY 12/21/16 09/24/17 History Diltiazem Oral [Cardizem*] 60 mg PO TID tab 07/16/17 09/24/17 Rx Omeprazole 20 mg PO DAILY 08/03/17 09/24/17 History Acyclovir [Zovirax] 400 mg PO BID 09/24/17 09/24/17 History Dexamethasone 40 mg PO TU 09/24/17 09/24/17 History Furosemide [Lasix] 40 mg PO BID 09/24/17 09/24/17 History Potassium Chloride ER [K-Dur 20] 20 meq PO BID 09/24/17 09/24/17 History ALPRAZolam [Xanax] 0.25 mg PO TID PRN #20 tab 09/30/17 Rx HYDROcodone/APAP 7.5-325MG [[place] 1 tab PO Q6HR PRN #20 tab 09/30/17 Rx 7.5-325] INSULIN LISPRO (HumaLOG) [humaLOG] 0 unit SQ ACHS #1 vial 09/30/17 Rx Insulin Detemir [Levemir] 20 unit SQ HS syr 09/30/17 Rx Lisinopril [Zestril] 5 mg PO DAILY tab 09/30/17 Rx Metoprolol Succinate (ER) [Toprol 25 mg PO DAILY tab.er.24h 09/30/17 Rx XL] Sulfamethox-Tmp 800-160Mg [Bactrim 1 tab PO DIRECTED #1 tab 09/30/17 Rx DS 800-160 mg] traMADol HCL [Ultram] 50 mg PO Q6HR PRN #20 tab 09/30/17 Rx Allergies Allergy/AdvReac Type Severity Reaction Status Date / Time No Known Allergies Allergy Verified 11/06/17 21:22 Physical Exam Vitals: Vital Signs Temp Pulse Pulse Resp BP BP Pulse Ox 11/07/17 02:11 97.9 F 68 18 109/79 97 11/07/17 00:59 97 F L 93 18 112/68 95 11/07/17 00:49 97.9 F 68 18 122/66 97 11/07/17 00:23 89 18 129/63 98 11/06/17 23:23 79 18 107/55 98 11/06/17 21:30 18 11/06/17 21:17 96.7 F L 66 24 109/77 97 Intake and Output 11/06/17 11/07/17 11/07/17 22:59 06:59 14:59 Intake Total 240 Output Total 600 Balance -600 240 Intake: Oral 240 Output: Urine 600 Other: Voiding Method Urinal Weight 90.718 kg 89.7 kg PHYSICAL EXAMINATION: HEENT: Head is atraumatic, normocephalic. Pupils equal, round. Neck is supple. There is elevated jugular venous pressure. HEART EXAMINATION: S1 and S2 irregularly irregular CHEST EXAMINATION: Lungs reveal diminished air entry, half way up on the right, to the base on the left. ABDOMEN: Soft, nontender. Bowel sounds are heard. No organomegaly noted. EXTREMITIES: 2+ peripheral pulses with no evidence of peripheral edema and no calf tenderness noted. NEUROLOGIC patient is awake, alert and oriented -3. . Results 11/06/17 21:44 11/06/17 21:44 Cardiac Enzymes 11/06/17 11/06/17 11/07/17 Range/Units 21:44 21:44 06:20 AST 18 (17-59) U/L CK-MB (CK-2) 0.8 (0.0-2.4) ng/mL Troponin I 0.040 H* 0.041 H* (0.000-0.034) ng/mL Coagulation 11/06/17 Range/Units 21:44 PT 10.2 (9.0-12.0) sec APTT 22.4 (22.0-30.0) sec CBC 11/06/17 Range/Units 21:44 WBC 12.4 H (3.8-10.6) k/uL RBC 4.33 (4.30-5.90) m/uL Hgb 12.8 L (13.0-17.5) gm/dL Hct 37.9 L (39.0-53.0) % Plt Count 236 (150-450) k/uL Comprehensive Metabolic Panel 11/06/17 Range/Units 21:44 Sodium 138 (137-145) mmol/L Potassium 4.7 (3.5-5.1) mmol/L Chloride 100 (98-107) mmol/L Carbon Dioxide 22 (22-30) mmol/L BUN 37 H (9-20) mg/dL Creatinine 1.10 (0.66-1.25) mg/dL Glucose 108 H (74-99) mg/dL Calcium 9.6 (8.4-10.2) mg/dL AST 18 (17-59) U/L ALT 23 (21-72) U/L Alkaline Phosphatase 53 (38-126) U/L Total Protein 6.3 (6.3-8.2) g/dL Albumin 4.1 (3.5-5.0) g/dL Current Medications Generic Name Dose Route Start Last Admin Trade Name Freq PRN Reason Stop Dose Admin Hydrocodone Bitart/Acetaminophen 1 each 11/07/17 00:34 [place] 7.5-325 PO Q6HR PRN Pain Acyclovir 400 mg 11/07/17 09:00 11/07/17 08:49 Zovirax PO 400 mg BID JIMENA Administration Alprazolam 0.25 mg 11/07/17 00:34 11/07/17 09:40 Xanax PO 0.25 mg TID PRN Administration Anxiety Aspirin 81 mg 11/07/17 09:00 11/07/17 08:50 Aspirin PO 81 mg DAILY JIMENA Administration Dexamethasone 40 mg 11/09/17 00:34 Hexadrol PO [facility] Furosemide 40 mg 11/07/17 00:45 11/07/17 01:34 Lasix IV Not Given Q12H [facility] Heparin Sodium (Porcine) 4,000 unit 11/07/17 10:57 Heparin IV 11/07/17 10:58 ONCE ONE Heparin Sodium (Porcine) 0 unit 11/07/17 10:57 Heparin IV PER PROTOCOL PRN Low PTT Protocol Amiodarone HCl 150 mg/ 103 mls @ 618 mls/hr 11/07/17 10:53 Dextrose/Water IV 11/07/17 11:02 .Q10M ONE Amiodarone HCl 450 mg/ 250 mls @ 33.33 mls/hr 11/07/17 11:00 Dextrose/Water IV 11/08/17 10:53 .Q7H31M [facility] Protocol 1 MG/MIN Heparin Sodium/Sodium Chloride 500 mls @ 21.52 mls/hr 11/07/17 11:00 25,000 unit/ Sodium Chloride IV .[id number] [facility] Protocol 12 UNITS/KG/HR Insulin Aspart 0 unit 11/07/17 07:30 11/07/17 08:49 Novolog SQ Not Given ACHS [facility] Protocol Insulin Detemir 20 unit 11/07/17 21:00 Levemir SQ HS JIMENA Lisinopril 5 mg 11/07/17 09:00 11/07/17 08:50 Zestril PO 5 mg DAILY JIMENA Administration Metoprolol Succinate 25 mg 11/07/17 09:00 11/07/17 08:50 Toprol Xl PO 25 mg DAILY JIMENA Administration Miscellaneous Information 1 each 11/06/17 23:18 Rx Info: Iv Contrast Was Given MISCELLANE 11/08/17 23:19 DAILY PRN Per Protocol Pantoprazole Sodium 40 mg 11/07/17 09:00 11/07/17 08:50 Protonix PO 40 mg DAILY JIMENA Administration Potassium Chloride 20 meq 11/07/17 09:00 11/07/17 08:50 K-Dur 20 PO 20 meq BID JIMENA Administration Sodium Chloride 10 ml 11/07/17 09:00 11/07/17 08:51 Saline Flush IV 10 ml BID JIMENA Administration Tramadol HCl 50 mg 11/07/17 00:34 Ultram PO Q6HR PRN Pain Trimethoprim/Sulfamethoxazole 1 each 11/08/17 09:00 Bactrim Ds PO MoWeFr JIMENA Intake and Output 11/06/17 11/07/17 11/07/17 22:59 06:59 14:59 Intake Total 240 Output Total 600 Balance -600 240 Intake: Oral 240 Output: Urine 600 Other: Voiding Method Urinal Weight 90.718 kg 89.7 kg 11/06/17 21:44 11/06/17 21:44 EKG Interpretations (text) EKG on admission shows atrial flutter with a moderately rapid ventricular response. Assessment and Plan Plan: Assessment and plan #1 bilateral hand and feet numbness and tingling #2 atrial flutter with rapid ventricular response, patient has chronic atypical atrial flutter. Not on anticoagulation because last month patient was felt not to be a candidate because of thrombocytopenia and anemia #3 multiple myeloma #4 abnormal troponin, not consistent with acute coronary syndrome, likely secondary to supply and demand mismatch. Upon review of prior records, patient is noted to have abnormality in this range in his troponins. #5 COPD Plan Patient did have an echocardiogram with Doppler study performed in September which revealed an ejection fraction of 50-55%. We'll not repeat an echo on this admission. We will start the patient on IV amiodarone and check with oncology regarding initiating anticoagulation. We will obtain a free T4 and a TSH level. We'll also obtain an ultrasound of the chest to assess his pleural effusion. Further recommendations to follow. DNP note has been reviewed, I agree with a documented findings and plan of care. Patient was seen and examined.
[2017-11-07 11:24] LABS: Anisocytosis Slight; Basophils % (A) 0 %; Eosinophils # (A) 0.1 k/uL (0-0.7); Eosinophils % (A) 1 %; HCT 36.8 % (39.0-53.0); HGB 12.5 gm/dL (13.0-17.5); Lymphocytes # (A) 3.2 k/uL (1.0-4.8); Lymphocytes % (A) 27 %; MCH 30.4 pg (25.0-35.0); MCV 89.4 fL (80.0-100.0); Mean Platelet Volume 7.2; Monocytes # (A) 0.7 k/uL (0-1.0); Monocytes % (A) 6 %; Neutrophils # (A) 7.5 k/uL (1.3-7.7); Neutrophils % (A) 65 %; Platelet Count 229 k/uL (150-450); RBC 4.12 m/uL (4.30-5.90); RDW 18.4 % (11.5-15.5); WBC 11.6 k/uL (3.8-10.6)
[2017-11-07] MEDS: HEPARIN SODIUM,PORCINE/D5W PMX 25,000 UNIT in DEXTROSE/WATER 1 500ML.BAG IV SCH (11:44)
[2017-11-07 11:54] LABS: Prothrombin Time 9.9 sec (9.0-12.0)
[2017-11-07 11:55] LABS: Partial Thromboplastin Time 22.4 sec (22.0-30.0)
[2017-11-07 11:56] LABS: Glucose,Whole Blood 105 mg/dL (75-99)
[2017-11-07] MEDS: AMIODARONE 450 MG in DEXTROSE 5% IN WATER 250 ML IV SCH ×4 (11:59→19:45)
--- NOTE | 2017-11-07 12:13 | US ---
EXAMINATION TYPE: US chest DATE OF EXAM: 11/07/2017 COMPARISON: NONE CLINICAL HISTORY: assess and lamberto right sided pleural eff. Right pleural effusion EXAM MEASUREMENTS: Right Pleural Effusion fluid pocket: no significant fluid seen at this time Left Pleural Effusion fluid pocket: no significant fluid seen at this time Right side NOT marked for possible thoracentesis outside the dept. Left side NOT marked for possible thoracentesis outside the dept. IMPRESSIONS: NO SIGNIFICANT PLEURAL EFFUSIONS ARE IDENTIFIED AT THIS TIME.
--- NOTE | 2017-11-07 13:52 | P.HPIM ---
History of Present Illness 77-year-old gentleman came in with complains of tingling and numbness in bilateral upper extremities, found to have atrial flutter in ER with rapid ventricular rate subsequently admitted. Patient did during his hospitalization found to have atrial flutter at the time patient was not started on anti- correlation because of anemia and thrombocytopenia. At the time echo cardiac showed normal ejection fraction but patient has mildly elevated BNP on this hospitalization although chest x-ray did not show any pulmonary edema patient clinically doesn't have any elevated JVD or pedal edema. Patient was evaluated cardiology and patient was started on amiodarone is also on IV Lasix low-dose. Patient has mildly elevated troponin secondary to demand ischemia from atrial flutter. Patient anti-correlation with IV heparin at this time. Patient denied any fever chills shortness of breath diaphoresis chest pain, orthopnea PND Review of Systems REVIEW OF SYSTEMS: CONSTITUTIONAL: No fever, no malaise, no fatigue. HEENT: No recent visual problems or hearing problems. Denied any sore throat. CARDIOVASCULAR: No chest pain, orthopnea, PND, no palpitations, no syncope. PULMONARY: No shortness of breath, no cough, no hemoptysis. GASTROINTESTINAL: No diarrhea, no nausea, no vomiting, no abdominal pain. Normoactive bowel sounds. NEUROLOGICAL: No headaches, no weakness. HEMATOLOGICAL: Denies any bleeding or petechiae. GENITOURINARY: Denies any burning micturition, frequency, or urgency. MUSCULOSKELETAL/RHEUMATOLOGICAL: Denies any joint pain, swelling, or any muscle pain. ENDOCRINE: Denies any polyuria or polydipsia. The rest of the 14-point review of systems is negative. Past Medical History Past Medical History: Cancer, Hypertension, Osteoarthritis (OA), Supraventricular Tachycardia (SVT) Additional Past Medical History / Comment(s): Multiple myeloma, prostate cancer , skin cancer, hypertension, degenerative arthritis, episodes of SVT a discussed above, nephrolithiasis, History of Any Multi-Drug Resistant Organisms: None Reported Past Surgical History: Heart Catheterization, Hernia Repair, Prostate Surgery Additional Past Surgical History / Comment(s): rt wrist ganglion cysts removed Past Anesthesia/Blood Transfusion Reactions: No Reported Reaction Past Psychological History: Anxiety Smoking Status: Never smoker Past Alcohol Use History: None Reported Past Drug Use History: None Reported - Past Family History Father History Unknown: Yes Mother History Unknown: Yes Medications and Allergies Home Medications Medication Instructions Recorded Confirmed Type Aspirin EC [Ecotrin Low Dose] 81 mg PO DAILY 12/21/16 11/07/17 History Omeprazole 20 mg PO DAILY 08/03/17 11/07/17 History Acyclovir [Zovirax] 400 mg PO BID 09/24/17 11/07/17 History Dexamethasone 40 mg PO TU 09/24/17 11/07/17 History Furosemide [Lasix] 40 mg PO BID 09/24/17 11/07/17 History Potassium Chloride ER [K-Dur 20] 20 meq PO DAILY 09/24/17 11/07/17 History ALPRAZolam [Xanax] 0.25 mg PO TID PRN #20 tab 09/30/17 11/07/17 Rx HYDROcodone/APAP 7.5-325MG [[place] 1 tab PO Q6HR PRN #20 tab 09/30/17 11/07/17 Rx 7.5-325] Dulaglutide [Trulicity] 0.75 mg SQ WE 11/07/17 11/07/17 History Glimepiride [Amaryl] 1 mg PO BID 11/07/17 11/07/17 History Lenalidomide [Revlimid] 25 mg PO DAILY 11/07/17 11/07/17 History Metoprolol Tartrate [Lopressor] 50 mg PO DAILY 11/07/17 11/07/17 History Sulfamethox-Tmp 800-160Mg [Bactrim 1 tab PO MOWEFR 11/07/17 11/07/17 History DS 800-160 mg] Allergies Allergy/AdvReac Type Severity Reaction Status Date / Time No Known Allergies Allergy Verified 11/07/17 11:17 Physical Exam Vitals: Vital Signs Temp Pulse Pulse Resp BP BP Pulse Ox 11/07/17 02:11 97.9 F 68 18 109/79 97 11/07/17 00:59 97 F L 93 18 112/68 95 11/07/17 00:49 97.9 F 68 18 122/66 97 11/07/17 00:23 89 18 129/63 98 11/06/17 23:23 79 18 107/55 98 11/06/17 21:30 18 11/06/17 21:17 96.7 F L 66 24 109/77 97 Intake and Output 11/06/17 11/07/1718 22:59 06:59 14:59 Intake Total 240 Output Total 600 Balance -600 240 Intake: Oral 240 Output: Urine 600 Other: Voiding Method Urinal Weight 90.718 kg 89.7 kg PHYSICAL EXAMINATION: GENERAL: The patient is alert and oriented x3, not in any acute distress. Well developed, well nourished. HEENT: Pupils are round and equally reacting to light. EOMI. No scleral icterus. No conjunctival pallor. Normocephalic, atraumatic. No pharyngeal erythema. No thyromegaly. CARDIOVASCULAR: S1 and S2 present. No murmurs, rubs, or gallops. Tachycardic PULMONARY: Chest is clear to auscultation, no wheezing or crackles. ABDOMEN: Soft, nontender, nondistended, normoactive bowel sounds. No palpable organomegaly. MUSCULOSKELETAL: No joint swelling or deformity. EXTREMITIES: No cyanosis, clubbing, or pedal edema. NEUROLOGICAL: Gross neurological examination did not reveal any focal deficits. SKIN: No rashes. Results CBC & Chem 7: 11/07/17 11:03 11/06/17 21:44 Labs: Abnormal Lab Results - Last 24 Hours (Table) 11/06/17 11/06/17 11/06/17 Range/Units 21:44 21:44 21:44 WBC 12.4 H (3.8-10.6) k/uL RBC (4.30-5.90) m/uL Hgb 12.8 L (13.0-17.5) gm/dL Hct 37.9 L (39.0-53.0) % RDW 18.1 H (11.5-15.5) % Neutrophils # 7.8 H (1.3-7.7) k/uL D-Dimer (<0.60) mg/L FEU BUN 37 H (9-20) mg/dL Glucose 108 H (74-99) mg/dL POC Glucose (mg/dL) (75-99) mg/dL Total Creatine Kinase 21 L (55-170) U/L Troponin I 0.040 H* (0.000-0.034) ng/mL 11/06/17 11/07/17 11/07/17 Range/Units 21:44 06:20 07:04 WBC (3.8-10.6) k/uL RBC (4.30-5.90) m/uL Hgb (13.0-17.5) gm/dL Hct (39.0-53.0) % RDW (11.5-15.5) % Neutrophils # (1.3-7.7) k/uL D-Dimer 0.63 H (<0.60) mg/L FEU BUN (9-20) mg/dL Glucose (74-99) mg/dL POC Glucose (mg/dL) 127 H (75-99) mg/dL Total Creatine Kinase (55-170) U/L Troponin I 0.041 H* (0.000-0.034) ng/mL 11/07/17 11/07/17 11/07/17 Range/Units 11:03 11:03 11:24 WBC 11.6 H (3.8-10.6) k/uL RBC 4.12 L (4.30-5.90) m/uL Hgb 12.5 L (13.0-17.5) gm/dL Hct 36.8 L (39.0-53.0) % RDW 18.4 H (11.5-15.5) % Neutrophils # (1.3-7.7) k/uL D-Dimer (<0.60) mg/L FEU BUN (9-20) mg/dL Glucose (74-99) mg/dL POC Glucose (mg/dL) 105 H (75-99) mg/dL Total Creatine Kinase (55-170) U/L Troponin I 0.046 H* (0.000-0.034) ng/mL Thrombosis Risk Factor Assmnt - Choose All That Apply Each Risk Factor Represents 3 Points: Age 75 years or older Thrombosis Risk Factor Assessment Total Risk Factor Score: 3 Thrombosis Risk Factor Assessment Level: Moderate Risk Assessment and Plan Plan: -Atrial flutter: Patient is on IV amiodarone and anticoagulation these are being managed by cardiology -History of multiple myeloma: Platelet counts are essentially within normal limits now because of which patient was started on anticoagulation, patient is on Revlimid and is on Bactrim -Bilateral hand and feet numbness and tingling: Probably secondary to peripheral neuropathy from diabetes mellitus -Gastroesophageal reflux disease -Abnormally elevated troponin probably secondary to demand mismatch -COPD without any acute exacerbation
[2017-11-07] MEDS: METOPROLOL TARTRATE 25 MG TAB PO SCH ×2 (14:47→19:37)
[2017-11-07 16:39] LABS: Glucose,Whole Blood 178 mg/dL (75-99)
[2017-11-07 21:15] LABS: Glucose,Whole Blood 152 mg/dL (75-99)
[2017-11-07] MEDS: INSULIN DETEMIR 100 UNIT/ML 10 ML VIAL SQ SCH (21:46)
[2017-11-08 01:32] LABS: Anisocytosis Slight; Basophils % (A) 0 %; Eosinophils # (A) 0.1 k/uL (0-0.7); Eosinophils % (A) 1 %; HCT 37.9 % (39.0-53.0); HGB 12.3 gm/dL (13.0-17.5); Lymphocytes # (A) 2.7 k/uL (1.0-4.8); Lymphocytes % (A) 27 %; MCH 29.5 pg (25.0-35.0); MCHC 32.4 g/dL (31.0-37.0); MCV 91.1 fL (80.0-100.0); Mean Platelet Volume 7.1; Monocytes # (A) 0.6 k/uL (0-1.0); Monocytes % (A) 6 %; Neutrophils # (A) 6.5 k/uL (1.3-7.7); Neutrophils % (A) 66 %; Platelet Count 220 k/uL (150-450); RBC 4.16 m/uL (4.30-5.90); RDW 18.2 % (11.5-15.5); WBC 9.9 k/uL (3.8-10.6)
[2017-11-08 02:09] LABS: Anion Gap 12 mmol/L; Blood Urea Nitrogen 24 mg/dL (9-20); Calcium 8.8 mg/dL (8.4-10.2); Carbon Dioxide 26 mmol/L (22-30); Chloride 100 mmol/L (98-107); Glucose 98 mg/dL (74-99); Potassium 3.7 mmol/L (3.5-5.1); Sodium 138 mmol/L (137-145)
[2017-11-08] MEDS: INSULIN ASPART 100 UNIT/ML 1 ML 10 ML VIAL SQ SCH ×4 (06:20→21:10)
[2017-11-08 06:21] LABS: Glucose,Whole Blood 82 mg/dL (75-99)
[2017-11-08] MEDS: AMIODARONE 450 MG in DEXTROSE 5% IN WATER 250 ML IV SCH ×4 (08:41→12:24)
[2017-11-08] MEDS: LENALIDOMIDE 25 MG PO SCH (08:42)
[2017-11-08] MEDS: ACYCLOVIR 200 MG CAP PO SCH ×2 (08:42→19:31)
[2017-11-08] MEDS: ALPRAZolam 0.25 MG TAB PO PRN (08:42)
[2017-11-08] MEDS: ASPIRIN 81 MG PO SCH (08:42)
[2017-11-08] MEDS: LISINOPRIL 5 MG TAB PO SCH (08:43)
[2017-11-08] MEDS: PANTOPRAZOLE 40 MG TABLET PO SCH (08:43)
[2017-11-08] MEDS: METOPROLOL TARTRATE 25 MG TAB PO SCH ×3 (08:43→19:32)
[2017-11-08] MEDS: POTASSIUM CHLORIDE ER 20 MEQ TAB.ER PO SCH ×2 (08:43→19:32)
[2017-11-08] MEDS: SULFAMETHOX-TMP 800-160MG 1 EACH TAB PO SCH (08:44)
[2017-11-08] MEDS: HEPARIN SODIUM,PORCINE/D5W PMX 25,000 UNIT in DEXTROSE/WATER 1 500ML.BAG IV SCH (08:53)
[2017-11-08] MEDS ORDERED: SULFAMETHOX-TMP 800-160MG 1 EACH TAB PO SCH (09:00)
[2017-11-08] MEDS ORDERED: METOPROLOL TARTRATE 50 MG TAB PO SCH (09:00)
[2017-11-08 11:57] LABS: Glucose,Whole Blood 102 mg/dL (75-99)
[2017-11-08 12:04] LABS: Hemoglobin A1C 7.2 % (4.0-6.0)
[2017-11-08 14:36] VITALS: BMI 28.9
[2017-11-08] MEDS: FUROSEMIDE 10 MG/ML 4 ML VIAL IV SCH (15:16)
--- NOTE | 2017-11-08 15:50 | PN ---
PROGRESS NOTE DATE OF SERVICE: 11/08/2017. HISTORY: This patient was admitted with shortness of breath and palpitations. The patient was in atrial flutter with a rapid rate. He is feeling better. The shortness of breath is improved. PHYSICAL EXAM: Patient's heart rate is now 90 to 100 per minute. Blood pressure is 125/60 mmHg. First and second heart sounds are normal. Lungs are fairly clear to auscultation and percussion. This patient's BNP level is at the upper limit of normal. Chest x-ray does not show any evidence of failure. PLAN: We will switch the patient to p.o. amiodarone and start the patient on Eliquis 5 mg b.i.d. Discontinue IV Lasix. AFSHIN / JAMIEN: [id number] /
[2017-11-08] MEDS: AMIODARONE 200 MG TAB PO SCH ×2 (16:24→19:32)
[2017-11-08] MEDS: APIXABAN 5 MG TAB PO SCH (16:24)
[2017-11-08] MEDS: FUROSEMIDE 40 MG TAB PO SCH (16:24)
--- NOTE | 2017-11-08 16:33 | P.PN ---
Subjective Patient admitted for atrial flutter patient is presently rate controlled does have minimal heart failure exacerbation as well. Patient had normal ejection fraction the past patient is rate controlled at this time still in flutter. Patient is started on anticoagulation as his hemoglobin and platelet count are stable and normal. Patient does have history of multiple myeloma follows up with oncology as an outpatient. Patient was on IV amiodarone which is being switched to oral amiodarone possibility of discharge tomorrow on oral anticoagulation Constitutional: Denied any fatigue denied any fever. Cardio vascular: denied any chest pain, palpitations Gastrointestinal denied any nausea vomiting Pulmonary: Denied any shortness of breath cough Neurologic denied any new focal deficits Objective - Vital Signs Vital signs: Vital Signs Temp 97.0 F L 11/08/17 12:30 Pulse 48 L 11/08/17 12:30 Resp 18 11/08/17 12:30 BP 101/56 11/08/17 12:30 Pulse Ox 98 11/08/17 12:30 Intake & Output 11/07/17 11/08/17 11/08/17 18:59 06:59 18:59 Intake Total 946.644 329.587 881.987 Output Total 800 1500 400 Balance 146.644 -1170.413 481.987 Weight 88.8 kg 88.8 kg Intake: Intake, IV Titration 226.644 329.587 401.987 Amount Amiodarone 450 mg In 226.644 16.105 215.469 Dextrose 5% in Water 250 ml @ 1 MG/MIN 33.33 mls/ hr IV .Q7H31M JIMENA Rx#: [id number] Heparin Sodium,Porcine/ 313.482 186.518 D5w Pmx 25,000 unit In Dextrose/Water 1 500ml. bag @ 11.149 UNITS/KG/HR 20 mls/hr IV .Q24H JIMENA Rx #:[id number] Oral 720 480 Output: Urine 800 1500 400 Other: Voiding Method Urinal Urinal Urinal # Voids 1 - Exam PHYSICAL EXAMINATION: GENERAL: The patient is alert and oriented x3, not in any acute distress. Well developed, well nourished. HEENT: Pupils are round and equally reacting to light. EOMI. No scleral icterus. No conjunctival pallor. Normocephalic, atraumatic. No pharyngeal erythema. No thyromegaly. CARDIOVASCULAR: S1 and S2 present. No murmurs, rubs, or gallops. PULMONARY: Chest is clear to auscultation, no wheezing or crackles. ABDOMEN: Soft, nontender, nondistended, normoactive bowel sounds. No palpable organomegaly. MUSCULOSKELETAL: No joint swelling or deformity. EXTREMITIES: No cyanosis, clubbing, or pedal edema. NEUROLOGICAL: Gross neurological examination did not reveal any focal deficits. SKIN: No rashes. - Labs CBC & Chem 7: 11/08/17 01:03 11/08/17 01:03 Labs: Abnormal Lab Results - Last 24 Hours (Table) 11/07/17 11/07/17 11/07/17 Range/Units 16:27 18:23 18:23 RBC (4.30-5.90) m/uL Hgb (13.0-17.5) gm/dL Hct (39.0-53.0) % RDW (11.5-15.5) % APTT 31.8 H (22.0-30.0) sec BUN (9-20) mg/dL POC Glucose (mg/dL) 178 H (75-99) mg/dL Hemoglobin A1c 7.2 H (4.0-6.0) % 11/07/17 11/08/17 11/08/17 Range/Units 21:13 01:03 01:03 RBC 4.16 L (4.30-5.90) m/uL Hgb 12.3 L (13.0-17.5) gm/dL Hct 37.9 L (39.0-53.0) % RDW 18.2 H (11.5-15.5) % APTT (22.0-30.0) sec BUN 24 H (9-20) mg/dL POC Glucose (mg/dL) 152 H (75-99) mg/dL Hemoglobin A1c (4.0-6.0) % 11/08/17 11/08/17 11/08/17 Range/Units 01:03 08:33 11:52 RBC (4.30-5.90) m/uL Hgb (13.0-17.5) gm/dL Hct (39.0-53.0) % RDW (11.5-15.5) % APTT 44.8 H 48.6 H (22.0-30.0) sec BUN (9-20) mg/dL POC Glucose (mg/dL) 102 H (75-99) mg/dL Hemoglobin A1c (4.0-6.0) % Assessment and Plan Plan: -Atrial flutter: Patient is on IV amiodarone and anticoagulation these are being managed by cardiology -Mild congestive heart failure chronic diastolic dysfunction with minimal expiratory exacerbation and patient is presently euvolemic being switched to oral Lasix -History of multiple myeloma: Platelet counts are essentially within normal limits now because of which patient was started on anticoagulation, patient is on Revlimid and is on Bactrim -Bilateral hand and feet numbness and tingling: Probably secondary to peripheral neuropathy from diabetes mellitus -Gastroesophageal reflux disease -Abnormally elevated troponin probably secondary to demand mismatch -COPD without any acute exacerbation
[2017-11-08 16:56] LABS: Glucose,Whole Blood 136 mg/dL (75-99)
[2017-11-08 20:44] LABS: Glucose,Whole Blood 135 mg/dL (75-99)
[2017-11-08] MEDS: INSULIN DETEMIR 100 UNIT/ML 10 ML VIAL SQ SCH (21:10)
[2017-11-09] MEDS: ALPRAZolam 0.25 MG TAB PO PRN
[2017-11-09] MEDS ORDERED: DEXAMETHASONE 4 MG TAB PO SCH (00:34)
[2017-11-09 05:23] LABS: Glucose,Whole Blood 180 mg/dL (75-99)
[2017-11-09] MEDS: INSULIN ASPART 100 UNIT/ML 1 ML 10 ML VIAL SQ SCH ×4 (06:10→21:55)
[2017-11-09 06:41] LABS: Anisocytosis Slight; Basophils % (A) 0 %; Eosinophils % (A) 0 %; HCT 37.8 % (39.0-53.0); HGB 12.2 gm/dL (13.0-17.5); Lymphocytes # (A) 1.3 k/uL (1.0-4.8); Lymphocytes % (A) 13 %; MCH 29.5 pg (25.0-35.0); MCHC 32.4 g/dL (31.0-37.0); Mean Platelet Volume 7.2; Monocytes # (A) 0.1 k/uL (0-1.0); Monocytes % (A) 2 %; Neutrophils # (A) 8.5 k/uL (1.3-7.7); Neutrophils % (A) 85 %; Platelet Count 213 k/uL (150-450); RBC 4.15 m/uL (4.30-5.90); RDW 18.1 % (11.5-15.5); WBC 9.9 k/uL (3.8-10.6)
[2017-11-09 07:16] LABS: Anion Gap 12 mmol/L; Blood Urea Nitrogen 23 mg/dL (9-20); Carbon Dioxide 24 mmol/L (22-30); Chloride 103 mmol/L (98-107); Glucose 152 mg/dL (74-99); Potassium 4.7 mmol/L (3.5-5.1); Sodium 139 mmol/L (137-145)
[2017-11-09] MEDS: ASPIRIN 81 MG PO SCH (09:23)
[2017-11-09] MEDS: ACYCLOVIR 200 MG CAP PO SCH ×2 (09:23→21:55)
[2017-11-09] MEDS: APIXABAN 5 MG TAB PO SCH ×2 (09:23→21:55)
[2017-11-09] MEDS: AMIODARONE 200 MG TAB PO SCH ×3 (09:23→21:56)
[2017-11-09] MEDS: LISINOPRIL 5 MG TAB PO SCH (09:24)
[2017-11-09] MEDS: LENALIDOMIDE 25 MG PO SCH (09:24)
[2017-11-09] MEDS: METOPROLOL TARTRATE 25 MG TAB PO SCH (09:24)
[2017-11-09] MEDS: FUROSEMIDE 40 MG TAB PO SCH ×2 (09:24→18:09)
[2017-11-09] MEDS: POTASSIUM CHLORIDE ER 20 MEQ TAB.ER PO SCH ×2 (09:25→21:56)
[2017-11-09] MEDS: PANTOPRAZOLE 40 MG TABLET PO SCH (09:25)
[2017-11-09 11:58] LABS: Glucose,Whole Blood 242 mg/dL (75-99)
[2017-11-09] MEDS ORDERED: METOPROLOL TARTRATE 25 MG TAB PO STA (13:06)
[2017-11-09 16:49] LABS: Glucose,Whole Blood 176 mg/dL (75-99)
--- NOTE | 2017-11-09 17:00 | PN ---
PROGRESS NOTE This patient has been admitted with shortness of breath. The patient was found to be in atrial flutter with a moderately rapid ventricular response. The patient's heart rate remains in the range of 100-130. The patient remains in atrial flutter. Blood pressure is 120/82 mmHg. Respirations are not labored. First and second heart sounds are normal. Lungs are clinically clear to auscultation and percussion. The patient's Lopressor is increased to 50 mg b.i.d., we will give him 3 doses of IV Lanoxin. If the patient's heart rate remains high he may need a cardioversion. This was discussed with the patient. MMODL / IJN: [id number] /
[2017-11-09] MEDS: DIGOXIN 250 MCG/ML 2 ML AMP IVP SCH ×2 (18:11→23:37)
[2017-11-09 20:47] LABS: Glucose,Whole Blood 242 mg/dL (75-99)
[2017-11-09] MEDS: INSULIN DETEMIR 100 UNIT/ML 10 ML VIAL SQ SCH (21:54)
[2017-11-09] MEDS: METOPROLOL TARTRATE 50 MG TAB PO SCH (21:56)
--- NOTE | 2017-11-09 22:00 | PN ---
PROGRESS NOTE DATE OF SERVICE: 11/09/2017 This 77-year-old gentleman who was admitted with atrial flutter with CHF also has a history of multiple myeloma. The patient is being closely monitored at this time. The patient is feeling slightly better. Cardiology is following the patient closely. Medications were adjusted at this time. No chest pain. No palpitations. No fever. On exam, alert and oriented x3. Pulse 71, blood pressure 127/60, respiration 18, temperature 97.4, pulse ox 97% on room air. HEENT: Conjunctivae normal. NECK: Jugular venous distention at the root of the neck. CARDIOVASCULAR SYSTEM: S1, S2 irregular. RESPIRATORY SYSTEM: Breath sounds diminished at the bases. A few scattered rhonchi. ABDOMEN: Soft, non-tender. LEGS: No edema. NERVOUS SYSTEM: No focal deficit. LABS: WBC 9.2, hemoglobin 12.2. ASSESSMENT: 1. Congestive heart failure, acute exacerbation, with acute on chronic diastolic dysfunction; ejection fraction 50% to 55%. 2. Atrial fibrillation with fast ventricular rate. 3. History of multiple myeloma. 4. Bilateral feet and hand numbness. 5. Gastroesophageal reflux disease. 6. Chronic obstructive pulmonary disease. RECOMMENDATIONS AND DISCUSSION: I recommend to continue current medication, continue symptomatic treatment. Otherwise, at this time digoxin has been given. Closely follow with Cardiology. Increase ambulation. Further recommendations to follow. MMODL / IJN: [id number] /
--- NOTE | 2017-11-09 23:14 | P.PN ---
Subjective Patient is seen and examined by me at bedside Known new complaints No CP/SOB, no change in urine bowel habits, no fever pt HR still on the high side, his lopressor dose was increased to 50 mg bid , plus amiodarone Objective - Vital Signs Vital signs: Vital Signs Temp 97.5 F L 11/09/17 12:00 Pulse 128 H 11/09/17 12:00 Resp 18 11/09/17 12:00 BP 119/82 11/09/17 12:00 Pulse Ox 97 11/09/17 12:00 Intake & Output 11/08/17 11/09/17 11/09/17 18:59 06:59 18:59 Intake Total 1121.987 490 Output Total 2050 250 Balance -928.013 240 Weight 88.8 kg 88.5 kg Intake: Intake, IV Titration 401.987 Amount Amiodarone 450 mg In 215.469 Dextrose 5% in Water 250 ml @ 1 MG/MIN 33.33 mls/ hr IV .Q7H31M JIMENA Rx#: [id number] Heparin Sodium,Porcine/ 186.518 D5w Pmx 25,000 unit In Dextrose/Water 1 500ml. bag @ 11.149 UNITS/KG/HR 20 mls/hr IV .Q24H JIMENA Rx #:[id number] Oral 720 490 Output: Urine 0 250 Other: Voiding Method Urinal Urinal Urinal # Voids 2 - Exam Constitutional: No acute distress, conversant, pleasant Eyes: Anicteric sclerae, moist conjunctiva, no lid-lag PERRLA ENMT: NC/AT Oropharynx clear, no erythema, exudates Neck: Supple, FROM, no masses, or JVD No carotid bruits No thyromegaly Lungs: Clear to auscultation Clear to percussion Normal respiratory effort, no accessory muscle use Cardiovascular: Heart regular in rate and rhythm, No murmurs, gallops, or rubs No peripheral edema Abdominal: Soft Nontender, no guarding, rebound or rigidity Abdomen moving with respiration Normoactive bowel sounds No hepatomegaly, No splenomegaly No palpable mass No abdominal wall hernia noted Skin: Normal temperature, tone, texture, turgor No induration No subcutaneous nodules No rash, lesions No ulcers Extremities: No digital cyanosis No clubbing Pedal pulses intact and symmetrical Radial pulses intact and symmetrical Normal gait and station No calf tenderness Psychiatric: Alert and oriented to person, place and time Appropriate affect Intact judgement Neuro: Muscles Strength 5/5 in all 4 extremities Sensation to light touch grossly present throughout Cranial nerves II-XII grossly intact No focal sensory deficits - Labs CBC & Chem 7: 11/09/17 05:54 11/09/17 05:54 Labs: Abnormal Lab Results - Last 24 Hours (Table) 11/08/17 11/09/17 11/09/17 Range/Units 20:43 05:22 05:54 RBC 4.15 L (4.30-5.90) m/uL Hgb 12.2 L (13.0-17.5) gm/dL Hct 37.8 L (39.0-53.0) % RDW 18.1 H (11.5-15.5) % Neutrophils # 8.5 H (1.3-7.7) k/uL BUN (9-20) mg/dL Glucose (74-99) mg/dL POC Glucose (mg/dL) 135 H 180 H (75-99) mg/dL 11/09/17 11/09/17 11/09/17 Range/Units 05:54 11:32 16:36 RBC (4.30-5.90) m/uL Hgb (13.0-17.5) gm/dL Hct (39.0-53.0) % RDW (11.5-15.5) % Neutrophils # (1.3-7.7) k/uL BUN 23 H (9-20) mg/dL Glucose 152 H (74-99) mg/dL POC Glucose (mg/dL) 242 H 176 H (75-99) mg/dL Assessment and Plan Plan: -Atrial flutter: Patient is on IV amiodarone and anticoagulation these are being managed by cardiology, lopressor dose was increased to 50 mg bid, if no relief may consider cardioversion -Mild congestive heart failure chronic diastolic dysfunction with minimal expiratory exacerbation and patient is presently euvolemic being switched to oral Lasix -History of multiple myeloma: Platelet counts are essentially within normal limits now because of which patient was started on anticoagulation, patient is on Revlimid and is on Bactrim -DM: Hb A1c 7.2%, c/w levvemir 20 HS -Bilateral hand and feet numbness and tingling: Probably secondary to peripheral neuropathy from diabetes mellitus -Gastroesophageal reflux disease -Abnormally elevated troponin probably secondary to demand mismatch -COPD without any acute exacerbation
[2017-11-10] MEDS: ALPRAZolam 0.25 MG TAB PO PRN (01:07)
[2017-11-10 06:04] LABS: Glucose,Whole Blood 149 mg/dL (75-99)
[2017-11-10] MEDS: INSULIN ASPART 100 UNIT/ML 1 ML 10 ML VIAL SQ SCH ×4 (06:36→21:09)
[2017-11-10 06:51] LABS: Anisocytosis Slight; Basophils % (A) 0 %; Eosinophils % (A) 0 %; HCT 36.8 % (39.0-53.0); Lymphocytes % (A) 14 %; MCH 29.5 pg (25.0-35.0); MCHC 32.5 g/dL (31.0-37.0); MCV 90.8 fL (80.0-100.0); Mean Platelet Volume 6.7; Monocytes # (A) 0.5 k/uL (0-1.0); Monocytes % (A) 4 %; Neutrophils # (A) 12.2 k/uL (1.3-7.7); Neutrophils % (A) 82 %; Platelet Count 246 k/uL (150-450); RBC 4.06 m/uL (4.30-5.90); RDW 18.4 % (11.5-15.5); WBC 14.9 k/uL (3.8-10.6)
[2017-11-10] MEDS: DIGOXIN 250 MCG/ML 2 ML AMP IVP SCH (07:02)
[2017-11-10] MEDS: LENALIDOMIDE 25 MG PO SCH (08:37)
[2017-11-10] MEDS: ACYCLOVIR 200 MG CAP PO SCH ×2 (08:39→20:30)
[2017-11-10] MEDS: PANTOPRAZOLE 40 MG TABLET PO SCH (08:40)
[2017-11-10] MEDS: ASPIRIN 81 MG PO SCH (08:40)
[2017-11-10] MEDS: POTASSIUM CHLORIDE ER 20 MEQ TAB.ER PO SCH ×2 (08:40→20:30)
[2017-11-10] MEDS: AMIODARONE 200 MG TAB PO SCH ×3 (08:40→20:30)
[2017-11-10] MEDS: APIXABAN 5 MG TAB PO SCH ×2 (08:40→20:30)
[2017-11-10] MEDS: SULFAMETHOX-TMP 800-160MG 1 EACH TAB PO SCH (08:40)
[2017-11-10] MEDS: FUROSEMIDE 40 MG TAB PO SCH ×2 (08:41→16:54)
[2017-11-10] MEDS: METOPROLOL TARTRATE 50 MG TAB PO SCH ×3 (08:43→20:30)
[2017-11-10] MEDS ORDERED: PATIENT'S OWN MED (Dulaglutide [Trulicity] 0.75 MG) SQ SCH (09:00)
[2017-11-10 11:32] LABS: Glucose,Whole Blood 197 mg/dL (75-99)
--- NOTE | 2017-11-10 15:15 | P.CONS ---
History of Present Illness - Reason for Consult Consult date: 11/10/17 Multiple Myeloma Requesting physician: Jose M Urena - Chief Complaint Bilateral upper extremities pareshesias and A-Flutter with RVR. - History of Present Illness Eugene presented to Dr Negin Loaiza, his PCP with progressive L shoulder pain following a fall while walking in park 6 months ago. L shoulder X-Ray recently performed revealed 7.6X8.3X3.5 cm destructive lesion in left Acromion and Scapula. Bone Scan on 04/23/17 was unremarkable. He was refered to Dr Dempsey ( Ortho-Onc) at [facility] > SPEP revealed Monoclonal Gammapathy (4.8 gr) and Immunoglobulin levels revealed IgG of 6.6 grams with depression of IgA and IgM. Bone survay ([facility]) revealed known L shoulder process, as well as, numerous intermidiate Lytic fossi within skull, R fibula, L distal femur and others. No surgical intervention recommended. The patient tried Tylenol #3 with minimal to no benefit > stopped due to severe constipation. Joe reported feeling well other than L shoulder pain, denies anorexia or weight loss, remains active and independent. He is a lifetime non smoker, denies ETOH. 08/31/17: Tolerated RVD well > C/O fatigue, no skeletal pain. 09/21/17: Increased SOB and BLE Swelling. LE Doppler Negative for DVT, CT Chest with mild increased pericardial effusion and pleural effusions, concern for bronchitis/infectious process. He was advised to follow-up with Cardiology at this appointment Patient was most recently receiving Revlimid, Velcade and Dexamethasone. He received last treatment on September 18. He was also receiving monthy zometa. After last appointment as outpatient he was admitted in hospital with Pulmonary edema and discharged to rehab, since then he has had recurrent admissions, therefore has not restarted his multiple myeloma treatments. We have been asked to see patient at this time regarding continuating to hold current treatment for myeloma secondary to need to increase performance status in rehab. Review of Systems A 14 point review assessed and completed and all negative except HPI Past Medical History Past Medical History: Cancer, Hypertension, Osteoarthritis (OA), Supraventricular Tachycardia (SVT) Additional Past Medical History / Comment(s): Multiple myeloma, prostate cancer , skin cancer, hypertension, degenerative arthritis, episodes of SVT a discussed above, nephrolithiasis, History of Any Multi-Drug Resistant Organisms: None Reported Past Surgical History: Heart Catheterization, Hernia Repair, Prostate Surgery Additional Past Surgical History / Comment(s): rt wrist ganglion cysts removed Past Anesthesia/Blood Transfusion Reactions: No Reported Reaction Past Psychological History: Anxiety Smoking Status: Never smoker Past Alcohol Use History: None Reported Past Drug Use History: None Reported - Past Family History Father History Unknown: Yes Mother History Unknown: Yes Medications and Allergies Home Medications Medication Instructions Recorded Confirmed Type Aspirin EC [Ecotrin Low Dose] 81 mg PO DAILY 12/21/16 11/07/17 History Omeprazole 20 mg PO DAILY 08/03/17 11/07/17 History Acyclovir [Zovirax] 400 mg PO BID 09/24/17 11/07/17 History Dexamethasone 40 mg PO TU 09/24/17 11/07/17 History Furosemide [Lasix] 40 mg PO BID 09/24/17 11/08/17 History Potassium Chloride ER [K-Dur 20] 20 meq PO DAILY 09/24/17 11/07/17 History ALPRAZolam [Xanax] 0.25 mg PO TID PRN #20 tab 09/30/17 11/08/17 Rx Dulaglutide [Trulicity] 0.75 mg SQ WE 11/07/17 11/08/17 History Glimepiride [Amaryl] 1 mg PO BID 11/07/17 11/08/17 History Lenalidomide [Revlimid] 25 mg PO DIRECTED 11/07/17 11/08/17 History Metoprolol Tartrate [Lopressor] 50 mg PO DAILY 11/07/17 11/08/17 History Sulfamethox-Tmp 800-160Mg [Bactrim 1 tab PO DIRECTED 11/07/17 11/08/17 History DS 800-160 mg] Diltiazem HCl 60 mg PO TID 11/08/17 11/08/17 History HYDROcodone/APAP 7.5-325MG [[place] 1 tab PO Q6H PRN 11/08/17 11/08/17 History 7.5-325] Ipratropium-Albuterol Nebulize 3 ml INHALATION RT-QID PRN 11/08/17 11/08/17 History [Duoneb 0.5 mg-3 mg/3 ml Soln] Melatonin 5 mg PO HS 11/08/17 11/08/17 History amLODIPine [Norvasc] 5 mg PO DAILY 11/08/17 11/08/17 History traMADol HCL [Ultram] 50 mg PO QID PRN 11/08/17 11/08/17 History Allergies Allergy/AdvReac Type Severity Reaction Status Date / Time No Known Allergies Allergy Verified 11/07/17 11:17 Physical Exam Vitals: Vital Signs Temp Pulse Resp BP Pulse Ox 11/10/17 11:59 54 L 14 11/10/17 11:58 97.1 F L 54 L 14 123/60 96 11/10/17 08:00 97.3 F L 44 L 16 121/61 95 11/10/17 04:00 78 17 117/66 97 11/10/17 00:00 97.2 F L 62 16 117/72 96 11/09/17 20:00 97.2 F L 62 16 127/66 96 11/09/17 17:30 97.5 F L 71 18 127/68 97 Intake and Output 11/09/17 11/10/17 11/10/17 22:59 06:59 14:59 Intake Total 240 200 Output Total 950 Balance 240 -950 200 Intake: Oral 240 200 Output: Urine 950 Other: Voiding Method Urinal Urinal Urinal # Voids 2 # Bowel Movements 0 Weight 88.4 kg - Constitutional General appearance: average body habitus, no acute distress - EENT Eyes: EOMI, PERRLA, dentition normal ENT: NA/AT, normal oropharynx - Neck Neck: normal ROM - Respiratory Respiratory: bilateral: diminished (bilateral lower lobes) - Cardiovascular Rhythm: irregularly irregular - Gastrointestinal General gastrointestinal: normal bowel sounds, soft - Neurologic Neurologic: CNII-XII intact - Musculoskeletal Musculoskeletal: generalized weakness, strength equal bilaterally - Psychiatric Psychiatric: A&O x's 3, appropriate affect Results CBC & Chem 7: 11/10/17 06:15 11/09/17 05:54 Labs: Abnormal Lab Results - Last 24 Hours (Table) 11/09/17 11/09/17 11/10/17 Range/Units 16:36 20:46 06:03 WBC (3.8-10.6) k/uL RBC (4.30-5.90) m/uL Hgb (13.0-17.5) gm/dL Hct (39.0-53.0) % RDW (11.5-15.5) % Neutrophils # (1.3-7.7) k/uL POC Glucose (mg/dL) 176 H 242 H 149 H (75-99) mg/dL 11/10/17 11/10/17 Range/Units 06:15 11:24 WBC 14.9 H (3.8-10.6) k/uL RBC 4.06 L (4.30-5.90) m/uL Hgb 12.0 L (13.0-17.5) gm/dL Hct 36.8 L (39.0-53.0) % RDW 18.4 H (11.5-15.5) % Neutrophils # 12.2 H (1.3-7.7) k/uL POC Glucose (mg/dL) 197 H (75-99) mg/dL Assessment and Plan (1) Atrial fibrillation with RVR Current Visit: Yes Status: Acute Code(s): I48.91 - UNSPECIFIED ATRIAL FIBRILLATION SNOMED Code(s): 067651773877426 (2) CHF exacerbation Current Visit: Yes Status: Acute Code(s): I50.9 - HEART FAILURE, UNSPECIFIED SNOMED Code(s): 00314190 (3) Acute pulmonary edema Current Visit: No Status: Acute Code(s): J81.0 - ACUTE PULMONARY EDEMA SNOMED Code(s): 88394629 (4) Anemia Current Visit: No Status: Acute Code(s): D64.9 - ANEMIA, UNSPECIFIED SNOMED Code(s): 600115257 (5) IgG lambda monoclonal gammopathy Current Visit: No Status: Acute Priority: High Code(s): D47.2 - MONOCLONAL GAMMOPATHY SNOMED Code(s): 73170827 (6) Multiple myeloma Current Visit: No Status: Chronic Priority: Medium Code(s): C90.00 - MULTIPLE MYELOMA NOT HAVING ACHIEVED REMISSION SNOMED Code(s): 011366113 Plan: Assessment and Recommendations: 1. Multiple Myeloma - Last received regimen with Zometa, Vecade, Revlimid, and Dexamethasone in Mid September - On Hold for acute Cardiology related issues - Will continue to hold ZOmeta, Velcade and Revlimid while In Rehab and Agree with continueing Dexamethasone, acyclovir, and Bactrim at current regimen for partial treatment of Myeloma. - If Patient is able to have blood draws would like to recheck myeloma labs either prior to discharge or in rehab. SPEP, FLC kappa and Lambda, Immunofixation and Immunoglobulins - Our office will set up for follow-up appointment in 1-2 weeks - or after released from Rehab 2. A-Flutter with Atrial Fibbrillation - Per Cardiology 3. Chronic Illness Myopathy: - Plan for Rehab at discharge and continue to hold Revlimid until Discharged from rehab. Physician Attestation: I have completed the full history and physical of this patient and discussed and agree with Dacia Reddy's, [employer] Dictation, She has dictated above note as a scribe.
[2017-11-10 16:47] LABS: Glucose,Whole Blood 120 mg/dL (75-99)
--- NOTE | 2017-11-10 17:37 | PN ---
PROGRESS NOTE DATE OF SERVICE: 11/10/2017. This 77-year-old woman who was admitted with CHF acute exacerbation of atrial fibrillation, is being closely monitored. No chest pain. No palpitations. Patient is also complaining of weakness and gait dysfunction. PHYSICAL EXAM: Alert and oriented x3. Pulse is 54, blood pressure 120/60, respiration 14, temperature 97.1, pulse ox 98% on room air. HEENT: Conjunctivae normal. NECK: No jugular venous distention. CARDIOVASCULAR: S1, S2. Respiratory: Breath sounds diminished in the bases. A few scattered rhonchi and crackles. ABDOMEN: Soft, nontender. No mass palpable. LEGS: No edema, no swelling. NERVOUS SYSTEM: Mild diffuse weakness. No focal deficits. LABS: WBC 14, hemoglobin 12. Other labs noted. ASSESSMENT: 1. Congestive heart failure acute exacerbation with acute on chronic diastolic dysfunction, ejection fraction 50-55%. 2. Atrial fibrillation with fast ventricular rate. 3. Gait dysfunction with weakness. 4. History of multiple myeloma. 5. Bilateral feet and hand numbness. 6. Gastroesophageal reflux disease. 7. Chronic obstructive pulmonary disease. RECOMMENDATIONS AND DISCUSSION: I recommend to continue current management and continue with current medications which are reviewed and PT, OT evaluation, possible ECF rehab. Closely follow with Cardiology. Guarded prognosis. Further recommendations to follow. Monitor blood sugars closely. MMODL / IJN: [id number] /
--- NOTE | 2017-11-10 18:19 | PN ---
PROGRESS NOTE This patient was admitted with atrial flutter, rapid ventricular response. The patient is feeling better. He had some mild exertional shortness of breath. Patient's heart rate now is 75 to 80 per minute. The rate is controlled better. Blood pressure is 123/60 mmHg. First and second heart sounds are normal. Lungs are clinically clear to auscultation and percussion. We will continue the patient on the current medications. If the patient remains under good control, he can be discharged home tomorrow. MMODL / IJN: [id number] /
[2017-11-10 20:46] LABS: Glucose,Whole Blood 171 mg/dL (75-99)
[2017-11-10] MEDS: INSULIN DETEMIR 100 UNIT/ML 10 ML VIAL SQ SCH (21:10)
[2017-11-11 06:10] LABS: Anisocytosis Slight; Basophils % (A) 0 %; Eosinophils # (A) 0.1 k/uL (0-0.7); Eosinophils % (A) 1 %; HCT 35.7 % (39.0-53.0); HGB 11.9 gm/dL (13.0-17.5); Lymphocytes # (A) 2.7 k/uL (1.0-4.8); Lymphocytes % (A) 24 %; MCH 30.2 pg (25.0-35.0); MCHC 33.5 g/dL (31.0-37.0); MCV 90.3 fL (80.0-100.0); Mean Platelet Volume 7.4; Monocytes # (A) 0.7 k/uL (0-1.0); Monocytes % (A) 6 %; Neutrophils # (A) 7.9 k/uL (1.3-7.7); Neutrophils % (A) 69 %; Platelet Count 237 k/uL (150-450); RBC 3.95 m/uL (4.30-5.90); RDW 18.1 % (11.5-15.5); WBC 11.5 k/uL (3.8-10.6)
[2017-11-11 06:10] LABS: Glucose,Whole Blood 94 mg/dL (75-99)
[2017-11-11] MEDS: INSULIN ASPART 100 UNIT/ML 1 ML 10 ML VIAL SQ SCH ×4 (06:18→21:39)
[2017-11-11] MEDS: APIXABAN 5 MG TAB PO SCH ×2 (09:21→21:40)
[2017-11-11] MEDS: AMIODARONE 200 MG TAB PO SCH ×3 (09:21→21:41)
[2017-11-11] MEDS: ACYCLOVIR 200 MG CAP PO SCH ×2 (09:21→21:40)
[2017-11-11] MEDS: ASPIRIN 81 MG PO SCH (09:22)
[2017-11-11] MEDS: LENALIDOMIDE 25 MG PO SCH (09:22)
[2017-11-11] MEDS: FUROSEMIDE 40 MG TAB PO SCH ×2 (09:22→15:25)
[2017-11-11] MEDS: METOPROLOL TARTRATE 50 MG TAB PO SCH ×2 (09:23→21:40)
[2017-11-11] MEDS: PANTOPRAZOLE 40 MG TABLET PO SCH (09:23)
[2017-11-11] MEDS: POTASSIUM CHLORIDE ER 20 MEQ TAB.ER PO SCH ×2 (09:23→21:40)
[2017-11-11 12:09] LABS: Glucose,Whole Blood 95 mg/dL (75-99)
--- NOTE | 2017-11-11 14:07 | P.PN ---
Subjective Progress Note Date: 11/11/17 This is a 7-year-old gentleman with history of multiple myeloma, hypertension, who was recently in the hospital in September of this year, he was seen in consultation by Dr. Moura at that time. Patient was noted at that time to be in atrial flutter, felt not to be a candidate for anticoagulation because of anemia and thrombocytopenia at that time. He had an echocardiogram with Doppler study performed on that admission which revealed an ejection fraction of 50-55%. He presents to the hospital on this admission with symptoms of bilateral feet and hand numbness and tingling. According to the patient, he's also been having what he describes as anxiety attacks, we feel short of breath and feels like his heart is racing fast. For this he takes Xanax. EKG on admission here shows atrial flutter with a moderately rapid ventricular response , occasional PVC. On review of the rhythm strips, patient is in atrial flutter , he is noted to have runs of nonsustained ventricular tachycardia up to 5 complexes at a time Chest x-ray did not reveal any acute findings. CT of the chest was performed which did not reveal evidence of pulmonary embolism, stable moderate pericardial effusion noted. Blood pressure 110/70 with a heart rate at this time the 1:30 to 140 range, temperature 97.9. White blood cell count 12.4, hemoglobin 12.8, platelet count 236. D-dimer 0.6. Sodium 138, potassium 4.7, BUN 37, creatinine 1.0. Magnesium level 2.0. Troponins 0.040, 0.041. Patient was noted on review of prior records to have or abnormality in troponins in this range. BNP level 1680. At the time of my examination, patient was feeling quite anxious, short of breath, feeling his heart racing fast. Still complaining of tingling in his bilateral hands and feet. 11/11/2017 Patient seen and examined this morning, he's been up ambulating in the hallway without any difficulty. Heart rate under much better control today, in the 80s. Blood pressure 113/70, 98% on room air. Objective - Vital Signs Vital signs: Vital Signs Temp 96.6 F L 11/11/17 11:29 Pulse 61 11/11/17 11:29 Resp 16 11/11/17 11:29 BP 113/73 11/11/17 11:29 Pulse Ox 98 11/11/17 11:29 Intake & Output 11/10/17 11/11/17 11/11/17 18:59 06:59 18:59 Intake Total 440 240 Output Total 450 1050 Balance -10 -1050 240 Weight 84.6 kg Intake: Oral 440 240 Output: Urine 450 1050 Other: Voiding Method Urinal Urinal Urinal # Voids 1 - Exam PHYSICAL EXAMINATION: HEENT: Head is atraumatic, normocephalic. Pupils equal, round. Neck is supple. There is elevated jugular venous pressure. HEART EXAMINATION: S1 and S2 irregularly irregular CHEST EXAMINATION: Lungs clear to auscultation. ABDOMEN: Soft, nontender. Bowel sounds are heard. No organomegaly noted. EXTREMITIES: 2+ peripheral pulses with no evidence of peripheral edema and no calf tenderness noted. NEUROLOGIC patient is awake, alert and oriented -3. . - Labs CBC & Chem 7: 11/11/17 05:52 11/09/17 05:54 Labs: Abnormal Lab Results - Last 24 Hours (Table) 11/10/17 11/10/17 11/11/17 Range/Units 16:35 20:45 05:52 WBC 11.5 H (3.8-10.6) k/uL RBC 3.95 L (4.30-5.90) m/uL Hgb 11.9 L (13.0-17.5) gm/dL Hct 35.7 L (39.0-53.0) % RDW 18.1 H (11.5-15.5) % Neutrophils # 7.9 H (1.3-7.7) k/uL POC Glucose (mg/dL) 120 H 171 H (75-99) mg/dL Assessment and Plan Plan: Assessment and plan #1 bilateral hand and feet numbness and tingling #2 atrial flutter with rapid ventricular response, patient has chronic atypical atrial flutter. Not on anticoagulation because last month patient was felt not to be a candidate because of thrombocytopenia and anemia #3 multiple myeloma #4 abnormal troponin, not consistent with acute coronary syndrome, likely secondary to supply and demand mismatch. Upon review of prior records, patient is noted to have abnormality in this range in his troponins. #5 COPD Plan From cardiology's perspective, patient may be able to be discharged home today. We will make him a follow-up appointment in the office post discharge. DNP note has been reviewed, I agree with a documented findings and plan of care. Patient was seen and examined.
--- NOTE | 2017-11-11 15:02 | DS ---
DISCHARGE SUMMARY DATE OF SERVICE: 11/11/2017. FINAL DIAGNOSES: 1. Congestive heart failure acute exacerbation with acute on chronic diastolic dysfunction, ejection fraction 50%-55%. 2. Atrial fibrillation with fast ventricular rate. 3. Gait dysfunction with weakness. 4. History of multiple myeloma. 5. Bilateral feet and hand numbness. 6. Gastroesophageal reflux disease. 7. Chronic obstructive pulmonary disease. DISCHARGE DISPOSITION: The patient will be discharged in a stable position with guarded prognosis. ECF rehab is recommended in [facility]. Total time taken is 35 minutes. HISTORY OF PRESENT ILLNESS: This is a 77-year-old gentleman with a past medical history of multiple medical problems was admitted with CHF exacerbation and multiple other medical problems. Patient treated with diuretics. Patient improved significantly. Patient was seen by Cardiology during the hospitalization and as well as Hematology/Oncology. On exam, vital signs are stable. CARDIOVASCULAR: S2, S2. RESPIRATIONS: A few scattered rhonchi. ABDOMEN: Soft. NERVOUS SYSTEM: No focal deficits. Diet is cardiac. Activity limited until followup. Follow up with Dr. Loaiza in 2-3 days. Follow up with Cardiology and Dr. Ansari as advised. Follow up with Dr. Jung and Dr. Mcneill in the ECF. MEDICATIONS: 1. Zovirax 400 mg p.o. b.i.d. 2. Xanax 0.5 t.i.d. p.r.n. 3. Cordarone 200 mg p.o. t.i.d. 4. Norvasc 5 mg p.o. daily. 5. Eliquis 5 mg p.o. daily. 6. Ecotrin 81 mg daily. 7. 40 mg . 8. Trulicity 0.7 units subcu . 9. Lasix 40 mg p.o. b.i.d. 10.Amaryl 1 mg p.o. b.i.d. 11.[place] 7.5 q.6 p.r.n. 12.Levemir 10 units subcu q.h.s. 13.DuoNeb q.i.d. p.r.n. 14.Revlimid 25 mg p.r.n. 15.Melatonin 5 mg q.h.s. 16.Lopressor 50 mg daily. 17.Omeprazole 20 mg daily. 18.K-Dur 20 mEq p.o. daily. 19.Bactrim DS 1 p.o. b.i.d. as before. 20.Ultram 50 mg p.o. q.i.d. AFSHIN / JAMIEN: [id number] / MTDD
[2017-11-11 16:57] LABS: Protein, Total 5.8 g/dL (6.2-8.2)
[2017-11-11 17:25] LABS: Glucose,Whole Blood 108 mg/dL (75-99)
--- NOTE | 2017-11-11 17:36 | P.PN ---
Subjective Progress Note Date: 11/11/17 Principal diagnosis: Multiple Myeloma No acute events Objective - Vital Signs Vital signs: Vital Signs Temp 96.6 F L 11/11/17 11:29 Pulse 61 11/11/17 11:29 Resp 16 11/11/17 11:29 BP 113/73 11/11/17 11:29 Pulse Ox 98 11/11/17 11:29 Intake & Output 11/10/17 11/11/17 11/11/17 18:59 06:59 18:59 Intake Total 440 240 Output Total 450 1050 Balance -10 -1050 240 Weight 84.6 kg Intake: Oral 440 240 Output: Urine 450 1050 Other: Voiding Method Urinal Urinal Urinal # Voids 1 - Constitutional General appearance: Present: cooperative, no acute distress - EENT Eyes: Present: EOMI, PERRLA, poor dentition ENT: Present: hard of hearing, NA/AT, normal oropharynx - Neck Neck: Present: normal ROM - Respiratory Respiratory: bilateral: CTA - Cardiovascular Rhythm: irregularly irregular - Gastrointestinal General gastrointestinal: Present: normal bowel sounds, soft - Integumentary Integumentary: Present: pale - Neurologic Neurologic: Present: CNII-XII intact - Musculoskeletal Musculoskeletal: Present: generalized weakness, strength equal bilaterally - Psychiatric Psychiatric: Present: A&O x's 3, appropriate affect - Labs CBC & Chem 7: 11/11/17 05:52 11/09/17 05:54 Labs: Abnormal Lab Results - Last 24 Hours (Table) 11/10/17 11/10/17 11/11/17 Range/Units 16:35 20:45 05:52 WBC 11.5 H (3.8-10.6) k/uL RBC 3.95 L (4.30-5.90) m/uL Hgb 11.9 L (13.0-17.5) gm/dL Hct 35.7 L (39.0-53.0) % RDW 18.1 H (11.5-15.5) % Neutrophils # 7.9 H (1.3-7.7) k/uL POC Glucose (mg/dL) 120 H 171 H (75-99) mg/dL Assessment and Plan (1) Atrial fibrillation with RVR Current Visit: Yes Status: Acute Code(s): I48.91 - UNSPECIFIED ATRIAL FIBRILLATION SNOMED Code(s): 987501980407106 (2) CHF exacerbation Current Visit: Yes Status: Acute Code(s): I50.9 - HEART FAILURE, UNSPECIFIED SNOMED Code(s): 06617778 (3) Acute pulmonary edema Current Visit: No Status: Acute Code(s): J81.0 - ACUTE PULMONARY EDEMA SNOMED Code(s): 26343133 (4) Anemia Current Visit: No Status: Acute Code(s): D64.9 - ANEMIA, UNSPECIFIED SNOMED Code(s): 518858912 (5) IgG lambda monoclonal gammopathy Current Visit: No Status: Acute Priority: High Code(s): D47.2 - MONOCLONAL GAMMOPATHY SNOMED Code(s): 90340173 (6) Multiple myeloma Current Visit: No Status: Chronic Priority: Medium Code(s): C90.00 - MULTIPLE MYELOMA NOT HAVING ACHIEVED REMISSION SNOMED Code(s): 913798440 Plan: Assessment and Recommendations: 1. Multiple Myeloma - Last received regimen with Zometa, Vecade, Revlimid, and Dexamethasone in Mid September - On Hold for acute Cardiology related issues - Will continue to hold ZOmeta, Velcade and Revlimid while In Rehab and Agree with continueing Dexamethasone, acyclovir, and Bactrim at current regimen for partial treatment of Myeloma. - Recheck myeloma labs either prior to discharge or in rehab. SPEP, FLC kappa and Lambda, Immunofixation and Immunoglobulins - Appointment has been made for patient on November 26, at [address] Ansari in office to follow-up regarding restarting rev/velcade/zometa 2. A-Flutter with Atrial Fibbrillation - Per Cardiology 3. Weakness :Improving - Patient up in hallway today and ambulating well - If patient is needed to seek further care at Rehab ok to continue to hold Revlimid until Discharged from rehab. Otherwise follow-up after disacvharge if discharged home to re-evaluate for re-intiation of MM treatment plan. Physician Attestation: I have completed the full history and physical of this patient and discussed and agree with Dacia Reddy's, [employer] Dictation, She has dictated above note as a scribe.
[2017-11-11] MEDS: INSULIN DETEMIR 100 UNIT/ML 10 ML VIAL SQ SCH (21:39)
[2017-11-11 21:43] LABS: Glucose,Whole Blood 154 mg/dL (75-99)
--- NOTE | 2017-11-11 21:44 | PN ---
PROGRESS NOTE DATE OF SERVICE: 11/11/2017 This 77-year-old gentleman admitted with CHF, acute exacerbation, is being closely monitored. No chest pain. No palpitations. No fever. On exam, alert oriented x3. Pulse 67, blood pressure 113/73, respiration 16, temperature 96.6, pulse ox 98% on room air. HEENT: Conjunctivae normal. NECK: No jugular venous distention. CARDIOVASCULAR SYSTEM: S1, S2 muffled. RESPIRATORY SYSTEM: Breath sounds diminished at the bases. A few scattered rhonchi and crackles. ABDOMEN: Soft, non-tender. LEGS: No edema. No swelling. NERVOUS SYSTEM: No focal deficit. LABS: WBC 11.5, hemoglobin 11.9. ASSESSMENT: 1. Congestive heart failure, acute exacerbation, with acute on chronic diastolic dysfunction, ejection fraction 50% to 55%. 2. Atrial fibrillation with fast ventricular rate. 3. Gait dysfunction. 4. Multiple myeloma. 5. Bilateral feet and hand numbness. RECOMMENDATIONS AND DISCUSSION: I recommend to continue current medications, continue with symptomatic treatment. Otherwise, closely follow with Cardiology. Once cleared by Hematology/Oncology, ECF rehab. Guarded prognosis. Further recommendations to follow. MMODL / IJN: [id number] /
[2017-11-12 00:12] VITALS: RESP 16
[2017-11-12] MEDS: ALPRAZolam 0.25 MG TAB PO PRN (02:10)
[2017-11-12 07:03] LABS: Glucose,Whole Blood 71 mg/dL (75-99)
[2017-11-12] MEDS: INSULIN ASPART 100 UNIT/ML 1 ML 10 ML VIAL SQ SCH ×2 (08:27→12:23)
[2017-11-12] MEDS: LENALIDOMIDE 25 MG PO SCH (08:28)
[2017-11-12 08:40] LABS: Anisocytosis Slight; Basophils % (A) 0 %; Eosinophils % (A) 1 %; HCT 36.2 % (39.0-53.0); HGB 12.2 gm/dL (13.0-17.5); Lymphocytes # (A) 2.2 k/uL (1.0-4.8); Lymphocytes % (A) 26 %; MCH 30.4 pg (25.0-35.0); MCHC 33.7 g/dL (31.0-37.0); MCV 90.4 fL (80.0-100.0); Mean Platelet Volume 6.7; Monocytes # (A) 0.6 k/uL (0-1.0); Monocytes % (A) 7 %; Neutrophils # (A) 5.4 k/uL (1.3-7.7); Neutrophils % (A) 65 %; Platelet Count 228 k/uL (150-450); RBC 4.01 m/uL (4.30-5.90); RDW 17.8 % (11.5-15.5); WBC 8.4 k/uL (3.8-10.6)
[2017-11-12] MEDS: FUROSEMIDE 40 MG TAB PO SCH (10:06)
[2017-11-12] MEDS: PANTOPRAZOLE 40 MG TABLET PO SCH (10:06)
[2017-11-12] MEDS: POTASSIUM CHLORIDE ER 20 MEQ TAB.ER PO SCH (10:06)
[2017-11-12] MEDS: ASPIRIN 81 MG PO SCH (10:07)
[2017-11-12] MEDS: AMIODARONE 200 MG TAB PO SCH (10:07)
[2017-11-12] MEDS: APIXABAN 5 MG TAB PO SCH (10:07)
[2017-11-12] MEDS: METOPROLOL TARTRATE 50 MG TAB PO SCH (10:07)
[2017-11-12] MEDS: SULFAMETHOX-TMP 800-160MG 1 EACH TAB PO SCH (10:07)
[2017-11-12] MEDS: ACYCLOVIR 200 MG CAP PO SCH (10:07)
[2017-11-12 11:33] LABS: Glucose,Whole Blood 85 mg/dL (75-99)
--- NOTE | 2017-11-12 12:02 | DS ---
DISCHARGE SUMMARY ADDENDUM: This 77-year-old gentleman admitted with CHF acute exacerbation, also multiple medical problems including gait dysfunction also. The patient is followed by Dr. Solo Loaiza in the outpatient setting. The patient will be transferred under the care of Dr. Jung and Dr. Mcneill in [facility]. Please refer to my previous dictation for list of diagnoses, list of medications. Total time taken 35 minutes. On exam, vitals are stable. CARDIOVASCULAR: S1, S2. RESPIRATIONS: A few scattered rhonchi. ABDOMEN: Soft. NERVOUS SYSTEM: No focal deficits. MMODL / IJN: [id number] /
[2017-11-12 13:19] LABS: Immunoglobulin M 56.8 mg/dL (40.0-280.0)
[2017-11-12 15:27] VITALS: BP 92/52; PULSE 65; TEMP 98.3
[2017-11-15 10:20] LABS: Albumin 3.63 g/dL (3.80-4.90); Gamma Globulin 0.51 g/dL (0.70-1.50)
--- NOTE | 2017-11-15 18:09 | CDI ---
Last Revision, June 2017 Documentation Clarification Form Date: 11/15/17 From: Wanda Ulises Katerin Goddard, Molder Fitting Hours-8:30 am & 5 pm [place] Admit Date: 11/07/2017 12:36:00 AM Patient Name: Eugene Rick Visit Number: [id number] Discharge Date: 11/12/17 ATTENTION: The Clinical Documentation Specialists (CDI) and [facility] Coding Staff appreciate your assistance in clarifying documentation. Please respond to the clarification below the line at the bottom and electronically sign. The CDI & [facility] Coding staff will review the response and follow-up if needed. Please note: Queries are made part of the Legal Health Record. If you have any questions, please contact the author of this message via ITS. Dr. Jose M Urena Atrial fibrillation is documented in the ED Note,consult, PNs 11/09, 11/10, 11/11 and DS. History/Risk Factors: acute on chronic diastolic CHF, atypical atrial flutter, DM, COPD, HTN Clinical Indicators: EKG/telemetry: Atrial flutte with variable AAV block wiht premature ventricular or aberrantly conducted complexes Treatment: IV Cardizem, Amiodarone, Eliquis In your professional opinion, can you please clarify the type of atrial fibrillation, if known? Chronic/Permanent Paroxysmal Persistent Other, please specify Unable to determine Please continue to document in your progress notes and discharge summary in order to capture severity of illness and risk of mortality. Include clinical findings that support your diagnosis. Chronic/Permanent MTDD
== END 2017-11-12 16:42 | DRG 308 ==
LOC: EC 20:55 → OBSVTOIN 11-07 00:36 → 6SEL 11-07 00:36 → 4MS4W 11-11 21:24
PROVIDERS: ADMIT Hospitalist; ATTEND Hospitalist
DX: I48.4 Atypical atrial flutter (principal); I50.33 Acute on chronic diastolic (congestive) heart failure; C90.00 Multiple myeloma not having achieved remission; I11.0 Hypertensive heart disease with heart failure; I47.2 Ventricular tachycardia; J44.9 Chronic obstructive pulmonary disease, unspecified; E11.42 Type 2 diabetes mellitus with diabetic polyneuropathy; D64.9 Anemia, unspecified; I48.2 Chronic atrial fibrillation; I49.3 Ventricular premature depolarization; M25.512 Pain in left shoulder; F41.9 Anxiety disorder, unspecified; R26.9 Unspecified abnormalities of gait and mobility; K21.9 Gastro-esophageal reflux disease without esophagitis; M19.91 Primary osteoarthritis, unspecified site; Z79.84 Long term (current) use of oral hypoglycemic drugs; Z79.82 Long term (current) use of aspirin; Z79.52 Long term (current) use of systemic steroids; Z79.899 Other long term (current) drug therapy; Z85.46 Personal history of malignant neoplasm of prostate; Z85.828 Personal history of other malignant neoplasm of skin; Z87.442 Personal history of urinary calculi
CPT/HCPCS: 36415; 71046; 71275; 76604; 80048; 80053; 82550; 82553; 82784; 83036; 83735; 83880; 83883; 84165; 84443; 84484; 85025; 85379; 85610; 85730; 86334; 93005; 94760; 96374; 99285

== ENCOUNTER 2017-12-22 11:13 | Inpatient (IN) | payer MEDICARE ==
[2017-12-22] MEDS ORDERED: SODIUM CHLORIDE 0.9% 1,000 ML IV STA (11:25)
--- NOTE | 2017-12-22 11:29 | ED ---
General Adult HPI - General Chief complaint: Recheck/Abnormal Lab/Rx Stated complaint: HypOtension Time Seen by Provider: 12/22/17 11:19 Source: patient, RN notes reviewed Mode of arrival: ambulatory Limitations: no limitations - History of Present Illness Initial comments: Patient is a pleasant 77-year-old male presenting to the emergency Department with general weakness. Onset was a day and a half ago. Visiting nurse found blood pressure to be low and recommended he come to the hospital. Patient has been fatigued and tired. Patient does admit to decreased appetite and oral intake recently. 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 Patient has not currently under therapy. Patient was in mild would rehab recently to get stronger to restart chemotherapy. No isolated area of weakness. No confusion. No fever. No pain. - Related Data Home Medications Medication Instructions Recorded Confirmed Aspirin EC [Ecotrin Low Dose] 81 mg PO DAILY 12/21/16 11/07/17 Omeprazole 20 mg PO DAILY 08/03/17 11/07/17 Acyclovir [Zovirax] 400 mg PO BID 09/24/17 11/07/17 Dexamethasone 40 mg PO TU 09/24/17 11/07/17 Furosemide [Lasix] 40 mg PO BID 09/24/17 11/08/17 Potassium Chloride ER [K-Dur 20] 20 meq PO DAILY 09/24/17 11/07/17 Dulaglutide [Trulicity] 0.75 mg SQ WE 11/07/17 11/08/17 Glimepiride [Amaryl] 1 mg PO BID 11/07/17 11/08/17 Lenalidomide [Revlimid] 25 mg PO DIRECTED 11/07/17 11/08/17 Ipratropium-Albuterol Nebulize 3 ml INHALATION RT-QID PRN 11/08/17 11/08/17 [Duoneb 0.5 mg-3 mg/3 ml Soln] Melatonin 5 mg PO HS 11/08/17 11/08/17 amLODIPine [Norvasc] 5 mg PO DAILY 11/08/17 11/08/17 traMADol HCL [Ultram] 50 mg PO QID PRN 11/08/17 11/08/17 Previous Rx's Medication Instructions Recorded ALPRAZolam [Xanax] 0.25 mg PO TID PRN #20 tab 11/11/17 Amiodarone [Cordarone] 200 mg PO TID tab 11/11/17 Apixaban [Eliquis] 5 mg PO BID tab 11/11/17 HYDROcodone/APAP 7.5-325MG [[place] 1 tab PO Q6H PRN #20 tab 11/11/17 7.5-325] Insulin Detemir [Levemir] 20 unit SQ HS #1 bottle 11/11/17 Metoprolol Tartrate [Lopressor] 50 mg PO BID tab 11/11/17 Sulfamethox-Tmp 800-160Mg [Bactrim 1 tab PO DIRECTED #0 11/11/17 DS 800-160 mg] Allergies Allergy/AdvReac Type Severity Reaction Status Date / Time No Known Allergies Allergy Verified 12/22/17 11:18 Review of Systems ROS Statement: Those systems with pertinent positive or pertinent negative responses have been documented in the HPI. ROS Other: All systems not noted in ROS Statement are negative. Constitutional: Denies: fever, chills Eyes: Denies: eye pain ENT: Denies: ear pain Respiratory: Denies: dyspnea Cardiovascular: Denies: chest pain Endocrine: Reports: fatigue Gastrointestinal: Denies: abdominal pain, melena, hematochezia Genitourinary: Denies: dysuria, hematuria Musculoskeletal: Denies: back pain Skin: Denies: rash Neurological: Denies: headache, confusion Past Medical History Past Medical History: Cancer, Hypertension, Osteoarthritis (OA), Supraventricular Tachycardia (SVT) Additional Past Medical History / Comment(s): Multiple myeloma, prostate cancer , skin cancer, hypertension, degenerative arthritis, episodes of SVT a discussed above, nephrolithiasis, History of Any Multi-Drug Resistant Organisms: None Reported Past Surgical History: Heart Catheterization, Hernia Repair, Prostate Surgery Additional Past Surgical History / Comment(s): rt wrist ganglion cysts removed Past Anesthesia/Blood Transfusion Reactions: No Reported Reaction Past Psychological History: Anxiety Smoking Status: Never smoker Past Alcohol Use History: None Reported Past Drug Use History: None Reported - Past Family History Father History Unknown: Yes Mother History Unknown: Yes General Exam Limitations: no limitations General appearance: alert, in no apparent distress Head exam: Present: atraumatic Eye exam: Present: other (Pale conjunctiva) ENT exam: Present: normal oropharynx Neck exam: Present: normal inspection Respiratory exam: Present: normal lung sounds bilaterally Cardiovascular Exam: Present: regular rate, normal rhythm GI/Abdominal exam: Present: soft. Absent: tenderness Rectal exam: Present: black stool Extremities exam: Present: pedal edema (+1 bilaterally). Absent: calf tenderness Neurological exam: Present: alert, oriented X3, CN II-XII intact. Absent: motor sensory deficit Expanded Neurological exam: Present: protecting the airway Patient oriented to: Present: person, place, time Speech: Present: fluid speech Motor strength exam: RUE: 5, LUE: 5, RLE: 5, LLE: 5 Eye Response: (4) open spontaneously Motor Response: (6) obeys commands Verbal Response: (5) oriented Psychiatric exam: Present: normal affect, normal mood Skin exam: Present: normal color. Absent: rash Course Vital Signs 12/22/17 12/22/17 11:15 12:28 Temperature 97.3 F L 97.8 F Pulse Rate 70 67 Respiratory 20 16 Rate Blood Pressure 101/59 92/54 O2 Sat by Pulse 100 99 Oximetry EKG Findings - EKG Comments: EKG Findings:: Normal sinus rhythm 67. OK 180. QRS 142. QT 398. QTC 526. Normal axis. Right bundle branch block. No acute ST change. Medical Decision Making - Medical Decision Making Patient reevaluated and updated. Dr. Loaiza has been paged for admission. - Lab Data Result diagrams: 12/22/17 11:21 12/22/17 11:21 Lab Results 12/22/17 12/22/17 12/22/17 Range/Units 11:21 11:21 11:21 WBC 6.7 (3.8-10.6) k/uL RBC 2.25 L (4.30-5.90) m/uL Hgb 6.8 L* D (13.0-17.5) gm/dL Hct 21.1 L (39.0-53.0) % MCV 93.5 (80.0-100.0) fL MCH 30.1 (25.0-35.0) pg MCHC 32.2 (31.0-37.0) g/dL RDW 16.3 H (11.5-15.5) % Plt Count 350 (150-450) k/uL Neutrophils % 72 % Lymphocytes % 20 % Monocytes % 5 % Eosinophils % 1 % Basophils % 0 % Neutrophils # 4.8 (1.3-7.7) k/uL Lymphocytes # 1.4 (1.0-4.8) k/uL Monocytes # 0.4 (0-1.0) k/uL Eosinophils # 0.0 (0-0.7) k/uL Basophils # 0.0 (0-0.2) k/uL Hypochromasia Slight Poikilocytosis Slight Anisocytosis Slight PT (9.0-12.0) sec INR (<1.2) APTT (22.0-30.0) sec Sodium 133 L (137-145) mmol/L Potassium 4.2 (3.5-5.1) mmol/L Chloride 103 (98-107) mmol/L Carbon Dioxide 20 L (22-30) mmol/L Anion Gap 10 mmol/L BUN 21 H (9-20) mg/dL Creatinine 0.90 (0.66-1.25) mg/dL Est GFR (CKD-EPI)AfAm >90 (>60 ml/min/1.73 sqM) Est GFR (CKD-EPI)NonAf 83 (>60 ml/min/1.73 sqM) Glucose 85 (74-99) mg/dL Calcium 8.0 L (8.4-10.2) mg/dL Magnesium 2.0 (1.6-2.3) mg/dL Total Bilirubin 0.2 (0.2-1.3) mg/dL AST 18 (17-59) U/L ALT 33 (21-72) U/L Alkaline Phosphatase 29 L (38-126) U/L Total Creatine Kinase 21 L (55-170) U/L CK-MB (CK-2) 1.2 (0.0-2.4) ng/mL CK-MB (CK-2) Rel Index 5.7 Troponin I 0.036 H* (0.000-0.034) ng/mL Total Protein 4.9 L (6.3-8.2) g/dL Albumin 3.0 L (3.5-5.0) g/dL TSH 3.290 (0.465-4.680) mIU/L Free T4 1.25 (0.78-2.19) ng/dL Free T3 pg/mL 2.7 L (2.8-5.3) pg/ml Stool Occult Blood (Negative) 12/22/17 12/22/17 Range/Units 11:21 12:15 WBC (3.8-10.6) k/uL RBC (4.30-5.90) m/uL Hgb (13.0-17.5) gm/dL Hct (39.0-53.0) % MCV (80.0-100.0) fL MCH (25.0-35.0) pg MCHC (31.0-37.0) g/dL RDW (11.5-15.5) % Plt Count (150-450) k/uL Neutrophils % % Lymphocytes % % Monocytes % % Eosinophils % % Basophils % % Neutrophils # (1.3-7.7) k/uL Lymphocytes # (1.0-4.8) k/uL Monocytes # (0-1.0) k/uL Eosinophils # (0-0.7) k/uL Basophils # (0-0.2) k/uL Hypochromasia Poikilocytosis Anisocytosis PT 9.7 (9.0-12.0) sec INR 1.0 (<1.2) APTT 22.5 (22.0-30.0) sec Sodium (137-145) mmol/L Potassium (3.5-5.1) mmol/L Chloride (98-107) mmol/L Carbon Dioxide (22-30) mmol/L Anion Gap mmol/L BUN (9-20) mg/dL Creatinine (0.66-1.25) mg/dL Est GFR (CKD-EPI)AfAm (>60 ml/min/1.73 sqM) Est GFR (CKD-EPI)NonAf (>60 ml/min/1.73 sqM) Glucose (74-99) mg/dL Calcium (8.4-10.2) mg/dL Magnesium (1.6-2.3) mg/dL Total Bilirubin (0.2-1.3) mg/dL AST (17-59) U/L ALT (21-72) U/L Alkaline Phosphatase (38-126) U/L Total Creatine Kinase (55-170) U/L CK-MB (CK-2) (0.0-2.4) ng/mL CK-MB (CK-2) Rel Index Troponin I (0.000-0.034) ng/mL Total Protein (6.3-8.2) g/dL Albumin (3.5-5.0) g/dL TSH (0.465-4.680) mIU/L Free T4 (0.78-2.19) ng/dL Free T3 pg/mL (2.8-5.3) pg/ml Stool Occult Blood Positive (Negative) - Radiology Data Interpreted by me: X-ray without acute abnormality. There is cardiomegaly. Disposition Clinical Impression: GI hemorrhage Disposition: ADMITTED IP TO THIS HOSP Referrals: Solo Loaiza MD [Primary Care Provider] - 1-2 days Decision Time: 12:43
[2017-12-22 11:45] LABS: Anisocytosis Slight; Basophils % (A) 0 %; Hypochromasia Slight; Lymphocytes # (A) 1.4 k/uL (1.0-4.8); Monocytes # (A) 0.4 k/uL (0-1.0); Poikilocytosis Slight
[2017-12-22 11:48] LABS: Eosinophils % (A) 1 %; HCT 21.1 % (39.0-53.0); Lymphocytes % (A) 20 %; MCH 30.1 pg (25.0-35.0); MCHC 32.2 g/dL (31.0-37.0); MCV 93.5 fL (80.0-100.0); Mean Platelet Volume 6.4; Monocytes % (A) 5 %; Neutrophils # (A) 4.8 k/uL (1.3-7.7); Neutrophils % (A) 72 %; Platelet Count 350 k/uL (150-450); RBC 2.25 m/uL (4.30-5.90); RDW 16.3 % (11.5-15.5); WBC 6.7 k/uL (3.8-10.6)
[2017-12-22 11:51] LABS: ALT 33 U/L (21-72); AST 18 U/L (17-59); Alkaline Phosphatase 29 U/L (38-126); Anion Gap 10 mmol/L; Blood Urea Nitrogen 21 mg/dL (9-20); Carbon Dioxide 20 mmol/L (22-30); Chloride 103 mmol/L (98-107); Glucose 85 mg/dL (74-99); Potassium 4.2 mmol/L (3.5-5.1); Sodium 133 mmol/L (137-145); Total Bilirubin 0.2 mg/dL (0.2-1.3); Total Protein 4.9 g/dL (6.3-8.2)
[2017-12-22 11:52] LABS: HGB 6.8 gm/dL (13.0-17.5)
[2017-12-22] MEDS ORDERED: PANTOPRAZOLE 40 MG/10 ML VIAL IVP STA (11:52)
[2017-12-22 11:57] LABS: Partial Thromboplastin Time 22.5 sec (22.0-30.0); Prothrombin Time 9.7 sec (9.0-12.0)
[2017-12-22 12:08] LABS: T4, Free (Free Thyroxine) 1.25 ng/dL (0.78-2.19)
[2017-12-22 12:24] LABS: Creatine Kinase MB 1.2 ng/mL (0.0-2.4)
[2017-12-22 12:28] LABS: Troponin I 0.036 ng/mL (0.000-0.034)
[2017-12-22] MEDS ORDERED: NALOXONE 0.4 MG/ML 1 ML VIAL IV PRN (12:43)
--- NOTE | 2017-12-22 13:24 | XR ---
EXAMINATION TYPE: XR chest 2V DATE OF EXAM: 12/22/2017 COMPARISON: 11/06/2017 INDICATION: Weakness hypertension prostate cancer skin cancer multiple myeloma TECHNIQUE: Frontal and lateral views of the chest are obtained. FINDINGS: The heart size is normal. The pulmonary vasculature is normal. The lungs are clear. Degenerative changes are at the bilateral shoulders. IMPRESSION: 1. No acute pulmonary process.
[2017-12-22 13:47] LABS: Appearance,Urine Clear (Clear); Bilirubin,Urine Negative (Negative); Blood,Urine Negative (Negative); Color,Urine Light Yellow; Glucose,Urine (UA) Negative (Negative); Ketones,Urine Negative (Negative); Leukocyte Esterase,Urine Negative (Negative); Nitrite,Urine Negative (Negative); PH, Urine 7.5 (5.0-8.0); Protein,Urine Negative (Negative); Specific Gravity,Urine 1.006 (1.001-1.035); Urobilinogen,Urine <2.0 mg/dL (<2.0)
[2017-12-22 19:31] LABS: Anisocytosis Slight; Basophils % (A) 0 %; Eosinophils # (A) 0.1 k/uL (0-0.7); Eosinophils % (A) 1 %; HCT 24.8 % (39.0-53.0); HGB 8.1 gm/dL (13.0-17.5); Hypochromasia Slight; Lymphocytes # (A) 1.4 k/uL (1.0-4.8); Lymphocytes % (A) 26 %; MCH 29.9 pg (25.0-35.0); MCHC 32.5 g/dL (31.0-37.0); MCV 91.9 fL (80.0-100.0); Monocytes # (A) 0.4 k/uL (0-1.0); Monocytes % (A) 7 %; Neutrophils # (A) 3.4 k/uL (1.3-7.7); Neutrophils % (A) 65 %; Platelet Count 320 k/uL (150-450); Poikilocytosis Slight; RDW 16.1 % (11.5-15.5); WBC 5.3 k/uL (3.8-10.6)
--- NOTE | 2017-12-22 20:42 | P.PN ---
Progress Note - Text Progress Note Date: 12/22/17 Consult received. Patient not in room. Will re-assess tomorrow.
--- NOTE | 2017-12-22 20:51 | P.GSCN ---
History of Present Illness Consult date: 12/22/17 History of present illness: The patient is a 77-year-old gentleman who comes in with anemia, long-standing. He was last hospitalized in July 2017 for similar issue. At that time colonoscopy was recommended. He has not a colonoscopy since then. Hemoglobin at time of admission was less than 8. He denies any abdominal pain. Surgery is consulted for anemia evaluation. Review of Systems CONSTITUTIONAL: Denies any fever or chills. HEENT: Denies any trouble with vision, hearing or nosebleeds. No difficulty swallowing. LYMPHATIC: The patient denies any lumps and bumps around the neck. ENDOCRINE: Denies any thyroid disorders. Has blood sugar glucose intolerance. RESPIRATORY: Past pneumonia. Denies any troubles with breathing or dyspnea on exertion. CARDIOVASCULAR: Previous history of supraventricular tachycardia. Has history of heart failure. GASTROINTESTINAL: Denies heart burn, constipation or bright red blood per rectum. GENITOURINARY: History of prostate cancer. History of kidney stones. MUSCULOSKELETAL: Denies any back pain, stiffness, joint arthritis. NEUROLOGIC: Denies any numbness or tingling along the distal extremities. No seizure disorders or headaches. PSYCHIATRIC: Denies depression or suidical ideation. HEMATOLOGIC: History of blood thinners. History of multiple myeloma. BREASTS: Denies any breast lumps, pain or nipple discharge. Past Medical History Past Medical History: Cancer, Heart Failure, Hypertension, Osteoarthritis (OA), Pneumonia, Supraventricular Tachycardia (SVT) Additional Past Medical History / Comment(s): Multiple myeloma stated has been off chemo for 3 months,, prostate cancer(sx only), skin cancer, hypertension, degenerative arthritis, episodes of SVT a discussed above, nephrolithiasis, had a shingles vaccine-unable to verify date. History of Any Multi-Drug Resistant Organisms: None Reported Past Surgical History: Heart Catheterization, Hernia Repair, Prostate Surgery Additional Past Surgical History / Comment(s): rt wrist ganglion cysts removed, prostatectomy Past Anesthesia/Blood Transfusion Reactions: No Reported Reaction Smoking Status: Never smoker - Past Family History Father History Unknown: Yes Mother History Unknown: Yes Medications and Allergies Home Medications Medication Instructions Recorded Confirmed Type Omeprazole 20 mg PO DAILY 08/03/17 12/22/17 History Acyclovir [Zovirax] 400 mg PO BID 09/24/17 12/22/17 History Dexamethasone 40 mg PO TU 09/24/17 12/22/17 History Furosemide [Lasix] 40 mg PO BID 09/24/17 12/22/17 History Potassium Chloride ER [K-Dur 20] 20 meq PO DAILY 09/24/17 12/22/17 History Dulaglutide [Trulicity] 0.75 mg SQ WE 11/07/17 12/22/17 History Glimepiride [Amaryl] 1 mg PO BID 11/07/17 12/22/17 History Amiodarone [Cordarone] 200 mg PO DAILY 12/22/17 12/22/17 History Lisinopril [Zestril] 5 mg PO DAILY 12/22/17 12/22/17 History Metoprolol Succinate (ER) [Toprol 25 mg PO DAILY 12/22/17 12/22/17 History XL] ALPRAZolam [Xanax] 0.25 mg PO TID PRN #12 tab 12/27/17 Rx HYDROcodone/APAP 7.5-325MG [[place] 1 each PO Q6H PRN #12 tab 12/27/17 Rx 7.5-325] Allergies Allergy/AdvReac Type Severity Reaction Status Date / Time No Known Allergies Allergy Verified 12/22/17 12:50 Surgical - Exam Vital Signs Temp Pulse Resp BP Pulse Ox 97.3 F L 70 20 101/59 100 12/22/17 11:15 12/22/17 11:15 12/22/17 11:15 12/22/17 11:15 12/22/17 11:15 ABDOMEN: Soft and nontender. No peritonitis. Nondistended. GENERAL: Well developed and in no acute distress. Pleasant. HEENT: No sclera icterus. Extraocular movements grossly intact. Moist buccal mucosa. Head is atraumatic, normocephalic. Hears conversational speech. No nasal drainage. NECK: Supple without lymphadenopathy. CHEST: Non-labored respirations and equal bilateral excursions. CARDIOVASCULAR: Irregular rate and rhythm. Palpable 2+ radial pulses. MUSCULOSKELETAL: No clubbing, cyanosis or edema. NEUROLOGIC: No focal or lateralizing signs. PSYCH: Appropriate affect. Alert and oriented to person, place and time. SKIN: Good skin turgor. Well perfused. Results - Labs 12/27/17 10:05 12/27/17 10:05 Abnormal Lab Results - Last 24 Hours (Table) 12/22/17 12/22/17 12/22/17 Range/Units 11:21 11:21 11:21 RBC 2.25 L (4.30-5.90) m/uL Hgb 6.8 L* D (13.0-17.5) gm/dL Hct 21.1 L (39.0-53.0) % RDW 16.3 H (11.5-15.5) % Sodium 133 L (137-145) mmol/L Carbon Dioxide 20 L (22-30) mmol/L BUN 21 H (9-20) mg/dL Calcium 8.0 L (8.4-10.2) mg/dL Alkaline Phosphatase 29 L (38-126) U/L Total Creatine Kinase 21 L (55-170) U/L Troponin I 0.036 H* (0.000-0.034) ng/mL Total Protein 4.9 L (6.3-8.2) g/dL Albumin 3.0 L (3.5-5.0) g/dL Free T3 pg/mL 2.7 L (2.8-5.3) pg/ml Crossmatch 12/22/17 12/22/17 Range/Units 11:21 18:57 RBC 2.70 L (4.30-5.90) m/uL Hgb 8.1 L (13.0-17.5) gm/dL Hct 24.8 L (39.0-53.0) % RDW 16.1 H (11.5-15.5) % Sodium (137-145) mmol/L Carbon Dioxide (22-30) mmol/L BUN (9-20) mg/dL Calcium (8.4-10.2) mg/dL Alkaline Phosphatase (38-126) U/L Total Creatine Kinase (55-170) U/L Troponin I (0.000-0.034) ng/mL Total Protein (6.3-8.2) g/dL Albumin (3.5-5.0) g/dL Free T3 pg/mL (2.8-5.3) pg/ml Crossmatch See Detail Diabetes panel 12/22/17 Range/Units 11:21 Sodium 133 L (137-145) mmol/L Potassium 4.2 (3.5-5.1) mmol/L Chloride 103 (98-107) mmol/L Carbon Dioxide 20 L (22-30) mmol/L BUN 21 H (9-20) mg/dL Creatinine 0.90 (0.66-1.25) mg/dL Glucose 85 (74-99) mg/dL Calcium 8.0 L (8.4-10.2) mg/dL AST 18 (17-59) U/L ALT 33 (21-72) U/L Alkaline Phosphatase 29 L (38-126) U/L Total Protein 4.9 L (6.3-8.2) g/dL Albumin 3.0 L (3.5-5.0) g/dL Thyroid panel 12/22/17 Range/Units 11:21 TSH 3.290 (0.465-4.680) mIU/L Calcium panel 12/22/17 Range/Units 11:21 Calcium 8.0 L (8.4-10.2) mg/dL Albumin 3.0 L (3.5-5.0) g/dL Pituitary panel 12/22/17 Range/Units 11:21 Sodium 133 L (137-145) mmol/L Potassium 4.2 (3.5-5.1) mmol/L Chloride 103 (98-107) mmol/L Carbon Dioxide 20 L (22-30) mmol/L BUN 21 H (9-20) mg/dL Creatinine 0.90 (0.66-1.25) mg/dL Glucose 85 (74-99) mg/dL Calcium 8.0 L (8.4-10.2) mg/dL TSH 3.290 (0.465-4.680) mIU/L Adrenal panel 12/22/17 Range/Units 11:21 Sodium 133 L (137-145) mmol/L Potassium 4.2 (3.5-5.1) mmol/L Chloride 103 (98-107) mmol/L Carbon Dioxide 20 L (22-30) mmol/L BUN 21 H (9-20) mg/dL Creatinine 0.90 (0.66-1.25) mg/dL Glucose 85 (74-99) mg/dL Calcium 8.0 L (8.4-10.2) mg/dL Total Bilirubin 0.2 (0.2-1.3) mg/dL AST 18 (17-59) U/L ALT 33 (21-72) U/L Alkaline Phosphatase 29 L (38-126) U/L Total Protein 4.9 L (6.3-8.2) g/dL Albumin 3.0 L (3.5-5.0) g/dL Assessment and Plan (1) Anemia Status: Acute Code(s): D64.9 - ANEMIA, UNSPECIFIED SNOMED Code(s): 833847062 (2) Atrial fibrillation Status: Acute Code(s): I48.91 - UNSPECIFIED ATRIAL FIBRILLATION SNOMED Code( s): 73482394 (3) GI hemorrhage Status: Acute Code(s): K92.2 - GASTROINTESTINAL HEMORRHAGE, UNSPECIFIED SNOMED Code(s): 10764785 (4) Iron deficiency anemia due to chronic blood loss Status: Acute Code(s): D50.0 - IRON DEFICIENCY ANEMIA SECONDARY TO BLOOD LOSS (CHRONIC) SNOMED Code(s): 936619096 (5) Ischemic cardiomyopathy Status: Acute Code(s): I25.5 - ISCHEMIC CARDIOMYOPATHY SNOMED Code(s): 990953588 (6) Multiple myeloma Status: Chronic Priority: Medium Code(s): C90.00 - MULTIPLE MYELOMA NOT HAVING ACHIEVED REMISSION SNOMED Code(s): 093855868 (7) Anticoagulant long-term use Status: Acute Code(s): Z79.01 - ON SITE PROPERTY MANAGER (CURRENT) USE OF ANTICOAGULANTS SNOMED Code(s): 932865238 Plan: 1. As this is his second hospitalization in 6 months for anemia and evaluation for GI bleed, recommend EGD and colonoscopy. 2. Stop Eliquis in the meantime. 3. Bilateral SCDs for DVT prophylaxis 4. Liquid diet in the meantime.
[2017-12-22 21:09] LABS: Glucose,Whole Blood 129 mg/dL (75-99)
[2017-12-22] MEDS: SODIUM CHLORIDE 0.9% 1,000 ML IV SCH (21:37)
[2017-12-22] MEDS ORDERED: HYDROcodone/APAP 7.5-325MG 1 EACH TAB PO PRN (21:46)
[2017-12-22] MEDS ORDERED: ALPRAZolam 0.25 MG TAB PO PRN (21:46)
[2017-12-22] MEDS ORDERED: Dulaglutide [Trulicity] 0.75 MG SQ SCH (22:00)
[2017-12-22] MEDS: INSULIN ASPART 100 UNIT/ML 1 ML 10 ML VIAL SQ SCH (22:16)
[2017-12-22] MEDS: ACYCLOVIR 200 MG CAP PO SCH (23:44)
[2017-12-23] MEDS: SODIUM CHLORIDE 0.9% 1,000 ML IV SCH ×3 (01:04→21:34)
[2017-12-23 06:08] LABS: Anisocytosis Slight; Basophils % (A) 0 %; Eosinophils # (A) 0.1 k/uL (0-0.7); Eosinophils % (A) 1 %; HCT 22.6 % (39.0-53.0); HGB 7.4 gm/dL (13.0-17.5); Hypochromasia Slight; Lymphocytes % (A) 24 %; MCH 29.9 pg (25.0-35.0); MCHC 32.9 g/dL (31.0-37.0); MCV 90.9 fL (80.0-100.0); Mean Platelet Volume 6.7; Monocytes # (A) 0.3 k/uL (0-1.0); Monocytes % (A) 8 %; Neutrophils # (A) 2.7 k/uL (1.3-7.7); Neutrophils % (A) 65 %; Platelet Count 290 k/uL (150-450); Poikilocytosis Slight; RBC 2.48 m/uL (4.30-5.90); RDW 16.1 % (11.5-15.5); WBC 4.2 k/uL (3.8-10.6)
[2017-12-23 06:28] LABS: Glucose,Whole Blood 100 mg/dL (75-99)
[2017-12-23] MEDS: INSULIN ASPART 100 UNIT/ML 1 ML 10 ML VIAL SQ SCH ×4 (06:49→21:32)
[2017-12-23] MEDS ORDERED: PANTOPRAZOLE 40 MG/10 ML VIAL IV SCH (09:00)
[2017-12-23] MEDS: PANTOPRAZOLE 40 MG TABLET PO SCH (09:09)
[2017-12-23] MEDS: METOPROLOL SUCCINATE (ER) 25 MG TAB.ER.24H PO SCH (09:09)
[2017-12-23] MEDS: FUROSEMIDE 40 MG TAB PO SCH ×2 (09:09→19:50)
[2017-12-23] MEDS: POTASSIUM CHLORIDE ER 20 MEQ TAB.ER PO SCH (09:09)
[2017-12-23] MEDS: AMIODARONE 200 MG TAB PO SCH (09:09)
[2017-12-23] MEDS: LISINOPRIL 5 MG TAB PO SCH (09:09)
[2017-12-23] MEDS: ACYCLOVIR 200 MG CAP PO SCH ×2 (09:10→19:50)
--- NOTE | 2017-12-23 11:54 | P.HPIM ---
History of Present Illness 77-year-old male presented the emergency room with complaints of generalized weakness like the time 2 days. Visiting nurse found to be hypotensive. Patient does admit to decreased appetite low oral intake. Patient has a history of cancer multiple myeloma and left shoulder. Patient was found to be anemic and numb positive for occult blood Review of Systems Constitutional: Reports fatigue, Reports weakness Past Medical History Past Medical History: Cancer, Heart Failure, Hypertension, Osteoarthritis (OA), Pneumonia, Supraventricular Tachycardia (SVT) Additional Past Medical History / Comment(s): Multiple myeloma stated has been off chemo for 3 months,, prostate cancer(sx only), skin cancer, hypertension, degenerative arthritis, episodes of SVT a discussed above, nephrolithiasis, had a shingles vaccine-unable to verify date. History of Any Multi-Drug Resistant Organisms: None Reported Past Surgical History: Heart Catheterization, Hernia Repair, Prostate Surgery Additional Past Surgical History / Comment(s): rt wrist ganglion cysts removed, prostatectomy Past Anesthesia/Blood Transfusion Reactions: No Reported Reaction Smoking Status: Never smoker - Past Family History Father History Unknown: Yes Mother History Unknown: Yes Medications and Allergies Home Medications Medication Instructions Recorded Confirmed Type Aspirin EC [Ecotrin Low Dose] 81 mg PO DAILY 12/21/16 12/22/17 History Omeprazole 20 mg PO DAILY 08/03/17 12/22/17 History Acyclovir [Zovirax] 400 mg PO BID 09/24/17 12/22/17 History Dexamethasone 40 mg PO TU 09/24/17 12/22/17 History Furosemide [Lasix] 40 mg PO BID 09/24/17 12/22/17 History Potassium Chloride ER [K-Dur 20] 20 meq PO DAILY 09/24/17 12/22/17 History Dulaglutide [Trulicity] 0.75 mg SQ WE 11/07/17 12/22/17 History Glimepiride [Amaryl] 1 mg PO BID 11/07/17 12/22/17 History ALPRAZolam [Xanax] 0.25 mg PO TID PRN #20 tab 11/11/17 12/22/17 Rx Apixaban [Eliquis] 5 mg PO BID tab 11/11/17 12/22/17 Rx HYDROcodone/APAP 7.5-325MG [[place] 1 tab PO Q6H PRN #20 tab 11/11/17 12/22/17 Rx 7.5-325] Amiodarone [Cordarone] 200 mg PO DAILY 12/22/17 12/22/17 History Lisinopril [Zestril] 5 mg PO DAILY 12/22/17 12/22/17 History Metoprolol Succinate (ER) [Toprol 25 mg PO DAILY 12/22/17 12/22/17 History Xl] Allergies Allergy/AdvReac Type Severity Reaction Status Date / Time No Known Allergies Allergy Verified 12/22/17 12:50 Physical Exam Vitals: Vital Signs Temp Pulse Pulse Resp BP BP Pulse Ox 12/23/17 08:00 97.8 F 79 18 98/58 97 12/23/17 03:05 74 16 12/23/17 03:04 98.0 F 74 16 112/61 97 12/23/17 00:00 97.6 F 75 16 109/61 97 12/22/17 21:00 97.0 F L 75 16 116/56 98 12/22/17 20:32 98.1 F 71 16 91/55 98 12/22/17 19:19 97.7 F 76 16 96/51 98 12/22/17 18:19 64 18 106/82 97 12/22/17 16:42 97.2 F L 70 18 95/55 96 12/22/17 16:22 97.1 F L 68 18 97/55 96 12/22/17 15:34 97.6 F 67 16 103/59 97 12/22/17 14:34 97.6 F 70 16 105/60 94 L 12/22/17 14:04 97 F L 75 18 85/54 94 L 12/22/17 13:50 97.5 F L 69 18 92/53 12/22/17 13:44 97.8 F 75 18 115/60 97 12/22/17 12:28 97.8 F 67 16 92/54 99 Intake and Output 12/22/17 12/23/17 12/23/17 22:59 06:59 14:59 Intake Total 630 Output Total 350 925 Balance 280 -925 Intake: Intake, IV Titration 80 Amount Sodium Chloride 0.9% 1, 80 000 ml @ 80 mls/hr IV . [id number] Rx#:[id number] Oral 240 Blood Product 310 Rc As-1 Unit 310 [id number] Output: Urine 350 925 Other: Voiding Method Urinal Urinal Urinal # Voids 1 Weight 88.6 kg - Constitutional General appearance: obese - EENT Eyes: PERRLA Ears: bilateral: normal - Neck Neck: normal ROM - Respiratory Respiratory: bilateral: CTA - Cardiovascular Rhythm: regular - Gastrointestinal General gastrointestinal: soft - Integumentary Integumentary: normal - Neurologic Neurologic: CNII-XII intact - Musculoskeletal Musculoskeletal: generalized weakness - Psychiatric Psychiatric: A&O x's 3, appropriate affect, intact judgment & insight Results CBC & Chem 7: 12/23/17 05:30 12/22/17 11:21 Labs: Abnormal Lab Results - Last 24 Hours (Table) 12/22/17 12/22/17 12/22/17 Range/Units 11:21 11:21 11:21 RBC 2.25 L (4.30-5.90) m/uL Hgb 6.8 L* D (13.0-17.5) gm/dL Hct 21.1 L (39.0-53.0) % RDW 16.3 H (11.5-15.5) % Sodium 133 L (137-145) mmol/L Carbon Dioxide 20 L (22-30) mmol/L BUN 21 H (9-20) mg/dL POC Glucose (mg/dL) (75-99) mg/dL Calcium 8.0 L (8.4-10.2) mg/dL Alkaline Phosphatase 29 L (38-126) U/L Total Creatine Kinase 21 L (55-170) U/L Troponin I 0.036 H* (0.000-0.034) ng/mL Total Protein 4.9 L (6.3-8.2) g/dL Albumin 3.0 L (3.5-5.0) g/dL Free T3 pg/mL 2.7 L (2.8-5.3) pg/ml Crossmatch 12/22/17 12/22/17 12/22/17 Range/Units 11:21 18:57 21:07 RBC 2.70 L (4.30-5.90) m/uL Hgb 8.1 L (13.0-17.5) gm/dL Hct 24.8 L (39.0-53.0) % RDW 16.1 H (11.5-15.5) % Sodium (137-145) mmol/L Carbon Dioxide (22-30) mmol/L BUN (9-20) mg/dL POC Glucose (mg/dL) 129 H (75-99) mg/dL Calcium (8.4-10.2) mg/dL Alkaline Phosphatase (38-126) U/L Total Creatine Kinase (55-170) U/L Troponin I (0.000-0.034) ng/mL Total Protein (6.3-8.2) g/dL Albumin (3.5-5.0) g/dL Free T3 pg/mL (2.8-5.3) pg/ml Crossmatch See Detail 12/23/17 12/23/17 Range/Units 05:30 06:27 RBC 2.48 L (4.30-5.90) m/uL Hgb 7.4 L (13.0-17.5) gm/dL Hct 22.6 L (39.0-53.0) % RDW 16.1 H (11.5-15.5) % Sodium (137-145) mmol/L Carbon Dioxide (22-30) mmol/L BUN (9-20) mg/dL POC Glucose (mg/dL) 100 H (75-99) mg/dL Calcium (8.4-10.2) mg/dL Alkaline Phosphatase (38-126) U/L Total Creatine Kinase (55-170) U/L Troponin I (0.000-0.034) ng/mL Total Protein (6.3-8.2) g/dL Albumin (3.5-5.0) g/dL Free T3 pg/mL (2.8-5.3) pg/ml Crossmatch Chest x-ray: report reviewed Thrombosis Risk Factor Assmnt - Choose All That Apply Any of the Below Risk Factors Present?: Yes Each Factor Represents 1 point: Obesity (BMI >25) Other Risk Factors: Yes Each Risk Factor Represents 3 Points: Age 75 years or older Other congenital or acquired thrombophilia - If yes, enter type in comment: No Thrombosis Risk Factor Assessment Total Risk Factor Score: 4 Thrombosis Risk Factor Assessment Level: Moderate Risk Assessment and Plan Plan: Assessment Acute anemia hemoglobin 6.8 secondary to GI bleed Hypotension Diabetes type 2 History of hypertension History of osteoarthritis History of SVT Multiple 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
[2017-12-23 11:58] LABS: Glucose,Whole Blood 101 mg/dL (75-99)
[2017-12-23] MEDS ORDERED: PEG 3350-NA SULF,BICARB,CL/KCL 4,000 ML BOTTLE PO ONE (12:00)
--- NOTE | 2017-12-23 13:14 | P.PN ---
Progress Note - Text Office records reviewed 77-year-old male patient with atrial flutter with RVR on amiodarone. In November 2017 I reduced the dose of amiodarone to 200 mg by mouth daily. AV node blocking drugs were continued, Toprol-XL he is also on lisinopril History of GI bleed in the past Presenting once again with GI bleeding LV function in October showed ejection fraction of 50 hasn't 55% with basal inferior wall motion hypokinesis basal inferoseptal LV wall motion hypokinesis. Left atrium was dilated
--- NOTE | 2017-12-23 15:11 | P.PN ---
<Emily Hill - Last Filed: 12/23/17 15:06> Subjective Progress Note Date: 12/23/17 77-year-old being seen this morning no new events. Patient's being seen by surgical service for anemia workup. Patient has agreed undergo an EGD and colonoscopy will be scheduled tomorrow. Hemoglobin this morning 7.4 states having no abdominal pain when questioning Objective - Vital Signs Vital signs: Vital Signs Temp 97.8 F 12/23/17 11:44 Pulse 54 L 12/23/17 11:44 Resp 18 12/23/17 11:44 BP 110/61 12/23/17 11:44 Pulse Ox 100 12/23/17 11:44 Intake & Output 12/22/17 12/23/17 12/23/17 18:59 06:59 18:59 Intake Total 310 320 Output Total 1275 Balance 310 -955 Weight 89.358 kg 88.6 kg Intake: Intake, IV Titration 80 Amount Sodium Chloride 0.9% 1, 80 000 ml @ 80 mls/hr IV . [id number] [facility] Rx#:[id number] Oral 240 Blood Product 310 Rc As-1 Unit 310 [id number] Output: Urine 1275 Other: Voiding Method Urinal Urinal # Voids 1 - Exam Physical exam 76 [id number] sitting up in bed appears in no acute distress lungs clear adequate air movement Heart S1-S2 audible regular Abdomen soft nondistended bowel tones present no nausea no vomiting bowel prep in progress Extremity no edema - Labs CBC & Chem 7: 12/23/17 05:30 12/22/17 11:21 Labs: Abnormal Lab Results - Last 24 Hours (Table) 12/22/17 12/22/17 12/22/17 Range/Units 11:21 18:57 21:07 RBC 2.70 L (4.30-5.90) m/uL Hgb 8.1 L (13.0-17.5) gm/dL Hct 24.8 L (39.0-53.0) % RDW 16.1 H (11.5-15.5) % POC Glucose (mg/dL) 129 H (75-99) mg/dL Crossmatch See Detail 12/23/17 12/23/17 12/23/17 Range/Units 05:30 06:27 11:52 RBC 2.48 L (4.30-5.90) m/uL Hgb 7.4 L (13.0-17.5) gm/dL Hct 22.6 L (39.0-53.0) % RDW 16.1 H (11.5-15.5) % POC Glucose (mg/dL) 100 H 101 H (75-99) mg/dL Crossmatch Assessment and Plan Assessment: Impression History of atrial flutter with RVR on amiodarone LV function in October 2017 EF 55 Symptomatic anemia suspect due to from a GI bleed on elquist Plan EGD and colonoscopy scheduled tomorrow Nothing by mouth after midnight Bowel prep as ordered The above impression and plan of care have been discussed and directed by signing physician. Emily Hill nurse practitioner acting as scribe for signing physician. <Jeannie Gordon N - Last Filed: 12/23/17 19:24> Objective - Vital Signs Vital signs: Vital Signs Temp 97.8 F 12/23/17 16:00 Pulse 75 12/23/17 16:00 Resp 18 12/23/17 16:00 BP 108/54 12/23/17 16:00 Pulse Ox 98 12/23/17 16:00 Intake & Output 12/23/17 12/23/17 12/24/17 06:59 18:59 06:59 Intake Total 320 Output Total 1275 1400 Balance -955 -1400 Weight 88.6 kg Intake: Intake, IV Titration 80 Amount Sodium Chloride 0.9% 1, 80 000 ml @ 80 mls/hr IV . [id number] [facility] Rx#:[id number] Oral 240 Output: Urine 1275 1400 Other: Voiding Method Urinal Urinal # Voids 1 # Bowel Movements 0 - Labs CBC & Chem 7: 12/23/17 05:30 12/22/17 11:21 Labs: Abnormal Lab Results - Last 24 Hours (Table) 12/22/17 12/22/17 12/23/17 Range/Units 18:57 21:07 05:30 RBC 2.70 L 2.48 L (4.30-5.90) m/uL Hgb 8.1 L 7.4 L (13.0-17.5) gm/dL Hct 24.8 L 22.6 L (39.0-53.0) % RDW 16.1 H 16.1 H (11.5-15.5) % POC Glucose (mg/dL) 129 H (75-99) mg/dL 12/23/17 12/23/17 12/23/17 Range/Units 06:27 11:52 16:43 RBC (4.30-5.90) m/uL Hgb (13.0-17.5) gm/dL Hct (39.0-53.0) % RDW (11.5-15.5) % POC Glucose (mg/dL) 100 H 101 H 111 H (75-99) mg/dL Assessment and Plan (1) Anemia Current Visit: No Status: Acute Code(s): D64.9 - ANEMIA, UNSPECIFIED SNOMED Code(s): 566720750 Plan: Patient is attempting to tolerate the gastric prep. He reports no activity as of yet. I have encouraged him to do his best to have liquid bowel movements without solid stool. Will proceed with upper and lower endoscopy for evaluation of anemia tomorrow.
[2017-12-23 16:03] LABS: Hemoglobin A1C 5.8 % (4.0-6.0)
[2017-12-23 16:46] LABS: Iron Saturation 5.03 (15.00-50.00); Protein, Total 4.6 g/dL (6.2-8.2)
[2017-12-23 16:57] LABS: Glucose,Whole Blood 111 mg/dL (75-99)
--- NOTE | 2017-12-23 18:32 | P.CONS ---
History of Present Illness - Reason for Consult Consult date: 12/23/17 multiple myeloma, anemia Requesting physician: Kyel Toney - Chief Complaint weak, progressively tired - History of Present Illness Mr. Rick is a very pleasant male pt of Dr. Ansari, diagnosed in Jun 2017 with IgG multiple myeloma. Pt presented to Dr. Lennox Loaiza PCP with progressive left shoulder pain following a fall 6 months earlier, X-Ray revealed 7.6 X 8.3 X 3.5cm destructive lesion in left acromion and scapula, pt referred to Ortho Onc Dr. Dempsey at [facility], no surgical intervention was recommended. Lab work up revealed monoclonal gammapathy, 4.8gr/dL, IgG of 6.6 grams with depression of IgA and IgM, bone survey revealed known left shoulder process as well as numerous intermediate lytic fossi. Pt was started on Revlimid, velcade and dexamethasone and has did well with stabilization of myleoma labs. He was having symptoms in Mach of DERIAN, SOB on exertion and activity intolerance, was hospitalized in November with CHF and needed rehab, his last treatment was in September. He was just getting ready to be discharged from rehab when he was getting progressively weaker and was exhibiting persistent/progressive fatigue, CBC showed Hgb of 6.8, he is admitted, received transfusion, having endoscopy in AM. He denied illness, fever, chills, appetite is good, no nausea, chest pain, DERIAN, changes in bowel or bladder habits, he denies seeing any black/bloody stool , hematuria, bloody noses or bruising. He states he actually pretty good other then being tired. T Review of Systems 14 point ROS as stated in HPI Past Medical History Past Medical History: Cancer, Heart Failure, Hypertension, Osteoarthritis (OA), Pneumonia, Supraventricular Tachycardia (SVT) Additional Past Medical History / Comment(s): Multiple myeloma stated has been off chemo for 3 months,, prostate cancer(sx only), skin cancer, hypertension, degenerative arthritis, episodes of SVT a discussed above, nephrolithiasis, had a shingles vaccine-unable to verify date. History of Any Multi-Drug Resistant Organisms: None Reported Past Surgical History: Heart Catheterization, Hernia Repair, Prostate Surgery Additional Past Surgical History / Comment(s): rt wrist ganglion cysts removed, prostatectomy Past Anesthesia/Blood Transfusion Reactions: No Reported Reaction Past Psychological History: No Psychological Hx Reported Smoking Status: Never smoker Past Alcohol Use History: None Reported Past Drug Use History: None Reported - Past Family History Father History Unknown: Yes Mother History Unknown: Yes Medications and Allergies Home Medications Medication Instructions Recorded Confirmed Type Aspirin EC [Ecotrin Low Dose] 81 mg PO DAILY 12/21/16 12/22/17 History Omeprazole 20 mg PO DAILY 08/03/17 12/22/17 History Acyclovir [Zovirax] 400 mg PO BID 09/24/17 12/22/17 History Dexamethasone 40 mg PO TU 09/24/17 12/22/17 History Furosemide [Lasix] 40 mg PO BID 09/24/17 12/22/17 History Potassium Chloride ER [K-Dur 20] 20 meq PO DAILY 09/24/17 12/22/17 History Dulaglutide [Trulicity] 0.75 mg SQ WE 11/07/17 12/22/17 History Glimepiride [Amaryl] 1 mg PO BID 11/07/17 12/22/17 History ALPRAZolam [Xanax] 0.25 mg PO TID PRN #20 tab 11/11/17 12/22/17 Rx Apixaban [Eliquis] 5 mg PO BID tab 11/11/17 12/22/17 Rx HYDROcodone/APAP 7.5-325MG [[place] 1 tab PO Q6H PRN #20 tab 11/11/17 12/22/17 Rx 7.5-325] Amiodarone [Cordarone] 200 mg PO DAILY 12/22/17 12/22/17 History Lisinopril [Zestril] 5 mg PO DAILY 12/22/17 12/22/17 History Metoprolol Succinate (ER) [Toprol 25 mg PO DAILY 12/22/17 12/22/17 History Xl] Allergies Allergy/AdvReac Type Severity Reaction Status Date / Time No Known Allergies Allergy Verified 12/22/17 12:50 Physical Exam Vitals: Vital Signs Temp Pulse Pulse Resp BP BP Pulse Ox 12/23/17 16:00 97.8 F 75 18 108/54 98 12/23/17 11:44 97.8 F 54 L 18 110/61 100 12/23/17 08:00 97.8 F 79 18 98/58 97 12/23/17 03:05 74 16 12/23/17 03:04 98.0 F 74 16 112/61 97 12/23/17 00:00 97.6 F 75 16 109/61 97 12/22/17 21:00 97.0 F L 75 16 116/56 98 12/22/17 20:32 98.1 F 71 16 91/55 98 12/22/17 19:19 97.7 F 76 16 96/51 98 12/22/17 18:19 64 18 106/82 97 12/22/17 16:42 97.2 F L 70 18 95/55 96 Intake and Output 12/23/17 12/23/17 12/23/17 06:59 14:59 22:59 Output Total 925 Balance -925 Output: Urine 925 Other: Voiding Method Urinal Urinal Urinal # Voids 1 Weight 88.6 kg - Constitutional General appearance: average body habitus, cooperative, no acute distress - EENT Eyes: anicteric sclerae, EOMI, normal appearance ENT: normal oropharynx - Neck Neck: no lymphadenopathy - Respiratory Respiratory: bilateral: CTA - Cardiovascular Heart sounds: normal: S1, S2 foot Peripheral Edema: bilateral: None - Gastrointestinal General gastrointestinal: no absent bowel sounds, no decreased bowel sounds, no distended, no hepatomegaly, no hyperactive bowel sounds, normal bowel sounds, no organomegaly, no rigid, no scaphoid, soft, no splenomegaly, no tenderness, no umbilical hernia, no ventral hernia - Integumentary Integumentary: normal turgor, pale - Neurologic Neurologic: CNII-XII intact - Musculoskeletal Musculoskeletal: strength equal bilaterally - Psychiatric Psychiatric: A&O x's 3, appropriate affect, intact judgment & insight Results CBC & Chem 7: 12/23/17 05:30 12/22/17 11:21 Labs: Abnormal Lab Results - Last 24 Hours (Table) 12/22/17 12/22/17 12/22/17 Range/Units 11:21 18:57 21:07 RBC 2.70 L (4.30-5.90) m/uL Hgb 8.1 L (13.0-17.5) gm/dL Hct 24.8 L (39.0-53.0) % RDW 16.1 H (11.5-15.5) % POC Glucose (mg/dL) 129 H (75-99) mg/dL Crossmatch See Detail 12/23/17 12/23/17 12/23/17 Range/Units 05:30 06:27 11:52 RBC 2.48 L (4.30-5.90) m/uL Hgb 7.4 L (13.0-17.5) gm/dL Hct 22.6 L (39.0-53.0) % RDW 16.1 H (11.5-15.5) % POC Glucose (mg/dL) 100 H 101 H (75-99) mg/dL Crossmatch Assessment and Plan (1) IgG lambda monoclonal gammopathy Current Visit: No Status: Chronic Priority: Medium Code(s): D47.2 - MONOCLONAL GAMMOPATHY SNOMED Code(s): 32151560 (2) Multiple myeloma Current Visit: No Status: Chronic Priority: Medium Code(s): C90.00 - MULTIPLE MYELOMA NOT HAVING ACHIEVED REMISSION SNOMED Code(s): 981556701 Plan: Last treatment with RVD was in September. Pt has been in rehab, last seen in office 1 mo ago with plans to restart treatment after DC from rehab. Labs have been ordered to evaluate disease state, will compare to labs form office last month. WBC and platelets adequate, transfuse conservatively to keep Hgb in 7 range or if symptomatic. Iron studies ordered Discussed case with Surgical [employer] TECHNICIAN, plans are for EGD/colonoscopy in AM.
[2017-12-23 20:56] LABS: Glucose,Whole Blood 107 mg/dL (75-99)
[2017-12-24 06:03] LABS: Glucose,Whole Blood 100 mg/dL (75-99)
[2017-12-24] MEDS: INSULIN ASPART 100 UNIT/ML 1 ML 10 ML VIAL SQ SCH ×4 (06:16→21:07)
[2017-12-24 06:39] LABS: Anisocytosis Slight; Basophils % (A) 0 %; Eosinophils # (A) 0.1 k/uL (0-0.7); Eosinophils % (A) 1 %; HCT 24.8 % (39.0-53.0); Hypochromasia Moderate; Lymphocytes # (A) 1.3 k/uL (1.0-4.8); Lymphocytes % (A) 35 %; MCH 30.2 pg (25.0-35.0); MCHC 32.1 g/dL (31.0-37.0); MCV 93.9 fL (80.0-100.0); Monocytes # (A) 0.3 k/uL (0-1.0); Monocytes % (A) 8 %; Neutrophils # (A) 2.1 k/uL (1.3-7.7); Neutrophils % (A) 54 %; Platelet Count 331 k/uL (150-450); Poikilocytosis Moderate; RBC 2.64 m/uL (4.30-5.90); RDW 16.3 % (11.5-15.5); WBC 3.8 k/uL (3.8-10.6)
[2017-12-24 06:48] LABS: Anion Gap 7 mmol/L; Blood Urea Nitrogen 12 mg/dL (9-20); Calcium 7.6 mg/dL (8.4-10.2); Carbon Dioxide 23 mmol/L (22-30); Chloride 107 mmol/L (98-107); Glucose 84 mg/dL (74-99); Potassium 3.7 mmol/L (3.5-5.1); Sodium 137 mmol/L (137-145)
[2017-12-24] MEDS ORDERED: PROPOFOL 10 MG/ML 20 ML VIAL IV ONE (09:13)
[2017-12-24] MEDS ORDERED: LIDOCAINE 1% INJ 10MG/ML (20 ML MDV) ONE (09:13)
[2017-12-24] MEDS ORDERED: ePHEDrine SULFATE/0.9% NACL/PF 50 MG/5 ML SYRINGE IV ONE (09:13)
[2017-12-24] MEDS ORDERED: IV FLUID CONTINUATION 1,000 ML IV ONE (09:18)
--- NOTE | 2017-12-24 09:37 | P.PCN ---
Date of Procedure: 12/24/17 Preoperative Diagnosis: Anemia Postoperative Diagnosis: Same Procedure(s) Performed: HEENT colonoscopy with snare polypectomy Anesthesia: MAC Operative Findings: Upper endoscopy unremarkable exception of gastroesophageal reflux disease. Hill grade 2 lower esophageal valve. LA grade A erosive esophagitis. Junction at 40 cm. No hiatal hernia identified. No peptic ulcer disease. No duodenal ulcers. 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 Hemorrhoids grade 3 external identified without bleeding. Will need right colectomy. Hold any anticoagulation.
[2017-12-24] MEDS ORDERED: SODIUM CHLORIDE 0.9% 1,000 ML IV ONE (09:44)
[2017-12-24] MEDS: ACYCLOVIR 200 MG CAP PO SCH ×2 (10:27→20:36)
[2017-12-24] MEDS: LISINOPRIL 5 MG TAB PO SCH (10:28)
[2017-12-24] MEDS: FUROSEMIDE 40 MG TAB PO SCH ×2 (10:28→20:36)
[2017-12-24] MEDS: AMIODARONE 200 MG TAB PO SCH (10:28)
[2017-12-24] MEDS: METOPROLOL SUCCINATE (ER) 25 MG TAB.ER.24H PO SCH (10:28)
[2017-12-24] MEDS: POTASSIUM CHLORIDE ER 20 MEQ TAB.ER PO SCH (10:29)
[2017-12-24] MEDS: PANTOPRAZOLE 40 MG TABLET PO SCH (10:29)
[2017-12-24 11:45] LABS: Glucose,Whole Blood 121 mg/dL (75-99)
[2017-12-24] MEDS ORDERED: SODIUM FERRIC GLUCONAT-SUCROSE 125 MG in SODIUM CHLORIDE 0.9% 100 ML IVPB SCH (11:45)
--- NOTE | 2017-12-24 12:36 | P.PN ---
Subjective Patient is doing well from a cardiac standpoint. He is lying flat in bed no chest discomfort dizziness or shortness of breath Pulse rate in the 70s, blood pressure, 07/24/2005 6. His mercury Head and neck examination is normal Heart sounds S1 and S2 are normal Abdomen soft nontender External is warm Impression History of atrial fibrillation History of GI bleeding, recurrent Not a candidate for anticoagulation Proceed with GI workup Objective - Vital Signs Vital signs: Vital Signs Temp 97 F L 12/24/17 10:20 Pulse 120 H 12/24/17 10:20 Resp 18 12/24/17 10:20 BP 109/58 12/24/17 10:20 Pulse Ox 94 L 12/24/17 10:20 Intake & Output 12/23/17 12/24/17 12/24/17 18:59 06:59 18:59 Intake Total 1800 500 Output Total 1400 600 Balance -1400 1200 500 Weight 88.5 kg Intake: IV 500 Intake, IV Titration 800 Amount Sodium Chloride 0.9% 1, 800 000 ml @ 80 mls/hr IV . [id number] [facility] Rx#:[id number] Oral 1000 Output: Urine 1400 600 Other: Voiding Method Urinal Urinal Urinal # Voids 1 # Bowel Movements 0 1 - Labs CBC & Chem 7: 12/24/17 06:05 12/24/17 06:05 Labs: Abnormal Lab Results - Last 24 Hours (Table) 12/23/17 12/23/17 12/23/17 Range/Units 05:30 16:43 20:54 RBC (4.30-5.90) m/uL Hgb (13.0-17.5) gm/dL Hct (39.0-53.0) % RDW (11.5-15.5) % POC Glucose (mg/dL) 111 H 107 H (75-99) mg/dL Calcium (8.4-10.2) mg/dL Iron 17 L (65-175) ug/dL Iron Saturation 5.03 L (15.00-50.00) Ferritin 13.5 L (22.0-322.0) ng/mL Total Protein (PEP) 4.6 L (6.2-8.2) g/dL 12/24/17 12/24/17 12/24/17 Range/Units 06:01 06:05 06:05 RBC 2.64 L (4.30-5.90) m/uL Hgb 8.0 L (13.0-17.5) gm/dL Hct 24.8 L (39.0-53.0) % RDW 16.3 H (11.5-15.5) % POC Glucose (mg/dL) 100 H (75-99) mg/dL Calcium 7.6 L (8.4-10.2) mg/dL Iron (65-175) ug/dL Iron Saturation (15.00-50.00) Ferritin (22.0-322.0) ng/mL Total Protein (PEP) (6.2-8.2) g/dL 12/24/17 Range/Units 11:34 RBC (4.30-5.90) m/uL Hgb (13.0-17.5) gm/dL Hct (39.0-53.0) % RDW (11.5-15.5) % POC Glucose (mg/dL) 121 H (75-99) mg/dL Calcium (8.4-10.2) mg/dL Iron (65-175) ug/dL Iron Saturation (15.00-50.00) Ferritin (22.0-322.0) ng/mL Total Protein (PEP) (6.2-8.2) g/dL
[2017-12-24] MEDS: SODIUM FERRIC GLUCONAT-SUCROSE 125 MG in SODIUM CHLORIDE 0.9% 100 ML IVPB SCH (13:06)
[2017-12-24] MEDS: IOPAMIDOL-300 CONTRAST 30 ML VIAL (ORAL USE) PO PRN ×2 (13:07→14:21)
--- NOTE | 2017-12-24 14:28 | P.PN ---
Subjective Progress Note Date: 12/24/17 Principal diagnosis: Muliple Myeloma, Acute GI Blood Loss Mr. Rick is a very pleasant male pt of Dr. Ansari, diagnosed in Jun 2017 with IgG multiple myeloma. Pt presented to Dr. Lennox Loaiza PCP with progressive left shoulder pain following a fall 6 months earlier, X-Ray revealed 7.6 X 8.3 X 3.5cm destructive lesion in left acromion and scapula, pt referred to Ortho Onc Dr. Dempsey at [facility], no surgical intervention was recommended. Lab work up revealed monoclonal gammapathy, 4.8gr/dL, IgG of 6.6 grams with depression of IgA and IgM, bone survey revealed known left shoulder process as well as numerous intermediate lytic fossi. Pt was started on Revlimid, velcade and dexamethasone and has did well with stabilization of myleoma labs. He was having symptoms in Mach of DERIAN, SOB on exertion and activity intolerance, was hospitalized in November with CHF and needed rehab, his last treatment was in September. He was just getting ready to be discharged from rehab when he was getting progressively weaker and was exhibiting persistent/progressive fatigue, CBC showed Hgb of 6.8, he is admitted, received transfusion, having endoscopy in AM. He denied illness, fever, chills, appetite is good, no nausea, chest pain, DERIAN, changes in bowel or bladder habits, he denies seeing any black/bloody stool , hematuria, bloody noses or bruising. He states he actually pretty good other then being tired. 12/24/17 - Reviewed Iron Studies and appears patient has blood loss anemia, endoscopy procedure today. Objective - Vital Signs Vital signs: Vital Signs Temp 97.1 F L 12/24/17 12:00 Pulse 79 12/24/17 12:00 Resp 18 12/24/17 12:00 BP 106/57 12/24/17 12:00 Pulse Ox 96 12/24/17 12:00 Intake & Output 12/23/17 12/24/17 12/24/17 18:59 06:59 18:59 Intake Total 1800 500 Output Total 1400 600 Balance -1400 1200 500 Weight 88.5 kg Intake: IV 500 Intake, IV Titration 800 Amount Sodium Chloride 0.9% 1, 800 000 ml @ 80 mls/hr IV . [id number] [id number] Rx#:[id number] Oral 1000 Output: Urine 1400 600 Other: Voiding Method Urinal Urinal Urinal # Voids 1 # Bowel Movements 0 1 - Constitutional General appearance: Present: cooperative, no acute distress - EENT Eyes: Present: EOMI, dentition normal ENT: Present: hard of hearing, NA/AT, normal oropharynx - Neck Details: Supple, Trachea Midline Neck: Present: normal ROM - Respiratory Respiratory: bilateral: CTA (No increased effort) - Cardiovascular Heart rate: 102 Heart sounds: normal: S1, S2 - Gastrointestinal General gastrointestinal: Present: normal bowel sounds, soft - Integumentary Integumentary: Present: pale - Neurologic Neurologic: Present: CNII-XII intact - Musculoskeletal Musculoskeletal: Present: generalized weakness, strength equal bilaterally - Psychiatric Psychiatric: Present: A&O x's 3, appropriate affect, intact judgment & insight - Labs CBC & Chem 7: 12/24/17 06:05 12/24/17 06:05 Labs: Abnormal Lab Results - Last 24 Hours (Table) 12/23/17 12/23/17 12/23/17 Range/Units 05:30 16:43 20:54 RBC (4.30-5.90) m/uL Hgb (13.0-17.5) gm/dL Hct (39.0-53.0) % RDW (11.5-15.5) % POC Glucose (mg/dL) 111 H 107 H (75-99) mg/dL Calcium (8.4-10.2) mg/dL Iron 17 L (65-175) ug/dL Iron Saturation 5.03 L (15.00-50.00) Ferritin 13.5 L (22.0-322.0) ng/mL Total Protein (PEP) 4.6 L (6.2-8.2) g/dL 12/24/17 12/24/17 12/24/17 Range/Units 06:01 06:05 06:05 RBC 2.64 L (4.30-5.90) m/uL Hgb 8.0 L (13.0-17.5) gm/dL Hct 24.8 L (39.0-53.0) % RDW 16.3 H (11.5-15.5) % POC Glucose (mg/dL) 100 H (75-99) mg/dL Calcium 7.6 L (8.4-10.2) mg/dL Iron (65-175) ug/dL Iron Saturation (15.00-50.00) Ferritin (22.0-322.0) ng/mL Total Protein (PEP) (6.2-8.2) g/dL 12/24/17 Range/Units 11:34 RBC (4.30-5.90) m/uL Hgb (13.0-17.5) gm/dL Hct (39.0-53.0) % RDW (11.5-15.5) % POC Glucose (mg/dL) 121 H (75-99) mg/dL Calcium (8.4-10.2) mg/dL Iron (65-175) ug/dL Iron Saturation (15.00-50.00) Ferritin (22.0-322.0) ng/mL Total Protein (PEP) (6.2-8.2) g/dL Assessment and Plan Plan: Assessment and Plan (1) IgG lambda monoclonal gammopathy Current Visit: No Status: Chronic Priority: Medium Code(s): D47.2 - MONOCLONAL GAMMOPATHY SNOMED Code(s): 10089425 (2) Multiple Myeloma - Awaiting repeat Myeloma labs, appears anemia is likely from some source of bleeding with evidence of iron deficiencny and less likely from progressive disease, although will await results and provide necessary recomendations after assessment. - Plan at this time remains the same to restart regimen of RVD after Rehab, last treatment in September. Current Visit: No Status: Chronic Priority: Medium Code(s): C90.00 - MULTIPLE MYELOMA NOT HAVING ACHIEVED REMISSION SNOMED Code(s): 104915516 (3) Normocytic Anemia - - Likely Blood Loss Anemia - Iron studies have decreased since last month, ordered IV Parental Iron x3 days - Endoscopy today per Dr. Gordon Physician Attestation: I have Completed the full history and physical of this patient and agree with the above dictation by Dacia Reddy NP. Dictated as a scribe
--- NOTE | 2017-12-24 15:28 | P.PN ---
Progress Note - Text Progress Note Date: 12/24/17 Per request of oncologist Dr. Eastman, the patient's surgery is now cancelled pending pathology.
--- NOTE | 2017-12-24 15:32 | CT ---
EXAMINATION TYPE: CT abdomen pelvis w con DATE OF EXAM: 12/24/2017 COMPARISON: CT abdomen pelvis September 16, 2015 and older studies. PET/CT July 03, 2017. HISTORY: Follow up for colon cancer. History of prostate cancer. CT DLP: 1875 mGycm, Automated Exposure Control for Dose Reduction was Utilized. CONTRAST: CT scan of the abdomen and pelvis is performed with oral and with IV Contrast, patient injected with 100ml mL of Isovue M300. FINDINGS: LUNG BASES: There are new tiny bilateral pleural effusions with associated compressive atelectasis. T here is persistent small to tiny pericardial effusion and mild cardiomegaly. Coronary artery calcific ation is redemonstrated along with calcifications at level of aortic valve. LIVER/GB: New mild central periportal edema is nonspecific finding. Dependent density in gallbladder could reflect vicarious excretion and/or gallbladder sludge. No surrounding inflammatory change is pr esent. PANCREAS: No significant abnormality is seen. SPLEEN: There is small splenule in splenic hilum axial image 26 redemonstrated ADRENALS: No significant abnormality is seen. KIDNEYS: A 9 mm calculus left kidney mid pole level axial image 36 is redemonstrated. Simple appearin g slightly lobulated cyst near this level axial image 37 is redemonstrated. BOWEL: Oral contrast reaches level of hepatic flexure. There is persistent suspicious residual tumor or neoplasm of cecum axial image 58. No suspicious small or large bowel dilatation is present. PROSTATE/SEMINAL VESICLES: Prostate is surgically absent with numerous clips at level of prostate bed extending into bilateral pelvis redemonstrated. LYMPH NODES: No greater than 1cm abdominal or pelvic lymph nodes are appreciated. OSSEOUS STRUCTURES: Osseous structures are demineralized. Multilevel severe spurring throughout the t horacolumbar spine is present. There is multilevel disc space narrowing and facet arthropathy through out the lumbar spine. Osseous metastatic disease is seen better on PET/CT, suspicious lytic lesions r emain present for reference left posterior 1.6 cm lesion L1 level axial image 42. For reference destr uctive lateral lytic lesion axial image 40. There is moderate to advanced degenerative change in both hips with spurring and joint space loss. New smaller lytic lesions throughout the spine would be dif ficult to exclude though no definitive progression is seen. OTHER: There is fairly mild to moderate calcified plaque of aorta extending into branch vessels. IMPRESSION: Hypermetabolic cecal mass less prominent than prior study may reflect positive treatment response if undergoing treatment or chemotherapy. Persistent neoplasm felt present. Osseous metastati c disease redemonstrated, cannot exclude progression. Otherwise no new mass or adenopathy is seen to suggest new metastatic malignancy.
[2017-12-24 16:33] LABS: Glucose,Whole Blood 127 mg/dL (75-99)
[2017-12-24] MEDS: SODIUM CHLORIDE 0.9% 1,000 ML IV SCH (20:36)
--- NOTE | 2017-12-24 20:42 | P.PN ---
Subjective Progress Note Date: 12/24/17 Patient is in bed. He denies any abdominal pain. Multiple studies including CT of the abdomen and pelvis has been completed. He has completed his upper and lower endoscopy with findings of a large cecal tumor. Objective - Vital Signs Vital signs: Vital Signs Temp 96.9 F L 12/24/17 16:00 Pulse 72 12/24/17 16:00 Resp 18 12/24/17 16:00 BP 102/57 12/24/17 16:00 Pulse Ox 94 L 12/24/17 16:00 Intake & Output 12/24/17 12/24/17 12/25/17 06:59 18:59 06:59 Intake Total 1800 1320 Output Total 600 Balance 1200 1320 Weight 88.5 kg Intake: IV 500 Intake, IV Titration 800 340 Amount Sodium Chloride 0.9% 1, 800 240 000 ml @ 80 mls/hr IV . [id number] [facility] Rx#:[id number] Sodium Ferric Gluconat- 100 Sucrose 125 mg In Sodium Chloride 0.9% 100 ml @ 100 mls/hr IVPB DAILY [facility] Rx#:[id number] Oral 1000 480 Output: Urine 600 Other: Voiding Method Urinal Urinal # Voids 1 # Bowel Movements 1 - Exam GENERAL: Well developed and in no acute distress. Pleasant. HEENT: No sclera icterus. Extraocular movements grossly intact. Moist buccal mucosa. Head is atraumatic, normocephalic. Hears conversational speech. No nasal drainage. NECK: Supple without lymphadenopathy. CHEST: Non-labored respirations and equal bilateral excursions. CARDIOVASCULAR: Regular rate and rhythm. Palpable 2+ radial pulses. ABDOMEN: Soft, nontender. Nondistended. MUSCULOSKELETAL: No clubbing, cyanosis or edema. NEUROLOGIC: No focal or lateralizing signs. PSYCH: Appropriate affect. Alert and oriented to person, place and time. SKIN: Good skin turgor. Well perfused. - Labs CBC & Chem 7: 12/24/17 06:05 12/24/17 06:05 Labs: Abnormal Lab Results - Last 24 Hours (Table) 12/23/17 12/23/17 12/24/17 Range/Units 05:30 20:54 06:01 RBC (4.30-5.90) m/uL Hgb (13.0-17.5) gm/dL Hct (39.0-53.0) % RDW (11.5-15.5) % POC Glucose (mg/dL) 107 H 100 H (75-99) mg/dL Calcium (8.4-10.2) mg/dL Iron 17 L (65-175) ug/dL Iron Saturation 5.03 L (15.00-50.00) Ferritin 13.5 L (22.0-322.0) ng/mL Total Protein (PEP) 4.6 L (6.2-8.2) g/dL 12/24/17 12/24/17 12/24/17 Range/Units 06:05 06:05 11:34 RBC 2.64 L (4.30-5.90) m/uL Hgb 8.0 L (13.0-17.5) gm/dL Hct 24.8 L (39.0-53.0) % RDW 16.3 H (11.5-15.5) % POC Glucose (mg/dL) 121 H (75-99) mg/dL Calcium 7.6 L (8.4-10.2) mg/dL Iron (65-175) ug/dL Iron Saturation (15.00-50.00) Ferritin (22.0-322.0) ng/mL Total Protein (PEP) (6.2-8.2) g/dL 12/24/17 Range/Units 16:27 RBC (4.30-5.90) m/uL Hgb (13.0-17.5) gm/dL Hct (39.0-53.0) % RDW (11.5-15.5) % POC Glucose (mg/dL) 127 H (75-99) mg/dL Calcium (8.4-10.2) mg/dL Iron (65-175) ug/dL Iron Saturation (15.00-50.00) Ferritin (22.0-322.0) ng/mL Total Protein (PEP) (6.2-8.2) g/dL Assessment and Plan (1) Anemia Current Visit: No Status: Acute Code(s): D64.9 - ANEMIA, UNSPECIFIED SNOMED Code(s): 066131649 (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 Earlier, I was notified by the patient's oncologist to cancel his surgery pending pathology. 2. I had a long discussion with the patient including endoscopy findings of a cecal mass. Additionally, I reviewed his previous CT scans from several years ago including PET scan from June 2017. PET scan from June 2017 had also confirmed a cecal tumor. 3. Patient has had more than one event of acute anemia in July including upon this hospitalization. 4. I discussed with the patient potential delayed surgery as we await his pathology. Additionally, potential diagnosis of a radiosensitive sensitive tumor was described. Patient preferred complete excision. 5. Patient requests to have immediate surgical excision of his tumor as he was tentatively scheduled for Wednesday. 6. Will reassess tomorrow including discussion with team and possibly proceed as per patient wishes. 7. In the interim, recommend high protein diet to build strength. 8. Agree with iron infusions. 9. Robotics assisted colectomy described as it will give him most benefit of immediate recovery and potential earlier discharge with minimally invasive technique.
--- NOTE | 2017-12-24 20:53 | P.PN ---
Subjective on-call hospitalist covering for the primary team ,12/24 is my first day taking care of the pt this is a pleasant 77 yo M with pmh of multiple myeloma of the left shoulder , chf, who presented initially with generalized weakness and hypotensive and found to have sever anemia with possible GI bleed . pt was on Eliquis which is put on hold now , pt has h/o a fib. on admission his Hb was low at 6.8 he got blood tranfusion and his Hb went up to 8.0. Objective - Vital Signs Vital signs: Vital Signs Temp 97.1 F L 12/24/17 12:00 Pulse 79 12/24/17 12:00 Resp 18 12/24/17 12:00 BP 106/57 12/24/17 12:00 Pulse Ox 96 12/24/17 12:00 Intake & Output 12/23/17 12/24/17 12/24/17 18:59 06:59 18:59 Intake Total 1800 740 Output Total 1400 600 Balance -1400 1200 740 Weight 88.5 kg Intake: IV 500 Intake, IV Titration 800 Amount Sodium Chloride 0.9% 1, 800 000 ml @ 80 mls/hr IV . [id number] [facility] Rx#:[id number] Oral 1000 240 Output: Urine 1400 600 Other: Voiding Method Urinal Urinal Urinal # Voids 1 # Bowel Movements 0 1 - Exam GENERAL: The patient is alert and oriented x3, not in any acute distress. Well developed, well nourished. HEENT: Pupils are round and equally reacting to light. EOMI. No scleral icterus. No conjunctival pallor. Normocephalic, atraumatic. No pharyngeal erythema. No thyromegaly. CARDIOVASCULAR: S1 and S2 present. No murmurs, rubs, or gallops. PULMONARY: Chest is clear to auscultation, no wheezing or crackles. ABDOMEN: Soft, nontender, nondistended, normoactive bowel sounds. No palpable organomegaly. Small abdominal wall lump close to the umbilicus with a smooth borders and mobile, nontender MUSCULOSKELETAL: No joint swelling or deformity. EXTREMITIES: No cyanosis, clubbing, or pedal edema. NEUROLOGICAL: Gross neurological examination did not reveal any focal deficits. SKIN: No rashes. - Labs CBC & Chem 7: 12/24/17 06:05 12/24/17 06:05 Labs: Abnormal Lab Results - Last 24 Hours (Table) 12/23/17 12/23/17 12/23/17 Range/Units 05:30 16:43 20:54 RBC (4.30-5.90) m/uL Hgb (13.0-17.5) gm/dL Hct (39.0-53.0) % RDW (11.5-15.5) % POC Glucose (mg/dL) 111 H 107 H (75-99) mg/dL Calcium (8.4-10.2) mg/dL Iron 17 L (65-175) ug/dL Iron Saturation 5.03 L (15.00-50.00) Ferritin 13.5 L (22.0-322.0) ng/mL Total Protein (PEP) 4.6 L (6.2-8.2) g/dL 12/24/17 12/24/17 12/24/17 Range/Units 06:01 06:05 06:05 RBC 2.64 L (4.30-5.90) m/uL Hgb 8.0 L (13.0-17.5) gm/dL Hct 24.8 L (39.0-53.0) % RDW 16.3 H (11.5-15.5) % POC Glucose (mg/dL) 100 H (75-99) mg/dL Calcium 7.6 L (8.4-10.2) mg/dL Iron (65-175) ug/dL Iron Saturation (15.00-50.00) Ferritin (22.0-322.0) ng/mL Total Protein (PEP) (6.2-8.2) g/dL 12/24/17 Range/Units 11:34 RBC (4.30-5.90) m/uL Hgb (13.0-17.5) gm/dL Hct (39.0-53.0) % RDW (11.5-15.5) % POC Glucose (mg/dL) 121 H (75-99) mg/dL Calcium (8.4-10.2) mg/dL Iron (65-175) ug/dL Iron Saturation (15.00-50.00) Ferritin (22.0-322.0) ng/mL Total Protein (PEP) (6.2-8.2) g/dL Assessment and Plan Plan: - possible GI bleed , his Hb is up from 6.8 to 8.0 , EGD: reflux esophagitis colonoscopy: ileocecal tumor. and surgical team are evaluating the pt for possible right hemicoloctomy . - cecal mass with possible bony metastasis, pt may need right hemicoloctomy .surgery on the case . pathology results from colonoscopy is pending -CHF, cardiology consult is appreciated , c/w same treatment -A fib with RVR, hold Eliquis , c/w amiodarone , cardiology input is appreciated -Multiple Myeloma, pt is having back pain . hem/onc team are following the pt dvt px scd GI px ppi prognosis is guarded
[2017-12-24 21:04] LABS: Glucose,Whole Blood 148 mg/dL (75-99)
[2017-12-25] MEDS: SODIUM CHLORIDE 0.9% 1,000 ML IV SCH ×2 (06:09→16:09)
[2017-12-25 06:21] LABS: Glucose,Whole Blood 125 mg/dL (75-99)
[2017-12-25] MEDS: INSULIN ASPART 100 UNIT/ML 1 ML 10 ML VIAL SQ SCH ×4 (06:25→21:03)
[2017-12-25 06:40] LABS: Anisocytosis Slight; Basophils % (A) 0 %; Eosinophils % (A) 1 %; HCT 24.1 % (39.0-53.0); HGB 7.5 gm/dL (13.0-17.5); Hypochromasia Moderate; Lymphocytes # (A) 1.1 k/uL (1.0-4.8); Lymphocytes % (A) 24 %; MCH 29.5 pg (25.0-35.0); MCHC 31.1 g/dL (31.0-37.0); MCV 94.7 fL (80.0-100.0); Mean Platelet Volume 6.5; Monocytes # (A) 0.3 k/uL (0-1.0); Monocytes % (A) 7 %; Neutrophils % (A) 66 %; Platelet Count 333 k/uL (150-450); Poikilocytosis Slight; RBC 2.54 m/uL (4.30-5.90); RDW 16.3 % (11.5-15.5); WBC 4.6 k/uL (3.8-10.6)
[2017-12-25 06:52] LABS: ALT 25 U/L (21-72); AST 13 U/L (17-59); Albumin 2.6 g/dL (3.5-5.0); Alkaline Phosphatase 31 U/L (38-126); Anion Gap 8 mmol/L; Bilirubin,Unconjugated 0.1 mg/dL (0.0-1.1); Blood Urea Nitrogen 9 mg/dL (9-20); Calcium 7.7 mg/dL (8.4-10.2); Carbon Dioxide 22 mmol/L (22-30); Chloride 110 mmol/L (98-107); Glucose 111 mg/dL (74-99); Potassium 3.9 mmol/L (3.5-5.1); Sodium 140 mmol/L (137-145); Total Bilirubin 0.1 mg/dL (0.2-1.3); Total Protein 4.5 g/dL (6.3-8.2)
--- NOTE | 2017-12-25 07:57 | P.PN ---
Subjective on-call hospitalist covering for the primary team ,12/24 is my first day taking care of the pt this is a pleasant 77 yo M with pmh of multiple myeloma of the left shoulder , chf, who presented initially with generalized weakness and hypotensive and found to have sever anemia with possible GI bleed . pt was on Eliquis which is put on hold now , pt has h/o a fib. on admission his Hb was low at 6.8 he got blood tranfusion and his Hb went up to 8.0. Objective - Vital Signs Vital signs: Vital Signs Temp 97.0 F L 12/25/17 04:00 Pulse 78 12/25/17 04:00 Resp 18 12/25/17 04:00 BP 111/58 12/25/17 04:00 Pulse Ox 95 12/25/17 04:00 Intake & Output 12/24/17 12/25/17 12/25/17 18:59 06:59 18:59 Intake Total 1320 640 Output Total 1 Balance 1320 639 Weight 88.7 kg Intake: IV 500 Intake, IV Titration 340 640 Amount Sodium Chloride 0.9% 1, 240 000 ml @ 80 mls/hr IV . [id number] [facility] Rx#:[id number] Sodium Chloride 0.9% 1, 640 000 ml As IV .[facility]K-MED ONE Rx#:[id number] Sodium Ferric Gluconat- 100 Sucrose 125 mg In Sodium Chloride 0.9% 100 ml @ 100 mls/hr IVPB DAILY [facility] Rx#:[id number] Oral 480 Output: Urine/Stool Mix 1 Other: Voiding Method Urinal Urinal - Exam GENERAL: The patient is alert and oriented x3, not in any acute distress. Well developed, well nourished. HEENT: Pupils are round and equally reacting to light. EOMI. No scleral icterus. No conjunctival pallor. Normocephalic, atraumatic. No pharyngeal erythema. No thyromegaly. CARDIOVASCULAR: S1 and S2 present. No murmurs, rubs, or gallops. PULMONARY: Chest is clear to auscultation, no wheezing or crackles. ABDOMEN: Soft, nontender, nondistended, normoactive bowel sounds. No palpable organomegaly. Small abdominal wall lump close to the umbilicus with a smooth borders and mobile, nontender MUSCULOSKELETAL: No joint swelling or deformity. EXTREMITIES: No cyanosis, clubbing, or pedal edema. NEUROLOGICAL: Gross neurological examination did not reveal any focal deficits. SKIN: No rashes. - Labs CBC & Chem 7: 12/25/17 06:07 12/25/17 06:07 Labs: Abnormal Lab Results - Last 24 Hours (Table) 12/24/17 12/24/17 12/24/17 Range/Units 11:34 16:27 21:03 RBC (4.30-5.90) m/uL Hgb (13.0-17.5) gm/dL Hct (39.0-53.0) % RDW (11.5-15.5) % Chloride (98-107) mmol/L Glucose (74-99) mg/dL POC Glucose (mg/dL) 121 H 127 H 148 H (75-99) mg/dL Calcium (8.4-10.2) mg/dL Total Bilirubin (0.2-1.3) mg/dL AST (17-59) U/L Alkaline Phosphatase (38-126) U/L Total Protein (6.3-8.2) g/dL Albumin (3.5-5.0) g/dL 12/25/1718 12/25/17 Range/Units 06:07 06:07 06:17 RBC 2.54 L (4.30-5.90) m/uL Hgb 7.5 L (13.0-17.5) gm/dL Hct 24.1 L (39.0-53.0) % RDW 16.3 H (11.5-15.5) % Chloride 110 H (98-107) mmol/L Glucose 111 H (74-99) mg/dL POC Glucose (mg/dL) 125 H (75-99) mg/dL Calcium 7.7 L (8.4-10.2) mg/dL Total Bilirubin 0.1 L (0.2-1.3) mg/dL AST 13 L (17-59) U/L Alkaline Phosphatase 31 L (38-126) U/L Total Protein 4.5 L (6.3-8.2) g/dL Albumin 2.6 L (3.5-5.0) g/dL Assessment and Plan Plan: - possible GI bleed , his Hb is up from 6.8 to 8.0 , EGD: reflux esophagitis colonoscopy: ileocecal tumor. and surgical team are evaluating the pt for possible right hemicoloctomy . - cecal mass with possible bony metastasis, pt may need right hemicoloctomy .surgery team on the case . pathology results from colonoscopy is pending -CHF, cardiology consult is appreciated , c/w same treatment -A fib with RVR, hold Eliquis , c/w amiodarone , cardiology input is appreciated -Multiple Myeloma, pt is having back pain . hem/onc team are following the pt dvt px scd GI px ppi prognosis is guarded Physical therapy recommended EDGAR
[2017-12-25] MEDS: ACYCLOVIR 200 MG CAP PO SCH ×2 (08:52→20:50)
[2017-12-25] MEDS: METOPROLOL SUCCINATE (ER) 25 MG TAB.ER.24H PO SCH (08:53)
[2017-12-25] MEDS: FUROSEMIDE 40 MG TAB PO SCH ×2 (08:53→20:50)
[2017-12-25] MEDS: LISINOPRIL 5 MG TAB PO SCH (08:53)
[2017-12-25] MEDS: PANTOPRAZOLE 40 MG TABLET PO SCH (08:53)
[2017-12-25] MEDS: AMIODARONE 200 MG TAB PO SCH (08:53)
[2017-12-25] MEDS: POTASSIUM CHLORIDE ER 20 MEQ TAB.ER PO SCH (08:53)
[2017-12-25] MEDS: SODIUM FERRIC GLUCONAT-SUCROSE 125 MG in SODIUM CHLORIDE 0.9% 100 ML IVPB SCH (09:15)
[2017-12-25 11:47] LABS: Glucose,Whole Blood 142 mg/dL (75-99)
--- NOTE | 2017-12-25 12:54 | PN ---
PROGRESS NOTE The patient is lying comfortably in bed. He denies any chest discomfort. No shortness of breath or dizziness or lightheadedness. His pulse rate is in the 70s. He is afebrile at 98 degrees Fahrenheit. Blood pressure 109/57 mmHg. He is receiving intravenous iron therapy. Breath sounds are reduced bilaterally. Heart sounds S1, S2 are normal. Lungs are clear to auscultation. Extremities are warm; no edema. IMPRESSION: 1. Recurrent gastrointestinal bleeding. 2. Underlying atrial fibrillation, rate controlled. PLAN: Discontinue anticoagulants completely, and in the future I will consider alternative strategies for stroke prevention, rate control of atrial fibrillation. I will see him in followup within the month post discharge. MMODL / IJN: [id number] /
--- NOTE | 2017-12-25 13:54 | P.PN ---
Subjective Progress Note Date: 12/25/17 He is resting comfortably. No reports of abdominal pain. No reports of blood in stools. After further discussion, he reports not having anyone at home. He does have friends. I did review his colonoscopy findings as a tumor was found along the ileocecal valve He had tolerated his regular diet this morning. His hemoglobin was over 8 yesterday. Pathology still pending on his colonoscopy. In light of his anemia and weakness, I have discussed discharge home with surgery scheduled after his pathology is back. He will need preoperative nutrition augmentation with a high protein diet including vitamin C rich foods and iron rich foods. Objective - Vital Signs Vital signs: Vital Signs Temp 98 F 12/25/17 08:00 Pulse 70 12/25/17 12:00 Resp 16 12/25/17 12:00 BP 109/57 12/25/17 12:00 Pulse Ox 97 12/25/17 12:00 Intake & Output 12/24/17 12/25/17 12/25/17 18:59 06:59 18:59 Intake Total 1320 640 100 Output Total 1 Balance 1320 639 100 Weight 88.7 kg Intake: IV 500 Intake, IV Titration 340 640 Amount Sodium Chloride 0.9% 1, 240 000 ml @ 80 mls/hr IV . [id number] [facility] Rx#:[id number] Sodium Chloride 0.9% 1, 640 000 ml As IV .[facility]K-[facility] ONE Rx#:[id number] Sodium Ferric Gluconat- 100 Sucrose 125 mg In Sodium Chloride 0.9% 100 ml @ 100 mls/hr IVPB DAILY [facility] Rx#:[id number] Oral 480 100 Output: Urine/Stool Mix 1 Other: Voiding Method Urinal Urinal Urinal - Exam GENERAL: Well developed and in no acute distress. Pleasant. HEENT: No sclera icterus. Extraocular movements grossly intact. Moist buccal mucosa. Head is atraumatic, normocephalic. Hears conversational speech. No nasal drainage. NECK: Supple without lymphadenopathy. CHEST: Non-labored respirations and equal bilateral excursions. CARDIOVASCULAR: Regular rate and rhythm. Palpable 2+ radial pulses. ABDOMEN: Soft, nontender. Nondistended. MUSCULOSKELETAL: No clubbing, cyanosis or edema. NEUROLOGIC: No focal or lateralizing signs. PSYCH: Appropriate affect. Alert and oriented to person, place and time. SKIN: Good skin turgor. Well perfused. - Labs CBC & Chem 7: 12/25/17 06:07 12/25/17 06:07 Labs: Abnormal Lab Results - Last 24 Hours (Table) 12/24/17 12/24/17 12/25/17 Range/Units 16:27 21:03 06:07 RBC 2.54 L (4.30-5.90) m/uL Hgb 7.5 L (13.0-17.5) gm/dL Hct 24.1 L (39.0-53.0) % RDW 16.3 H (11.5-15.5) % Chloride (98-107) mmol/L Glucose (74-99) mg/dL POC Glucose (mg/dL) 127 H 148 H (75-99) mg/dL Calcium (8.4-10.2) mg/dL Total Bilirubin (0.2-1.3) mg/dL AST (17-59) U/L Alkaline Phosphatase (38-126) U/L Total Protein (6.3-8.2) g/dL Albumin (3.5-5.0) g/dL 12/25/1718 12/25/17 Range/Units 06:07 06:17 11:45 RBC (4.30-5.90) m/uL Hgb (13.0-17.5) gm/dL Hct (39.0-53.0) % RDW (11.5-15.5) % Chloride 110 H (98-107) mmol/L Glucose 111 H (74-99) mg/dL POC Glucose (mg/dL) 125 H 142 H (75-99) mg/dL Calcium 7.7 L (8.4-10.2) mg/dL Total Bilirubin 0.1 L (0.2-1.3) mg/dL AST 13 L (17-59) U/L Alkaline Phosphatase 31 L (38-126) U/L Total Protein 4.5 L (6.3-8.2) g/dL Albumin 2.6 L (3.5-5.0) g/dL Assessment and Plan (1) Anemia Current Visit: No Status: Acute Code(s): D64.9 - ANEMIA, UNSPECIFIED SNOMED Code(s): 326660127 (2) Cecal cancer Current Visit: Yes Status: Acute Code(s): C18.0 - MALIGNANT NEOPLASM OF CECUM SNOMED Code(s): 730993619 (3) Ischemic cardiomyopathy Current Visit: Yes Status: Acute Code(s): I25.5 - ISCHEMIC CARDIOMYOPATHY SNOMED Code(s): 217600554 (4) Atrial fibrillation Current Visit: No Status: Acute Code(s): I48.91 - UNSPECIFIED ATRIAL FIBRILLATION SNOMED Code(s): 60308241 (5) Multiple myeloma Current Visit: No Status: Chronic Priority: Medium Code(s): C90.00 - MULTIPLE MYELOMA NOT HAVING ACHIEVED REMISSION SNOMED Code(s): 969549073 Plan: 1. After extended discussion regarding surgical plan, patient is eager to go home when medically stable with follow-up for surgery in a few weeks should his pathology report demonstrate adenoma/adenocarcinoma 2. In the interim, continue with high protein diet. 3. Patient is clear from a surgical standpoint for discharge when medically cleared.
[2017-12-25 16:50] LABS: Glucose,Whole Blood 135 mg/dL (75-99)
[2017-12-25 20:57] LABS: Glucose,Whole Blood 159 mg/dL (75-99)
[2017-12-26] MEDS: SODIUM CHLORIDE 0.9% 1,000 ML IV SCH ×2 (06:36→16:14)
[2017-12-26] MEDS: INSULIN ASPART 100 UNIT/ML 1 ML 10 ML VIAL SQ SCH ×4 (06:40→21:15)
[2017-12-26 06:41] LABS: Glucose,Whole Blood 136 mg/dL (75-99)
[2017-12-26 07:35] LABS: Anisocytosis Slight; Basophils % (A) 0 %; Eosinophils # (A) 0.1 k/uL (0-0.7); Eosinophils % (A) 1 %; HCT 25.6 % (39.0-53.0); HGB 8.3 gm/dL (13.0-17.5); Hypochromasia Moderate; Lymphocytes # (A) 1.4 k/uL (1.0-4.8); Lymphocytes % (A) 22 %; MCH 30.1 pg (25.0-35.0); MCHC 32.3 g/dL (31.0-37.0); MCV 93.1 fL (80.0-100.0); Mean Platelet Volume 6.6; Monocytes # (A) 0.3 k/uL (0-1.0); Monocytes % (A) 5 %; Neutrophils # (A) 4.5 k/uL (1.3-7.7); Neutrophils % (A) 71 %; Platelet Count 348 k/uL (150-450); Poikilocytosis Moderate; RBC 2.75 m/uL (4.30-5.90); RDW 16.5 % (11.5-15.5); WBC 6.4 k/uL (3.8-10.6)
[2017-12-26 07:43] LABS: ALT 28 U/L (21-72); AST 14 U/L (17-59); Alkaline Phosphatase 37 U/L (38-126); Anion Gap 7 mmol/L; Bilirubin, Delta 0.1 mg/dL (0.0-0.2); Blood Urea Nitrogen 8 mg/dL (9-20); Calcium 8.1 mg/dL (8.4-10.2); Carbon Dioxide 25 mmol/L (22-30); Chloride 106 mmol/L (98-107); Glucose 118 mg/dL (74-99); Potassium 3.7 mmol/L (3.5-5.1); Sodium 138 mmol/L (137-145); Total Bilirubin 0.1 mg/dL (0.2-1.3); Total Protein 4.9 g/dL (6.3-8.2)
[2017-12-26] MEDS: POTASSIUM CHLORIDE ER 20 MEQ TAB.ER PO SCH (08:26)
[2017-12-26] MEDS: PANTOPRAZOLE 40 MG TABLET PO SCH (08:26)
[2017-12-26] MEDS: METOPROLOL SUCCINATE (ER) 25 MG TAB.ER.24H PO SCH (08:26)
[2017-12-26] MEDS: LISINOPRIL 5 MG TAB PO SCH (08:26)
[2017-12-26] MEDS: ACYCLOVIR 200 MG CAP PO SCH ×2 (08:26→21:27)
[2017-12-26] MEDS: FUROSEMIDE 40 MG TAB PO SCH ×2 (08:26→21:27)
[2017-12-26] MEDS: AMIODARONE 200 MG TAB PO SCH (08:26)
--- NOTE | 2017-12-26 08:38 | P.PN ---
Subjective on-call hospitalist covering for the primary team ,12/24 is my first day taking care of the pt this is a pleasant 77 yo M with pmh of multiple myeloma of the left shoulder , chf, who presented initially with generalized weakness and hypotensive and found to have sever anemia with possible GI bleed . pt was on Eliquis which is put on hold now , pt has h/o a fib. on admission his Hb was low at 6.8 he got blood tranfusion and his Hb went up to 8.0. Objective - Vital Signs Vital signs: Vital Signs Temp 97.0 F L 12/26/17 04:00 Pulse 83 12/26/17 04:00 Resp 18 12/26/17 08:00 BP 120/55 12/26/17 04:00 Pulse Ox 96 12/26/17 04:00 Intake & Output 12/25/17 12/26/17 12/26/17 18:59 06:59 18:59 Intake Total 332 280 Output Total 300 1550 Balance 32 -1550 280 Weight 87.9 kg Intake: Oral 332 280 Output: Urine 300 1550 Other: Voiding Method Urinal Urinal Urinal # Voids 1 1 # Bowel Movements 1 - Exam GENERAL: The patient is alert and oriented x3, not in any acute distress. Well developed, well nourished. HEENT: Pupils are round and equally reacting to light. EOMI. No scleral icterus. No conjunctival pallor. Normocephalic, atraumatic. No pharyngeal erythema. No thyromegaly. CARDIOVASCULAR: S1 and S2 present. No murmurs, rubs, or gallops. PULMONARY: Chest is clear to auscultation, no wheezing or crackles. ABDOMEN: Soft, nontender, nondistended, normoactive bowel sounds. No palpable organomegaly. Small abdominal wall lump close to the umbilicus with a smooth borders and mobile, nontender MUSCULOSKELETAL: No joint swelling or deformity. EXTREMITIES: No cyanosis, clubbing, or pedal edema. NEUROLOGICAL: Gross neurological examination did not reveal any focal deficits. SKIN: No rashes. - Labs CBC & Chem 7: 12/26/17 06:38 12/26/17 06:38 Labs: Abnormal Lab Results - Last 24 Hours (Table) 12/25/17 12/25/17 12/25/17 Range/Units 11:45 16:48 20:56 RBC (4.30-5.90) m/uL Hgb (13.0-17.5) gm/dL Hct (39.0-53.0) % RDW (11.5-15.5) % BUN (9-20) mg/dL Glucose (74-99) mg/dL POC Glucose (mg/dL) 142 H 135 H 159 H (75-99) mg/dL Calcium (8.4-10.2) mg/dL Total Bilirubin (0.2-1.3) mg/dL AST (17-59) U/L Alkaline Phosphatase (38-126) U/L Total Protein (6.3-8.2) g/dL Albumin (3.5-5.0) g/dL 12/26/17 12/26/17 12/26/17 Range/Units 06:38 06:38 06:39 RBC 2.75 L (4.30-5.90) m/uL Hgb 8.3 L (13.0-17.5) gm/dL Hct 25.6 L (39.0-53.0) % RDW 16.5 H (11.5-15.5) % BUN 8 L (9-20) mg/dL Glucose 118 H (74-99) mg/dL POC Glucose (mg/dL) 136 H (75-99) mg/dL Calcium 8.1 L (8.4-10.2) mg/dL Total Bilirubin 0.1 L (0.2-1.3) mg/dL AST 14 L (17-59) U/L Alkaline Phosphatase 37 L (38-126) U/L Total Protein 4.9 L (6.3-8.2) g/dL Albumin 3.0 L (3.5-5.0) g/dL Assessment and Plan Plan: - possible GI bleed , his Hb is up from 6.8 to 8.0 , EGD: reflux esophagitis colonoscopy: ileocecal tumor. and surgical team are evaluating the pt for possible right hemicoloctomy . - cecal mass with possible bony metastasis, pt may need right hemicoloctomy .surgery team on the case . pathology results from colonoscopy is pending -CHF, cardiology consult is appreciated , c/w same treatment -A fib with RVR, hold Eliquis , c/w amiodarone , cardiology input is appreciated . Positive troponins on admission, patient has chronic elevated troponins around the same level. He has been evaluated by [facility] before and found that no consistent with acute coronary syndrome, likely secondary to supply and demand mismatch And he had negative stress test on 12/23/2016 on 12/2017 cardiology saw the patient for atrial fibrillation and that time he was found not to candidate for anticoagulation for a scope anemia and thrombocytopenia. Echocardiogram with Dopplers at that time shows EF of 50-55% . -Multiple Myeloma, pt is having back pain . hem/onc team are following the pt dvt px scd, he is not a candidate for anticoagulation due to his anemia GI px ppi prognosis is guarded Physical therapy recommended EDGAR
[2017-12-26] MEDS: SODIUM FERRIC GLUCONAT-SUCROSE 125 MG in SODIUM CHLORIDE 0.9% 100 ML IVPB SCH (09:38)
[2017-12-26 12:31] LABS: Glucose,Whole Blood 170 mg/dL (75-99)
--- NOTE | 2017-12-26 14:56 | P.PN ---
Subjective Progress Note Date: 12/26/17 He has no complaints this afternoon. He has been transferred from [facility] to the medical surgical unit on 4 W. He is tolerating his high protein high caloric diet. No reports of blood in stools. No reports of abdominal pain. Per his primary team, his hospitalization has been extended. He is on daily iron infusions for iron deficiency anemia as well. No reports of chest pain. Objective - Vital Signs Vital signs: Vital Signs Temp 98.5 F 12/26/17 14:40 Pulse 96 12/26/17 14:40 Resp 20 12/26/17 14:40 BP 111/48 12/26/17 14:40 Pulse Ox 96 12/26/17 14:40 Intake & Output 12/25/17 12/26/17 12/26/17 18:59 06:59 18:59 Intake Total 332 580 Output Total 300 1550 350 Balance 32 -1550 230 Weight 87.9 kg 87.9 kg Intake: Oral 332 580 Output: Urine 300 1550 350 Other: Voiding Method Urinal Urinal Urinal # Voids 1 1 # Bowel Movements 1 - Exam GENERAL: Well developed and in no acute distress. Pleasant. HEENT: No sclera icterus. Extraocular movements grossly intact. Moist buccal mucosa. Head is atraumatic, normocephalic. Hears conversational speech. No nasal drainage. NECK: Supple without lymphadenopathy. CHEST: Non-labored respirations and equal bilateral excursions. CARDIOVASCULAR: Palpable 2+ radial pulses. ABDOMEN: Soft, nontender. Nondistended. MUSCULOSKELETAL: No clubbing, cyanosis or edema. NEUROLOGIC: No focal or lateralizing signs. PSYCH: Appropriate affect. Alert and oriented to person, place and time. SKIN: Good skin turgor. Well perfused. - Labs CBC & Chem 7: 12/26/17 06:38 12/26/17 06:38 Labs: Abnormal Lab Results - Last 24 Hours (Table) 12/25/17 12/25/17 12/26/17 Range/Units 16:48 20:56 06:38 RBC 2.75 L (4.30-5.90) m/uL Hgb 8.3 L (13.0-17.5) gm/dL Hct 25.6 L (39.0-53.0) % RDW 16.5 H (11.5-15.5) % BUN (9-20) mg/dL Glucose (74-99) mg/dL POC Glucose (mg/dL) 135 H 159 H (75-99) mg/dL Calcium (8.4-10.2) mg/dL Total Bilirubin (0.2-1.3) mg/dL AST (17-59) U/L Alkaline Phosphatase (38-126) U/L Total Protein (6.3-8.2) g/dL Albumin (3.5-5.0) g/dL 12/26/17 12/26/17 12/26/17 Range/Units 06:38 06:39 12:10 RBC (4.30-5.90) m/uL Hgb (13.0-17.5) gm/dL Hct (39.0-53.0) % RDW (11.5-15.5) % BUN 8 L (9-20) mg/dL Glucose 118 H (74-99) mg/dL POC Glucose (mg/dL) 136 H 170 H (75-99) mg/dL Calcium 8.1 L (8.4-10.2) mg/dL Total Bilirubin 0.1 L (0.2-1.3) mg/dL AST 14 L (17-59) U/L Alkaline Phosphatase 37 L (38-126) U/L Total Protein 4.9 L (6.3-8.2) g/dL Albumin 3.0 L (3.5-5.0) g/dL Assessment and Plan (1) Anemia Current Visit: No Status: Acute Code(s): D64.9 - ANEMIA, UNSPECIFIED SNOMED Code(s): 764339425 (2) Ischemic cardiomyopathy Current Visit: Yes Status: Acute Code(s): I25.5 - ISCHEMIC CARDIOMYOPATHY SNOMED Code(s): 154227125 (3) Atrial fibrillation Current Visit: No Status: Acute Code(s): I48.91 - UNSPECIFIED ATRIAL FIBRILLATION SNOMED Code(s): 83753797 (4) Multiple myeloma Current Visit: No Status: Chronic Priority: Medium Code(s): C90.00 - MULTIPLE MYELOMA NOT HAVING ACHIEVED REMISSION SNOMED Code(s): 876990776 (5) Iron deficiency anemia due to chronic blood loss Current Visit: Yes Status: Acute Code(s): D50.0 - IRON DEFICIENCY ANEMIA SECONDARY TO BLOOD LOSS (CHRONIC) SNOMED Code(s): 903293266 (6) Cecal neoplasm Current Visit: Yes Status: Acute Code(s): D49.0 - NEOPLASM OF UNSPECIFIED BEHAVIOR OF DIGESTIVE SYSTEM SNOMED Code(s): 453333527 Plan: 1. His hospitalization has been extended per his primary team. 2. In the interim, recommend high-protein high-calorie diet to augment nutrition. 3. Continue with iron infusion. 4. Await pathology. 5. Cardiology recommendations appreciated including avoidance of anticoagulants for chronic anemia
[2017-12-26 17:31] LABS: Glucose,Whole Blood 168 mg/dL (75-99)
[2017-12-26 21:02] LABS: Glucose,Whole Blood 119 mg/dL (75-99)
--- NOTE | 2017-12-26 22:01 | P.PCN ---
Date of Procedure: 12/24/17 Description of Procedure: PREOPERATIVE DIAGNOSIS: Anemia due to chronic blood loss Gastrointestinal hemorrhage Chronic anticoagulant use History of atrial fibrillation History of heart failure Supraventricular tachycardia Multiple myeloma History of congestive heart failure POSTOPERATIVE DIAGNOSIS: Ileocecal valve/cecal neoplasm Anemia due to chronic blood loss Gastrointestinal hemorrhage Chronic anticoagulant use History of atrial fibrillation History of heart failure Supraventricular tachycardia Multiple myeloma History of congestive heart failure Erosive esophagitis Gastroesophageal reflux disease OPERATION: Esophagogastroduodenoscopy with biopsies along antrum. SURGEON: Jeannie Gordon MD ANESTHESIA: MAC. INDICATIONS: The patient is a 77-year-old female who presents with gastrointestinal anemia. Benefits and risks of the procedure were described. Informed consent was obtained. DESCRIPTION: The patient was brought into the endoscopy suite and laid in the left lateral decubitus position. An Olympus gastroscope was passed along the posterior oropharynx down to the distal esophagus where the squamocolumnar junction was encountered at 40 cm from the incisors. The stomach was entered and no bile reflux was found. Additional findings are listed below. Biopsies with cold forceps were obtained of the antrum. The first through third portion of the duodenum was examined and unremarkable. Retroflexion of the scope confirmed Hill grade 2 lower esophageal valve. The squamocolumnar junction demostrated LA grade A erosive esophagitis. The stomach was desufflated. The patient tolerated the procedure well. FINDINGS: Squamocolumnar junction 40 cm from the incisors. Diaphragmatic hiatus at 40 cm. Hill grade 2 lower esophageal valve. LA grade A erosive esophagitis. No active duodenitis. No duodenal ulcers No gastric ulcers RECOMMENDATIONS: Upper endoscopy as needed. Recommend lower endoscopy
--- NOTE | 2017-12-26 22:11 | P.PCN ---
Date of Procedure: 12/24/17 Description of Procedure: PREOPERATIVE DIAGNOSIS: 1. Anemia due to chronic blood loss 2. Gastrointestinal hemorrhage 3. Chronic anticoagulant use 4. History of atrial fibrillation 5. History of heart failure 6. Supraventricular tachycardia 7. Multiple myeloma 8. History of congestive heart failure POSTOPERATIVE DIAGNOSIS: 1. Ileocecal valve/cecal neoplasm 2. Tubular adenoma cecum 3. External hemorrhoids, grade 3 without bleeding 4. Anemia due to chronic blood loss 5. Gastrointestinal hemorrhage 6. Chronic anticoagulant use 7. History of atrial fibrillation 8. History of heart failure 9. Supraventricular tachycardia 10. Multiple myeloma 11. History of congestive heart failure OPERATION: Colonoscopy to the ileocecal valve and appendiceal orifice. Colonoscopy with hot snare polypectomy SURGEON: Jeannie Gordon MD. ANESTHESIA: MAC. INDICATIONS: The patient is a 77-year-old male who presents with gastrointestinal hemorrhage. Benefits and risks were described and informed consent was obtained. DESCRIPTION OF PROCEDURE: The patient had undergone a GoLYTELY prep. He had been brought into the operating room and laid in the left lateral decubitus position. After adequate intravenous sedation, the rectum was examined with 2% lidocaine jelly. External hemorrhoids were encountered. The rectal tone was within normal limits. The prostate was without abnormalities. No lesions were palpated in the rectal vault. An Olympus colonoscope was advanced until the ileocecal valve and appendiceal orifice were clearly viewed. The prep was fair with visualization of the mucosal folds. The scope was removed with visualization of each mucosal fold. Along the cecum, tubular adenoma was identified. A circumferential lesion occupying over 70% of the lumen and nonobstructing at the ileocecal valve. A biopsy with hot snare polypectomy was performed. No scattered diverticulosis was encountered. No evidence of focal colitis was found. Retroflexion of the scope demonstrated grade 3 internal hemorrhoids without active bleeding or inflammation. The colon was desufflated. The patient had tolerated the procedure well. Withdrawal time was over 6 minutes. FINDINGS: 1. Internal hemorrhoids, grade 3, without bleeding 2. External hemorrhoids, grade 3, without bleeding 3. No arteriovenous malformations. 4. No focal colitis. 5. No diverticulosis identified 6. A circumferential lesion easily friable occupying over 70% of the lumen and nonobstructing at the ileocecal valve 7. A biopsy with hot snare polypectomy was performed of the circumferential lesion RECOMMENDATIONS: 1. Will need right colectomy. 2. Hold any anticoagulation.
[2017-12-27] MEDS: SODIUM CHLORIDE 0.9% 1,000 ML IV SCH (05:40)
[2017-12-27 07:07] LABS: Glucose,Whole Blood 131 mg/dL (75-99)
[2017-12-27] MEDS: INSULIN ASPART 100 UNIT/ML 1 ML 10 ML VIAL SQ SCH ×2 (08:14→13:02)
[2017-12-27] MEDS: SODIUM FERRIC GLUCONAT-SUCROSE 125 MG in SODIUM CHLORIDE 0.9% 100 ML IVPB SCH (08:15)
[2017-12-27] MEDS: LISINOPRIL 5 MG TAB PO SCH (08:15)
[2017-12-27] MEDS: PANTOPRAZOLE 40 MG TABLET PO SCH (08:15)
[2017-12-27] MEDS: POTASSIUM CHLORIDE ER 20 MEQ TAB.ER PO SCH (08:16)
[2017-12-27] MEDS: FUROSEMIDE 40 MG TAB PO SCH (08:16)
[2017-12-27] MEDS: ACYCLOVIR 200 MG CAP PO SCH (08:16)
[2017-12-27] MEDS: METOPROLOL SUCCINATE (ER) 25 MG TAB.ER.24H PO SCH (08:16)
[2017-12-27] MEDS: AMIODARONE 200 MG TAB PO SCH (08:17)
[2017-12-27 10:24] LABS: Albumin 2.82 g/dL (3.80-4.90); Gamma Globulin 0.37 g/dL (0.70-1.50)
[2017-12-27 10:39] LABS: Anisocytosis Slight; Basophils % (A) 0 %; Eosinophils # (A) 0.1 k/uL (0-0.7); Eosinophils % (A) 1 %; HCT 24.6 % (39.0-53.0); HGB 7.8 gm/dL (13.0-17.5); Hypochromasia Moderate; Lymphocytes # (A) 1.5 k/uL (1.0-4.8); Lymphocytes % (A) 22 %; MCH 30.2 pg (25.0-35.0); MCHC 31.6 g/dL (31.0-37.0); MCV 95.7 fL (80.0-100.0); Macrocytosis Slight; Mean Platelet Volume 6.7; Monocytes # (A) 0.3 k/uL (0-1.0); Monocytes % (A) 5 %; Neutrophils # (A) 5.1 k/uL (1.3-7.7); Neutrophils % (A) 71 %; Platelet Count 288 k/uL (150-450); Poikilocytosis Slight; RBC 2.57 m/uL (4.30-5.90); RDW 18.2 % (11.5-15.5); WBC 7.1 k/uL (3.8-10.6)
[2017-12-27 10:47] LABS: ALT 23 U/L (21-72); AST 13 U/L (17-59); Albumin 2.7 g/dL (3.5-5.0); Alkaline Phosphatase 34 U/L (38-126); Anion Gap 7 mmol/L; Bilirubin, Delta <0.1 mg/dL (0.0-0.2); Blood Urea Nitrogen 10 mg/dL (9-20); Calcium 8.4 mg/dL (8.4-10.2); Carbon Dioxide 27 mmol/L (22-30); Chloride 104 mmol/L (98-107); Glucose 70 mg/dL (74-99); Potassium 3.7 mmol/L (3.5-5.1); Sodium 138 mmol/L (137-145); Total Bilirubin <0.1 mg/dL (0.2-1.3); Total Protein 4.6 g/dL (6.3-8.2)
--- NOTE | 2017-12-27 12:24 | P.DS ---
Providers Date of admission: 12/22/17 12:43 Expected date of discharge: 12/27/17 Attending physician: Solo Loaiza Consults: 12/22/17 12:46 Consult Physician Urgent Consulting Provider: Johan Antonio Consult Reason/Comments: Oncological care Do you want consulting provider notified?: Already Contacted 12/22/17 12:47 Consult Physician Routine Consulting Provider: William Leon Consult Reason/Comments: long qtc Do you want consulting provider notified?: Yes 12/22/17 12:56 Consult Physician Urgent Consulting Provider: Jeannie Gordon Consult Reason/Comments: gi hemorrhage Do you want consulting provider notified?: Yes Primary care physician: Solo Loaiza Pertinent Studies: Patient stable for transferred to [facility]. Patient was admitted with a hemoglobin of 6.8 was transfused. Hemoglobin stabilized in the room. Patient had evaluation by oncology and cardiology and surgery Dr. López. Patient had a colonoscopy EGD and found to have a cecal neoplasm. Patient is awaiting biopsy report on the neoplasm. Plan is for a hemicolectomy January 19 pending pathology. Patient does has a history of left shoulder tumor and multiple myeloma Assessment Anemia secondary to GI bleed initial hemoglobin 6.8 with hypotension History of atrial fibrillation history of hypertension Cecal neoplasm Diabetes type 2 History of osteoarthritis History of SVT Multiple myeloma left shoulder IgG lambda monoclonal gammopathy Plan Transfer to [facility] Preliminary scheduled for surgery January 19 pending pathology of cecal neoplasm Plan - Discharge Summary Discharge Rx Participant: Yes New Discharge Prescriptions: New ALPRAZolam [Xanax] 0.25 mg PO TID PRN #12 tab PRN Reason: Anxiety HYDROcodone/APAP 7.5-325MG [[place] 7.5-325] 1 each PO Q6H PRN #12 tab PRN Reason: Pain Continue Omeprazole 20 mg PO DAILY Acyclovir [Zovirax] 400 mg PO BID Potassium Chloride ER [K-Dur 20] 20 meq PO DAILY Furosemide [Lasix] 40 mg PO BID Dexamethasone 40 mg PO TU Glimepiride [Amaryl] 1 mg PO BID Dulaglutide [Trulicity] 0.75 mg SQ WE Lisinopril [Zestril] 5 mg PO DAILY Amiodarone [Cordarone] 200 mg PO DAILY Metoprolol Succinate (ER) [Toprol XL] 25 mg PO DAILY Discontinued Aspirin EC [Ecotrin Low Dose] 81 mg PO DAILY Apixaban [Eliquis] 5 mg PO BID tab ALPRAZolam [Xanax] 0.25 mg PO TID PRN #20 tab PRN Reason: Anxiety HYDROcodone/APAP 7.5-325MG [[place] 7.5-325] 1 tab PO Q6H PRN #20 tab PRN Reason: Pain Discharge Medication List Omeprazole 20 mg PO DAILY 08/03/17 [History] Acyclovir [Zovirax] 400 mg PO BID 09/24/17 [History] Dexamethasone 40 mg PO TU 09/24/17 [History] Furosemide [Lasix] 40 mg PO BID 09/24/17 [History] Potassium Chloride ER [K-Dur 20] 20 meq PO DAILY 09/24/17 [History] Dulaglutide [Trulicity] 0.75 mg SQ WE 11/07/17 [History] Glimepiride [Amaryl] 1 mg PO BID 11/07/17 [History] Amiodarone [Cordarone] 200 mg PO DAILY 12/22/17 [History] Lisinopril [Zestril] 5 mg PO DAILY 12/22/17 [History] Metoprolol Succinate (ER) [Toprol XL] 25 mg PO DAILY 12/22/17 [History] ALPRAZolam [Xanax] 0.25 mg PO TID PRN #12 tab 12/27/17 [Rx] HYDROcodone/APAP 7.5-325MG [[place] 7.5-325] 1 each PO Q6H PRN #12 tab 12/27/17 [ Rx] Follow up Appointment(s)/Referral(s): Solo Loaiza MD [Primary Care Provider] - 12/29/17 10:10 am (Wednesday) Denis Ansari MD [STAFF PHYSICIAN] - 01/11/18 10:15 am
[2017-12-27 12:28] LABS: Glucose,Whole Blood 132 mg/dL (75-99)
--- NOTE | 2017-12-27 13:19 | P.PN ---
Subjective Progress Note Date: 12/27/17 Patient is tolerating diet. No reports of chest pain. No reports of blood in stools. He is awaiting discharge. Objective - Vital Signs Vital signs: Vital Signs Temp 98.6 F 12/27/17 05:40 Pulse 84 12/27/17 05:40 Resp 16 12/27/17 05:40 BP 106/66 12/27/17 05:40 Pulse Ox 96 12/27/17 05:40 Intake & Output 12/26/17 12/27/17 12/27/17 18:59 06:59 18:59 Intake Total 880 480 Output Total 350 2 Balance 530 -2 480 Weight 87.9 kg Intake: Oral 880 480 Output: Urine 350 2 Other: Voiding Method Urinal Bedside Commode # Voids 1 - Exam GENERAL: Well developed and in no acute distress. Pleasant. HEENT: No sclera icterus. Extraocular movements grossly intact. Moist buccal mucosa. Head is atraumatic, normocephalic. Hears conversational speech. No nasal drainage. NECK: Supple without lymphadenopathy. CHEST: Non-labored respirations and equal bilateral excursions. CARDIOVASCULAR: Irregular rate and rhythm. Palpable 2+ radial pulses. ABDOMEN: Soft, nontender. Nondistended. MUSCULOSKELETAL: No clubbing, cyanosis or edema. NEUROLOGIC: No focal or lateralizing signs. PSYCH: Appropriate affect. Alert and oriented to person, place and time. SKIN: Good skin turgor. Well perfused. - Labs CBC & Chem 7: 12/27/17 10:05 12/27/17 10:05 Labs: Abnormal Lab Results - Last 24 Hours (Table) 12/23/17 12/26/17 12/26/17 Range/Units 05:30 17:28 20:52 RBC (4.30-5.90) m/uL Hgb (13.0-17.5) gm/dL Hct (39.0-53.0) % RDW (11.5-15.5) % Glucose (74-99) mg/dL POC Glucose (mg/dL) 168 H 119 H (75-99) mg/dL Total Bilirubin (0.2-1.3) mg/dL AST (17-59) U/L Alkaline Phosphatase (38-126) U/L Total Protein (6.3-8.2) g/dL Albumin (3.5-5.0) g/dL Albumin (PEP) 2.82 L (3.80-4.90) g/dL Beta Globulins 0.52 L (0.60-1.30) g/dL Gamma Globulins 0.37 L (0.70-1.50) g/dL 12/27/17 12/27/17 12/27/17 Range/Units 06:53 10:05 10:05 RBC 2.57 L (4.30-5.90) m/uL Hgb 7.8 L (13.0-17.5) gm/dL Hct 24.6 L (39.0-53.0) % RDW 18.2 H (11.5-15.5) % Glucose 70 L (74-99) mg/dL POC Glucose (mg/dL) 131 H (75-99) mg/dL Total Bilirubin <0.1 L (0.2-1.3) mg/dL AST 13 L (17-59) U/L Alkaline Phosphatase 34 L (38-126) U/L Total Protein 4.6 L (6.3-8.2) g/dL Albumin 2.7 L (3.5-5.0) g/dL Albumin (PEP) (3.80-4.90) g/dL Beta Globulins (0.60-1.30) g/dL Gamma Globulins (0.70-1.50) g/dL 12/27/17 Range/Units 12:23 RBC (4.30-5.90) m/uL Hgb (13.0-17.5) gm/dL Hct (39.0-53.0) % RDW (11.5-15.5) % Glucose (74-99) mg/dL POC Glucose (mg/dL) 132 H (75-99) mg/dL Total Bilirubin (0.2-1.3) mg/dL AST (17-59) U/L Alkaline Phosphatase (38-126) U/L Total Protein (6.3-8.2) g/dL Albumin (3.5-5.0) g/dL Albumin (PEP) (3.80-4.90) g/dL Beta Globulins (0.60-1.30) g/dL Gamma Globulins (0.70-1.50) g/dL Assessment and Plan (1) Anemia Current Visit: No Status: Acute Code(s): D64.9 - ANEMIA, UNSPECIFIED SNOMED Code(s): 877575303 (2) Ischemic cardiomyopathy Current Visit: Yes Status: Acute Code(s): I25.5 - ISCHEMIC CARDIOMYOPATHY SNOMED Code(s): 130434287 (3) Atrial fibrillation Current Visit: No Status: Acute Code(s): I48.91 - UNSPECIFIED ATRIAL FIBRILLATION SNOMED Code(s): 64864140 (4) Multiple myeloma Current Visit: No Status: Chronic Priority: Medium Code(s): C90.00 - MULTIPLE MYELOMA NOT HAVING ACHIEVED REMISSION SNOMED Code(s): 668610797 (5) Iron deficiency anemia due to chronic blood loss Current Visit: Yes Status: Acute Code(s): D50.0 - IRON DEFICIENCY ANEMIA SECONDARY TO BLOOD LOSS (CHRONIC) SNOMED Code(s): 349069109 (6) Cecal neoplasm Current Visit: Yes Status: Acute Code(s): D49.0 - NEOPLASM OF UNSPECIFIED BEHAVIOR OF DIGESTIVE SYSTEM SNOMED Code(s): 351496679 Plan: 1. I reviewed with the patient that preliminary report is highly suspicious of tumor adenoma or possible adenocarcinoma. Final pathology is pending. 2. At this time, patient will increase strength and [place] and benefits from high protein diet. 3. He will follow-up with the office to undergo enhanced colon recovery protocol 4. Robotic right hemicolectomy tentatively scheduled for January 19.
[2017-12-27 15:22] VITALS: BP 97/45; PULSE 79; RESP 18; TEMP 97.9
--- NOTE | 2017-12-27 19:23 | P.PN ---
Subjective Progress Note Date: 12/27/17 Principal diagnosis: Multiple Myeloma Pt seen in f/u, he is getting ready to go to rehab, he feels ok, denies any bloody stool or other bleeding, no pain at this time Objective - Vital Signs Vital signs: Vital Signs Temp 97.9 F 12/27/17 14:47 Pulse 79 12/27/17 14:47 Resp 18 12/27/17 14:47 BP 97/45 12/27/17 14:47 Pulse Ox 96 12/27/17 14:47 Intake & Output 12/27/17 12/27/17 12/28/17 06:59 18:59 06:59 Intake Total 960 Output Total 2 Balance -2 960 Intake: Oral 960 Output: Urine 2 Other: Voiding Method Bedside Commode Bedside Commode # Voids 1 4 # Bowel Movements 1 - Exam WDWN male sitting at bedside, just finished his lunch, NAD, he is ambulatory. - Labs CBC & Chem 7: 12/27/17 10:05 12/27/17 10:05 Labs: Abnormal Lab Results - Last 24 Hours (Table) 12/23/17 12/26/17 12/27/17 Range/Units 05:30 20:52 06:53 RBC (4.30-5.90) m/uL Hgb (13.0-17.5) gm/dL Hct (39.0-53.0) % RDW (11.5-15.5) % Glucose (74-99) mg/dL POC Glucose (mg/dL) 119 H 131 H (75-99) mg/dL Total Bilirubin (0.2-1.3) mg/dL AST (17-59) U/L Alkaline Phosphatase (38-126) U/L Total Protein (6.3-8.2) g/dL Albumin (3.5-5.0) g/dL Albumin (PEP) 2.82 L (3.80-4.90) g/dL Beta Globulins 0.52 L (0.60-1.30) g/dL Gamma Globulins 0.37 L (0.70-1.50) g/dL 12/27/17 12/27/17 12/27/17 Range/Units 10:05 10:05 12:23 RBC 2.57 L (4.30-5.90) m/uL Hgb 7.8 L (13.0-17.5) gm/dL Hct 24.6 L (39.0-53.0) % RDW 18.2 H (11.5-15.5) % Glucose 70 L (74-99) mg/dL POC Glucose (mg/dL) 132 H (75-99) mg/dL Total Bilirubin <0.1 L (0.2-1.3) mg/dL AST 13 L (17-59) U/L Alkaline Phosphatase 34 L (38-126) U/L Total Protein 4.6 L (6.3-8.2) g/dL Albumin 2.7 L (3.5-5.0) g/dL Albumin (PEP) (3.80-4.90) g/dL Beta Globulins (0.60-1.30) g/dL Gamma Globulins (0.70-1.50) g/dL Assessment and Plan (1) IgG lambda monoclonal gammopathy Status: Chronic Priority: Medium Code(s): D47.2 - MONOCLONAL GAMMOPATHY SNOMED Code(s): 98045936 (2) Multiple myeloma Status: Chronic Priority: Medium Code(s): C90.00 - MULTIPLE MYELOMA NOT HAVING ACHIEVED REMISSION SNOMED Code(s): 379293470 Plan: 0.16g/dl monoclonal protein on lab eval, no acute changes from previous, no acute intervention for MM, cont f/u. Iron deficient anemia, pt has received 4 doses of parenteral iron. Post op recheck iron studies, supplement PRN until iron stores are adequate. Case was briefly discussed with Surgery, plan is for rehab then surgery to remove tubular adenoma. Agree with rehab and resection
[2017-12-28] MEDS ORDERED: DEXAMETHASONE 4 MG TAB PO SCH (09:00)
--- NOTE | 2018-01-03 10:03 | CDI ---
Last Revision, June 2017 Documentation Clarification Form Date: 01/03/18 From: Niki Calderon Phone: If you have a question regarding this query, please contact Katerin Goddard at [phone] between 8am and 5pm. Admit Date: 12/22/2017 12:43:00 PM Patient Name: Eugene Rick Visit Number: [id number] Discharge Date: 12/27/17 ATTENTION: The Clinical Documentation Specialists (CDI) and [facility] Coding Staff appreciate your assistance in clarifying documentation. Please respond to the clarification below the line at the bottom and electronically sign. The CDI & [facility] Coding staff will review the response and follow-up if needed. Please note: Queries are made part of the Legal Health Record. If you have any questions, please contact the author of this message via ITS. Dr. Muir E Sheet A cecal neoplasm is documented in the procedure note, Dr. Gordon's 12/27 progress note and in the discharge summary. Patient history/risk factors: Patient has a history multiple myeloma and GI bleed. Clinical Indicators: Anemia with GI bleed. Radiology: Abdominal x-ray 12/24 - hypermetabolic cecal mass. Vital Signs: T. 97.3, P. 70, R. 20, BP 101/59 Treatment: Biopsy of cecal mass. 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 In your professional opinion, can you please specify the neoplastic behavior, if known? Behavior: Malignant, primary site Malignant, secondary site Benign In situ Of uncertain behavior Other, please specify Unable to determine please refer to pathology report and oncology notes MTDD
== END 2017-12-27 15:57 | DRG 812 ==
LOC: EC 11:13 → 6SEL 12:43 → 4MS4W 12-26 09:46
PROVIDERS: ADMIT Family Medicine; ATTEND Family Medicine
PROC: 30233N1 Transfusion of Nonautologous Red Blood Cells into Peripheral Vein, Percutaneous Approach (ICD-10-PCS; 2017-12-22)
PROC: 0DBH8ZX Excision of Cecum, Via Natural or Artificial Opening Endoscopic, Diagnostic (ICD-10-PCS; principal; 2017-12-24 10:00)
PROC: 0DB78ZX Excision of Stomach, Pylorus, Via Natural or Artificial Opening Endoscopic, Diagnostic (ICD-10-PCS; 2017-12-24 10:00)
DX: D50.0 Iron deficiency anemia secondary to blood loss (chronic) (principal); C90.00 Multiple myeloma not having achieved remission; I48.92 Unspecified atrial flutter; K92.2 Gastrointestinal hemorrhage, unspecified; I95.9 Hypotension, unspecified; E11.9 Type 2 diabetes mellitus without complications; I50.9 Heart failure, unspecified; I11.0 Hypertensive heart disease with heart failure; D12.0 Benign neoplasm of cecum; I25.5 Ischemic cardiomyopathy; I48.91 Unspecified atrial fibrillation; D49.0 Neoplasm of unspecified behavior of digestive system; K21.0 Gastro-esophageal reflux disease with esophagitis; K64.2 Third degree hemorrhoids; K64.4 Residual hemorrhoidal skin tags; F41.9 Anxiety disorder, unspecified; M19.90 Unspecified osteoarthritis, unspecified site; M25.512 Pain in left shoulder; E66.9 Obesity, unspecified; Z68.28 Body mass index [BMI] 28.0-28.9, adult; Z92.21 Personal history of antineoplastic chemotherapy; Z87.442 Personal history of urinary calculi; Z79.01 Long term (current) use of anticoagulants; Z79.4 Long term (current) use of insulin; Z79.899 Other long term (current) drug therapy; Z79.82 Long term (current) use of aspirin; Z85.828 Personal history of other malignant neoplasm of skin; Z85.46 Personal history of malignant neoplasm of prostate
CPT/HCPCS: 36415; 43239; 45385; 71046; 74177; 80048; 80053; 80076; 81003; 82272; 82378; 82550; 82553; 82728; 83036; 83540; 83550; 83735; 83883; 84165; 84439; 84443; 84481; 84484; 85025; 85610; 85730; 86334; 86850; 86900; 86901; 86920; 88305; 93005; 94760; 96361; 96374; 99285

== ENCOUNTER 2018-01-19 10:41 | Inpatient (IN) | payer MEDICARE ==
[2018-01-14 15:39] VITALS: BMI 29.5
--- NOTE | 2018-01-19 10:30 | P.GSHP ---
History of Present Illness H&P Date: 01/19/18 CHIEF COMPLAINT: History of ileocecal tumor HISTORY OF PRESENT ILLNESS: The patient is a 77-year-old male with ileal cecal tumor and history of cancer. He presents for resection. PAST MEDICAL HISTORY: Please see list. PAST SURGICAL HISTORY: Please see list. MEDICATIONS: Please see list. ALLERGIES: Please see list. SOCIAL HISTORY: No illicit drug use FAMILY HISTORY: No reports of Crohn disease or ulcerative colitis. REVIEW OF ORGAN SYSTEMS: Additionally reports: CONSTITUTIONAL: No fevers or chills. No recent weight loss. HEENT: Denies any trouble with vision, hearing or nosebleeds. No difficulty swallowing. LYMPHATIC: The patient denies any lumps and bumps around the neck. ENDOCRINE: Has thyroid disorders. Has blood sugar glucose intolerance. RESPIRATORY: Denies pneumonia. Denies any troubles with breathing or dyspnea on exertion. CARDIOVASCULAR: Denies any chest pain, palpitations, or recent heart attacks. Past cardiomyopathy. GASTROINTESTINAL: Denies fatty food intolerance. Has blood in stools. GENITOURINARY: Denies any blood in urine or increased urinary frequency. MUSCULOSKELETAL: Has back pain, stiffness or joint arthritis. NEUROLOGIC: Denies any numbness or tingling along the distal extremities. No seizure disorders or headaches. PSYCHIATRIC: Has depression. No suicidal ideation. HEMATOLOGIC: Denies any abnormal bleeding or bruising. BREASTS: Denies any breast lumps, pain or nipple discharge. SKIN: No current skin cancer. No rash. Physical Exam PHYSICAL EXAM: VITAL SIGNS: Stable Patient is a 77-year-old male. GENERAL: Well developed and in no acute distress. Pleasant. HEENT: No sclera icterus. Extraocular movements grossly intact. Moist buccal mucosa. Head is atraumatic, normocephalic. Hears conversational speech. No nasal drainage. NECK: Supple without lymphadenopathy. No JV distention. CHEST: Non-labored respirations and equal bilateral excursions. CARDIOVASCULAR: Regular rate and rhythm. Palpable 2+ radial pulses. ABDOMEN: Soft. Non-tender. Nondistended. MUSCULOSKELETAL: No clubbing, cyanosis or edema. NEUROLOGIC: No focal or lateralizing signs. PSYCH: Appropriate affect. Alert and oriented to person, place and time. SKIN: Well perfused. Good skin turgor. Medical reconciliation performed with addition of iron ferrous sulfate 325 mg daily. LABORATORY: Hemoglobin checked from December 30 was consistent with 9.1. Elevated white count identified. ASSESSMENT: 1. History of ileocecal tumor. 2. History of multiple myeloma. PLAN: 1. Enhanced colon recovery program was described. 2. Robotic assisted right hemicolectomy was described. 3. Inpatient hospitalization for 2 nights was described. 4. Continue with high protein diet. 5. Iron ferrous sulfate 325 mg daily was advised. 6. DVT prophylaxis. 7. Antibiotic prophylaxis. Past Medical History Past Medical History: Cancer, Heart Failure, Diabetes Mellitus, GERD/Reflux, GI Bleed, Hypertension, Osteoarthritis (OA), Pneumonia, Supraventricular Tachycardia (SVT) Additional Past Medical History / Comment(s): Multiple myeloma stated has been off chemo for 3 months,, prostate cancer(sx only), skin cancer, hypertension, degenerative arthritis, episodes of SVT a discussed above, nephrolithiasis, had a shingles vaccine-unable to verify date. History of Any Multi-Drug Resistant Organisms: None Reported Past Surgical History: Heart Catheterization, Hernia Repair, Prostate Surgery Additional Past Surgical History / Comment(s): rt wrist ganglion cysts removed, prostatectomy Past Anesthesia/Blood Transfusion Reactions: No Reported Reaction Smoking Status: Never smoker - Past Family History Father History Unknown: Yes Mother History Unknown: Yes Medications and Allergies Home Medications Medication Instructions Recorded Confirmed Type Omeprazole 20 mg PO QAM 08/03/17 01/13/18 History Acyclovir [Zovirax] 400 mg PO BID 09/24/17 01/13/18 History Dexamethasone 40 mg PO TU 09/24/17 01/13/18 History Furosemide [Lasix] 40 mg PO BID 09/24/17 01/13/18 History Potassium Chloride ER [K-Dur 20] 20 meq PO QAM 09/24/17 01/13/18 History Dulaglutide [Trulicity] 0.75 mg SQ WE 11/07/17 01/13/18 History Glimepiride [Amaryl] 1 mg PO BID 11/07/17 01/13/18 History Amiodarone [Cordarone] 200 mg PO DAILY 12/22/17 01/13/18 History Lisinopril [Zestril] 5 mg PO QAM 12/22/17 01/13/18 History Metoprolol Succinate (ER) [Toprol 25 mg PO QAM 12/22/17 01/13/18 History XL] ALPRAZolam [Xanax] 0.25 mg PO TID PRN #12 tab 12/27/17 01/13/18 Rx Bisacodyl [Dulcolax] 1 supp RECTAL DAILY PRN 01/13/18 01/13/18 History HYDROcodone/APAP 7.5-325MG [[place] 1 each PO Q8H PRN 01/13/18 01/13/18 History 7.5-325] Ferrous Sulfate [Iron] 325 mg PO DAILY 01/14/18 01/14/18 History Allergies Allergy/AdvReac Type Severity Reaction Status Date / Time No Known Allergies Allergy Verified 12/22/17 12:50
[~2018-01-19 10:41] MED LIST changes: +ACETAMINOPHEN TAB 500 MG TAB PO ONE; +ALVIMOPAN 12 MG CAPSULE PO ONE; +Antibiotics per Pharmacy 1 EACH MISC MISCELLANE PRN; +HEPARIN SODIUM,PORCINE 5,000 UNIT/ML 1 ML VIAL SQ ONE; +HYDROmorphone 0.5 MG/0.5 ML SYRINGE IVP PRN; -LACTATED RINGERS 1,000 ML IV SCH; -LIDOCAINE 1% 20 ML VIAL (10MG/ML) FOR IV START INTRADERMA PRN; +ONDANSETRON 4 MG/2 ML VIAL IVP PRN; -Pre Op ABX Message 1 EACH MISC MISCELLANE ONE; +ceFAZolin IN SWFI 2 GM/20 ML SYRINGE IVP ONE; +fentaNYL (PF) 50 MCG/ML 2 ML AMP IV PRN; +metroNIDAZOLE-NS PMX 500 MG in SALINE 1 100ML.BAG IVPB ONE
--- NOTE | 2018-01-19 12:15 | P.CRDCN ---
History of Present Illness Consult date: 01/19/18 History of present illness: This is a pleasant 77-year-old gentleman with a past medical history significant for paroxysmal atrial fibrillation, hypertension, and diabetes, was admitted to the hospital today to undergo robotic assistant printer floor covering colon surgery for a tumor. From the cardiac standpoint of view, he denies having any chest pain or chest discomfort but he does have exertional dyspnea seems to be chronic and unchanged compared to before. No dizziness or lightheadedness, no feeling of heart racing or fluttering, and no syncope. Hemodynamically the patient seems to be stable. The blood pressure is within normal limits. The heart rate is in the 80s and seems to be a regular and I am obtaining an EKG at this point. From the cardiovascular standpoint of view, the patient can proceed with the surgery. Past Medical History Past Medical History: Cancer, Heart Failure, Diabetes Mellitus, GERD/Reflux, GI Bleed, Hypertension, Osteoarthritis (OA), Pneumonia, Supraventricular Tachycardia (SVT) Additional Past Medical History / Comment(s): Multiple myeloma stated has been off chemo for 3 months,, prostate cancer(sx only), skin cancer, hypertension, degenerative arthritis, episodes of SVT a discussed above, nephrolithiasis, had a shingles vaccine-unable to verify date. History of Any Multi-Drug Resistant Organisms: None Reported Past Surgical History: Heart Catheterization, Hernia Repair, Prostate Surgery Additional Past Surgical History / Comment(s): rt wrist ganglion cysts removed, prostatectomy Past Anesthesia/Blood Transfusion Reactions: No Reported Reaction Smoking Status: Never smoker - Past Family History Father History Unknown: Yes Mother History Unknown: Yes Medications and Allergies Home Medications Medication Instructions Recorded Confirmed Type Omeprazole 20 mg PO QAM 08/03/17 01/19/18 History Acyclovir [Zovirax] 400 mg PO BID 09/24/17 01/19/18 History Dexamethasone 40 mg PO TU 09/24/17 01/19/18 History Furosemide [Lasix] 40 mg PO BID 09/24/17 01/19/18 History Potassium Chloride ER [K-Dur 20] 20 meq PO QAM 09/24/17 01/19/18 History Dulaglutide [Trulicity] 0.75 mg SQ WE 11/07/17 01/19/18 History Glimepiride [Amaryl] 1 mg PO BID 11/07/17 01/19/18 History Amiodarone [Cordarone] 200 mg PO DAILY 12/22/17 01/19/18 History Lisinopril [Zestril] 5 mg PO QAM 12/22/17 01/19/18 History Metoprolol Succinate (ER) [Toprol 25 mg PO QAM 12/22/17 01/19/18 History XL] ALPRAZolam [Xanax] 0.25 mg PO TID PRN #12 tab 12/27/17 01/19/18 Rx Bisacodyl [Dulcolax] 1 supp RECTAL DAILY PRN 01/13/18 01/19/18 History HYDROcodone/APAP 7.5-325MG [[place] 1 each PO Q8H PRN 01/13/18 01/19/18 History 7.5-325] Ferrous Sulfate [Iron] 325 mg PO DAILY 01/14/18 01/19/18 History Allergies Allergy/AdvReac Type Severity Reaction Status Date / Time No Known Allergies Allergy Verified 01/19/18 11:24 Physical Exam Vitals: Vital Signs Temp Pulse Resp BP Pulse Ox 01/19/18 11:34 97.2 F L 86 16 120/71 98 - Constitutional General appearance: no acute distress - Respiratory Respiratory: bilateral: CTA - Cardiovascular Rhythm: regular Heart sounds: normal: S1, S2 Results Current Medications Generic Name Dose Route Start Last Admin Trade Name Freq PRN Reason Stop Dose Admin Fentanyl Citrate 50 mcg 01/18/18 16:50 Sublimaze IV 01/19/18 16:51 Q3M PRN Pain Control Hydromorphone HCl 0.5 mg 01/18/18 16:50 Dilaudid IVP 01/19/18 16:51 Q5M PRN Pain Control Lactated Ringer's 1,000 mls @ 20 mls/hr 01/18/18 17:00 Lactated Ringers IV .Q24H [facility] Miscellaneous Information 1 each 01/19/18 10:26 Pharmacy To Dose Per Abx Ppx Guidelines MISCELLANE DIRECTED PRN Per Protocol Ondansetron HCl 4 mg 01/18/18 16:50 Zofran IVP 01/19/18 16:51 ONCE PRN Nausea And Vomiting Assessment and Plan Assessment: Assessment #1 elective noncardiac surgery #2 paroxysmal atrial fibrillation #3 hypertension Plan #1 from the cardiac vascular standpoint overview, the patient can proceed with the surgery Thank you for allowing us participate in his care and we'll continue following up with him
[2018-01-19] MEDS: LACTATED RINGERS 1,000 ML IV SCH ×2 (12:23→19:35)
[2018-01-19] MEDS ORDERED: DEXAMETHASONE SOD PHOS (MDV) 100 MG/10 ML VIAL IVP ONE (12:27)
[2018-01-19 12:30] LABS: Glucose,Whole Blood 181 mg/dL (75-99)
[2018-01-19] MEDS ORDERED: MIDAZOLAM 2 MG/2 ML VIAL IVP ONE (12:35)
[2018-01-19 13:10] LABS: Anisocytosis Slight; Basophils % (A) 0 %; Eosinophils % (A) 0 %; HCT 32.8 % (39.0-53.0); HGB 10.5 gm/dL (13.0-17.5); Hypochromasia Slight; Lymphocytes # (A) 1.7 k/uL (1.0-4.8); Lymphocytes % (A) 15 %; MCH 30.3 pg (25.0-35.0); MCHC 32.1 g/dL (31.0-37.0); MCV 94.4 fL (80.0-100.0); Mean Platelet Volume 7.5; Monocytes # (A) 0.3 k/uL (0-1.0); Monocytes % (A) 2 %; Neutrophils # (A) 9.8 k/uL (1.3-7.7); Neutrophils % (A) 83 %; Platelet Count 311 k/uL (150-450); RBC 3.48 m/uL (4.30-5.90); RDW 16.9 % (11.5-15.5); WBC 11.9 k/uL (3.8-10.6)
[2018-01-19 13:19] LABS: ALT 30 U/L (21-72); AST 19 U/L (17-59); Albumin 3.6 g/dL (3.5-5.0); Alkaline Phosphatase 38 U/L (38-126); Anion Gap 10 mmol/L; Blood Urea Nitrogen 19 mg/dL (9-20); Calcium 8.3 mg/dL (8.4-10.2); Carbon Dioxide 23 mmol/L (22-30); Chloride 103 mmol/L (98-107); Glucose 142 mg/dL (74-99); Sodium 136 mmol/L (137-145); Total Bilirubin 0.3 mg/dL (0.2-1.3); Total Protein 5.7 g/dL (6.3-8.2)
[2018-01-19] MEDS ORDERED: GLYCOPYRROLATE 0.2 MG/ML 2 ML VIAL ONE (13:23)
[2018-01-19] MEDS ORDERED: PHENYLEPHRINE-0.9% NACL SYG 1 MG/10 ML SYRINGE ONE (13:23)
[2018-01-19] MEDS ORDERED: NEOSTIGMINE 1 MG/ML 10 ML VIAL ONE (13:23)
[2018-01-19] MEDS ORDERED: HYDROmorphone (PF) 1 MG/ML ONE (13:23)
[2018-01-19] MEDS ORDERED: ROCURONIUM BROMIDE 10 MG/ML 10 ML VIAL IV ONE (13:23)
[2018-01-19] MEDS ORDERED: SUCCINYLCHOLINE CHLORIDE 100 MG/5 ML SYR IV ONE (13:23)
[2018-01-19] MEDS ORDERED: LIDOCAINE 1% INJ 10MG/ML (20 ML MDV) ONE (13:23)
[2018-01-19] MEDS ORDERED: PROPOFOL 10 MG/ML 20 ML VIAL IV ONE (13:23)
[2018-01-19] MEDS ORDERED: fentaNYL (PF) 50 MCG/ML 2 ML AMP ONE (13:23)
[2018-01-19] MEDS ORDERED: NALOXONE 0.4 MG/ML 1 ML VIAL IV PRN (14:07)
[2018-01-19] MEDS ORDERED: BUPIVACAINE (PF) 0.5% 30 ML VIAL SQ ONE (15:14)
[2018-01-19] MEDS ORDERED: LACTATED RINGERS 1,000 ML IV ONE (16:20)
[2018-01-19] MEDS: ROPIVACAINE 250 MG, fentaNYL (PF) 1,250 MCG in SODIUM CHLORIDE 0.9% 175 ML EPIDURAL PRN ×3 (17:29→18:48)
[2018-01-19] MEDS ORDERED: ONDANSETRON 4 MG/2 ML VIAL IVP PRN (17:30)
[2018-01-19] MEDS ORDERED: BENZOCAINE/MENTHOL LOZENG 1 EACH LOZENGE MUCOUS MEM PRN (17:30)
[2018-01-19] MEDS ORDERED: METOCLOPRAMIDE 5 MG/ML 2 ML VIAL IVP PRN (17:30)
[2018-01-19] MEDS ORDERED: HYDROcodone/APAP 7.5-325MG 1 EACH TAB PO PRN (17:32)
--- NOTE | 2018-01-19 17:36 | P.PCN ---
Date of Procedure: 01/19/18 Preoperative Diagnosis: ileocecal mass Postoperative Diagnosis: same Procedure(s) Performed: Robotic ileocolectomy/right hemicolectomy Anesthesia: GETA, local, epidural Surgeon: Jeannie Gordon Estimated Blood Loss (ml): 30 Pathology: other (right colon) Condition: stable Disposition: floor Operative Findings: 1. No metastasis or colon lesions found 2. Hypervascularity of cecum/ileocecal mass, firm over 4 cm. 3. Anastomosis proximal to hepatic flexure 4. Specimen extracted via left upper port with 15-mm endocatch bag and no spillage
[2018-01-19 17:49] LABS: Glucose,Whole Blood 213 mg/dL (75-99)
--- NOTE | 2018-01-19 18:02 | P.OP ---
Date of Procedure: 01/19/18 Description of Procedure: SURGEON: GABRIELA GORDON MD Preoperative Diagnosis: 1. 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 Chronic iron deficiency anemia due to blood loss 3. Multiple myeloma 4. Personal history of prostate cancer 5. Diabetes type 2, [id number] 6. Ischemic cardiomyopathy with congestive heart failure 7. Iron deficiency anemia 8. Gastroesophageal reflux disease 9. History of supraventricular tachycardia 10. 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 Personal history of kidney stones 12. Personal history of skin cancer 13. Generalized debility Postoperative Diagnosis: 1. 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 Chronic iron deficiency anemia due to blood loss 3. Multiple myeloma 4. Personal history of prostate cancer 5. Diabetes type 2, [id number] 6. Ischemic cardiomyopathy with congestive heart failure 7. Iron deficiency anemia 8. Gastroesophageal reflux disease 9. History of supraventricular tachycardia 10. 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 Personal history of kidney stones 12. Personal history of skin cancer 13. Generalized debility Procedure(s) Performed: Robot-assisted daVinci Xi laparoscopic ileocolectomy with right hemicolectomy Anesthesia: GETA, local Surgeon: Gabriela Gordon Estimated Blood Loss (ml): 30 Pathology: other (Right colon) Condition: stable SPECIMENS REMOVED: terminal ileum, appendix, and right colon en bloc. COMPLICATIONS: None. Disposition: floor Operative Findings: 1. Tumor involving the cecum including ileocecal valve with proximal resection 5 cm distal section 5 cm 2. Anastomosis proximal to the splenic flexure 3. No evidence of peritoneal metastatic deposits or liver involvement 4. Incision is made along the upper abdomen with specimen extraction had left upper quadrant 5. Total rosalva 45-mm 7 used including blue load and white loads 6. Console time 154 minutes INDICATIONS: The patient is a 77-year-old male with personal history of malignant colorectal polyp on the ileocecal valve. He has personal history of multiple melanoma including recent metastatic workup of a computed tomography scan and PET scan. Surgical intervention with colon resection was described in detail. Benefits and risks, including infection, open surgery possibility for additional surgery was discussed at length. Informed consent was obtained. All questions of the patient and family were answered. DESCRIPTION: Earlier the patient had undergone a bowel prep using the enhanced colon recovery program. The patient was transferred to the operating room and placed in supine position. After general anesthetic, a toth catheter was placed. The abdomen was then prepped and draped in standard sterile fashion as Ioban was placed along the abdomen to minimize any contamination of skin floor. After a timeout protocol was performed, attention was then brought to the left upper quadrant whereby a 0 degree 5 mm laparoscopic trocar entry was performed. The abdominal cavity was entered and insufflated to 15 mmHg pressure, which he tolerated well. Diagnostic laparoscopy demonstrated no injury to bowel, viscera or mesentery. No metastatic or peritoneal deposits were identified. The liver was unremarkable. The tumor was identified along the cecum with hypervascularity. Next a robotic 8-mm trocar was placed along the right lateral abdominal wall, 15 -cm superior from the pelvis. A 8 mm port was placed along the right upper quadrant and another 8-mm port along the epigastrium. Ports were placed 8 cm apart from each other including 15-20 cm away from the target anatomy of the right pelvis. The 5-mm port was exchanged for a 12 mm robotic port. The patient was then placed in Trendelenburg position, at least 14. The robotic da Yeesnia XI system was primed and docked from the left side of the patient. Using atraumatic graspers and vessel sealer, the robotic system was docked and primed as described. Instruments were interchanged by the digital assistant including scissors, needle bicycle taxi driver, robotic stapler and vessel sealer. Next, attention was brought to identify the cecum. A stay suture using 0 silk was placed along the anterior serosa of the ascending colon including along the terminal ileum. The appendix was identified and used as a handle during the case. The terminal ileum and ascending colon mesentery was mobilized using a vessel sealer whereby the colon was marked and tagged. Using robot stapler 45 mm white load, the distal ileum was divided 5 cm proximal to the ileocecal valve. The mesentery of the ascending colon was mobilized towards the midline using a vessel sealer. Next, the ascending colon was divided using the robotic stapler 45 mm blue loads. The rest of the colon mesentery was mobilized using vessel sealer including using blunt dissection. The vascular pedicle of the ileocolic artery was controlled using 2 large PLASTIC clips distally and then divided proximally using a vessel sealer. The proximal colon and distal ileum was brought in a side to side anastomotic fashion after placing interrupted sutures along the proposed kalee-lumen using 3- 0 silk. A colotomy and enterotomy was prepared along both limbs along the antimesenteric border. The 8 mm trocar along the right upper quadrant was exchanged for a 12 mm port for stapler. Next, 45 mm blue stapler loads were fired to create the kalee-lumen. The kalee-lumen was reapproximated using 3-0 silk followed by 45 mm blue load for closure of the enterostomy. All needles were removed from the abdominal cavity. The robot was undocked. I re-scrubbed into the case. Via the 12 mm port of the left upper quadrant, the right colon was removed using a 15-mm Endo Catch bag after widening the skin incision to 3-cm. All sponges were removed from the abdominal cavity. No contamination had occurred throughout this portion of the case. The fascial defect was oversewn using 0 Vicryl and Nadya's. Next all pneumoperitoneum was evacuated from the abdominal cavity. The 8-mm trocar sites were reapproximated using 4-0 Monocryl in an interrupted subcuticular fashion. Local anesthetic was infiltrated to all wounds for postop analgesia. All incisions were also cleansed with diluted hydrogen peroxide. An Optifoam surgical dressing was placed over the left upper quadrant incision of the colon extraction site. Dermabond was applied to the rest of the skin incisions. The patient had tolerated the procedure well. The patient was extubated successfully. Intraoperative photos were reviewed with the patient's family who were overall pleased with the level of care. The patient was transferred to the postanesthesia care unit in stable condition.
[2018-01-19] MEDS ORDERED: INSULIN ASPART 100 UNIT/ML 1 ML 10 ML VIAL SQ ONE (18:35)
[2018-01-19] MEDS: metroNIDAZOLE-NS PMX 500 MG in SALINE 1 100ML.BAG IVPB SCH (19:54)
[2018-01-19] MEDS: FAMOTIDINE 20 MG/2 ML VIAL IV SCH (19:54)
[2018-01-19 21:26] LABS: Glucose,Whole Blood 150 mg/dL (75-99)
[2018-01-19] MEDS: D5-0.45% NACL WITH KCL 20MEQ/L 1,000 ML IV SCH (21:28)
[2018-01-20] MEDS: metroNIDAZOLE-NS PMX 500 MG in SALINE 1 100ML.BAG IVPB SCH ×3 (00:53→13:00)
[2018-01-20] MEDS ORDERED: diphenhydrAMINE 50 MG/ML 1 ML VIAL IVP PRN (03:55)
[2018-01-20 06:58] LABS: Glucose,Whole Blood 142 mg/dL (75-99)
[2018-01-20 07:23] LABS: Anion Gap 7 mmol/L; Blood Urea Nitrogen 20 mg/dL (9-20); Calcium 7.9 mg/dL (8.4-10.2); Carbon Dioxide 25 mmol/L (22-30); Chloride 106 mmol/L (98-107); Glucose 119 mg/dL (74-99); Potassium 4.4 mmol/L (3.5-5.1); Sodium 138 mmol/L (137-145)
[2018-01-20 07:59] LABS: Anisocytosis Slight; Basophils % (A) 0 %; Eosinophils % (A) 0 %; HCT 29.6 % (39.0-53.0); HGB 9.2 gm/dL (13.0-17.5); Hypochromasia Slight; Lymphocytes # (A) 0.6 k/uL (1.0-4.8); Lymphocytes % (A) 6 %; MCH 30.2 pg (25.0-35.0); MCHC 31.2 g/dL (31.0-37.0); MCV 96.9 fL (80.0-100.0); Macrocytosis Slight; Mean Platelet Volume 6.6; Monocytes # (A) 0.5 k/uL (0-1.0); Monocytes % (A) 5 %; Neutrophils # (A) 8.7 k/uL (1.3-7.7); Neutrophils % (A) 88 %; Platelet Count 261 k/uL (150-450); RBC 3.06 m/uL (4.30-5.90); RDW 17.2 % (11.5-15.5)
[2018-01-20] MEDS: INSULIN ASPART 100 UNIT/ML 1 ML 10 ML VIAL SQ SCH ×4 (08:50→20:47)
[2018-01-20] MEDS: LISINOPRIL 5 MG TAB PO SCH (08:54)
[2018-01-20] MEDS: METOPROLOL SUCCINATE (ER) 25 MG TAB.ER.24H PO SCH (08:58)
[2018-01-20] MEDS: AMIODARONE 200 MG TAB PO SCH (08:58)
[2018-01-20] MEDS: FAMOTIDINE 20 MG/2 ML VIAL IV SCH ×2 (08:58→19:42)
[2018-01-20] MEDS: ALVIMOPAN 12 MG CAPSULE PO SCH ×2 (08:58→19:42)
[2018-01-20] MEDS: SODIUM FERRIC GLUCONAT-SUCROSE 125 MG in SODIUM CHLORIDE 0.9% 100 ML IVPB SCH (08:58)
[2018-01-20] MEDS: D5-0.45% NACL WITH KCL 20MEQ/L 1,000 ML IV SCH ×4 (08:59→22:52)
[2018-01-20 11:24] LABS: Glucose,Whole Blood 142 mg/dL (75-99)
--- NOTE | 2018-01-20 11:51 | P.PN ---
Progress Note - Text Progress Note Date: 01/20/18 77-year-old male status post robotic-assisted lapse Colectomy postop day #1, epidural catheter day #2. Patient doing well VAS 1/10, no complaints of motor or sensory deficits. Epidural site looks clean dry and intact. Patient has a Jiang catheter in place and can be removed per anesthesia if required. Tolerating liquid diet. Plan: Continue epidural at current settings
[2018-01-20] MEDS: HEPARIN SODIUM,PORCINE 5,000 UNIT/ML 1 ML VIAL SQ SCH ×2 (13:00→22:50)
[2018-01-20] MEDS: LACTATED RINGERS 1,000 ML IV SCH (14:18)
[2018-01-20 17:10] LABS: Glucose,Whole Blood 121 mg/dL (75-99)
[2018-01-20 17:22] LABS: Hemoglobin A1C 5.3 % (4.0-6.0)
--- NOTE | 2018-01-20 18:59 | P.PN ---
Subjective Progress Note Date: 01/20/18 Principal diagnosis: He is doing very well, s/p robotic colectomy. He is passing flatus and tolerating diet. His pain is well controlled. Objective - Vital Signs Vital signs: Vital Signs Temp 98.5 F 01/20/18 15:05 Pulse 75 01/20/18 15:05 Resp 16 01/20/18 15:05 BP 96/46 01/20/18 15:05 Pulse Ox 95 01/20/18 15:05 Intake & Output 01/19/18 01/20/18 01/20/18 18:59 06:59 18:59 Intake Total 1612 1200 540 Output Total 330 1500 700 Balance 1282 -300 -160 Weight 90.891 kg Intake: IV 1612 Intake, IV Titration 1100 Amount D5-0.45% NaCl with KCl 500 20Meq/l 1,000 ml @ 125 mls/hr IV .Q8H [facility] Rx#: [id number] Lactated Ringers 1,000 ml 600 @ 20 mls/hr IV .Q24H [facility] Rx#:[id number] Oral 100 540 Output: Urine 300 1500 700 Uretheral (Toth) 700 Estimated Blood Loss 30 Other: Voiding Method Indwelling Catheter Indwelling Catheter - Exam ABDOMEN: Incisions clean, dry and intact. Non-tender. - Labs CBC & Chem 7: 01/20/18 06:42 01/20/18 06:42 Labs: Abnormal Lab Results - Last 24 Hours (Table) 01/19/18 01/20/18 01/20/18 Range/Units 21:23 06:42 06:42 RBC 3.06 L (4.30-5.90) m/uL Hgb 9.2 L (13.0-17.5) gm/dL Hct 29.6 L (39.0-53.0) % RDW 17.2 H (11.5-15.5) % Neutrophils # 8.7 H (1.3-7.7) k/uL Lymphocytes # 0.6 L (1.0-4.8) k/uL Glucose 119 H (74-99) mg/dL POC Glucose (mg/dL) 150 H (75-99) mg/dL Calcium 7.9 L (8.4-10.2) mg/dL 01/20/18 01/20/18 01/20/18 Range/Units 06:56 11:22 17:06 RBC (4.30-5.90) m/uL Hgb (13.0-17.5) gm/dL Hct (39.0-53.0) % RDW (11.5-15.5) % Neutrophils # (1.3-7.7) k/uL Lymphocytes # (1.0-4.8) k/uL Glucose (74-99) mg/dL POC Glucose (mg/dL) 142 H 142 H 121 H (75-99) mg/dL Calcium (8.4-10.2) mg/dL Assessment and Plan (1) Cecal neoplasm Current Visit: No Status: Acute Code(s): D49.0 - NEOPLASM OF UNSPECIFIED BEHAVIOR OF DIGESTIVE SYSTEM SNOMED Code(s): 080826936 Plan: 1. Discontinue toth and epidural 2. Flomax for urinary retention. 3. Regular diet tomorrow. 4. Discharge to [facility] tomorrow.
[2018-01-20] MEDS ORDERED: TAMSULOSIN 0.4 MG CAP.ER.24H PO STA (19:03)
[2018-01-20] MEDS: ceFAZolin IN SWFI 2 GM/20 ML SYRINGE IVP SCH (19:42)
[2018-01-20 19:55] LABS: Glucose,Whole Blood 101 mg/dL (75-99)
[2018-01-21] MEDS: ceFAZolin IN SWFI 2 GM/20 ML SYRINGE IVP SCH ×2 (05:25→12:04)
--- NOTE | 2018-01-21 06:39 | P.PN ---
Progress Note - Text 77-year-old male status post robotic-assisted lapse Colectomy postop day #2, epidural catheter day #3. Epidural cath removed this morning. Patient doing well. VAS 3/10
[2018-01-21 06:50] LABS: Glucose,Whole Blood 121 mg/dL (75-99)
[2018-01-21 07:08] LABS: Anisocytosis Slight; Basophils % (A) 0 %; Eosinophils % (A) 0 %; HCT 28.8 % (39.0-53.0); HGB 9.1 gm/dL (13.0-17.5); Hypochromasia Slight; Lymphocytes # (A) 0.9 k/uL (1.0-4.8); Lymphocytes % (A) 9 %; MCH 30.4 pg (25.0-35.0); MCHC 31.6 g/dL (31.0-37.0); MCV 96.1 fL (80.0-100.0); Macrocytosis Slight; Mean Platelet Volume 6.5; Monocytes # (A) 0.7 k/uL (0-1.0); Monocytes % (A) 7 %; Neutrophils # (A) 8.1 k/uL (1.3-7.7); Neutrophils % (A) 83 %; Platelet Count 230 k/uL (150-450); RBC 2.99 m/uL (4.30-5.90); WBC 9.8 k/uL (3.8-10.6)
[2018-01-21 07:22] LABS: Anion Gap 3 mmol/L; Blood Urea Nitrogen 21 mg/dL (9-20); Carbon Dioxide 25 mmol/L (22-30); Chloride 105 mmol/L (98-107); Glucose 108 mg/dL (74-99); Potassium 4.2 mmol/L (3.5-5.1); Sodium 133 mmol/L (137-145)
[2018-01-21] MEDS ORDERED: TAMSULOSIN 0.4 MG CAP.ER.24H PO SCH (08:30)
[2018-01-21] MEDS: HYDROcodone/APAP 5-325MG 1 EACH TAB PO PRN ×2 (08:32→15:31)
[2018-01-21] MEDS: METOPROLOL SUCCINATE (ER) 25 MG TAB.ER.24H PO SCH (08:34)
[2018-01-21] MEDS: FAMOTIDINE 20 MG/2 ML VIAL IV SCH (08:34)
[2018-01-21] MEDS: AMIODARONE 200 MG TAB PO SCH (08:34)
[2018-01-21] MEDS: ALVIMOPAN 12 MG CAPSULE PO SCH (08:34)
[2018-01-21] MEDS: INSULIN ASPART 100 UNIT/ML 1 ML 10 ML VIAL SQ SCH ×2 (08:35→12:04)
[2018-01-21] MEDS: LISINOPRIL 5 MG TAB PO SCH (08:35)
[2018-01-21 08:50] VITALS: PULSE 60
[2018-01-21] MEDS: D5-0.45% NACL WITH KCL 20MEQ/L 1,000 ML IV SCH (09:08)
[2018-01-21] MEDS: SODIUM FERRIC GLUCONAT-SUCROSE 125 MG in SODIUM CHLORIDE 0.9% 100 ML IVPB SCH (10:22)
[2018-01-21 11:10] LABS: Glucose,Whole Blood 122 mg/dL (75-99)
--- NOTE | 2018-01-21 11:12 | P.PN ---
Subjective Principal diagnosis: Patient is sitting in a chair. Mild abdominal discomfort but no chest discomfort no shortness of breath he appears stable from a cardiacstandpoint On examination he is afebrile 97 pounds 9F pulse rate in the 60s blood pressure 117/66. His mercury Breath sounds are reduced bilaterally no rhonchi no crackles Heart sounds S1-S2 normal Abdomen is tender No hepatojugular reflux Suggest Continue current medications without any changes and continue postop surgical management Intracardiac medications Please call us as needed Objective - Vital Signs Vital signs: Vital Signs Temp 97.9 F 01/21/18 08:49 Pulse 60 01/21/18 08:49 Resp 18 01/21/18 08:49 BP 117/66 01/21/18 08:49 Pulse Ox 93 L 01/21/18 08:49 Intake & Output 01/20/18 01/21/18 01/21/18 18:59 06:59 18:59 Intake Total 540 600 240 Output Total 700 1300 Balance -160 -700 240 Intake: Intake, IV Titration 600 Amount Sodium Ferric Gluconat- 600 Sucrose 125 mg In Sodium Chloride 0.9% 100 ml @ 100 mls/hr IVPB DAILY [facility] Rx#:[id number] Oral 540 240 Output: Urine 700 1300 Uretheral (Jiang) 700 50 Other: Voiding Method Indwelling Catheter Indwelling Catheter # Voids 1 1 # Bowel Movements 2 - Labs CBC & Chem 7: 01/21/18 06:39 01/21/18 06:39 Labs: Abnormal Lab Results - Last 24 Hours (Table) 01/20/18 01/20/18 01/20/18 Range/Units 11:22 17:06 19:52 RBC (4.30-5.90) m/uL Hgb (13.0-17.5) gm/dL Hct (39.0-53.0) % RDW (11.5-15.5) % Neutrophils # (1.3-7.7) k/uL Lymphocytes # (1.0-4.8) k/uL Sodium (137-145) mmol/L BUN (9-20) mg/dL Glucose (74-99) mg/dL POC Glucose (mg/dL) 142 H 121 H 101 H (75-99) mg/dL Calcium (8.4-10.2) mg/dL 01/21/18 01/21/1818 Range/Units 06:39 06:39 06:48 RBC 2.99 L (4.30-5.90) m/uL Hgb 9.1 L (13.0-17.5) gm/dL Hct 28.8 L (39.0-53.0) % RDW 17.0 H (11.5-15.5) % Neutrophils # 8.1 H (1.3-7.7) k/uL Lymphocytes # 0.9 L (1.0-4.8) k/uL Sodium 133 L (137-145) mmol/L BUN 21 H (9-20) mg/dL Glucose 108 H (74-99) mg/dL POC Glucose (mg/dL) 121 H (75-99) mg/dL Calcium 8.0 L (8.4-10.2) mg/dL 01/21/18 Range/Units 11:08 RBC (4.30-5.90) m/uL Hgb (13.0-17.5) gm/dL Hct (39.0-53.0) % RDW (11.5-15.5) % Neutrophils # (1.3-7.7) k/uL Lymphocytes # (1.0-4.8) k/uL Sodium (137-145) mmol/L BUN (9-20) mg/dL Glucose (74-99) mg/dL POC Glucose (mg/dL) 122 H (75-99) mg/dL Calcium (8.4-10.2) mg/dL
[2018-01-21] MEDS: HEPARIN SODIUM,PORCINE 5,000 UNIT/ML 1 ML VIAL SQ SCH (12:03)
--- NOTE | 2018-01-21 12:43 | P.DS ---
Providers Date of admission: 01/19/18 10:41 Expected date of discharge: 01/21/18 Attending physician: Jeannie Gordon Consults: 01/19/18 06:49 Consult Physician Urgent Consulting Provider: William Leon Consult Reason/Comments: preop clerance ,pateints arriving to [facility] pre op at 11:30 Do you want consulting provider notified?: Yes Primary care physician: Solo Loaiza - Discharge Diagnosis(es) (1) Cecal neoplasm Current Visit: No Status: Acute Hospital Course: Postoperative Diagnosis: 1. 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 Chronic iron deficiency anemia due to blood loss 3. Multiple myeloma 4. Personal history of prostate cancer 5. Diabetes type 2, [id number] 6. Ischemic cardiomyopathy with congestive heart failure 7. Iron deficiency anemia 8. Gastroesophageal reflux disease 9. History of supraventricular tachycardia 10. 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 Personal history of kidney stones 12. Personal history of skin cancer 13. Generalized debility COURSE: The patient is a 77-year-old gentleman with a history of a cecal neoplasm. As a result, he underwent robotic-assisted ileocolectomy with right hemicolectomy. He was tolerating diet postprocedure. He was urinating well. Patient will follow-up in the office in 2 weeks. Procedures: Procedure(s) Performed: Robot-assisted daVinci Xi laparoscopic ileocolectomy with right hemicolectomy Anesthesia: SHADI local Surgeon: Jeannie Gordon Estimated Blood Loss (ml): 30 Pathology: other (Right colon) Condition: stable SPECIMENS REMOVED: terminal ileum, appendix, and right colon en bloc. COMPLICATIONS: None. Disposition: floor Operative Findings: 1. Tumor involving the cecum including ileocecal valve with proximal resection 5 cm distal section 5 cm 2. Anastomosis proximal to the splenic flexure 3. No evidence of peritoneal metastatic deposits or liver involvement 4. Incision is made along the upper abdomen with specimen extraction had left upper quadrant 5. Total rosalva 45-mm 7 used including blue load and white loads 6. Console time 154 minutes Patient Condition at Discharge: Stable Plan - Discharge Summary Discharge Rx Participant: No New Discharge Prescriptions: Continue Omeprazole 20 mg PO QAM Acyclovir [Zovirax] 400 mg PO BID Potassium Chloride ER [K-Dur 20] 20 meq PO QAM Furosemide [Lasix] 40 mg PO BID Dexamethasone 40 mg PO TU Glimepiride [Amaryl] 1 mg PO BID Dulaglutide [Trulicity] 0.75 mg SQ WE Lisinopril [Zestril] 5 mg PO QAM Amiodarone [Cordarone] 200 mg PO DAILY Metoprolol Succinate (ER) [Toprol XL] 25 mg PO QAM ALPRAZolam [Xanax] 0.25 mg PO TID PRN #12 tab PRN Reason: Anxiety Bisacodyl [Dulcolax] 1 supp RECTAL DAILY PRN PRN Reason: Constipation HYDROcodone/APAP 7.5-325MG [[place] 7.5-325] 1 tab PO Q8H PRN PRN Reason: Pain Ferrous Sulfate [Iron] 325 mg PO DAILY Discharge Medication List Omeprazole 20 mg PO QAM 08/03/17 [History] Acyclovir [Zovirax] 400 mg PO BID 09/24/17 [History] Dexamethasone 40 mg PO TU 09/24/17 [History] Furosemide [Lasix] 40 mg PO BID 09/24/17 [History] Potassium Chloride ER [K-Dur 20] 20 meq PO QAM 09/24/17 [History] Dulaglutide [Trulicity] 0.75 mg SQ WE 11/07/17 [History] Glimepiride [Amaryl] 1 mg PO BID 11/07/17 [History] Amiodarone [Cordarone] 200 mg PO DAILY 12/22/17 [History] Lisinopril [Zestril] 5 mg PO QAM 12/22/17 [History] Metoprolol Succinate (ER) [Toprol XL] 25 mg PO QAM 12/22/17 [History] ALPRAZolam [Xanax] 0.25 mg PO TID PRN #12 tab 12/27/17 [Rx] Bisacodyl [Dulcolax] 1 supp RECTAL DAILY PRN 01/13/18 [History] HYDROcodone/APAP 7.5-325MG [[place] 7.5-325] 1 tab PO Q8H PRN 01/13/18 [History] Ferrous Sulfate [Iron] 325 mg PO DAILY 01/14/18 [History] Follow up Appointment(s)/Referral(s): Jeannie Gordon MD [STAFF PHYSICIAN] - 02/01/18 Patient Instructions/Handouts: Colectomy Diet (DC) Activity/Diet/Wound Care/Special Instructions: November shower. No bath tub soaks. Remove dressing January 24. Apply hydrogen peroxide to incisions after showering. No lifting over 4 pounds in 4 weeks. Discharge Disposition: HOME SELF-CARE
[2018-01-21 14:12] VITALS: BP 99/59; RESP 16; TEMP 97.6
[2018-01-21] MEDS ORDERED: FAMOTIDINE 20 MG TAB PO SCH (21:00)
== END 2018-01-21 17:06 | DRG 330 ==
LOC: 2ORMAIN 10:41 → 3SUR 17:15
PROVIDERS: ADMIT Surgery Plastic and Reconstructive Surgery; ATTEND Surgery Plastic and Reconstructive Surgery
PROC: 8E0W4CZ Robotic Assisted Procedure of Trunk Region, Percutaneous Endoscopic Approach (ICD-10-PCS; 2018-01-19)
PROC: 0DTF0ZZ Resection of Right Large Intestine, Open Approach (ICD-10-PCS; principal; 2018-01-19 13:00)
DX: C18.0 Malignant neoplasm of cecum (principal); C90.00 Multiple myeloma not having achieved remission; K92.2 Gastrointestinal hemorrhage, unspecified; D50.0 Iron deficiency anemia secondary to blood loss (chronic); E11.9 Type 2 diabetes mellitus without complications; I11.0 Hypertensive heart disease with heart failure; I25.5 Ischemic cardiomyopathy; I48.0 Paroxysmal atrial fibrillation; K21.9 Gastro-esophageal reflux disease without esophagitis; M19.90 Unspecified osteoarthritis, unspecified site; F32.9 Major depressive disorder, single episode, unspecified; I50.9 Heart failure, unspecified; Z79.899 Other long term (current) drug therapy; Z85.46 Personal history of malignant neoplasm of prostate; Z85.820 Personal history of malignant melanoma of skin; Z87.442 Personal history of urinary calculi; Z87.01 Personal history of pneumonia (recurrent); Z92.21 Personal history of antineoplastic chemotherapy
CPT/HCPCS: 80048; 80053; 83036; 85025; 86850; 86900; 86901; 93005

== ENCOUNTER → 2019-01-12 | Outpatient (CLI) | payer MEDICARE ==
--- NOTE | 2019-01-12 12:38 | XR ---
EXAMINATION TYPE: XR shoulder complete LT DATE OF EXAM: 01/12/2019 CLINICAL HISTORY: Chronic left shoulder pain TECHNIQUE: Three views of the left shoulder are obtained. COMPARISON: None. FINDINGS: There is no acute fracture/dislocation evident in the left shoulder. The acromioclavicula r and glenohumeral joint spaces appear narrowed with protuberant large marginal osteophytes. These pr oject downward of the acromioclavicular joint. Large loose joint bodies are seen measuring 1.9 cm eac h and axillary recess. The visualized ribs are intact and unremarkable. IMPRESSION: There is no acute fracture or dislocation in the left shoulder. Advanced acromioclavicul ar and glenohumeral arthropathy.
== END | disposition home or self-care (01) ==
LOC: RADXRMAIN 11:43
PROVIDERS: ATTEND Physician Assistant
DX: M19.012 Primary osteoarthritis, left shoulder (principal)

== ENCOUNTER 2019-02-17 09:26 | Emergency (ER) | payer MEDICARE ==
[2019-02-17] MEDS ORDERED: MORPHINE SULFATE 4 MG/ML SYRINGE IM STA (10:10)
--- NOTE | 2019-02-17 10:34 | ED ---
General Adult HPI - General Chief complaint: Extremity Problem,Nontraumatic Stated complaint: Lt shoulder pain Time Seen by Provider: 02/17/19 09:59 Source: patient, RN notes reviewed, old records reviewed Mode of arrival: wheelchair Limitations: no limitations - History of Present Illness Initial comments: 78-year-old male patient with past medical history of multiple myeloma with bone metastases presents to the left shoulder pain. Patient reports that he has had this pain for approximately 3 weeks. Patient has been following up with oncologist, was scheduled for MRI of shoulder yesterday however did not make appointment. Patient reports that his baseline left shoulder pain is not being controlled with [place]. Denies any chest pain or shortness of breath. Denies any recent falls or trauma. Patient reports that he did not take his blood pressure medication this morning. Systemic: Pt denies fatigue, fever/chills, rash. Pt denies weakness, night sweats, weight loss. Neuro: Pt denies headache, visual disturbances, syncope or pre-syncope. HEENT: Pt denies ocular discharge or irritation, otalgia, rhinorrhea, pharyngitis or notable lymphadenopathy. Cardiopulmonary: Pt denies chest pain, SOB, heart palpitations, dyspnea on exertion. Abdominal/GI: Pt denies abdominal pain, n/v/d. : Pt denies dysuria, burning w/ urination, frequency/urgency. Denies new onset urinary or bowel incontinence. MSK: Pt denies myalgia, loss of strength or function in extremities. Neuro: Pt denies new onset weakness, paresthesias. - Related Data Home Medications Medication Instructions Recorded Confirmed Omeprazole 20 mg PO QAM 08/03/17 01/19/18 Acyclovir [Zovirax] 400 mg PO BID 09/24/17 01/19/18 Dexamethasone 40 mg PO TU 09/24/17 01/19/18 Furosemide [Lasix] 40 mg PO BID 09/24/17 01/19/18 Potassium Chloride ER [K-Dur 20] 20 meq PO QAM 09/24/17 01/19/18 Dulaglutide [Trulicity] 0.75 mg SQ WE 11/07/17 01/19/18 Glimepiride [Amaryl] 1 mg PO BID 11/07/17 01/19/18 Amiodarone [Cordarone] 200 mg PO DAILY 12/22/17 01/19/18 Lisinopril [Zestril] 5 mg PO QAM 12/22/17 01/19/18 Metoprolol Succinate (ER) [Toprol 25 mg PO QAM 12/22/17 01/19/18 XL] Bisacodyl [Dulcolax] 1 supp RECTAL DAILY PRN 01/13/18 01/19/18 HYDROcodone/APAP 7.5-325MG [[place] 1 tab PO Q8H PRN 01/13/18 01/19/18 7.5-325] Ferrous Sulfate [Iron] 325 mg PO DAILY 01/14/18 01/19/18 Previous Rx's Medication Instructions Recorded ALPRAZolam [Xanax] 0.25 mg PO TID PRN #12 tab 12/27/17 Allergies Allergy/AdvReac Type Severity Reaction Status Date / Time No Known Allergies Allergy Verified 02/17/19 09:32 Review of Systems ROS Statement: Those systems with pertinent positive or pertinent negative responses have been documented in the HPI. ROS Other: All systems not noted in ROS Statement are negative. Past Medical History Past Medical History: Cancer, Heart Failure, Hypertension, Osteoarthritis (OA), Pneumonia, Supraventricular Tachycardia (SVT) Additional Past Medical History / Comment(s): Multiple myeloma stated has been off chemo for 3 months,, prostate cancer(sx only), skin cancer, hypertension, degenerative arthritis, episodes of SVT a discussed above, nephrolithiasis, had a shingles vaccine-unable to verify date. History of Any Multi-Drug Resistant Organisms: None Reported Past Surgical History: Heart Catheterization, Hernia Repair, Prostate Surgery Additional Past Surgical History / Comment(s): rt wrist ganglion cysts removed, prostatectomy Past Anesthesia/Blood Transfusion Reactions: No Reported Reaction Past Psychological History: No Psychological Hx Reported Smoking Status: Never smoker Past Alcohol Use History: None Reported Past Drug Use History: None Reported - Past Family History Father History Unknown: Yes Mother History Unknown: Yes General Exam - General Exam Comments Initial Comments: Constitutional: NAD, AOX3, Pt has pleasant affect. HEENT: NC/AT, trachea midline, neck supple, no lymphadenopathy. Posterior pharynx non erythematous, without exudates. External ears appear normal, without discharge. Mucous membranes moist. Eyes PERRLA, EOM intact. There is no scleral icterus. No pallor noted. Cardiopulmonary: RRR, no murmurs, rubs or gallops, no JVD noted. Lungs CTAB in anterior and posterior viramontes. No peripheral edema. Abdominal exam: Abdomen soft and non-distended. Abdomen non-tender to palpation in all 4 quadrants. Bowel sounds active in LLQ. No hepatosplenomegaly. No ecchymosis Neuro: CN II-XII grossly intact. No nuchal rigidity. No raccon eyes, no cano sign, no hemotympanum. No cervical spinal tenderness. MSK: Left shoulder nontender to palpation, limited range of motion secondary to pain.. No posterior calf tenderness bilaterally, homans sign negative bilaterally. Posterior tibialis and radial pulse +2 bilaterally. Sensation intact in upper and lower extremities. Full active ROM in lower extremities, 5/5 stregnth. Limitations: no limitations Course Vital Signs 02/17/19 09:32 Temperature 97.4 F L Pulse Rate 77 Respiratory 16 Rate Blood Pressure 192/93 O2 Sat by Pulse 98 Oximetry Medical Decision Making - Medical Decision Making 78-year-old male patient with past medical history of multiple myeloma with bone metastases presents to the left shoulder pain. Patient reports that he has had this pain for approximately 3 weeks. Patient has been following up with oncologist, was scheduled for MRI of shoulder yesterday however did not make appointment. Patient reports that his baseline left shoulder pain is not being controlled with [place]. Denies any chest pain or shortness of breath. Denies any recent falls or trauma. Patient reports that he did not take his blood pressure medication this morning. Patient vital signs blood hypertension, patient will take blood pressure medication home. And monitor. Physicalexam displayed: Left shoulder nontender to palpation, limited range of motion secondary to pain. Plain films displayed acute nondisplaced transversely oriented left proximal humeral diaphyseal fracture, pathologic. Arthropathy of left shoulder is also seen. Patient placed in sling, will be discharged with follow-up with oncologist as well as orthopedics. Return precautions discussed. Case discussed with Dr. Castaneda. Disposition Clinical Impression: Humerus fracture Disposition: HOME SELF-CARE Condition: Stable Instructions (If sedation given, give patient instructions): Arm Fracture in Adults (ED) Additional Instructions: Patient to adhere to previously discussed treatment plan and will take medication(s) as directed. Patient to follow up with PCP in 1-2 days. Patient to return to ED if symptoms do not improve. Follow-up with oncologist and orthopedic consult today. Return to ER if condition worsens. Wear sling. Take blood pressure medication at home. Is patient prescribed a controlled substance at d/c from ED?: No Referrals: Solo Loaiza MD [Primary Care Provider] - 1-2 days Joni Melo DO [Doctor of Osteopathic Medicine] - 1-2 days
--- NOTE | 2019-02-17 11:15 | XR ---
EXAMINATION TYPE: XR shoulder complete LT DATE OF EXAM: 02/17/2019 CLINICAL HISTORY: Extreme left shoulder pain and limited range of motion TECHNIQUE: Three views of the left shoulder are obtained. COMPARISON: None. FINDINGS: There is an acute transversely oriented nondisplaced, noncomminuted fracture through the pr oximal diaphysis of the left humerus. There is mottled bone marrow of the left shoulder and advanced arthropathy of the left shoulder. In this patient with history of prostate cancer pathologic or less likely osteoporotic fracture should be considered. Remodeling of the acromion is seen. Visualized lef t ribs appear grossly unremarkable. IMPRESSION: Acute nondisplaced transversely oriented left proximal humeral diaphyseal fracture appear s as a pathologic fracture in this patient with a history of prostate cancer. Arthropathy of the left shoulder is also seen with remodeling of the shoulder joint.
[2019-02-17] MEDS ORDERED: MORPHINE SULFATE 2 MG/ML SYRINGE IM STA (11:41)
[2019-02-17] MEDS ORDERED: ACET/COD 300 MG/30 MG STARTER PACK 6 TAB BTL PO STA (11:41)
[2019-02-17 12:01] VITALS: BP 168/88; PULSE 70; RESP 18; TEMP 97.5
== END 2019-02-17 12:01 | disposition home or self-care (01) ==
LOC: EC 09:26
DX: M84.412A Pathological fracture, left shoulder, initial encounter for fracture (principal); M12.812 Other specific arthropathies, not elsewhere classified, left shoulder; I11.0 Hypertensive heart disease with heart failure; I50.9 Heart failure, unspecified; Z79.84 Long term (current) use of oral hypoglycemic drugs; Z79.899 Other long term (current) drug therapy; Z85.79 Personal history of other malignant neoplasms of lymphoid, hematopoietic and related tissues; Z85.46 Personal history of malignant neoplasm of prostate; Z85.828 Personal history of other malignant neoplasm of skin; Z85.830 Personal history of malignant neoplasm of bone; Z90.79 Acquired absence of other genital organ(s); Z95.1 Presence of aortocoronary bypass graft
CPT/HCPCS: 73030; 99284; 96372 ×2; J2270 ×2

== ENCOUNTER → 2019-02-25 | Outpatient (CLI) | payer MEDICARE ==
--- NOTE | 2019-02-28 08:48 | PE ---
EXAMINATION TYPE: PET CT fusion whole body DATE OF EXAM: 02/25/2019 COMPARISON: CT abdomen and pelvis December 24, 2017. CT chest November 06, 2017. Older CTs. Left shoulder x-ray February 17, 2019. HISTORY: Multiple myeloma originally diagnosed colon per patient January 2018 completed chemotherapy in January. TECHNIQUE: Following the intravenous administration of 11.882 mCi of F-18 FDG, whole body images are performed from the top of skull to the bottom of feet. Images are reviewed on the computer in the c oronal, axial, and sagittal planes. Reconstructed rotating images are created on independent worksta tion and reviewed on the computer. A noncontrast CT is performed in conjunction with the PET scan. SCAN: Subsequent Scan FINDINGS: HEAD AND NECK: No areas of suspicious hypermetabolic uptake. CHEST, MEDIASTINUM, AND HILAR REGION: Corresponding to x-ray there is hypermetabolic uptake in a path ologic fracture proximal to mid diaphysis left humerus with soft tissue component, max SUV axial imag e 115 is 19.07. No areas of suspicious hypermetabolic uptake in the thorax are otherwise identified. ABDOMEN AND PELVIS: No areas of suspicious hypermetabolic uptake. OSSEOUS STRUCTURES: There is a destructive lesion with soft tissue component at left third rib articu lation with transverse process axial image 111, max SUV is 5.56. There is hypermetabolic 1.8 cm lytic lesion involving the left posterior L1 vertebra axial image 194, max SUV is 12.55. LOWER EXTREMITIES: No areas of suspicious hypermetabolic uptake. OTHER CT: Moderate calcified plaque bilateral carotid bulb level is present. Cardiomegaly with small to moderate-sized pericardial effusion. There is moderate three-vessel mireles ry artery calcification which is noted lack of underlying coronary artery disease. Gallbladder has distended margins. There is prominent 12 mm calculus centrally in the left kidney adj acent to a simple appearing 2.8 cm cyst. Surgical sutures small bowel loop right lower quadrant extension 227 is noted. Prostate is surgically absent. Moderate calcified plaque of the aorta extends into branch vessels. Fairly severe multilevel spurring of the spine. Fairly severe multilevel facet arthropathy in the lum bar spine. Spurring at bilateral sacroiliac joints. Moderate to advanced narrowing of both hip joints . IMPRESSION: Myeloma involvement left proximal to mid humerus, left posterior third rib at articulatio n with transverse process, and left posterior L1 vertebral body level all are present.
== END | disposition home or self-care (01) ==
LOC: RADPETMAIN 13:10
PROVIDERS: ATTEND Internal Medicine Hematology & Oncology
DX: C90.00 Multiple myeloma not having achieved remission (principal); C18.2 Malignant neoplasm of ascending colon; Z92.21 Personal history of antineoplastic chemotherapy
CPT/HCPCS: 78816; A9552